=== PATIENT | male | born 1945 | race Caucasian/White ===

== ENCOUNTER 2017-01-13 15:23 | Emergency (ER) | payer MEDICARE, BC ==
[2017-01-13] MEDS ORDERED: diphenhydrAMINE 50 MG/ML SDV IVPUSH ONE (15:56)
[2017-01-13] MEDS ORDERED: Sodium Chloride 0.9% 1,000 ML IV ONE (15:56)
[2017-01-13] MEDS ORDERED: Metoclopramide 10 MG/2 ML SDV IVPUSH ONE (15:56)
[2017-01-13] MEDS ORDERED: Sodium Chloride 0.9% 10 ML Syringe FLUSH PRN (15:56)
--- NOTE | 2017-01-13 16:31 | CT ---
Head CT Technique: Multiple axial sections through the brain were obtained. Intravenous contrast was not utilized. Comparison: Previous head CT study of 04/09/15 and MRI brain of 04/15/15. Findings: Ventricles along with basal cisterns and sulci over the convexities are moderately prominent. Minimal diminished density is noted within the periventricular white matter compatible with small vessel ischemic demyelination change. 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 No other abnormal parenchymal densities are seen. No evidence of intracranial hemorrhage. No midline shift or mass effect is seen. Minimal foreign body or calcification seen within the soft tissues of the forehead which is stable. Bone window settings were reviewed which shows minimal mucosal thickening within the left ethmoid sinus which is incidental. No acute calvarial abnormality is seen. Impression: 1. Senescent change as noted above. Findings are similar to prior head CT exam. 2. Several incidental findings as noted above. 3. No acute intracranial abnormality is identified on noncontrast head CT study. Diagnostic code #3
--- NOTE | 2017-01-13 16:36 | EDM.PDOC ---
ED HPI GENERAL MEDICAL PROBLEM - General Chief Complaint: Headache Stated Complaint: HEADACHE/DIZZY/NAUSEA Time Seen by Provider: 01/13/17 16:26 Source of Information: Reports: Patient History Limitations: Reports: No Limitations - History of Present Illness INITIAL COMMENTS - FREE TEXT/NARRATIVE: 71-year-old male presents for evaluation and treatment of a headache. Reports that the headache started today. He reports the headache is a 10 out of 10. Reports it is generalized and involves his entire head and behind his eyes. States that he's had headaches on and off for the last few days but this is much worse than normal. Reports associated symptoms of dizziness, nausea and vomiting. Has not noticed any positional component to the headache. No worsening with lights or sounds. Reports blurry vision. Denies any double vision or fevers. He reports feeling slightly diaphoretic and a "little chilled. " States he has been coughing lately. His is concerned that he has influenza. Has not had an influenza vaccine this year. Denies any recent travel. Patient is currently on an antibiotic for his upper respiratory symptoms. the patient has a history of CLL. He is been seen the oncologist at [place]. No recent changes to medications. Onset: Today Location: Reports: Head Associated Symptoms: Reports: Cough. 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 Headache Pain Score (Numeric/FACES): 10 - Related Data Allergies Allergy/AdvReac Type Severity Reaction Status Date / Time No Known Allergies Allergy Verified 01/13/17 15:33 Home Meds: Home Meds LORazepam [Ativan] 0.5 mg PO BID PRN 01/27/15 [History] Multivitamin with Minerals [Multiple Vitamin] 1 tab PO DAILY 01/27/15 [History] Omeprazole [Prilosec] 20 mg PO DAILY 01/27/15 [History] Venlafaxine [Effexor XR] 150 mg PO DAILY 01/27/15 [History] Ibrutinib [Imbruvica] 1 tab PO DAILY 01/01/16 [History] Allopurinol [Zyloprim] 300 mg PO DAILY 01/13/17 [History] Cephalexin 500 mg PO TID 01/13/17 [History] Sulfamethoxazole/Trimethoprim [Bactrim Ds Tablet] 1 tab PO TID 01/13/17 [History ] Triamcinolone Acetonide [Triamcinolone Acetonide 0.1% Oint] 1 applic TOP BID [History] Past Medical History Oncologic (Cancer) History: Reports: Other (See Below) Other Oncologic History: CLL Social & Family History - Tobacco Use Smoking Status *Q: Never Smoker Years of Tobacco use: 30 Used Tobacco, but Quit: Yes Month Tobacco Last Used: 6 yrs Second Hand Smoke Exposure: No - Caffeine Use Caffeine Use: Reports: Coffee - Recreational Drug Use Recreational Drug Use: No ED ROS GENERAL - Review of Systems Review Of Systems: See Below Constitutional: Reports: Diaphoresis. Denies: Fever HEENT: Reports: Vision Change (reports blurry vision; no double vision) GI/Abdominal: Reports: Nausea, Vomiting Neurological: Reports: Dizziness, Headache. Denies: Syncope - Physical Exam Exam: See Below Exam Limited By: No Limitations General Appearance: Alert, WD/WN, No Apparent Distress Eye Exam: Bilateral Eye: PERRL Ears: Normal External Exam, Normal Canal, Hearing Grossly Normal, Normal TMs Nose: Normal Inspection Throat/Mouth: Normal Inspection, Normal Lips, Normal Voice, No Airway Compromise Respiratory/Chest: No Respiratory Distress, Lungs Clear, Normal Breath Sounds Cardiovascular: Normal Peripheral Pulses, Regular Rate, Rhythm, No Murmur Neuro Exam (Abbreviated): Alert, Oriented, Normal Cognition Psychiatric: Normal Affect, Normal Mood Skin Exam: Warm, Dry, Normal Color Course - Vital Signs Last Recorded V/S: Last Vital Signs Temp 36.1 C 01/13/17 15:28 Pulse 68 01/13/17 18:40 Resp 18 01/13/17 18:40 BP 121/78 01/13/17 18:40 Pulse Ox 95 01/13/17 18:40 - Orders/Labs/Meds Orders: Active Orders 24 hr Category Date Time Status Peripheral IV Care [RC] . DIRECTED Care 01/13/17 15:57 Ordered Peripheral IV Insertion Adult [OM.PC] Routine Oth 01/13/17 15:56 Ordered Labs: Laboratory Tests 01/13/17 01/13/17 Range/Units 16:20 16:20 WBC 5.20 (4.23-9.07) K/mm3 RBC 3.45 L (4.63-6.08) M/mm3 Hgb 10.3 L (13.7-17.5) gm/L Hct 30.9 L (40.1-51.0) % MCV 89.6 (79.0-92.2) fl MCH 29.9 (25.7-32.2) pg MCHC 33.3 (32.2-35.5) g/dl RDW Std Deviation 51.0 H (35.1-43.9) fL Plt Count 260 (163-337) K/mm3 MPV 8.9 L (9.4-12.3) fl Neut % (Auto) 87.3 H (34.0-67.9) % Lymph % (Auto) 6.7 L (21.8-53.1) % [place] % (Auto) 4.2 L (5.3-12.2) % Eos % (Auto) 0.8 (0.8-7.0) Baso % (Auto) 0.2 (0.1-1.2) % Neut # (Auto) 4.54 (1.78-5.38) K/mm3 Lymph # (Auto) 0.35 L (1.32-3.57) K/mm3 [place] # (Auto) 0.22 L (0.30-0.82) K/mm3 Eos # (Auto) 0.04 (0.04-0.54) K/mm3 Baso # (Auto) 0.01 (0.01-0.08) K/mm3 Manual Slide Review Normal smear Sodium 138 (136-145) mEq/L Potassium 3.9 (3.5-5.1) mEq/L Chloride 103 (98-107) mEq/L Carbon Dioxide 22 (21-32) mEq/L Anion Gap 16.9 H (5-15) BUN 16 (7-18) mg/dL Creatinine 1.3 (0.7-1.3) mg/dL Est Cr Clr Drug Dosing 50.42 mL/min Estimated GFR (MDRD) 54 (>60) mL/min BUN/Creatinine Ratio 12.3 L (14-18) Glucose 103 (83-115) mg/dL Calcium 8.2 L (8.5-10.1) mg/dL Total Bilirubin 0.3 (0.2-1.0) mg/dL AST 18 (15-37) U/L ALT 28 (16-63) U/L Alkaline Phosphatase 101 (46-116) U/L Total Protein 6.4 (6.4-8.2) g/dl Albumin 3.4 (3.4-5.0) g/dl Globulin 3.0 gm/dL Albumin/Globulin Ratio 1.1 (1-2) Meds: Medications Discontinued Medications Generic Name Dose Route Start Last Admin Trade Name Freq PRN Reason Stop Dose Admin Diphenhydramine HCl 50 mg 01/13/17 15:56 01/13/17 16:32 Benadryl IVPUSH 01/13/17 15:57 50 mg ONETIME ONE Administration Sodium Chloride 1,000 mls @ 999 mls/hr 01/13/17 15:56 01/13/17 16:37 Normal Saline IV 01/13/17 16:56 999 mls/hr ONETIME ONE Administration Ketorolac Tromethamine 15 mg 01/13/17 17:05 01/13/17 17:12 Toradol IVPUSH 01/13/17 17:06 15 mg ONETIME ONE Administration Metoclopramide HCl 10 mg 01/13/17 15:56 01/13/17 16:35 Reglan IVPUSH 01/13/17 15:57 10 mg ONETIME ONE Administration Sodium Chloride 10 ml 01/13/17 15:56 01/13/17 16:20 Saline Flush FLUSH 10 ml ASDIRECTED PRN Administration Keep Vein Open - Radiology Interpretation Free Text/Narrative:: CT of the head without contrast impression per Dr. Torres: 1. Senescent change as noted above. Findings are similar to prior head Ct exam. 2. Several incidental findings as noted. 3. No acute intracranial abnormality is identified on noncontrast head Ct study. CT Results Date: 01/13/17 - Re-Assessments/Exams Free Text/Narrative Re-Assessment/Exam: 01/13/17 17:[address] with the patient and his . Awaiting labs. Headache improving. Will give toradol IV for headache relief. 01/13/17 18:29 Labs returned. white Blood cell count 5.20, hemoglobin 10.3, platelets 260. Sodium 130, potassium 3.9, 103. Anion gap 16.9. glucose is 103 Influenza is negative. At this time the patient reports that his headache is a 2. He is comfortable going home at this level. We will discharge him home. Discharge instructions as documented. Departure - Departure Time of Disposition: 18:29 Disposition: Home, Self-Care 01 Condition: good Clinical Impression: Headache, Dehydration, mild - Discharge Information Instructions: General Headache Without Cause, Dehydration, Adult, [id number] Referrals: Santhosh Abebe MD [Primary Care Provider] - Forms: ED Department Discharge Additional Instructions: go home and rest in a dark, quiet room. make sure you are drinking plenty of fluids. Follow up with your primary care provider as needed. please return to the ER if your symptoms change or worsen. - My Orders Last 24 Hours: My Active Orders 01/13/17 15:56 Peripheral IV Insertion Adult [OM.PC] Routine 01/13/17 15:57 Peripheral IV Care [RC] . DIRECTED - Assessment/Plan Last 24 Hours: My Active Orders 01/13/17 15:56 Peripheral IV Insertion Adult [OM.PC] Routine 01/13/17 15:57 Peripheral IV Care [RC] . DIRECTED
[2017-01-13] MEDS ORDERED: Ketorolac 15 MG/ML SDV IVPUSH ONE (17:05)
[2017-01-13 18:58] VITALS: BP 121/78
== END 2017-01-13 18:40 | disposition home or self-care (01) ==
LOC: JD.ED 15:23
DX: R51 Headache (principal); E86.0 Dehydration; Z87.891 Personal history of nicotine dependence; Z79.899 Other long term (current) drug therapy
CPT/HCPCS: 36415; 70450; 80053; 85025; 87804; 96361; 96374; 96375; 99284; J1200; J1885; J2765; J7040; J7050

== ENCOUNTER 2017-08-03 09:33 | Emergency (ER) | payer MEDICARE, BC ==
[2017-08-03] MEDS ORDERED: Aspirin 81 MG Tab.Chew ONE (10:28)
--- NOTE | 2017-08-03 14:17 | CR ---
Chest: Portable view of the chest was obtained. Comparison: Prior chest x-ray of 06/18/13. Right-sided infusion port is seen. Heart size is normal. Tortuous thoracic aorta is seen. Lungs are clear. Surgical clips are seen within the right lateral chest wall. Impression: 1. Right-sided infusion port. Nothing acute is appreciated on portable chest x-ray. Diagnostic code #2
--- NOTE | 2017-08-03 16:37 | EDM.PDOC ---
Addendum entered and electronically signed by Oscar Johnson MD 08/03/17 15:04 : The repeat troponin was negative. I called to let the patient know. Original Note: ED HPI GENERAL MEDICAL PROBLEM - General Chief Complaint: Chest Pain Stated Complaint: CHEST PAIN Time Seen by Provider: 08/03/17 12:11 Source of Information: Reports: Patient, Family History Limitations: Reports: No Limitations - History of Present Illness INITIAL COMMENTS - FREE TEXT/NARRATIVE: The patient presents with chest heaviness. This started yesterday. It comes and goes. It is made worse by deep breathing and movement. He has not had pain like this before. He has no history of [place], HTN or high cholesterol. He was at the clinic at [place] to get blood drawn. He came over here to get evaluated. His labs from there CBC and CMP look good. He denies fever, chills , cough, congestion, abdominal pain, nausea or vomiting. 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 - Related Data Allergies Allergy/AdvReac Type Severity Reaction Status Date / Time No Known Allergies Allergy Verified 01/13/17 15:33 Home Meds: Home Meds LORazepam [Ativan] 0.5 mg PO BID PRN 01/27/15 [History] Multivitamin with Minerals [Multiple Vitamin] 1 tab PO DAILY 01/27/15 [History] Omeprazole [Prilosec] 20 mg PO DAILY 01/27/15 [History] Venlafaxine [Effexor XR] 150 mg PO DAILY 01/27/15 [History] Ibrutinib [Imbruvica] 1 tab PO DAILY 01/01/16 [History] Allopurinol [Zyloprim] 300 mg PO DAILY 01/13/17 [History] Cephalexin 500 mg PO TID 01/13/17 [History] Sulfamethoxazole/Trimethoprim [Bactrim Ds Tablet] 1 tab PO TID 01/13/17 [History ] Triamcinolone Acetonide [Triamcinolone Acetonide 0.1% Oint] 1 applic TOP BID [History] Past Medical History Oncologic (Cancer) History: Reports: Other (See Below) Other Oncologic History: CLL Social & Family History - Tobacco Use Smoking Status *Q: Never Smoker Years of Tobacco use: 30 Used Tobacco, but Quit: Yes Month Tobacco Last Used: 6 yrs Second Hand Smoke Exposure: No - Caffeine Use Caffeine Use: Reports: Coffee - Recreational Drug Use Recreational Drug Use: No ED ROS GENERAL - Review of Systems Review Of Systems: See Below Constitutional: Reports: No Symptoms HEENT: Reports: No Symptoms Respiratory: Reports: No Symptoms Cardiovascular: Reports: Chest Pain Endocrine: Reports: No Symptoms GI/Abdominal: Reports: No Symptoms : Reports: No Symptoms Musculoskeletal: Reports: No Symptoms Skin: Reports: No Symptoms ED EXAM, GENERAL - Physical Exam Exam: See Below Exam Limited By: No Limitations General Appearance: Alert, No Apparent Distress Ears: Normal External Exam Nose: Normal Inspection Head: Atraumatic, Normocephalic Neck: Normal Inspection Respiratory/Chest: No Respiratory Distress, Lungs Clear, Normal Breath Sounds Cardiovascular: Regular Rate, Rhythm, No Edema, No Murmur GI/Abdominal: Soft, Non-Tender, No Organomegaly, No Mass Back Exam: Normal Inspection Extremities: Normal Inspection EKG INTERPRETATION EKG Date: 08/03/17 Time: 09:44 Rhythm: NSR Rate (Beats/Min): 70 [place]: Normal P-Wave: Present QRS: RBBB ST-T: Normal QT: Normal Course - Orders/Labs/Meds Orders: Active Orders 24 hr Category Date Time Status EKG 12 Lead [EKG Documentation Completion] [RC] STAT Care 08/03/17 12:08 Active TROPONIN I [CHEM] Stat Lab 08/03/17 12:08 Ordered - Re-Assessments/Exams Free Text/Narrative Re-Assessment/Exam: 08/03/17 12:19 I ordered aspirin, EKG, and a troponin. His EKG shows a NSR with a RBBB with no acute changes. His CBC and CMP from the clinic look good. His troponin looks good. I will get a repeat EKG and troponin. This appears to be chest wall pain. I can reproduce the pain by palpating his left chest along his sternum. 08/03/17 12:22 His repeat EKG looks good. I will call him with the troponin. Departure - Departure Time of Disposition: 12:25 Disposition: Home, Self-Care 01 Condition: Good Clinical Impression: Atypical chest pain Referrals: Santhosh Abebe MD [Primary Care Provider] - 1 Week Forms: ED Department Discharge Additional Instructions: Take your medication as prescribed. Please return if you are worse. - My Orders Last 24 Hours: My Active Orders 08/03/17 12:08 EKG 12 Lead [EKG Documentation Completion] [RC] STAT TROPONIN I [CHEM] Stat - Assessment/Plan Last 24 Hours: My Active Orders 08/03/17 12:08 EKG 12 Lead [EKG Documentation Completion] [RC] STAT TROPONIN I [CHEM] Stat
== END 2017-08-03 12:52 | disposition home or self-care (01) ==
LOC: SUPCPDRO 09:33 → JD.ED 09:33
DX: R07.89 Other chest pain (principal); Z79.899 Other long term (current) drug therapy
CPT/HCPCS: 36415; 71010; 84484; 93005; 99285; A9270; 93010; 99283-25

== ENCOUNTER 2018-09-22 02:52 | Emergency (ER) | payer MEDICARE, BC ==
--- NOTE | 2018-09-22 03:14 | EDM.PDOC ---
ED HPI GENERAL MEDICAL PROBLEM - General Chief Complaint: Chest Pain Stated Complaint: CHEST PAIN Time Seen by Provider: 09/22/18 03:04 - History of Present Illness INITIAL COMMENTS - FREE TEXT/NARRATIVE: 73-year-old male presents emergency room with chest pain. Patient awoke around 2:00 With chest pressure after awakening with some bad dreams. The patient was scheduled to have a stress test last week had to cancel due to bad weather and was due to see the chicken vaccinator tomorrow to go over the results. Patent patient does not have a history of prior [place] however has had some chest pain in the past a lot of this is been thought to be due to COPD. Patient quit smoking 11 years ago but has an extensive smoking history. He's also had chemotherapy for chronic lymphocytic leukemia. Left Chest Pain Score (Numeric/FACES): 6 - Related Data Allergies Allergy/AdvReac Type Severity Reaction Status Date / Time No Known Allergies Allergy Verified 09/22/18 03:00 Home Meds: Home Meds LORazepam [Ativan] 0.5 mg PO BID PRN 01/27/15 [History] Multivitamin with Minerals [Multiple Vitamin] 1 tab PO DAILY 01/27/15 [History] Omeprazole [Prilosec] 20 mg PO DAILY 01/27/15 [History] Venlafaxine [Effexor XR] 150 mg PO DAILY 01/27/15 [History] Ibrutinib [Imbruvica] 1 tab PO DAILY 01/01/16 [History] Allopurinol [Zyloprim] 300 mg PO DAILY 01/13/17 [History] Famotidine 40 mg PO Q24H #30 tablet 09/22/18 [Rx] Levothyroxine 25 mcg PO DAILY 09/22/18 [History] Past Medical History Oncologic (Cancer) History: Reports: Other (See Below) Other Oncologic History: CLL Social & Family History - Caffeine Use Caffeine Use: Reports: Coffee ED ROS GENERAL - Review of Systems Review Of Systems: See Below Constitutional: Reports: No Symptoms HEENT: Reports: No Symptoms Respiratory: Reports: No Symptoms. Denies: Cough Cardiovascular: Reports: Chest Pain GI/Abdominal: Reports: No Symptoms : Reports: No Symptoms Musculoskeletal: Reports: No Symptoms Skin: Reports: No Symptoms Neurological: Reports: No Symptoms Psychiatric: Reports: Anxiety ED EXAM, GENERAL - Physical Exam Exam: See Below Exam Limited By: No Limitations General Appearance: Alert, No Apparent Distress Eye Exam: Bilateral Eye: Normal Inspection Ears: Normal External Exam, Normal Canal, Hearing Grossly Normal, Normal TMs Nose: Normal Inspection Throat/Mouth: Normal Inspection, Normal Lips, Normal Gums, Normal Oropharynx, Normal Voice, No Airway Compromise Head: Atraumatic, Normocephalic Neck: Normal Inspection, Supple, Non-Tender, Full Range of Motion. No: Lymphadenopathy (L), Lymphadenopathy (R) Respiratory/Chest: No Respiratory Distress, Lungs Clear, Normal Breath Sounds Cardiovascular: Regular Rate, Rhythm, No Edema, No Gallop, No Murmur GI/Abdominal: Normal Bowel Sounds, Soft, Non-Tender Extremities: No Pedal Edema Neurological: Alert, Oriented, Normal Cognition Skin Exam: Warm, Intact Course - Vital Signs Last Recorded V/S: Last Vital Signs Temp 35.4 C 09/22/18 02:58 Pulse 64 09/22/18 02:58 Resp 18 09/22/18 02:58 BP 153/104 H 09/22/18 03:23 Pulse Ox 95 09/22/18 02:58 - Orders/Labs/Meds Orders: Active Orders 24 hr Category Date Time Status EKG 12 Lead [EKG Documentation Completion] [RC] URGENT Care 09/22/18 03:15 Active EKG Documentation Completion [RC] STAT Care 09/22/18 03:19 Active Chest 1V Frontal [CR] Stat Exams 09/22/18 03:18 Taken Nitroglycerin [Nitrostat] Med 09/22/18 03:15 Active 0.4 mg SL Q5M PRN Sodium Chloride 0.9% [Normal Saline] 1,000 ml Med 09/22/18 03:30 Active IV ASDIRECTED Medication Orders Sodium Chloride (Normal Saline) 1,000 mls @ 50 mls/hr IV ASDIRECTED BRIEN Stop: 09/26/18 03:17 Last Admin: 09/22/18 03:28 Dose: 50 mls/hr Nitroglycerin (Nitrostat) 0.4 mg SL Q5M PRN PRN Reason: Chest Pain Last Admin: 09/22/18 03:23 Dose: 0.4 mg Labs: Laboratory Tests 09/22/18 09/22/18 09/22/18 Range/Units 03:05 03:05 03:35 WBC 4.66 (4.23-9.07) K/mm3 RBC 4.98 (4.63-6.08) M/mm3 Hgb 14.0 (13.7-17.5) gm/L Hct 41.6 (40.1-51.0) % MCV 83.5 (79.0-92.2) fl MCH 28.1 (25.7-32.2) pg MCHC 33.7 (32.2-35.5) g/dl RDW Std Deviation 45.1 H (35.1-43.9) fL Plt Count 224 (163-337) K/mm3 MPV 9.6 (9.4-12.3) fl Neutrophils % (Manual) 80 H (40-60) % Band Neutrophils % 0 (0-10) % Lymphocytes % (Manual) 13 L (20-40) % Atypical Lymphs % 0 % Monocytes % (Manual) 5 (2-10) % Eosinophils % (Manual) 0 L (0.8-7.0) % Basophils % (Manual) 2 H (0.2-1.2) Platelet Estimate Adequate Plt Morphology Comment Normal RBC Morph Comment Normal PT 10.3 (9.5-12.1) SECONDS INR 0.94 APTT 31 (24-31) SECONDS Sodium 138 (136-145) mEq/L Potassium 4.4 (3.5-5.1) mEq/L Chloride 103 (98-107) mEq/L Carbon Dioxide 26 (21-32) mEq/L Anion Gap 13.4 (5-15) BUN 15 (7-18) mg/dL Creatinine 1.3 (0.7-1.3) mg/dL Est Cr Clr Drug Dosing 50.61 mL/min Estimated GFR (MDRD) 54 (>60) mL/min BUN/Creatinine Ratio 11.5 L (14-18) Glucose 90 (83-115) mg/dL Calcium 8.9 (8.5-10.1) mg/dL Total Bilirubin 0.8 (0.2-1.0) mg/dL AST 19 (15-37) U/L ALT 19 (16-63) U/L Alkaline Phosphatase 107 (46-116) U/L Troponin I < 0.017 (0.00-0.056) ng/mL Total Protein 7.0 (6.4-8.2) g/dl Albumin 3.8 (3.4-5.0) g/dl Globulin 3.2 gm/dL Albumin/Globulin Ratio 1.2 (1-2) 09/22/18 Range/Units 05:28 WBC (4.23-9.07) K/mm3 RBC (4.63-6.08) M/mm3 Hgb (13.7-17.5) gm/L Hct (40.1-51.0) % MCV (79.0-92.2) fl MCH (25.7-32.2) pg MCHC (32.2-35.5) g/dl RDW Std Deviation (35.1-43.9) fL Plt Count (163-337) K/mm3 MPV (9.4-12.3) fl Neutrophils % (Manual) (40-60) % Band Neutrophils % (0-10) % Lymphocytes % (Manual) (20-40) % Atypical Lymphs % % Monocytes % (Manual) (2-10) % Eosinophils % (Manual) (0.8-7.0) % Basophils % (Manual) (0.2-1.2) Platelet Estimate Plt Morphology Comment RBC Morph Comment PT (9.5-12.1) SECONDS INR APTT (24-31) SECONDS Sodium (136-145) mEq/L Potassium (3.5-5.1) mEq/L Chloride (98-107) mEq/L Carbon Dioxide (21-32) mEq/L Anion Gap (5-15) BUN (7-18) mg/dL Creatinine (0.7-1.3) mg/dL Est Cr Clr Drug Dosing mL/min Estimated GFR (MDRD) (>60) mL/min BUN/Creatinine Ratio (14-18) Glucose (83-115) mg/dL Calcium (8.5-10.1) mg/dL Total Bilirubin (0.2-1.0) mg/dL AST (15-37) U/L ALT (16-63) U/L Alkaline Phosphatase (46-116) U/L Troponin I < 0.017 (0.00-0.056) ng/mL Total Protein (6.4-8.2) g/dl Albumin (3.4-5.0) g/dl Globulin gm/dL Albumin/Globulin Ratio (1-2) Meds: Medications Generic Name Dose Route Start Last Admin Trade Name Freq PRN Reason Stop Dose Admin Sodium Chloride 1,000 mls @ 50 mls/hr 09/22/18 03:30 09/22/18 03:28 Normal Saline IV 09/26/18 03:17 50 mls/hr ASDIRECTED BRIEN Administration Nitroglycerin 0.4 mg 09/22/18 03:15 09/22/18 03:23 Nitrostat SL 0.4 mg Q5M PRN Administration Chest Pain Discontinued Medications Generic Name Dose Route Start Last Admin Trade Name Freq PRN Reason Stop Dose Admin Aspirin 324 mg 09/22/18 03:15 09/22/18 03:21 Aspirin PO 09/22/18 03:16 324 mg ONETIME ONE Administration Al Hydroxide/Mg Hydroxide 30 0 ml 09/22/18 03:54 09/22/18 04:00 ml/ Lidocaine HCl 15 ml PO 09/22/18 03:55 45 ml ONETIME ONE Administration Famotidine 20 mg 09/22/18 05:48 09/22/18 06:02 Pepcid PO 09/22/18 05:49 20 mg ONETIME ONE Administration - Re-Assessments/Exams Free Text/Narrative Re-Assessment/Exam: 09/22/18 04:03 Patient had resolution of the chest pressure with a single nitroglycerin however he still has some epigastric discomfort we'll try a GI cocktail 09/22/18 05:47 A she is now pain-free he had improvement with this chest pressure with a single nitroglycerin not returned he was given a GI cocktail and had improvement his upper abdominal pain. At this point were awaiting a second troponin. Anticipate starting him on famotidine. He is on Prilosec but very well could have atrophic gastritis that does not improve with PPI 09/22/18 06:22 Second troponin is negative we will discharge with prescription for famotidine. Departure - Departure Time of Disposition: 06:23 Disposition: Home, Self-Care 01 Clinical Impression: Chest pain due to GERD, Atrophic gastritis without hemorrhage Prescriptions: Famotidine 40 mg PO Q24H #30 tablet Referrals: Santhosh Abebe MD [Primary Care Provider] - Forms: ED Department Discharge Additional Instructions: Return to emergency room if any questions problems worsening symptoms. Follow-up with your chicken vaccinator as soon as you can and get your stress test done. Follow-up with your regular doctor this next week. Take the famotidine as directed. Continue your regular medications - My Orders Last 24 Hours: My Active Orders 09/22/18 03:15 EKG 12 Lead [EKG Documentation Completion] [RC] URGENT Nitroglycerin [Nitrostat] 0.4 mg SL Q5M PRN 09/22/18 03:18 Chest 1V Frontal [CR] Stat 09/22/18 03:19 EKG Documentation Completion [RC] STAT 09/22/18 03:30 Sodium Chloride 0.9% [Normal Saline] 1,000 ml IV ASDIRECTED - Assessment/Plan Last 24 Hours: My Active Orders 09/22/18 03:15 EKG 12 Lead [EKG Documentation Completion] [RC] URGENT Nitroglycerin [Nitrostat] 0.4 mg SL Q5M PRN 09/22/18 03:18 Chest 1V Frontal [CR] Stat 09/22/18 03:19 EKG Documentation Completion [RC] STAT 09/22/18 03:30 Sodium Chloride 0.9% [Normal Saline] 1,000 ml IV ASDIRECTED
[2018-09-22] MEDS ORDERED: Nitroglycerin 0.4 MG Tab.SL SL PRN (03:15)
[2018-09-22] MEDS ORDERED: Aspirin 81 MG Tab.Chew PO ONE (03:15)
[2018-09-22 03:25] VITALS: BP 153/104
[2018-09-22] MEDS ORDERED: Sodium Chloride 0.9% 1,000 ML IV SCH (03:30)
[2018-09-22] MEDS ORDERED: Alum Hydrox/Mag Hydrox/Simeth 30 ML, Lidocaine 2% 15 ML PO ONE ×2 (03:54)
[2018-09-22] MEDS ORDERED: Famotidine 20 MG Tab PO ONE (05:48)
--- NOTE | 2018-09-23 10:27 | CR ---
Chest: Frontal view of the chest was obtained. Comparison: Prior chest x-ray of 08/03/17. Heart size is normal. Tortuous thoracic aorta is seen. Right-sided infusion port is noted which is stable in position from prior exam. Lungs are clear with no acute parenchymal change. Slight scoliosis is noted within the spine. Degenerative change is noted within the shoulders and within the spine. Mild scoliosis is seen. Surgical clips are incidentally noted within the right axillary region. Impression: 1. Incidental findings which are stable. Nothing acute is appreciated on frontal chest x-ray. Diagnostic code #2
== END 2018-09-22 06:35 | disposition home or self-care (01) ==
LOC: JD.ED 02:52
DX: K21.9 Gastro-esophageal reflux disease without esophagitis (principal); K29.40 Chronic atrophic gastritis without bleeding; Z79.899 Other long term (current) drug therapy
CPT/HCPCS: 36415; 71045; 80053; 84484; 85007; 85027; 85610; 85730; 93005; 96360; 96361; 99285; A9270; J7040; 93010; 99284

== ENCOUNTER 2018-10-26 20:37 | Emergency (ER) | payer MEDICARE, BC ==
[2018-10-26 20:51] VITALS: BP 175/97
--- NOTE | 2018-10-26 21:36 | EDM.PDOC ---
ED HPI GENERAL MEDICAL PROBLEM - General Chief Complaint: Respiratory Problem Stated Complaint: short of breath Time Seen by Provider: 10/26/18 20:48 Source of Information: Reports: Patient, Family (), RN Notes Reviewed History Limitations: Reports: No Limitations - History of Present Illness INITIAL COMMENTS - FREE TEXT/NARRATIVE: Obtaining a history from this patient was difficult, as he is somewhat hostile. The patient's took me aside and apologized for his behavior, stating that he is stubborn, and that she is "through with it". She stated that the patient complains to her and to multiple family members, yells at the doctor's, but then doesn't follow-up or follow their instructions. She states that he has a history of anxiety, which she feels likely plays a big role in his problems. The patient states that he has had nasal congestion waxing and waning for the past 10 years. He states that he has undergone multiple medical evaluations, although he cannot say what types of doctors he has been seen by, only that no diagnosis has been made. When asked about using [id number] nasal decongestant sprays, he initially stated that he has not, but then stated that he has tried them, but that they don't work. When asked when he most recently used one, he stated just 2 days ago. The patient states that he developed a hoarse voice yesterday. He states that he was seen at the walk-in clinic earlier this morning, and that a rapid strep test was negative. He was apparently prescribed doxycycline for a "sinus problem " and sore throat. He now presents to the ED stating that he was woken from sleep tonight with the sensation that he was choking on mucus, along with coughing. He states that he thought he was going to . No recent fever. No recent purulent nasal drainage or halitosis. No facial or sinus pain or pressure. No recent arthralgias or myalgias. The patient's states the patient was diagnosed with pneumonia earlier this year, that he was treated with oral outpatient antibiotics, and his symptoms resolved. He states, however, that his current symptoms are not like those of his pneumonia. The patient states that he had an appointment to see an ENT about 3 weeks ago, but he did not go, and he has not made a repeat appointment. The patient's PCP is Dr. Abebe. Nose Pain Score (Numeric/FACES): 8 - Related Data Allergies Allergy/AdvReac Type Severity Reaction Status Date / Time No Known Allergies Allergy Verified 09/22/18 03:00 Home Meds: Home Meds LORazepam [Ativan] 0.5 mg PO BID PRN 01/27/15 [History] Multivitamin with Minerals [Multiple Vitamin] 1 tab PO DAILY 01/27/15 [History] Omeprazole [Prilosec] 20 mg PO DAILY 01/27/15 [History] Venlafaxine [Effexor XR] 150 mg PO DAILY 01/27/15 [History] Ibrutinib [Imbruvica] 1 tab PO DAILY 01/01/16 [History] Allopurinol [Zyloprim] 300 mg PO DAILY 01/13/17 [History] Famotidine 40 mg PO Q24H #30 tablet 09/22/18 [Rx] Levothyroxine 25 mcg PO DAILY 09/22/18 [History] Past Medical History Cardiovascular History: Reports: Hypertension Gastrointestinal History: Reports: GERD (suspected) Psychiatric History: Reports: Anxiety, Depression Endocrine/Metabolic History: Reports: Hypothyroidism Oncologic (Cancer) History: Reports: Leukemia (CLL, s/p CTx) - Past Surgical History HEENT Surgical History: Reports: Oral Surgery (Dental extractions -> edentulous) , Tonsillectomy Respiratory Surgical History: Reports: Other (See Below) (Bronchoscopy) GI Surgical History: Reports: Hernia, Inguinal (left) Social & Family History - Family History Family Medical History: Noncontributory - Tobacco Use Smoking Status *Q: Former Smoker Years of Tobacco use: 40 Packs/Tins Daily: 1 Month/Year Tobacco Last Used: Quit 2003 - Caffeine Use Caffeine Use: Reports: Coffee - Alcohol Use Alcohol Use History: Yes Alcohol Use Frequency: Rarely - Recreational Drug Use Recreational Drug Use: No - Living Situation & Occupation Living situation: Reports: , with Spouse Occupation: Retired ED ROS GENERAL - Review of Systems Review Of Systems: ROS reveals no pertinent complaints other than HPI. ED EXAM, GENERAL - Physical Exam Exam: See Below Exam Limited By: No Limitations General Appearance: Alert, WD/WN, No Apparent Distress Eye Exam: Bilateral Eye: EOMI, Normal Inspection Ears: Normal External Exam, Normal Canal, Normal TMs, Hearing Loss Nose: Normal Inspection, No Blood, Nasal Swelling (Right nasal mucosa edema) Throat/Mouth: Normal Inspection, Normal Lips, Normal Gums, Normal Oropharynx, No Airway Compromise, Other (Edentulous. Hoarse voice.) Head: Atraumatic, Normocephalic Neck: Normal Inspection, Supple, Non-Tender, Full Range of Motion. No: Lymphadenopathy (L), Lymphadenopathy (R) Respiratory/Chest: No Respiratory Distress, Lungs Clear, Normal Breath Sounds, No Accessory Muscle Use. No: Decreased Breath Sounds, Crackles, Rhonchi, Wheezing, Prolonged Expiration Cardiovascular: Normal Peripheral Pulses, Regular Rate, Rhythm, No Edema, No Gallop, No JVD, No Murmur, No Rub Peripheral Pulses: 4+: Radial (L), Radial (R) GI/Abdominal: Normal Bowel Sounds, Soft, Non-Tender, No Organomegaly, No Distention, No Abnormal Bruit, No Mass (Male) Exam: Deferred Rectal (Males) Exam: Deferred Back Exam: Normal Inspection, Full Range of Motion, NT Extremities: Normal Inspection, Normal Range of Motion, No Pedal Edema, Normal Capillary Refill Neurological: Alert, Oriented, Normal Cognition, No Motor/Sensory Deficits Psychiatric: Anxious Skin Exam: Warm, Dry, Intact, Normal Color, No Rash Course - Vital Signs Last Recorded V/S: Last Vital Signs Temp 37.1 C 10/26/18 20:45 Pulse 78 10/26/18 20:45 Resp 16 10/26/18 20:45 BP 175/97 H 10/26/18 20:45 Pulse Ox 96 10/26/18 20:45 - Re-Assessments/Exams Free Text/Narrative Re-Assessment/Exam: 10/26/18 21:30 The patient has right nasal mucosal edema, otherwise, his examination is unremarkable. Clinically, he appears to have a viral URI, which may be responsible for increased sinus mucus production and a hoarse voice, but I do not see any sign of a bacterial infection. Going forward, I am recommending that the patient discontinue the doxycycline. I am advising against any over-the -counter cough or cold remedies, including nasal decongestant sprays, as he reports that they have not been beneficial in the past. That being said, in my discussion with the patient's , it does not sound like the patient abuses nasal decongestant sprays. I was concerned about rebound hyperemia, but she stated that he only used the nasal decongestant spray about 4 times. A nasal steroid may very well be an option, but I would prefer that the patient see an ENT first, rather than the patient trying a number of treatments without a diagnosis This facility does not have a visiting ENT, however, I am told that [facility] does. I am recommending that the patient follow-up with their ENT when available. Departure - Departure Time of Disposition: 21:32 Disposition: Home, Self-Care 01 Condition: Good Clinical Impression: Viral URI with cough - Discharge Information *PRESCRIPTION DRUG MONITORING PROGRAM REVIEWED*: Not Applicable *COPY OF PRESCRIPTION DRUG MONITORING REPORT IN PATIENT SOM: Not Applicable Referrals: Santhosh Abebe MD [Primary Care Provider] - Additional Instructions: You were seen in the emergency room after waking up tonight with a sensation of choking on mucus, and coughing. On examination, you have nasal mucosal edema of the right nostril, however, no other abnormalities were found. Based on your history and physical examination, you are most likely suffering from a viral URI, also known as a common cold. As explained, there are no treatments for a common cold - it will have to run its course. As discussed, there is no sign that you have a bacterial infection, therefore we are recommending that you stop taking the doxycycline. We recommend that you throw the remaining pills in the trash - do not flush them down the toilet. As discussed, we do not recommend that you take any [id number] cough or cold remedies, as they have been shown to be of no benefit. In your case, we also advised against continuing to use a nasal decongestant spray until you have been evaluated by an ENT. We recommend that you follow-up with the visiting ENT at [facility], at the next available appointment, to get a proper diagnosis of the cause of your chronic nasal congestion. If any other problems, please do not hesitate to return to the ER.
== END 2018-10-26 21:45 | disposition home or self-care (01) ==
LOC: JD.ED 20:37
DX: J06.9 Acute upper respiratory infection, unspecified (principal); I10 Essential (primary) hypertension; K21.9 Gastro-esophageal reflux disease without esophagitis; F41.9 Anxiety disorder, unspecified; F32.9 Major depressive disorder, single episode, unspecified; E03.9 Hypothyroidism, unspecified; Z79.899 Other long term (current) drug therapy; Z87.891 Personal history of nicotine dependence
CPT/HCPCS: 99282; 99283

== ENCOUNTER 2018-12-04 14:25 | Inpatient (IN) | payer MEDICARE, BC ==
[2018-12-04] MEDS ORDERED: Sodium Chloride 0.9% 10 ML Syringe FLUSH PRN (14:46)
[2018-12-04] MEDS ORDERED: HYDROmorphone 0.5 MG/0.5 ML Syringe IVPUSH ONE ×4 (14:50→19:12)
[2018-12-04] MEDS ORDERED: Ketorolac 15 MG/ML SDV IVPUSH ONE (14:50)
--- NOTE | 2018-12-04 17:03 | EDM.PDOC ---
ED HPI GENERAL MEDICAL PROBLEM - General Chief Complaint: Upper Extremity Injury/Pain Stated Complaint: RT ARM SWOLLEN AND PAINFUL Time Seen by Provider: 12/04/18 14:33 Source of Information: Reports: Patient, Family History Limitations: Reports: No Limitations - History of Present Illness INITIAL COMMENTS - FREE TEXT/NARRATIVE: The patient presents with right wrist and hand pain. He says this started last night about midnight. He did not injure it in anyway. He said something like this happened in 2009. He was told it was related to his CLL. He is currently being treated for the CLL with oral medications. He has erythema of the area also. He denies, fever, chills, chest pain, shortness of breath, abdominal pain , nausea or vomiting. He has no history of DVT, PE or gout. 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 The patient is right handed. Onset: Gradual Duration: Hour(s): Location: Reports: Upper Extremity, Right (wrist and hand) Quality: Reports: Sharp Severity: Severe Improves with: Reports: None Worsens with: Reports: None Associated Symptoms: Reports: No Other Symptoms Treatments TIRE FABRIC IMPREGNATING RANGE TENDER: Reports: Acetaminophen, Aspirin Right Lower Arm Pain Score (Numeric/FACES): 10 - Related Data Allergies Allergy/AdvReac Type Severity Reaction Status Date / Time No Known Allergies Allergy Verified 12/04/18 14:36 Home Meds: Home Meds LORazepam [Ativan] 0.5 mg PO BID PRN 01/27/15 [History] Multivitamin with Minerals [Multiple Vitamin] 1 tab PO DAILY 01/27/15 [History] Omeprazole [Prilosec] 20 mg PO DAILY 01/27/15 [History] Venlafaxine [Effexor XR] 150 mg PO DAILY 01/27/15 [History] Ibrutinib [Imbruvica] 1 tab PO DAILY 01/01/16 [History] Allopurinol [Zyloprim] 300 mg PO DAILY 01/13/17 [History] Famotidine 40 mg PO Q24H #30 tablet 09/22/18 [Rx] Levothyroxine 25 mcg PO DAILY 09/22/18 [History] Past Medical History Cardiovascular History: Reports: Hypertension Gastrointestinal History: Reports: GERD Neurological History: Reports: Other (See Below) Other Neuro History: nerve pain Psychiatric History: Reports: Anxiety, Depression Endocrine/Metabolic History: Reports: Hypothyroidism Oncologic (Cancer) History: Reports: Leukemia Other Oncologic History: CLL - Past Surgical History HEENT Surgical History: Reports: Oral Surgery, Tonsillectomy Respiratory Surgical History: Reports: Other (See Below) GI Surgical History: Reports: Hernia, Inguinal Social & Family History - Family History Family Medical History: Noncontributory - Tobacco Use Smoking Status *Q: Never Smoker - Caffeine Use Caffeine Use: Reports: Coffee - Recreational Drug Use Recreational Drug Use: No - Living Situation & Occupation Living situation: Reports: , with Spouse Occupation: Retired Review of Systems - Review of Systems Review Of Systems: See Below Constitutional: Reports: No Symptoms Eyes: Reports: No Symptoms Ears: Reports: No Symptoms Nose: Reports: No Symptoms Mouth/Throat: Reports: No Symptoms Respiratory: Reports: No Symptoms Cardiovascular: Reports: No Symptoms GI/Abdominal: Reports: No Symptoms Genitourinary: Reports: No Symptoms Musculoskeletal: Reports: Other (Right wrist and hand pain and swelling) ED EXAM, GENERAL - Physical Exam Exam: See Below Exam Limited By: No Limitations General Appearance: Alert, No Apparent Distress Ears: Normal External Exam Nose: Normal Inspection Head: Atraumatic, Normocephalic Neck: Normal Inspection Respiratory/Chest: No Respiratory Distress, Lungs Clear, Normal Breath Sounds Cardiovascular: Regular Rate, Rhythm, No Edema, No Murmur GI/Abdominal: Soft, Non-Tender, No Organomegaly, No Mass Back Exam: Normal Inspection Extremities: Other (Pain upon palpation to the right wrist and hand with erythema and edema. Good sensation and pulses distally.) ED TRAUMA EXTREMITY PROCEDURES - I&D Site: Dorsum of right hand Skin Prep: Chlorhexidine (Hibiciens) Local Anesthesia: Lidocaine: Other (LET) Area Incised With: Needle Drainage: Small Amount, Other (yellow clear) Complications: No Course - Vital Signs Last Recorded V/S: Last Vital Signs Temp 98.0 F 12/04/18 14:36 Pulse 96 12/04/18 14:36 Resp 18 12/04/18 14:36 BP 200/106 H 12/04/18 14:36 Pulse Ox 97 12/04/18 14:36 - Orders/Labs/Meds Orders: Active Orders 24 hr Category Date Time Status Cardiac Monitoring [RC] . DIRECTED Care 12/04/18 14:46 Active Peripheral IV Care [RC] . DIRECTED Care 12/04/18 14:47 Active VL Duplex Upr Ext Veins Ltd Rt [US] Stat Exams 12/04/18 14:52 Taken Wrist Comp Min 3V Rt [CR] Stat Exams 12/04/18 14:51 Taken CULTURE ANAEROBIC + SMEAR [RM] Stat Lab 12/04/18 18:12 Ordered Sodium Chloride 0.9% [Saline Flush] Med 12/04/18 14:46 Active 10 ml FLUSH ASDIRECTED PRN Vancomycin 2 gm Med 12/04/18 18:18 Active Sodium Chloride 0.9% [Normal Saline] 250 ml IV ONETIME Durable Medical Equipment for Discharge [DME for Oth 12/04/18 18:37 Ordered Discharge] [COMM] Stat Peripheral IV Insertion Adult [OM.PC] Stat Oth 12/04/18 14:46 Ordered Medication Orders Vancomycin HCl 2 gm/ Sodium (Chloride) 250 mls @ 250 mls/hr IV ONETIME ONE Stop: 12/04/18 19:17 Last Admin: 12/04/18 18:29 Dose: Not Given Sodium Chloride (Saline Flush) 10 ml FLUSH ASDIRECTED PRN PRN Reason: Keep Vein Open Last Admin: 12/04/18 14:55 Dose: 10 ml Labs: Laboratory Tests 12/04/18 12/04/18 12/04/18 Range/Units 14:15 14:15 14:15 WBC 4.26 (4.23-9.07) K/mm3 RBC 4.22 L (4.63-6.08) M/mm3 Hgb 11.9 L D (13.7-17.5) gm/L Hct 35.8 L (40.1-51.0) % MCV 84.8 (79.0-92.2) fl MCH 28.2 (25.7-32.2) pg MCHC 33.2 (32.2-35.5) g/dl RDW Std Deviation 44.7 H (35.1-43.9) fL Plt Count 206 (163-337) K/mm3 MPV 8.8 L (9.4-12.3) fl Neut % (Auto) 67.9 (34.0-67.9) % Lymph % (Auto) 14.8 L (21.8-53.1) % Stephens % (Auto) 12.4 H (5.3-12.2) % Eos % (Auto) 4.2 (0.8-7.0) Baso % (Auto) 0.2 (0.1-1.2) % Neut # (Auto) 2.89 (1.78-5.38) K/mm3 Lymph # (Auto) 0.63 L (1.32-3.57) K/mm3 Stephens # (Auto) 0.53 (0.30-0.82) K/mm3 Eos # (Auto) 0.18 (0.04-0.54) K/mm3 Baso # (Auto) 0.01 (0.01-0.08) K/mm3 ESR 16 H (0-15) mm/hr Sodium 139 (136-145) mEq/L Potassium 3.8 (3.5-5.1) mEq/L Chloride 106 (98-107) mEq/L Carbon Dioxide 25 (21-32) mEq/L Anion Gap 11.8 (5-15) BUN 15 (7-18) mg/dL Creatinine 1.3 (0.7-1.3) mg/dL Est Cr Clr Drug Dosing 50.61 mL/min Estimated GFR (MDRD) 54 (>60) mL/min BUN/Creatinine Ratio 11.5 L (14-18) Glucose 132 H (83-115) mg/dL Uric Acid 5.9 (3.5-7.2) mg/dL Calcium 8.5 (8.5-10.1) mg/dL Total Bilirubin 0.4 (0.2-1.0) mg/dL AST 10 L (15-37) U/L ALT 15 L (16-63) U/L Alkaline Phosphatase 96 (46-116) U/L C-Reactive Protein 3.4 H* (<1.0) mg/dL Total Protein 5.6 L (6.4-8.2) g/dl Albumin 3.0 L (3.4-5.0) g/dl Globulin 2.6 gm/dL Albumin/Globulin Ratio 1.2 (1-2) Meds: Medications Generic Name Dose Route Start Last Admin Trade Name Freq PRN Reason Stop Dose Admin Vancomycin HCl 2 gm/ Sodium 250 mls @ 250 mls/hr 12/04/18 18:18 12/04/18 18: 29 Chloride IV 12/04/18 19:17 Not Given ONETIME ONE Sodium Chloride 10 ml 12/04/18 14:46 12/04/18 14:55 Saline Flush FLUSH 10 ml ASDIRECTED PRN Administration Keep Vein Open Discontinued Medications Generic Name Dose Route Start Last Admin Trade Name Placidoq PRN Reason Stop Dose Admin Hydromorphone HCl 0.5 mg 12/04/18 14:50 12/04/18 14:58 Dilaudid IVPUSH 12/04/18 14:51 0.5 mg ONETIME ONE Administration Hydromorphone HCl 0.5 mg 12/04/18 16:03 12/04/18 16:08 Dilaudid IVPUSH 12/04/18 16:04 0.5 mg ONETIME ONE Administration Hydromorphone HCl 0.5 mg 12/04/18 18:10 12/04/18 18:17 Dilaudid IVPUSH 12/04/18 18:11 0.5 mg ONETIME ONE Administration Vancomycin HCl 1.75 gm/ Sodium 250 mls @ 250 mls/hr 12/04/18 18:11 12/04/18 18:28 Chloride IV 12/04/18 19:10 250 mls/hr ONETIME ONE Administration Ketorolac Tromethamine 15 mg 12/04/18 14:50 12/04/18 14:55 Toradol IVPUSH 12/04/18 14:51 15 mg ONETIME ONE Administration Lidocaine/Tetracaine 3 ml 12/04/18 17:15 12/04/18 17:20 Let Soln TOP 12/04/18 17:16 3 ml ONETIME ONE Administration Methylprednisolone Sodium Succinate 125 mg 12/04/18 18:36 12/04/18 19:04 Solu-Medrol IVPUSH 12/04/18 18:37 125 mg ONETIME ONE Administration - Re-Assessments/Exams Free Text/Narrative Re-Assessment/Exam: 12/04/18 17:02 I ordered an IV saline lock, dilaudid 0.5mg IV, toradol 0.15mg IV, labs, x-ray of his wrist and us of his right arm to look for DVT. 12/04/18 17:04 The x-ray of his hand shows some arthritis. His WBC is normal. His Hgb is low at 11.9. His glucose is 132. His CRP is elevated at 3.4. His ESR and uric acid are normal. 12/04/18 19:14 The US of his arm shows fluid collection is noted along the dorsal aspect of the hand measuring approximately 2.1 X 2 X 0.7cm. No evidence of DVT. I was able to drain the some fluid from it and it was yellow and clear like synovial fluid but I was not in the joint. I sent if for culture. He is having more pain. He got toradol when he came in with dilaudid and a few more doses after. I will splint his wrist and I feel this may be cellulitis so I ordered vancomycin 1.75grams. I do not feel I can send him home at this time. I called Dr Araujo and she agreed to the admission. Departure - Departure Time of Disposition: 19:25 Disposition: Admitted As Inpatient 66 Condition: Fair Clinical Impression: Cellulitis of right arm, Right wrist pain, Right arm pain - Discharge Information Referrals: Santhosh Abebe MD [Primary Care Provider] - Forms: ED Department Discharge - My Orders Last 24 Hours: My Active Orders 12/04/18 14:46 Cardiac Monitoring [RC] . DIRECTED Sodium Chloride 0.9% [Saline Flush] 10 ml FLUSH ASDIRECTED PRN Peripheral IV Insertion Adult [OM.PC] Stat 12/04/18 14:47 Peripheral IV Care [RC] . DIRECTED 12/04/18 14:51 Wrist Comp Min 3V Rt [CR] Stat 12/04/18 14:52 VL Duplex Upr Ext Veins Ltd Rt [US] Stat 12/04/18 18:12 CULTURE ANAEROBIC + SMEAR [RM] Stat 12/04/18 18:18 Vancomycin 2 gm Sodium Chloride 0.9% [Normal Saline] 250 ml IV ONETIME 12/04/18 18:37 Durable Medical Equipment for Discharge [DME for Discharge] [COMM] Stat - Assessment/Plan Last 24 Hours: My Active Orders 12/04/18 14:46 Cardiac Monitoring [RC] . DIRECTED Sodium Chloride 0.9% [Saline Flush] 10 ml FLUSH ASDIRECTED PRN Peripheral IV Insertion Adult [OM.PC] Stat 12/04/18 14:47 Peripheral IV Care [RC] . DIRECTED 12/04/18 14:51 Wrist Comp Min 3V Rt [CR] Stat 12/04/18 14:52 VL Duplex Upr Ext Veins Ltd Rt [US] Stat 12/04/18 18:12 CULTURE ANAEROBIC + SMEAR [RM] Stat 12/04/18 18:18 Vancomycin 2 gm Sodium Chloride 0.9% [Normal Saline] 250 ml IV ONETIME 12/04/18 18:37 Durable Medical Equipment for Discharge [DME for Discharge] [COMM] Stat
[2018-12-04] MEDS ORDERED: EPINEPHrine/Lidocaine/Tetracai 3 ML ML TOP ONE (17:15)
[2018-12-04] MEDS ORDERED: methylPREDNISolone Sodium Succinate 125 MG/2 ML SDV IVPUSH ONE (18:36)
--- NOTE | 2018-12-04 21:23 | PCM.HP ---
H&P History of Present Illness - General Date of Service: 12/04/18 Admit Problem/Dx: Admission Diagnosis/Problem Admission Diagnosis/Problem Cellulitis Source of Information: Patient, Family, Provider History Limitations: Reports: No Limitations - History of Present Illness Initial Comments - Free Text/Narative: 73 year old patient describes sudden onset of painful RUE on the day of admission, he denies recent trauma or injury. Neurovascular is intact, there is no sign of compartment syndrome; he will be admitted for RUE cellulitis. The patient is a full code. Onset of Symptoms: Reports: Sudden Symptom Onset Date: 12/04/18 Duration of Symptoms: Reports: Hour(s): Location: Reports: Upper Extremity, Right Quality: Reports: Pressure Severity: Moderate Improves with: Reports: Medication Worsens with: Reports: Movement Associated Symptoms: Reports: No Other Symptoms Right Lower Arm Pain Score (Numeric/FACES): 10 - Related Data Allergies/Adverse Reactions: Allergies Allergy/AdvReac Type Severity Reaction Status Date / Time No Known Allergies Allergy Verified 12/04/18 21:27 Home Medications: Home Meds LORazepam [Ativan] 1 mg PO 07,12 PRN 01/27/15 [History] Multivitamin with Minerals [Multiple Vitamin] 1 tab PO DAILY 01/27/15 [History] Omeprazole [Prilosec] 20 mg PO 07,12 01/27/15 [History] Venlafaxine [Effexor XR] 150 mg PO DAILY 01/27/15 [History] Ibrutinib [Imbruvica] 420 mg PO DAILY 01/01/16 [History] Aspirin [Halfprin] 81 mg PO DAILY 12/04/18 [History] Calcium Citrate/Vitamin D3 [Calcium Citrate - Vit D3 Tab] 1 tab PO DAILY [History] Ferrous Sulfate [Iron] 325 mg PO DAILY 12/04/18 [History] Loperamide HCl [Loperamide] 2 mg PO QID PRN 12/04/18 [History] Metoprolol Succinate [Toprol XL] 25 mg PO DAILY 12/04/18 [History] hydrOXYzine pamoate [Hydroxyzine Pamoate] 50 mg PO TID PRN 12/04/18 [History] Past Medical History Cardiovascular History: Reports: CAD, Hypertension, Other (See Below) Other Cardiovascular History: "might have a partially clogged artery somewhere" Respiratory History: Reports: COPD Gastrointestinal History: Reports: GERD Neurological History: Reports: Other (See Below) Other Neuro History: nerve pain. 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 Psychiatric History: Reports: Anxiety, Depression Endocrine/Metabolic History: Reports: Hypothyroidism Oncologic (Cancer) History: Reports: Leukemia Other Oncologic History: CLL Dermatologic History: Reports: Other (See Below) Other Dermatologic History: Rash last three days. - Infectious Disease History Infectious Disease History: Reports: C-Difficile - Past Surgical History HEENT Surgical History: Reports: Oral Surgery, Tonsillectomy GI Surgical History: Reports: Hernia, Inguinal Social & Family History - Family History Family Medical History: Noncontributory - Tobacco Use Smoking Status *Q: Former Smoker Years of Tobacco use: 40 Packs/Tins Daily: 1 Used Tobacco, but Quit: Yes Month/Year Tobacco Last Used: 2009 - Caffeine Use Caffeine Use: Reports: Coffee, Soda - Recreational Drug Use Recreational Drug Use: No - Living Situation & Occupation Living situation: Reports: , with Spouse Occupation: Retired H&P Review of Systems - Review of Systems: Review Of Systems: See Below General: Reports: Weakness HEENT: Reports: No Symptoms Pulmonary: Reports: No Symptoms Cardiovascular: Reports: No Symptoms Gastrointestinal: Reports: No Symptoms Genitourinary: Reports: No Symptoms Musculoskeletal: Reports: No Symptoms Skin: Reports: No Symptoms Psychiatric: Reports: No Symptoms Neurological: Reports: No Symptoms Hematologic/Lymphatic: Reports: No Symptoms Immunologic: Reports: No Symptoms Exam - Exam Exam: See Below - Vital Signs Vital Signs: Last Vital Signs Temp 36.7 C 12/04/18 14:36 Pulse 96 12/04/18 14:36 Resp 18 12/04/18 14:36 BP 200/106 H 12/04/18 14:36 Pulse Ox 97 12/04/18 14:36 Weight: 73.936 kg - Exam General: Alert, Oriented, Cooperative HEENT: Conjunctiva Clear, EACs Clear, Pupils Equal, Pupils Reactive, PERRLA Neck: Trachea Midline Lungs: Normal Respiratory Effort Cardiovascular: Regular Rate, Regular Rhythm GI/Abdominal Exam: Normal Bowel Sounds, Soft, Non-Tender, No Organomegaly, No Distention (Male) Exam: Deferred Rectal (Males) Exam: Deferred Back Exam: Normal Inspection Extremities: Normal Inspection, Slow Capillary Refill, Arm Pain, Limited Range of Motion, Redness Neurological: Cranial Nerves Intact Neuro Extensive - Mental Status: Alert, Oriented x3, Normal Mood/Affect, Normal Cognition, Memory Intact Neuro Extensive - Motor, Sensory, Reflexes: CN II-XII Intact Psychiatric: Alert, Normal Affect, Normal Mood - Patient Data Lab Results Last 24 hrs: Laboratory Results - last 24 hr 12/04/18 12/04/18 12/04/18 Range/Units 14:15 14:15 14:15 WBC 4.26 (4.23-9.07) K/mm3 RBC 4.22 L (4.63-6.08) M/mm3 Hgb 11.9 L D (13.7-17.5) gm/L Hct 35.8 L (40.1-51.0) % MCV 84.8 (79.0-92.2) fl MCH 28.2 (25.7-32.2) pg MCHC 33.2 (32.2-35.5) g/dl RDW Std Deviation 44.7 H (35.1-43.9) fL Plt Count 206 (163-337) K/mm3 MPV 8.8 L (9.4-12.3) fl Neut % (Auto) 67.9 (34.0-67.9) % Lymph % (Auto) 14.8 L (21.8-53.1) % Harlan % (Auto) 12.4 H (5.3-12.2) % Eos % (Auto) 4.2 (0.8-7.0) Baso % (Auto) 0.2 (0.1-1.2) % Neut # (Auto) 2.89 (1.78-5.38) K/mm3 Lymph # (Auto) 0.63 L (1.32-3.57) K/mm3 Harlan # (Auto) 0.53 (0.30-0.82) K/mm3 Eos # (Auto) 0.18 (0.04-0.54) K/mm3 Baso # (Auto) 0.01 (0.01-0.08) K/mm3 ESR 16 H (0-15) mm/hr Sodium 139 (136-145) mEq/L Potassium 3.8 (3.5-5.1) mEq/L Chloride 106 (98-107) mEq/L Carbon Dioxide 25 (21-32) mEq/L Anion Gap 11.8 (5-15) BUN 15 (7-18) mg/dL Creatinine 1.3 (0.7-1.3) mg/dL Est Cr Clr Drug Dosing 50.61 mL/min Estimated GFR (MDRD) 54 (>60) mL/min BUN/Creatinine Ratio 11.5 L (14-18) Glucose 132 H (83-115) mg/dL Uric Acid 5.9 (3.5-7.2) mg/dL Calcium 8.5 (8.5-10.1) mg/dL Total Bilirubin 0.4 (0.2-1.0) mg/dL AST 10 L (15-37) U/L ALT 15 L (16-63) U/L Alkaline Phosphatase 96 (46-116) U/L C-Reactive Protein 3.4 H* (<1.0) mg/dL Total Protein 5.6 L (6.4-8.2) g/dl Albumin 3.0 L (3.4-5.0) g/dl Globulin 2.6 gm/dL Albumin/Globulin Ratio 1.2 (1-2) Result Diagrams: 12/05/18 05:50 12/05/18 05:50 Problem List Initiated/Reviewed/Updated: Yes Orders Last 24hrs: Active Orders 24 hr Category Date Time Status Patient Status [ADT] Routine ADT 12/04/18 19:53 Active Cardiac Monitoring [RC] . DIRECTED Care 12/04/18 14:46 Active Peripheral IV Care [RC] . DIRECTED Care 12/04/18 14:47 Active VL Duplex Upr Ext Veins Ltd Rt [US] Stat Exams 12/04/18 14:52 Taken Wrist Comp Min 3V Rt [CR] Stat Exams 12/04/18 14:51 Taken CULTURE ANAEROBIC + SMEAR [RM] Stat Lab 12/04/18 18:08 Received Sodium Chloride 0.9% [Saline Flush] Med 12/04/18 14:46 Active 10 ml FLUSH ASDIRECTED PRN Durable Medical Equipment for Discharge [DME for Oth 12/04/18 18:37 Ordered Discharge] [COMM] Stat Peripheral IV Insertion Adult [OM.PC] Stat Oth 12/04/18 14:46 Ordered Medication Orders Sodium Chloride (Saline Flush) 10 ml FLUSH ASDIRECTED PRN PRN Reason: Keep Vein Open Last Admin: 12/04/18 14:55 Dose: 10 ml Assessment/Plan Comment:: Impression: 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
[2018-12-04] MEDS ORDERED: Loperamide 2 MG Cap PO PRN (21:27)
[2018-12-04] MEDS ORDERED: LORazepam 1 MG Tab PO PRN (21:27)
[2018-12-04] MEDS ORDERED: Sodium Chloride 0.9% 1,000 ML IV SCH (21:30)
[2018-12-04] MEDS ORDERED: traMADol 50 MG Tab PO PRN (21:31)
[2018-12-04] MEDS ORDERED: HYDROmorphone 0.5 MG/0.5 ML Syringe IVPUSH PRN (21:33)
[2018-12-04] MEDS ORDERED: hydrALAZINE 20 MG/ML SDV IVPUSH PRN (21:34)
[2018-12-04] MEDS: Gabapentin 100 MG Cap PO SCH (22:53)
[2018-12-04] MEDS: Enoxaparin 30 MG/0.3 ML Syringe SUBCUT SCH (22:55)
[2018-12-04] MEDS ORDERED: Ketorolac 60 MG/2 ML SDV IM ONE (23:00)
--- NOTE | 2018-12-05 05:52 | US ---
Right upper extremity venous ultrasound: Duplex and color flow imaging was obtained of the right and left internal jugular as well as right subclavian, axillary, brachial, cephalic, basilic, radial and ulnar veins. Normal compression and phasic flow are seen. Augmentation appears mostly normal. No evidence of venous thrombosis is seen. Edema is noted within the soft tissues of the posterior hand. Impression: 1. Edema within the soft tissues of the posterior hand. 2. No evidence of venous thrombosis within the right upper extremity or within the left internal jugular vein. Diagnostic code #3 I agree with preliminary report from [facility], finalized on 12/04/18, 6:08 PM Central Time
--- NOTE | 2018-12-05 05:52 | CR ---
Right wrist: Four views of the right wrist are obtained. Degenerative cystic change is seen throughout the carpal bones. Widening of the distance between the navicular bone and lunate bone is seen compatible with intercarpal ligament rupture. Navicular bone is abnormal likely representing chronic fracture. No definite acute abnormality is seen. Impression: 1. Degenerative cystic change. 2. Widened distance between the lunate bone and navicular bone compatible with intercarpal ligament rupture. 3. Abnormal navicular bone having the appearance of chronic fracture. Diagnostic code #3
[2018-12-05] MEDS ORDERED: Non-Formulary Medication 1 Each (Omeprazole 20 MG) PO SCH (07:00)
--- NOTE | 2018-12-05 07:20 | CONS ---
CONSULTING PHYSICIAN: Beth Rascon MD DATE OF CONSULTATION: 12/04/2018 CHIEF COMPLAINT: Pain and redness of his right hand. HISTORY OF PRESENT ILLNESS: This is a very pleasant male, who noticed last evening some redness of his hand. He stated that over the course of the day, it has gotten larger. He was therefore seen in the emergency department. There was an aspiration of a small amount of fluid. The patient otherwise states he has no pain in his elbow or his arm or any fevers or chills. Of note, the patient has had cellulitis in the past. Also of note, the patient is on chronic immunotherapy for his CLL. The patient denies any discomfort with moving his fingers or his wrist. PAST MEDICAL HISTORY ALLERGIES: None. HOME MEDICATIONS: Effexor, Prilosec, Multi-Ahmet, levothyroxine, Ativan, Imbruvica, allopurinol. The other additional medications, he has been started on methylprednisone as well as vancomycin. LABORATORY DATA: His laboratory work today showed a WBC of 4000, but his H and H are 11 and 35. His platelet count is 206. His electrolytes were essentially unremarkable with the exception that his AST and ALT are low. His C-reactive protein is 3.5. REVIEW OF SYSTEMS: Only from what I stated in my HPI. PHYSICAL EXAMINATION: On his right hand, there is an area that has been well demarcated on the dorsum. There is some cellulitis noted, and there is some clear demarcation. There is full range of motion of his digits and his wrist. There is no adenopathy in his elbow or up in his supraclavicular area. IMPRESSION AND PLAN: This patient does indeed have a focal area of cellulitis, and with his history of being chronically immunosuppressed, I do agree with the current medical management. There is nothing surgical at this time, and he has already had an aspiration and culture. I will simply be on the sidelines. I explained this to the family and they were pleased. DIANA /[id number]
--- NOTE | 2018-12-05 08:24 | PCM.CONSN ---
- General Info Date of Service: 12/05/18 - Patient Data Vitals - Most Recent: Last Vital Signs Temp 97.2 F 12/05/18 08:01 Pulse 69 12/05/18 08:01 Resp 20 12/05/18 08:01 BP 165/92 H 12/05/18 08:01 Pulse Ox 96 12/05/18 08:01 Weight - Most Recent: 161 lb 8 oz I&O - Last 24 Hours: Intake & Output 12/04/18 12/05/18 12/05/18 22:59 06:59 14:59 Intake Total 300 Output Total 300 950 Balance -300 -650 Lab Results Last 24 Hours: Laboratory Results - last 24 hr 12/04/18 12/04/18 12/04/18 Range/Units 14:15 14:15 14:15 WBC 4.26 (4.23-9.07) K/mm3 RBC 4.22 L (4.63-6.08) M/mm3 Hgb 11.9 L D (13.7-17.5) gm/L Hct 35.8 L (40.1-51.0) % MCV 84.8 (79.0-92.2) fl MCH 28.2 (25.7-32.2) pg MCHC 33.2 (32.2-35.5) g/dl RDW Std Deviation 44.7 H (35.1-43.9) fL Plt Count 206 (163-337) K/mm3 MPV 8.8 L (9.4-12.3) fl Neut % (Auto) 67.9 (34.0-67.9) % Lymph % (Auto) 14.8 L (21.8-53.1) % Reeves % (Auto) 12.4 H (5.3-12.2) % Eos % (Auto) 4.2 (0.8-7.0) Baso % (Auto) 0.2 (0.1-1.2) % Neut # (Auto) 2.89 (1.78-5.38) K/mm3 Lymph # (Auto) 0.63 L (1.32-3.57) K/mm3 Reeves # (Auto) 0.53 (0.30-0.82) K/mm3 Eos # (Auto) 0.18 (0.04-0.54) K/mm3 Baso # (Auto) 0.01 (0.01-0.08) K/mm3 Manual Slide Review ESR 16 H (0-15) mm/hr Sodium 139 (136-145) mEq/L Potassium 3.8 (3.5-5.1) mEq/L Chloride 106 (98-107) mEq/L Carbon Dioxide 25 (21-32) mEq/L Anion Gap 11.8 (5-15) BUN 15 (7-18) mg/dL Creatinine 1.3 (0.7-1.3) mg/dL Est Cr Clr Drug Dosing 50.61 mL/min Estimated GFR (MDRD) 54 (>60) mL/min BUN/Creatinine Ratio 11.5 L (14-18) Glucose 132 H (83-115) mg/dL Lactic Acid (0.4-2.0) mmol/L Uric Acid 5.9 (3.5-7.2) mg/dL Calcium 8.5 (8.5-10.1) mg/dL Magnesium (1.8-2.4) mg/dl Total Bilirubin 0.4 (0.2-1.0) mg/dL AST 10 L (15-37) U/L ALT 15 L (16-63) U/L Alkaline Phosphatase 96 (46-116) U/L C-Reactive Protein 3.4 H* (<1.0) mg/dL Total Protein 5.6 L (6.4-8.2) g/dl Albumin 3.0 L (3.4-5.0) g/dl Globulin 2.6 gm/dL Albumin/Globulin Ratio 1.2 (1-2) 12/05/18 12/05/18 12/05/18 Range/Units 05:30 05:50 05:50 WBC 3.62 L (4.23-9.07) K/mm3 RBC 4.76 (4.63-6.08) M/mm3 Hgb 13.3 L (13.7-17.5) gm/L Hct 39.9 L (40.1-51.0) % MCV 83.8 (79.0-92.2) fl MCH 27.9 (25.7-32.2) pg MCHC 33.3 (32.2-35.5) g/dl RDW Std Deviation 44.0 H (35.1-43.9) fL Plt Count 214 (163-337) K/mm3 MPV 9.3 L (9.4-12.3) fl Neut % (Auto) 93.1 H (34.0-67.9) % Lymph % (Auto) 5.2 L (21.8-53.1) % Reeves % (Auto) 1.4 L (5.3-12.2) % Eos % (Auto) 0 L (0.8-7.0) Baso % (Auto) 0.0 L (0.1-1.2) % Neut # (Auto) 3.37 (1.78-5.38) K/mm3 Lymph # (Auto) 0.19 L (1.32-3.57) K/mm3 Reeves # (Auto) 0.05 L (0.30-0.82) K/mm3 Eos # (Auto) 0.00 L (0.04-0.54) K/mm3 Baso # (Auto) 0.00 L (0.01-0.08) K/mm3 Manual Slide Review Abnormal smear ESR (0-15) mm/hr Sodium 137 (136-145) mEq/L Potassium 4.2 (3.5-5.1) mEq/L Chloride 103 (98-107) mEq/L Carbon Dioxide 26 (21-32) mEq/L Anion Gap 12.2 (5-15) BUN 15 (7-18) mg/dL Creatinine 1.1 (0.7-1.3) mg/dL Est Cr Clr Drug Dosing 59.81 mL/min Estimated GFR (MDRD) > 60 (>60) mL/min BUN/Creatinine Ratio 13.6 L (14-18) Glucose 131 H (83-115) mg/dL Lactic Acid 0.8 (0.4-2.0) mmol/L Uric Acid (3.5-7.2) mg/dL Calcium 8.7 (8.5-10.1) mg/dL Magnesium 1.2 L (1.8-2.4) mg/dl Total Bilirubin (0.2-1.0) mg/dL AST (15-37) U/L ALT (16-63) U/L Alkaline Phosphatase (46-116) U/L C-Reactive Protein 5.1 H* (<1.0) mg/dL Total Protein (6.4-8.2) g/dl Albumin (3.4-5.0) g/dl Globulin gm/dL Albumin/Globulin Ratio (1-2) Med Orders - Current: Current Medications Aspirin (Halfprin) 81 mg PO DAILY [facility] Enoxaparin Sodium (Lovenox) 30 mg SUBCUT Q24H [facility] Last Admin: 12/04/18 22:55 Dose: 30 mg Ferrous Sulfate (Ferrous Sulfate) 325 mg PO DAILY [facility] Gabapentin (Neurontin) 200 mg PO BID [facility] Last Admin: 12/04/18 22:53 Dose: 200 mg Hydralazine HCl (Apresoline) 20 mg IVPUSH Q6H PRN PRN Reason: Hypertension Hydromorphone HCl (Dilaudid) 0.5 mg IVPUSH Q4H PRN PRN Reason: Pain Hydroxyzine HCl (Atarax) 50 mg PO TID PRN PRN Reason: Anxiety Loperamide HCl (Imodium) 2 mg PO QID PRN PRN Reason: Diarrhea Lorazepam (Ativan) 1 mg PO BID@0700,1200 PRN PRN Reason: Anxiety Methylprednisolone Sodium Succinate (Solu-Medrol) 125 mg IVPUSH Q12H [facility] Metoprolol Succinate (Toprol Xl) 25 mg PO DAILY [facility] Multivitamins (Thera) 1 each PO DAILY [facility] Ibrutinib [Imbruvica ] 420 Mg TabOwn Med 420 mg PO DAILY [facility] Pantoprazole Sodium (Protonix) 40 mg PO BIDAC [facility] Sodium Chloride (Saline Flush) 10 ml FLUSH ASDIRECTED PRN PRN Reason: Keep Vein Open Last Admin: 12/04/18 14:55 Dose: 10 ml Tramadol HCl (Ultram) 100 mg PO Q6H PRN PRN Reason: Pain (moderate 4-6) Venlafaxine HCl (Effexor Xr) 150 mg PO DAILY [facility] Discontinued Medications Hydromorphone HCl (Dilaudid) 0.5 mg IVPUSH ONETIME ONE Stop: 12/04/18 14:51 Last Admin: 12/04/18 14:58 Dose: 0.5 mg Hydromorphone HCl (Dilaudid) 0.5 mg IVPUSH ONETIME ONE Stop: 12/04/18 16:04 Last Admin: 12/04/18 16:08 Dose: 0.5 mg Hydromorphone HCl (Dilaudid) 0.5 mg IVPUSH ONETIME ONE Stop: 12/04/18 18:11 Last Admin: 12/04/18 18:17 Dose: 0.5 mg Hydromorphone HCl (Dilaudid) 0.5 mg IVPUSH ONETIME ONE Stop: 12/04/18 19:13 Last Admin: 12/04/18 19:27 Dose: 0.5 mg Vancomycin HCl 1.75 gm/ Sodium (Chloride) 250 mls @ 250 mls/hr IV ONETIME ONE Stop: 12/04/18 19:10 Last Admin: 12/04/18 18:28 Dose: 250 mls/hr Vancomycin HCl 2 gm/ Sodium (Chloride) 250 mls @ 250 mls/hr IV ONETIME ONE Stop: 12/04/18 19:17 Last Admin: 12/04/18 18:29 Dose: Not Given Sodium Chloride (Normal Saline) 1,000 mls @ 100 mls/hr IV ASDIRECTED BRIEN Stop: 12/05/18 05:30 Last Admin: 12/04/18 22:56 Dose: 100 mls/hr Ketorolac Tromethamine (Toradol) 15 mg IVPUSH ONETIME ONE Stop: 12/04/18 14:51 Last Admin: 12/04/18 14:55 Dose: 15 mg Ketorolac Tromethamine (Toradol) 60 mg IM ONETIME ONE Stop: 12/04/18 23:01 Last Admin: 12/04/18 22:57 Dose: 60 mg Lidocaine/Tetracaine (Let Soln) 3 ml TOP ONETIME ONE Stop: 12/04/18 17:16 Last Admin: 12/04/18 17:20 Dose: 3 ml Methylprednisolone Sodium Succinate (Solu-Medrol) 125 mg IVPUSH ONETIME ONE Stop: 12/04/18 18:37 Last Admin: 12/04/18 19:04 Dose: 125 mg - Exam Physical Findings Comments:: The patient states that he feels better He denies any pain of the right wrist or arm PE----NO Cellulitis full rom IMP Improved cellulitis Will sign off Call if needed He has had an excellent response to the treatment plan. Thank you Dr. Rascon Consult PN Assessment/Plan Procedures: Procedures ASSAY OF AMYLASE (04/09/15) ASSAY OF CREATININE (04/15/15) ASSAY OF LIPASE (07/22/14) ASSAY OF TROPONIN QUANT (09/22/18) BL SMEAR W/DIFF WBC COUNT (09/22/18) C DIFF AMPLIFIED PROBE (04/09/15) C-REACTIVE PROTEIN (07/22/14) CHEST X-RAY 1 VIEW FRONTAL (08/03/17) COMPLETE CBC AUTOMATED (09/22/18) COMPLETE CBC W/AUTO DIFF WBC (01/13/17) COMPREHEN METABOLIC PANEL (09/22/18) CREATINE MB FRACTION (07/22/14) CT HEAD/BRAIN W/O DYE (01/13/17) CT MAXILLOFACIAL W/O DYE (04/20/15) ELECTROCARDIOGRAM TRACING (09/22/18) EMERGENCY DEPT VISIT (10/26/18) EMERGENCY DEPT VISIT (09/22/18) EMERGENCY DEPT VISIT (01/13/17) EMERGENCY DEPT VISIT (04/09/15) EMERGENCY DEPT VISIT (03/09/15) EMERGENCY DEPT VISIT (02/02/15) EMERGENCY DEPT VISIT (07/22/14) HYDRATE IV INFUSION ADD-ON (09/22/18) HYDRATION IV INFUSION INIT (09/22/18) INFLUENZA ASSAY W/OPTIC (01/13/17) LACTATE (LD) (LDH) ENZYME (01/05/14) MRI BRAIN STEM W/O DYE (04/15/15) PROTHROMBIN TIME (09/22/18) REPAIR EYELID DEFECT (01/02/16) ROUTINE VENIPUNCTURE (09/22/18) STOOL CULTR AEROBIC BACT EA (04/09/15) THER/PROPH/DIAG INJ IV PUSH (01/13/17) THER/PROPH/DIAG INJ SC/IM (01/27/15) THROMBOPLASTIN TIME PARTIAL (09/22/18) TX/PRO/DX INJ NEW DRUG ADDON (01/13/17) TX/PRO/DX INJ SAME DRUG CLUB ROOM ATTENDANT (04/09/15) URINALYSIS AUTO W/SCOPE (04/09/15) VANOMYCIN DNA AMP PROBE (04/09/15) X-RAY EXAM CHEST 1 VIEW (09/22/18) X-RAY EXAM SERIES ABDOMEN (07/22/14) Problem List Initiated/Reviewed/Updated: Yes
[2018-12-05] MEDS: Pantoprazole 40 MG Tab.CR PO SCH ×2 (08:28→16:49)
[2018-12-05] MEDS: Venlafaxine 75 MG Cap.ER PO SCH (08:35)
[2018-12-05] MEDS: Gabapentin 100 MG Cap PO SCH ×2 (08:39→21:22)
[2018-12-05] MEDS: Metoprolol Succinate 25 MG Tab.ER PO SCH (08:40)
[2018-12-05] MEDS: Ferrous Sulfate 325 MG Tab PO SCH (08:42)
[2018-12-05] MEDS: Multivitamins,Therapeutic Tab PO SCH (08:43)
[2018-12-05] MEDS: Aspirin 81 MG Tab.EC PO SCH (08:43)
[2018-12-05] MEDS: IBRUTINIB 420 MG PO SCH (08:44)
[2018-12-05] MEDS: methylPREDNISolone Sodium Succinate 125 MG/2 ML SDV IVPUSH SCH ×2 (08:45→21:15)
[2018-12-05] MEDS ORDERED: Magnesium Sulfate/Water 4 GM in Premix Bag 1 BAG IV ONE (11:11)
--- NOTE | 2018-12-05 14:41 | PCM.PN ---
- General Info Date of Service: 12/05/18 Functional Status: Reports: Pain Controlled, Tolerating Diet, Ambulating, Urinating - Review of Systems General: Reports: No Symptoms HEENT: Reports: No Symptoms Pulmonary: Reports: No Symptoms Cardiovascular: Reports: No Symptoms Gastrointestinal: Reports: No Symptoms Genitourinary: Reports: No Symptoms Musculoskeletal: Reports: No Symptoms Skin: Reports: No Symptoms Neurological: Reports: No Symptoms Psychiatric: Reports: No Symptoms - Patient Data Vitals - Most Recent: Last Vital Signs Temp 36.2 C 12/05/18 08:01 Pulse 69 12/05/18 08:40 Resp 20 12/05/18 08:01 BP 165/92 H 12/05/18 08:40 Pulse Ox 96 12/05/18 08:01 Weight - Most Recent: 73.255 kg I&O - Last 24 Hours: Intake & Output 12/04/18 12/05/18 12/05/18 22:59 06:59 14:59 Intake Total 300 980 Output Total 300 950 Balance -300 -650 980 Lab Results Last 24 Hours: Laboratory Results - last 24 hr 12/04/18 12/04/18 12/04/18 Range/Units 14:15 14:15 14:15 WBC 4.26 (4.23-9.07) K/mm3 RBC 4.22 L (4.63-6.08) M/mm3 Hgb 11.9 L D (13.7-17.5) gm/L Hct 35.8 L (40.1-51.0) % MCV 84.8 (79.0-92.2) fl MCH 28.2 (25.7-32.2) pg MCHC 33.2 (32.2-35.5) g/dl RDW Std Deviation 44.7 H (35.1-43.9) fL Plt Count 206 (163-337) K/mm3 MPV 8.8 L (9.4-12.3) fl Neut % (Auto) 67.9 (34.0-67.9) % Lymph % (Auto) 14.8 L (21.8-53.1) % [place] % (Auto) 12.4 H (5.3-12.2) % Eos % (Auto) 4.2 (0.8-7.0) Baso % (Auto) 0.2 (0.1-1.2) % Neut # (Auto) 2.89 (1.78-5.38) K/mm3 Lymph # (Auto) 0.63 L (1.32-3.57) K/mm3 [place] # (Auto) 0.53 (0.30-0.82) K/mm3 Eos # (Auto) 0.18 (0.04-0.54) K/mm3 Baso # (Auto) 0.01 (0.01-0.08) K/mm3 Manual Slide Review ESR 16 H (0-15) mm/hr Sodium 139 (136-145) mEq/L Potassium 3.8 (3.5-5.1) mEq/L Chloride 106 (98-107) mEq/L Carbon Dioxide 25 (21-32) mEq/L Anion Gap 11.8 (5-15) BUN 15 (7-18) mg/dL Creatinine 1.3 (0.7-1.3) mg/dL Est Cr Clr Drug Dosing 50.61 mL/min Estimated GFR (MDRD) 54 (>60) mL/min BUN/Creatinine Ratio 11.5 L (14-18) Glucose 132 H (83-115) mg/dL Lactic Acid (0.4-2.0) mmol/L Uric Acid 5.9 (3.5-7.2) mg/dL Calcium 8.5 (8.5-10.1) mg/dL Magnesium (1.8-2.4) mg/dl Total Bilirubin 0.4 (0.2-1.0) mg/dL AST 10 L (15-37) U/L ALT 15 L (16-63) U/L Alkaline Phosphatase 96 (46-116) U/L C-Reactive Protein 3.4 H* (<1.0) mg/dL Total Protein 5.6 L (6.4-8.2) g/dl Albumin 3.0 L (3.4-5.0) g/dl Globulin 2.6 gm/dL Albumin/Globulin Ratio 1.2 (1-2) 12/05/18 12/05/18 12/05/18 Range/Units 05:30 05:50 05:50 WBC 3.62 L (4.23-9.07) K/mm3 RBC 4.76 (4.63-6.08) M/mm3 Hgb 13.3 L (13.7-17.5) gm/L Hct 39.9 L (40.1-51.0) % MCV 83.8 (79.0-92.2) fl MCH 27.9 (25.7-32.2) pg MCHC 33.3 (32.2-35.5) g/dl RDW Std Deviation 44.0 H (35.1-43.9) fL Plt Count 214 (163-337) K/mm3 MPV 9.3 L (9.4-12.3) fl Neut % (Auto) 93.1 H (34.0-67.9) % Lymph % (Auto) 5.2 L (21.8-53.1) % [place] % (Auto) 1.4 L (5.3-12.2) % Eos % (Auto) 0 L (0.8-7.0) Baso % (Auto) 0.0 L (0.1-1.2) % Neut # (Auto) 3.37 (1.78-5.38) K/mm3 Lymph # (Auto) 0.19 L (1.32-3.57) K/mm3 [place] # (Auto) 0.05 L (0.30-0.82) K/mm3 Eos # (Auto) 0.00 L (0.04-0.54) K/mm3 Baso # (Auto) 0.00 L (0.01-0.08) K/mm3 Manual Slide Review Abnormal smear ESR (0-15) mm/hr Sodium 137 (136-145) mEq/L Potassium 4.2 (3.5-5.1) mEq/L Chloride 103 (98-107) mEq/L Carbon Dioxide 26 (21-32) mEq/L Anion Gap 12.2 (5-15) BUN 15 (7-18) mg/dL Creatinine 1.1 (0.7-1.3) mg/dL Est Cr Clr Drug Dosing 59.81 mL/min Estimated GFR (MDRD) > 60 (>60) mL/min BUN/Creatinine Ratio 13.6 L (14-18) Glucose 131 H (83-115) mg/dL Lactic Acid 0.8 (0.4-2.0) mmol/L Uric Acid (3.5-7.2) mg/dL Calcium 8.7 (8.5-10.1) mg/dL Magnesium 1.2 L (1.8-2.4) mg/dl Total Bilirubin (0.2-1.0) mg/dL AST (15-37) U/L ALT (16-63) U/L Alkaline Phosphatase (46-116) U/L C-Reactive Protein 5.1 H* (<1.0) mg/dL Total Protein (6.4-8.2) g/dl Albumin (3.4-5.0) g/dl Globulin gm/dL Albumin/Globulin Ratio (1-2) Reginald Results Last 24 Hours: Microbiology 12/04/18 18:08 Gram Stain - Final Arm, Right - Upper Anaerobic Culture - Preliminary NO GROWTH AFTER 1 DAY Med Orders - Current: Current Medications Aspirin (Halfprin) 81 mg PO DAILY [facility] Last Admin: 12/05/18 08:43 Dose: 81 mg Enoxaparin Sodium (Lovenox) 30 mg SUBCUT Q24H [facility] Last Admin: 12/04/18 22:55 Dose: 30 mg Ferrous Sulfate (Ferrous Sulfate) 325 mg PO DAILY [facility] Last Admin: 12/05/18 08:42 Dose: 325 mg Gabapentin (Neurontin) 200 mg PO BID [facility] Last Admin: 12/05/18 08:39 Dose: 200 mg Hydralazine HCl (Apresoline) 20 mg IVPUSH Q6H PRN PRN Reason: Hypertension Hydromorphone HCl (Dilaudid) 0.5 mg IVPUSH Q4H PRN PRN Reason: Pain Hydroxyzine HCl (Atarax) 50 mg PO TID PRN PRN Reason: Anxiety Magnesium Sulfate 4 gm/ Premix 50 mls @ 12.5 mls/hr IV ONETIME ONE Stop: 12/05/18 15:10 Last Admin: 12/05/18 11:44 Dose: 12.5 mls/hr Loperamide HCl (Imodium) 2 mg PO QID PRN PRN Reason: Diarrhea Lorazepam (Ativan) 1 mg PO BID@0700,1200 PRN PRN Reason: Anxiety Methylprednisolone Sodium Succinate (Solu-Medrol) 125 mg IVPUSH Q12H [facility] Last Admin: 12/05/18 08:45 Dose: 125 mg Metoprolol Succinate (Toprol Xl) 25 mg PO DAILY [facility] Last Admin: 12/05/18 08:40 Dose: 25 mg Multivitamins (Thera) 1 each PO DAILY [facility] Last Admin: 12/05/18 08:43 Dose: 1 each Ibrutinib [Imbruvica ] 420 Mg TabOwn Med 420 mg PO DAILY [facility] Last Admin: 12/05/18 08:44 Dose: 420 mg Pantoprazole Sodium (Protonix) 40 mg PO BIDAC [facility] Last Admin: 12/05/18 08:28 Dose: 40 mg Sodium Chloride (Saline Flush) 10 ml FLUSH ASDIRECTED PRN PRN Reason: Keep Vein Open Last Admin: 12/04/18 14:55 Dose: 10 ml Tramadol HCl (Ultram) 100 mg PO Q6H PRN PRN Reason: Pain (moderate 4-6) Last Admin: 12/05/18 14:34 Dose: 100 mg Venlafaxine HCl (Effexor Xr) 150 mg PO DAILY [facility] Last Admin: 12/05/18 08:35 Dose: 150 mg Discontinued Medications Hydromorphone HCl (Dilaudid) 0.5 mg IVPUSH ONETIME ONE Stop: 12/04/18 14:51 Last Admin: 12/04/18 14:58 Dose: 0.5 mg Hydromorphone HCl (Dilaudid) 0.5 mg IVPUSH ONETIME ONE Stop: 12/04/18 16:04 Last Admin: 12/04/18 16:08 Dose: 0.5 mg Hydromorphone HCl (Dilaudid) 0.5 mg IVPUSH ONETIME ONE Stop: 12/04/18 18:11 Last Admin: 12/04/18 18:17 Dose: 0.5 mg Hydromorphone HCl (Dilaudid) 0.5 mg IVPUSH ONETIME ONE Stop: 12/04/18 19:13 Last Admin: 12/04/18 19:27 Dose: 0.5 mg Vancomycin HCl 1.75 gm/ Sodium (Chloride) 250 mls @ 250 mls/hr IV ONETIME ONE Stop: 12/04/18 19:10 Last Admin: 12/04/18 18:28 Dose: 250 mls/hr Vancomycin HCl 2 gm/ Sodium (Chloride) 250 mls @ 250 mls/hr IV ONETIME ONE Stop: 12/04/18 19:17 Last Admin: 12/04/18 18:29 Dose: Not Given Sodium Chloride (Normal Saline) 1,000 mls @ 100 mls/hr IV ASDIRECTED [facility] Stop: 12/05/18 05:30 Last Admin: 12/04/18 22:56 Dose: 100 mls/hr Ketorolac Tromethamine (Toradol) 15 mg IVPUSH ONETIME ONE Stop: 12/04/18 14:51 Last Admin: 12/04/18 14:55 Dose: 15 mg Ketorolac Tromethamine (Toradol) 60 mg IM ONETIME ONE Stop: 12/04/18 23:01 Last Admin: 12/04/18 22:57 Dose: 60 mg Lidocaine/Tetracaine (Let Soln) 3 ml TOP ONETIME ONE Stop: 12/04/18 17:16 Last Admin: 12/04/18 17:20 Dose: 3 ml Methylprednisolone Sodium Succinate (Solu-Medrol) 125 mg IVPUSH ONETIME ONE Stop: 12/04/18 18:37 Last Admin: 12/04/18 19:04 Dose: 125 mg - Exam Quality Assessment: DVT Prophylaxis General: Alert, Oriented, Cooperative, No Acute Distress HEENT: Pupils Equal, Pupils Reactive, EOMI Neck: Trachea Midline, No JVD Lungs: Normal Respiratory Effort Cardiovascular: Regular Rate GI/Abdominal Exam: Normal Bowel Sounds, Soft, Non-Tender, No Organomegaly, No Distention (Male) Exam: Deferred Back Exam: Normal Inspection Extremities: Normal Inspection, Normal Capillary Refill, Joint Swelling ( decreased), Arm Pain (decreased), Limited Range of Motion (improved), Redness ( decreased) Wound/Incisions: Healing Well, No Drainage, Erythema Improving Neurological: No New Focal Deficit Psy/Mental Status: Alert, Normal Affect, Normal Mood - Problem List Review Problem List Initiated/Reviewed/Updated: Yes - My Orders Last 24 Hours: My Active Orders 12/04/18 21:27 LORazepam [Ativan] 1 mg PO BID@0700,1200 PRN Loperamide [Imodium] 2 mg PO QID PRN hydrOXYzine HCl [Atarax] 50 mg PO TID PRN 12/04/18 21:31 traMADol [Ultram] 100 mg PO Q6H PRN 12/04/18 21:33 HYDROmorphone [Dilaudid] 0.5 mg IVPUSH Q4H PRN 12/04/18 21:34 hydrALAZINE [Apresoline] 20 mg IVPUSH Q6H PRN 12/04/18 21:42 Consult to Case Management/Drapery Supervisor [CONS] Routine 12/04/18 21:45 Gabapentin [Neurontin] 200 mg PO BID 12/04/18 22:00 Enoxaparin [Lovenox] 30 mg SUBCUT Q24H 12/04/18 22:14 Resuscitation Status Routine 12/04/18 22:16 Activity as Tolerated [RC] .Routine 12/05/18 06:00 Pantoprazole [ProTONIX] 40 mg PO BIDAC 12/05/18 09:00 Consult to Occupational Therapy [OT Evaluation and Treatment] [CONS] Routine Aspirin [Halfprin] 81 mg PO DAILY Ferrous Sulfate 325 mg PO DAILY Ibrutinib [Imbruvica] 420 mg PO DAILY Metoprolol Succinate [Toprol XL] 25 mg PO DAILY Multivitamins,Therapeutic [Thera] 1 each PO DAILY Venlafaxine [Effexor XR] 150 mg PO DAILY methylPREDNISolone Sod Succ [Solu-MEDROL] 125 mg IVPUSH Q12H 12/05/18 10:00 Consult to Physical Therapy [PT Evaluation and Treatment] [CONS] Routine 12/05/18 11:11 Magnesium Sulfate/Water [Magnesium Sulfate 4 GM in Water 50 ML] 4 gm Premix Bag 1 bag IV ONETIME 12/05/18 Breakfast Heart Healthy Diet [DIET] 12/06/18 05:00 BASIC METABOLIC PANEL,BMP [CHEM] DAILY CBC WITH AUTO DIFF [HEME] DAILY CRP [C-REACTIVE PROTEIN] [CHEM] DAILY LACTIC ACID [CHEM] DAILY MAGNESIUM [CHEM] DAILY 12/07/18 05:00 BASIC METABOLIC PANEL,BMP [CHEM] DAILY CBC WITH AUTO DIFF [HEME] DAILY CRP [C-REACTIVE PROTEIN] [CHEM] DAILY LACTIC ACID [CHEM] DAILY MAGNESIUM [CHEM] DAILY 12/08/18 05:00 BASIC METABOLIC PANEL,BMP [CHEM] DAILY CBC WITH AUTO DIFF [HEME] DAILY CRP [C-REACTIVE PROTEIN] [CHEM] DAILY LACTIC ACID [CHEM] DAILY MAGNESIUM [CHEM] DAILY - Plan Plan:: Impression: 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
[2018-12-05] MEDS ORDERED: Ampicillin/Sulbactam Na 3 GM in Sodium Chloride 0.9% 100 ML IV ONE (15:30)
[2018-12-05] MEDS: hydrOXYzine HCl 50 MG Tab PO PRN (16:49)
[2018-12-05] MEDS: Ketorolac 15 MG/ML SDV IVPUSH SCH (21:11)
[2018-12-05] MEDS: Enoxaparin 30 MG/0.3 ML Syringe SUBCUT SCH (21:19)
[2018-12-05] MEDS: Amoxicillin/Clavulanate K 875-125 MG Tab PO SCH (21:21)
[2018-12-06] MEDS: Ketorolac 15 MG/ML SDV IVPUSH SCH ×2 (05:01→12:22)
[2018-12-06] MEDS: Pantoprazole 40 MG Tab.CR PO SCH ×2 (05:02→15:57)
[2018-12-06] MEDS ORDERED: Magnesium Hydroxide 400 MG/5 ML Susp 30 ML Cup PO ONE (07:32)
[2018-12-06] MEDS: Multivitamins,Therapeutic Tab PO SCH (08:27)
[2018-12-06] MEDS: Amoxicillin/Clavulanate K 875-125 MG Tab PO SCH (08:27)
[2018-12-06] MEDS: Gabapentin 100 MG Cap PO SCH (08:27)
[2018-12-06] MEDS: Venlafaxine 75 MG Cap.ER PO SCH (08:28)
[2018-12-06] MEDS: Metoprolol Succinate 25 MG Tab.ER PO SCH (08:28)
[2018-12-06] MEDS: Ferrous Sulfate 325 MG Tab PO SCH (08:28)
[2018-12-06] MEDS: hydrOXYzine HCl 50 MG Tab PO PRN (08:28)
[2018-12-06] MEDS: Aspirin 81 MG Tab.EC PO SCH (08:28)
[2018-12-06] MEDS: methylPREDNISolone Sodium Succinate 125 MG/2 ML SDV IVPUSH SCH (08:29)
[2018-12-06] MEDS: IBRUTINIB 420 MG PO SCH (08:29)
--- NOTE | 2018-12-06 14:54 | PCM.DCSUM1 ---
Discharge Summary - Hospital Course HPI Initial Comments: 73 year old patient describes sudden onset of painful RUE on the day of admission, he denies recent trauma or injury. Neurovascular is intact, there is no sign of compartment syndrome; he will be admitted for RUE cellulitis. The patient is a full code. Diagnosis: Stroke: No - Discharge Data Discharge Date: 12/06/18 Discharge Disposition: Home, Self-Care 01 Condition: Good - Discharge Diagnosis/Problem(s) (1) Pseudogout of hand SNOMED Code(s): 191743973, 725550744 ICD Code: M11.249 - OTHER CHONDROCALCINOSIS, UNSPECIFIED HAND Status: Acute Current Visit: Yes (2) Hypomagnesemia syndrome SNOMED Code(s): 102814359 ICD Code: E83.42 - HYPOMAGNESEMIA Status: Acute Current Visit: Yes (3) CLL (chronic lymphocytic leukemia) SNOMED Code(s): 88130099 ICD Code: C91.90 - LYMPHOID LEUKEMIA, UNSPECIFIED NOT HAVING ACHIEVED REMISSION Status: Chronic Current Visit: Yes - Patient Summary/Data Consults: Consultations 12/04/18 21:42 Consult to Case Management/Junior Legal Secretary [CONS] Routine 12/05/18 09:00 Consult to Occupational Therapy [OT Evaluation and Treatment] [CONS] Routine 12/05/18 10:00 Consult to Physical Therapy [PT Evaluation and Treatment] [CONS] Routine - Patient Instructions Diet: Usual Diet as Tolerated Activity: As Tolerated Driving: May Drive Today Showering/Bathing: May Shower Notify Provider of: Fever, Increased Pain, Swelling and Redness, Drainage, Nausea and/or Vomiting Other/Special Instructions: - Please resume all home medications and routine home activities as tolerated. - Check vitals (heart rate and blood pressure) and follow parameters before taking your BP medications. At least check it 3x/ day and show log on follow up appointment with PCP (Primary Care Provider). - Recommend adequate daily hydration. - Call or follow up with your PCP for any questions or concerns after discharge. - Follow up with your PCP in 1 week. - Come back or seek immediate care should your symptoms persist or get worse - Discharge Plan *PRESCRIPTION DRUG MONITORING PROGRAM REVIEWED*: Not Applicable *COPY OF PRESCRIPTION DRUG MONITORING REPORT IN PATIENT SOM: Not Applicable Prescriptions/Med Rec: amLODIPine Besylate [Norvasc] 5 mg PO BID #60 tablet Home Medications: Home Meds LORazepam [Ativan] 1 mg PO ,12 PRN 01/27/15 [History] Multivitamin with Minerals [Multiple Vitamin] 1 tab PO DAILY 01/27/15 [History] Omeprazole [Prilosec] 20 mg PO 07,12 01/27/15 [History] Venlafaxine [Effexor XR] 150 mg PO DAILY 01/27/15 [History] Ibrutinib [Imbruvica] 420 mg PO DAILY 01/01/16 [History] Aspirin [Halfprin] 81 mg PO DAILY 12/04/18 [History] Calcium Citrate/Vitamin D3 [Calcium Citrate - Vit D3 Tab] 1 tab PO DAILY [History] Ferrous Sulfate [Iron] 325 mg PO DAILY 12/04/18 [History] Loperamide HCl [Loperamide] 2 mg PO QID PRN 12/04/18 [History] hydrOXYzine pamoate [Hydroxyzine Pamoate] 50 mg PO TID PRN 12/04/18 [History] Levothyroxine 25 mcg PO DAILY 12/06/18 [History] Metoprolol Succinate [Toprol XL] 25 mg PO DAILY #60 12/06/18 [Rx] amLODIPine Besylate [Norvasc] 5 mg PO BID #60 tablet 12/06/18 [Rx] Oxygen Therapy Mode: Room Air Patient Handouts: Hypomagnesemia, Calcium Pyrophosphate Deposition Referrals: Santhosh Abebe MD [Primary Care Provider] - 12/13/18 11:30 am - Discharge Summary/Plan Comment DC Time >30 min.: No Discharge Summary/Plan Comment: Discharge to Home - General Info Date of Service: 12/06/18 Admission Dx/Problem (Free Text: Admission Diagnosis/Problem Admission Diagnosis/Problem Cellulitis Subjective Update: Follow Up Functional Status: Reports: Pain Controlled, Tolerating Diet, Ambulating, Urinating. Denies: New Symptoms - Review of Systems General: Denies: Fever, Weakness, Fatigue, Malaise, Night Sweats HEENT: Reports: No Symptoms Pulmonary: Denies: Shortness of Breath, Cough, Sputum, Hemoptysis Cardiovascular: Denies: Chest Pain, Dyspnea on Exertion, Orthopnea, Edema, Lightheadedness Gastrointestinal: Denies: Abdominal Pain, Nausea, Vomiting Genitourinary: Reports: No Symptoms Musculoskeletal: Denies: Arm Pain, Hand Pain, Leg Pain, Joint Pain, Joint Swelling Skin: Denies: Cyanosis, Mottled, Pallor, Diaphoresis, Dryness, Pruritis, Rash Neurological: Denies: Confusion, Headache, Trouble Speaking, Difficulty Walking , Weakness, Gait Disturbance Psychiatric: Reports: No Symptoms Systems Review Comment: No overnight or acute issues. He rested well last night and has no complaints this AM. His affected limb is very mobile and no obvious signs of infection. - Patient Data Vitals - Most Recent: Last Vital Signs Temp 36.8 C 12/06/18 11:32 Pulse 67 12/06/18 11:32 Resp 18 12/06/18 11:32 BP 167/106 H 12/06/18 11:32 Pulse Ox 96 12/06/18 11:32 Weight - Most Recent: 74.888 kg I&O - Last 24 hours: Intake & Output 12/05/18 12/06/18 12/06/18 22:59 06:59 14:59 Intake Total 1430 800 420 Output Total 900 750 Balance 530 50 420 Lab Results - Last 24 hrs: Laboratory Results - last 24 hr 12/06/18 12/06/18 12/06/18 Range/Units 06:12 06:12 06:12 WBC 11.40 H (4.23-9.07) K/mm3 RBC 4.49 L (4.63-6.08) M/mm3 Hgb 12.9 L (13.7-17.5) gm/L Hct 37.6 L (40.1-51.0) % MCV 83.7 (79.0-92.2) fl MCH 28.7 (25.7-32.2) pg MCHC 34.3 (32.2-35.5) g/dl RDW Std Deviation 44.1 H (35.1-43.9) fL Plt Count 229 (163-337) K/mm3 MPV 9.6 (9.4-12.3) fl Neut % (Auto) 95.4 H (34.0-67.9) % Lymph % (Auto) 2.5 L (21.8-53.1) % [place] % (Auto) 1.8 L (5.3-12.2) % Eos % (Auto) 0 L (0.8-7.0) Baso % (Auto) 0.0 L (0.1-1.2) % Neut # (Auto) 10.88 H (1.78-5.38) K/mm3 Lymph # (Auto) 0.28 L (1.32-3.57) K/mm3 [place] # (Auto) 0.21 L (0.30-0.82) K/mm3 Eos # (Auto) 0.00 L (0.04-0.54) K/mm3 Baso # (Auto) 0.00 L (0.01-0.08) K/mm3 Manual Slide Review Abnormal smear Sodium 135 L (136-145) mEq/L Potassium 4.1 (3.5-5.1) mEq/L Chloride 102 (98-107) mEq/L Carbon Dioxide 27 (21-32) mEq/L Anion Gap 10.1 (5-15) BUN 20 H (7-18) mg/dL Creatinine 1.1 (0.7-1.3) mg/dL Est Cr Clr Drug Dosing 59.81 mL/min Estimated GFR (MDRD) > 60 (>60) mL/min BUN/Creatinine Ratio 18.2 H (14-18) Glucose 132 H (83-115) mg/dL Lactic Acid 0.9 (0.4-2.0) mmol/L Calcium 8.6 (8.5-10.1) mg/dL Magnesium 1.8 (1.8-2.4) mg/dl C-Reactive Protein 2.5 H* (<1.0) mg/dL RENEE Results - Last 24 hrs: Microbiology 12/04/18 18:08 Gram Stain - Final Arm, Right - Upper Anaerobic Culture - Preliminary NO GROWTH AFTER 2 DAYS Med Orders - Current: Current Medications Amoxicillin/Clavulanate Potassium (Augmentin 875 Mg/125 Mg) 1 tab PO BID [facility] Last Admin: 12/06/18 08:27 Dose: 1 tab Aspirin (Halfprin) 81 mg PO DAILY [facility] Last Admin: 12/06/18 08:28 Dose: 81 mg Enoxaparin Sodium (Lovenox) 30 mg SUBCUT Q24H [facility] Last Admin: 12/05/18 21:19 Dose: 30 mg Ferrous Sulfate (Ferrous Sulfate) 325 mg PO DAILY [facility] Last Admin: 12/06/18 08:28 Dose: 325 mg Gabapentin (Neurontin) 200 mg PO BID [facility] Last Admin: 12/06/18 08:27 Dose: 200 mg Hydralazine HCl (Apresoline) 20 mg IVPUSH Q6H PRN PRN Reason: Hypertension Hydromorphone HCl (Dilaudid) 0.5 mg IVPUSH Q4H PRN PRN Reason: Pain Hydroxyzine HCl (Atarax) 50 mg PO TID PRN PRN Reason: Anxiety Last Admin: 12/06/18 08:28 Dose: 50 mg Loperamide HCl (Imodium) 2 mg PO QID PRN PRN Reason: Diarrhea Last Admin: 12/06/18 12:30 Dose: 2 mg Lorazepam (Ativan) 1 mg PO BID@0700,1200 PRN PRN Reason: Anxiety Methylprednisolone Sodium Succinate (Solu-Medrol) 125 mg IVPUSH Q12H [facility] Last Admin: 12/06/18 08:29 Dose: 125 mg Metoprolol Succinate (Toprol Xl) 25 mg PO DAILY [facility] Last Admin: 12/06/18 08:28 Dose: 25 mg Multivitamins (Thera) 1 each PO DAILY [facility] Last Admin: 12/06/18 08:27 Dose: 1 each Ibrutinib [Imbruvica ] 420 Mg TabOwn Med 420 mg PO DAILY [facility] Last Admin: 12/06/18 08:29 Dose: 420 mg Pantoprazole Sodium (Protonix) 40 mg PO BIDAC [facility] Last Admin: 12/06/18 05:02 Dose: 40 mg Sodium Chloride (Saline Flush) 10 ml FLUSH ASDIRECTED PRN PRN Reason: Keep Vein Open Last Admin: 12/04/18 14:55 Dose: 10 ml Tramadol HCl (Ultram) 100 mg PO Q6H PRN PRN Reason: Pain (moderate 4-6) Last Admin: 12/05/18 14:34 Dose: 100 mg Venlafaxine HCl (Effexor Xr) 150 mg PO DAILY [facility] Last Admin: 12/06/18 08:28 Dose: 150 mg Discontinued Medications Hydromorphone HCl (Dilaudid) 0.5 mg IVPUSH ONETIME ONE Stop: 12/04/18 14:51 Last Admin: 12/04/18 14:58 Dose: 0.5 mg Hydromorphone HCl (Dilaudid) 0.5 mg IVPUSH ONETIME ONE Stop: 12/04/18 16:04 Last Admin: 12/04/18 16:08 Dose: 0.5 mg Hydromorphone HCl (Dilaudid) 0.5 mg IVPUSH ONETIME ONE Stop: 12/04/18 18:11 Last Admin: 12/04/18 18:17 Dose: 0.5 mg Hydromorphone HCl (Dilaudid) 0.5 mg IVPUSH ONETIME ONE Stop: 12/04/18 19:13 Last Admin: 12/04/18 19:27 Dose: 0.5 mg Vancomycin HCl 1.75 gm/ Sodium (Chloride) 250 mls @ 250 mls/hr IV ONETIME ONE Stop: 12/04/18 19:10 Last Admin: 12/04/18 18:28 Dose: 250 mls/hr Vancomycin HCl 2 gm/ Sodium (Chloride) 250 mls @ 250 mls/hr IV ONETIME ONE Stop: 12/04/18 19:17 Last Admin: 12/04/18 18:29 Dose: Not Given Sodium Chloride (Normal Saline) 1,000 mls @ 100 mls/hr IV ASDIRECTED [facility] Stop: 12/05/18 05:30 Last Admin: 12/04/18 22:56 Dose: 100 mls/hr Magnesium Sulfate 4 gm/ Premix 50 mls @ 12.5 mls/hr IV ONETIME ONE Stop: 12/05/18 15:10 Last Admin: 12/05/18 11:44 Dose: 12.5 mls/hr Ampicillin Sodium/Sulbactam (Sodium 3 gm/ Sodium Chloride) 100 mls @ 200 mls/ hr IV ONETIME ONE Stop: 12/05/18 15:59 Last Admin: 12/05/18 16:49 Dose: 200 mls/hr Ketorolac Tromethamine (Toradol) 15 mg IVPUSH ONETIME ONE Stop: 12/04/18 14:51 Last Admin: 12/04/18 14:55 Dose: 15 mg Ketorolac Tromethamine (Toradol) 60 mg IM ONETIME ONE Stop: 12/04/18 23:01 Last Admin: 12/04/18 22:57 Dose: 60 mg Ketorolac Tromethamine (Toradol) 15 mg IVPUSH Q8H [facility] Stop: 12/06/18 12:01 Last Admin: 12/06/18 12:22 Dose: 15 mg Lidocaine/Tetracaine (Let Soln) 3 ml TOP ONETIME ONE Stop: 12/04/18 17:16 Last Admin: 12/04/18 17:20 Dose: 3 ml Magnesium Hydroxide (Milk Of Magnesia) 30 ml PO ONETIME ONE Stop: 12/06/18 07:33 Last Admin: 12/06/18 08:27 Dose: 30 ml Methylprednisolone Sodium Succinate (Solu-Medrol) 125 mg IVPUSH ONETIME ONE Stop: 12/04/18 18:37 Last Admin: 12/04/18 19:04 Dose: 125 mg Discharge Operative/Procedures - Procedures Performed I&D Site: Dorsum of right hand
[2018-12-06 15:47] VITALS: BP 156/90
== END 2018-12-06 16:18 | disposition home or self-care (01) | DRG 554 ==
LOC: JD.ED 14:25 → JD.MS 19:53
PROVIDERS: ADMIT Internal Medicine Cardiovascular Disease; ATTEND Internal Medicine Cardiovascular Disease
PROC: 0H9FXZX Drainage of Right Hand Skin, External Approach, Diagnostic (ICD-10-PCS; principal; 2018-12-04)
DX: L03.113 Cellulitis of right upper limb (principal); M11.241 Other chondrocalcinosis, right hand; C91.10 Chronic lymphocytic leukemia of B-cell type not having achieved remission; I10 Essential (primary) hypertension; K21.9 Gastro-esophageal reflux disease without esophagitis; F41.9 Anxiety disorder, unspecified; F32.9 Major depressive disorder, single episode, unspecified; E03.9 Hypothyroidism, unspecified; M79.2 Neuralgia and neuritis, unspecified; I25.10 Atherosclerotic heart disease of native coronary artery without angina pectoris; M79.641 Pain in right hand; M25.531 Pain in right wrist; L53.9 Erythematous condition, unspecified; J44.9 Chronic obstructive pulmonary disease, unspecified; E83.42 Hypomagnesemia; Z79.899 Other long term (current) drug therapy; Z79.3 Long term (current) use of hormonal contraceptives; Z79.890 Hormone replacement therapy; Z79.82 Long term (current) use of aspirin; Z87.891 Personal history of nicotine dependence
CPT/HCPCS: 26989; 36415; 73110; 80053; 84550; 85025; 85652; 86140; 87075; 87205; 93971; 96365; 96375; 96376; 99285; J1170 ×4; J1885; J2930; J3370; J7050; 10060; 80048; 83605; 83735; 97110-GP; 97161-GP; 97165-GO; 99284; A9270-GY; J0295; J1650; J3475; J7030; J7040

== ENCOUNTER 2019-07-24 14:52 | Emergency (ER) | payer MEDICARE, BC ==
[2019-07-24 15:08] VITALS: BP 134/77; PULSE 63
[2019-07-24] MEDS ORDERED: HYDROmorphone 1 MG/ML Syringe IM ONE (15:20)
--- NOTE | 2019-07-24 16:24 | EDM.PDOC ---
ED HPI GENERAL MEDICAL PROBLEM - General Chief Complaint: Upper Extremity Injury/Pain Stated Complaint: R ARM AND BACK PAIN Time Seen by Provider: 07/24/19 15:06 Source of Information: Reports: Patient History Limitations: Reports: No Limitations - History of Present Illness INITIAL COMMENTS - FREE TEXT/NARRATIVE: The patient presents with right shoulder, right upper back and right upper chest pain. This all started on Wednesday. He denies any injury. He says it hurts in the upper chest where his port is. He has a history of CLL and he had that port put in about 10 years ago. They do not use it now. He is on oral meds. He has no fever. He has no swelling in his right arm. He has no abdominal pain, nausea or vomiting. He did try some aspirin but it did not help. He does have a slight cough and chills at times. Onset: Sudden Duration: Day(s): Location: Reports: Chest, Back, Upper Extremity, Right (shoulder) Quality: Reports: Sharp Severity: Severe Improves with: Reports: Immobilization Worsens with: Reports: Movement Associated Symptoms: Reports: Chest Pain. 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 Right Upper Back Pain Score (Numeric/FACES): 10 - Related Data Allergies Allergy/AdvReac Type Severity Reaction Status Date / Time No Known Allergies Allergy Verified 07/24/19 15:08 Home Meds: Home Meds LORazepam [Ativan] 1 mg PO 07,12 PRN 01/27/15 [History] Multivitamin with Minerals [Multiple Vitamin] 1 tab PO DAILY 01/27/15 [History] Omeprazole [Prilosec] 20 mg PO 07,12 01/27/15 [History] Venlafaxine [Effexor XR] 150 mg PO DAILY 01/27/15 [History] Ibrutinib [Imbruvica] 420 mg PO DAILY 01/01/16 [History] Aspirin [Halfprin] 81 mg PO DAILY 12/04/18 [History] Calcium Citrate/Vitamin D3 [Calcium Citrate - Vit D3 Tab] 1 tab PO DAILY [History] Ferrous Sulfate [Iron] 325 mg PO DAILY 12/04/18 [History] Loperamide HCl [Loperamide] 2 mg PO QID PRN 12/04/18 [History] hydrOXYzine pamoate [Hydroxyzine Pamoate] 50 mg PO TID PRN 12/04/18 [History] Levothyroxine 25 mcg PO DAILY 12/06/18 [History] Metoprolol Succinate [Toprol XL] 25 mg PO DAILY #60 12/06/18 [Rx] amLODIPine Besylate [Norvasc] 5 mg PO BID #60 tablet 12/06/18 [Rx] Azithromycin [Zithromax] 250 mg PO DAILY #6 tab 07/24/19 [Rx] Hydrocodone/Acetaminophen [Hydrocodon-Acetaminophen 5-325] 1 - 2 each PO Q6HR PRN #15 tablet 07/24/19 [Rx] Past Medical History Cardiovascular History: Reports: CAD, Hypertension, Other (See Below) Other Cardiovascular History: "might have a partially clogged artery somewhere" Respiratory History: Reports: COPD Gastrointestinal History: Reports: GERD Neurological History: Reports: Other (See Below) Other Neuro History: nerve pain. 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 Psychiatric History: Reports: Anxiety, Depression Endocrine/Metabolic History: Reports: Hypothyroidism Oncologic (Cancer) History: Reports: Leukemia Other Oncologic History: CLL Dermatologic History: Reports: Other (See Below) Other Dermatologic History: Rash last three days. - Infectious Disease History Infectious Disease History: Reports: C-Difficile - Past Surgical History HEENT Surgical History: Reports: Oral Surgery, Tonsillectomy GI Surgical History: Reports: Hernia, Inguinal Social & Family History - Family History Family Medical History: Noncontributory - Tobacco Use Smoking Status *Q: Never Smoker Second Hand Smoke Exposure: No - Caffeine Use Caffeine Use: Reports: Coffee - Living Situation & Occupation Living situation: Reports: , with Spouse Occupation: Retired Review of Systems - Review of Systems Review Of Systems: See Below Constitutional: Reports: No Symptoms Eyes: Reports: No Symptoms Ears: Reports: No Symptoms Nose: Reports: No Symptoms Mouth/Throat: Reports: No Symptoms Respiratory: Reports: No Symptoms Cardiovascular: Reports: Chest Pain (Right upper) GI/Abdominal: Reports: No Symptoms Genitourinary: Reports: No Symptoms Musculoskeletal: Reports: Shoulder Pain (Right), Back Pain (Right upper) ED EXAM, GENERAL - Physical Exam Exam: See Below Exam Limited By: No Limitations General Appearance: Alert, No Apparent Distress Ears: Normal External Exam Nose: Normal Inspection Head: Atraumatic, Normocephalic Neck: Normal Inspection, Supple, Non-Tender Respiratory/Chest: No Respiratory Distress, Lungs Clear, Normal Breath Sounds Cardiovascular: Regular Rate, Rhythm, No Edema, No Murmur, Other (Port is in place in the right upper chest. There is no swelling or erythema to that area) GI/Abdominal: Soft, Non-Tender, No Organomegaly, No Mass Back Exam: Other (Pain upon palpation to the right upper back) Extremities: Other (Pain upon palpation to the right shoulder. Good sensation and pulses distally.) Neurological: Alert, Oriented, No Motor/Sensory Deficits Course - Vital Signs Last Recorded V/S: Last Vital Signs Temp 98.2 F 07/24/19 15:04 Pulse 63 07/24/19 15:04 Resp 20 07/24/19 15:04 BP 134/77 07/24/19 15:04 Pulse Ox 97 07/24/19 15:04 - Orders/Labs/Meds Orders: Active Orders 24 hr Category Date Time Status Cardiac Monitoring [RC] . DIRECTED Care 07/24/19 15:18 Active EKG Documentation Completion [RC] STAT Care 07/24/19 15:19 Active Peripheral IV Care [RC] . DIRECTED Care 07/24/19 16:28 Active Sodium Chloride 0.9% [Normal Saline] 100 ml Med 07/24/19 17:00 Active IV ASDIRECTED Sodium Chloride 0.9% [Saline Flush] Med 07/24/19 16:27 Active 10 ml FLUSH ASDIRECTED PRN Peripheral IV Insertion Adult [OM.PC] Routine Oth 07/24/19 16:27 Ordered Medication Orders Sodium Chloride (Normal Saline) 100 mls @ 75 mls/hr IV ASDIRECTED BRIEN Last Admin: 07/24/19 17:36 Dose: 75 mls/hr Infusion: 07/24/19 17:36 Dose: 75 mls/hr Admin: 07/24/19 17:33 Dose: 75 mls/hr Sodium Chloride (Saline Flush) 10 ml FLUSH ASDIRECTED PRN PRN Reason: Keep Vein Open Last Admin: 07/24/19 16:55 Dose: 10 ml Labs: Laboratory Tests 07/24/19 07/24/19 07/24/19 Range/Units 15:42 15:42 15:42 WBC 5.41 (4.23-9.07) K/mm3 RBC 3.95 L (4.63-6.08) M/mm3 Hgb 10.9 L D (13.7-17.5) gm/dl Hct 33.7 L (40.1-51.0) % MCV 85.3 (79.0-92.2) fl MCH 27.6 (25.7-32.2) pg MCHC 32.3 (32.2-35.5) g/dl RDW Std Deviation 45.1 H (35.1-43.9) fL Plt Count 211 (163-337) K/mm3 MPV 9.0 L (9.4-12.3) fl Neut % (Auto) 80.5 H (34.0-67.9) % Lymph % (Auto) 7.0 L (21.8-53.1) % Love % (Auto) 8.1 (5.3-12.2) % Eos % (Auto) 3.5 (0.8-7.0) Baso % (Auto) 0.2 (0.1-1.2) % Neut # (Auto) 4.35 (1.78-5.38) K/mm3 Lymph # (Auto) 0.38 L (1.32-3.57) K/mm3 Love # (Auto) 0.44 (0.30-0.82) K/mm3 Eos # (Auto) 0.19 (0.04-0.54) K/mm3 Baso # (Auto) 0.01 (0.01-0.08) K/mm3 Manual Slide Review Abnormal smear D-Dimer, Quantitative 0.65 H (0.19-0.50) mg/L Sodium 139 (136-145) mEq/L Potassium 3.6 (3.5-5.1) mEq/L Chloride 104 (98-107) mEq/L Carbon Dioxide 25 (21-32) mEq/L Anion Gap 13.6 (5-15) BUN 11 (7-18) mg/dL Creatinine 1.3 (0.7-1.3) mg/dL Est Cr Clr Drug Dosing 49.85 mL/min Estimated GFR (MDRD) 54 (>60) mL/min BUN/Creatinine Ratio 8.5 L (14-18) Glucose 104 (83-115) mg/dL Calcium 8.3 L (8.5-10.1) mg/dL Total Bilirubin 0.6 (0.2-1.0) mg/dL AST 14 L (15-37) U/L ALT 17 (16-63) U/L Alkaline Phosphatase 98 (46-116) U/L Troponin I < 0.017 (0.00-0.056) ng/mL Total Protein 5.8 L (6.4-8.2) g/dl Albumin 3.2 L (3.4-5.0) g/dl Globulin 2.6 gm/dL Albumin/Globulin Ratio 1.2 (1-2) Meds: Medications Generic Name Dose Route Start Last Admin Trade Name Freq PRN Reason Stop Dose Admin Sodium Chloride 100 mls @ 75 mls/hr 07/24/19 17:00 07/24/19 17:36 Normal Saline IV 75 mls/hr ASDIRECTED BRIEN Administration Sodium Chloride 10 ml 07/24/19 16:27 07/24/19 16:55 Saline Flush FLUSH 10 ml ASDIRECTED PRN Administration Keep Vein Open Discontinued Medications Generic Name Dose Route Start Last Admin Trade Name Freq PRN Reason Stop Dose Admin Hydromorphone HCl 1 mg 07/24/19 15:20 07/24/19 15:58 Dilaudid IM 07/24/19 15:21 1 mg ONETIME ONE Administration Iopamidol 100 ml 07/24/19 16:59 07/24/19 17:15 [id number] (76%) IVPUSH 07/24/19 17:00 100 ml ONETIME ONE Administration Ketorolac Tromethamine 15 mg 07/24/19 16:33 07/24/19 16:43 Toradol IVPUSH 07/24/19 16:34 15 mg ONETIME ONE Administration - Re-Assessments/Exams Free Text/Narrative Re-Assessment/Exam: 07/24/19 16:24 I ordered dilaudid 1mg IM, labs, EKG, CXR, x-ray of his shoulder. 07/24/19 18:03 His EKG shows a NSR with no acute changes. The x-ray of his ches shows a nodule in the right lung. I have ordered a CT angio of his chest. The x-ray of his right shoulder shows probable rotator cuff tear. 07/24/19 18:05 His Hgb is low at 10.9. His CMP looks good. His D-dimer was elevated at 0.65. I have ordered a CT angio of his chest. His troponin is negative. The CT angio of his chest shows no findings of pulmonary embolism. Slight parenchymal density within the right middle lobe. Early area of pneumonia is possibility. Emphysematous change. Small 5mm nodule within the left lung base. Follow up noncontrast chest CT recommended in 1 year. Other incidental findings. He does have a cough. I will get him on some zithromax and something for pain. Departure - Departure Time of Disposition: 18:10 Disposition: Home, Self-Care 01 Condition: Good Clinical Impression: Pulmonary nodule Right shoulder pain Qualifiers: Chronicity: acute Qualified Code(s): M25.511 - Pain in right shoulder Chest pain Qualifiers: Chest pain type: unspecified Qualified Code(s): R07.9 - Chest pain, unspecified Pneumonia Qualifiers: Pneumonia type: due to unspecified organism Laterality: right Lung location: middle lobe of lung Qualified Code(s): J18.9 - Pneumonia, unspecified organism - Discharge Information *PRESCRIPTION DRUG MONITORING PROGRAM REVIEWED*: No *COPY OF PRESCRIPTION DRUG MONITORING REPORT IN PATIENT SOM: No Prescriptions: Hydrocodone/Acetaminophen [Hydrocodon-Acetaminophen 5-325] 1 - 2 each PO Q6HR PRN #15 tablet PRN Reason: Pain Azithromycin [Zithromax] 250 mg PO DAILY #6 tab Referrals: Santhosh Abebe MD [Primary Care Provider] - 1 Week Forms: ED Department Discharge Additional Instructions: Take the zithromax as prescribed. Take tylenol or motrin for pain. If that does not help, try the hydrocodone for pain. Follow up with Dr Abebe. There was a nodule in your left lung. You should have a repeat CT within a year to check on the size of it. Please return if you are worse. - My Orders Last 24 Hours: My Active Orders 07/24/19 15:18 Cardiac Monitoring [RC] . DIRECTED 07/24/19 15:19 EKG Documentation Completion [RC] STAT 07/24/19 16:27 Sodium Chloride 0.9% [Saline Flush] 10 ml FLUSH ASDIRECTED PRN Peripheral IV Insertion Adult [OM.PC] Routine 07/24/19 16:28 Peripheral IV Care [RC] . DIRECTED 07/24/19 17:00 Sodium Chloride 0.9% [Normal Saline] 100 ml IV ASDIRECTED - Assessment/Plan Last 24 Hours: My Active Orders 07/24/19 15:18 Cardiac Monitoring [RC] . DIRECTED 07/24/19 15:19 EKG Documentation Completion [RC] STAT 07/24/19 16:27 Sodium Chloride 0.9% [Saline Flush] 10 ml FLUSH ASDIRECTED PRN Peripheral IV Insertion Adult [OM.PC] Routine 07/24/19 16:28 Peripheral IV Care [RC] . DIRECTED 07/24/19 17:00 Sodium Chloride 0.9% [Normal Saline] 100 ml IV ASDIRECTED
[2019-07-24] MEDS ORDERED: Sodium Chloride 0.9% 10 ML Syringe FLUSH PRN (16:27)
[2019-07-24] MEDS ORDERED: Ketorolac 15 MG/ML SDV IVPUSH ONE (16:33)
[2019-07-24] MEDS ORDERED: Iopamidol 755 Mg/ML 100 ML Bottle IVPUSH ONE (16:59)
--- NOTE | 2019-07-24 17:18 | CR ---
Chest: PA and lateral views of the chest were obtained. Comparison: Previous chest x-ray of 08/03/17. Small nodule is noted within the right lung base which appears as an interval change from previous exam. Infusion port is noted on the right side which is stable from previous exam. Heart size is normal. Tortuous thoracic aorta is seen. No definite acute parenchymal change is appreciated. Surgical clips are seen within the right lower axillary region or chest wall. Degenerative change is noted within the spine. Compression deformities are seen within the lower thoracic spine and appear to be old. Impression: 1. Small nodule within the right lung base which is not seen on prior study. Chest CT is recommended to see if this is a real finding. 2. Nothing acute is otherwise seen. Other findings as noted above. Diagnostic code #9 This report was dictated in [place] Standard Time
--- NOTE | 2019-07-24 17:18 | CR ---
Right shoulder: Three views of the right shoulder were obtained. Probable chronic rotator cuff tear is noted. No acute fracture, dislocation or other bony abnormality is appreciated. Impression: 1. Probable chronic rotator cuff tear. Diagnostic code #3 This report was dictated in [place] Standard Time
[2019-07-24] MEDS: Sodium Chloride 0.9% 100 ML IV SCH ×2 (17:33→17:36)
--- NOTE | 2019-07-24 17:52 | CT ---
CT chest Technique: Multiple axial sections through the chest were obtained. Intravenous contrast was utilized. Study has been performed as a pulmonary angiogram protocol. Findings: Pulmonary arteries are well opacified. No filling defects are seen to indicate pulmonary embolism. Mediastinum and hilar region show no adenopathy. Coronary artery calcification is seen. No pericardial thickening is seen. Calcified granulomas are noted within the spleen. Calcified lymph nodes are seen within the subcarinal region. Mild gynecomastia is noted within both breasts, slightly more prominent on the left side. Emphysematous changes are seen. Mild parenchymal density is noted within the right middle lobe. Small subpleural nodule is noted within the left lung base measuring 5 mm. Lungs otherwise are clear. Impression: 1. No findings of pulmonary embolism. 2. 2. Slight parenchymal density within the right middle lobe. Early area of pneumonia is possibility. 3. Emphysematous change. 4. Small 5 mm nodule within the left lung base. Follow-up noncontrast chest CT recommended in 1 year. 5. Other findings believed to be incidental. Note: Recommendation as noted above. Diagnostic code #3 This report was dictated in [place] Standard Time
[2019-07-24] MEDS ORDERED: Azithromycin 250 MG Tab PO ONE (18:02)
[2019-07-24] MEDS ORDERED: Acetaminophen/HYDROcodone 325-5 MG Tab PO ONE (18:02)
== END 2019-07-24 18:31 | disposition home or self-care (01) ==
LOC: JD.ED 14:52
DX: J18.9 Pneumonia, unspecified organism (principal); R91.1 Solitary pulmonary nodule; M25.511 Pain in right shoulder; I25.10 Atherosclerotic heart disease of native coronary artery without angina pectoris; I10 Essential (primary) hypertension; J44.9 Chronic obstructive pulmonary disease, unspecified; K21.9 Gastro-esophageal reflux disease without esophagitis; E03.9 Hypothyroidism, unspecified; F41.9 Anxiety disorder, unspecified; F32.9 Major depressive disorder, single episode, unspecified; Z79.890 Hormone replacement therapy; Z85.6 Personal history of leukemia; Z79.899 Other long term (current) drug therapy; Z79.82 Long term (current) use of aspirin
CPT/HCPCS: 36415; 71046; 71275; 73030; 80053; 84484; 85025; 85379; 93005; 96361; 96372; 96374; 99285; A9270; J1170; J1885; J7050; Q9967; 93010; 99284

== ENCOUNTER 2019-10-15 23:57 | Emergency (ER) | payer MEDICARE, BC ==
[2019-10-16 00:13] VITALS: BP 154/88; PULSE 71
[2019-10-16] MEDS ORDERED: HYDROmorphone 0.5 MG/0.5 ML Syringe IVPUSH ONE ×3 (03:13→06:04)
[2019-10-16] MEDS ORDERED: HYDROmorphone 0.5 MG/0.5 ML Syringe IM ONE (03:15)
--- NOTE | 2019-10-16 03:20 | EDM.PDOC ---
ED HPI GENERAL MEDICAL PROBLEM - General Chief Complaint: Upper Extremity Injury/Pain Stated Complaint: NO FEELING IN LEFT ARM Time Seen by Provider: 10/16/19 02:45 Source of Information: Reports: Patient, Family () History Limitations: Reports: Uncooperative - History of Present Illness INITIAL COMMENTS - FREE TEXT/NARRATIVE: Obtaining a history from the patient is exceedingly difficult, as the patient does not answer questions directly, instead responding by combining new and old symptoms, answering "yes" when he really means no, and vice versa, and uses words such as "paralyzed" when he really means painful. 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 He then developed left shoulder pain this past 10/13/2019, with constant pain made worse with virtually any movement. The pain is limited to his shoulder, although his shoulder pain may be exacerbated by movement of his left upper extremity, including flexion/ extension of the elbow. The pain does not involve his chest or thorax, even though the patient repeatedly said that his "whole left side" was involved. It took quite some time to determine that the patient was referring only to his left upper extremity. There is no change to the condition of the patient's left hand or forearm, and the patient's tells me that he is ordinarily able to use his left upper extremity somewhat, although not for the past 2 days , because it induces pain. His left upper extremity is not actually paralyzed. No change in his left upper extremity with head or neck position or movement. It is unclear if the patient has had this left shoulder pain in the past - it is likely, since the patient has been told that he has arthritis in that shoulder, but perhaps the pain has not been as severe in the past. No known recent injury or trauma to the shoulder or left upper extremity. He reports nausea, along with lightheadedness when upright, today. He reports a chronic nonproductive cough. No recent fever, nausea, constipation, or diarrhea. The patient's PCP is Dr. Abebe. Left Arm Pain Score (Numeric/FACES): 10 - Related Data Allergies Allergy/AdvReac Type Severity Reaction Status Date / Time No Known Allergies Allergy Verified 10/16/19 00:13 Home Meds: Home Meds LORazepam [Ativan] 1 mg PO ,12 PRN 01/27/15 [History] Multivitamin with Minerals [Multiple Vitamin] 1 tab PO DAILY 01/27/15 [History] Omeprazole [Prilosec] 20 mg PO 07,12 01/27/15 [History] Venlafaxine [Effexor XR] 150 mg PO DAILY 01/27/15 [History] Ibrutinib [Imbruvica] 420 mg PO DAILY 01/01/16 [History] Aspirin [Halfprin] 81 mg PO DAILY 12/04/18 [History] Calcium Citrate/Vitamin D3 [Calcium Citrate - Vit D3 Tab] 1 tab PO DAILY [History] Ferrous Sulfate [Iron] 325 mg PO DAILY 12/04/18 [History] Loperamide HCl [Loperamide] 2 mg PO QID PRN 12/04/18 [History] hydrOXYzine pamoate [Hydroxyzine Pamoate] 50 mg PO TID PRN 12/04/18 [History] Levothyroxine 25 mcg PO DAILY 12/06/18 [History] Metoprolol Succinate [Toprol XL] 25 mg PO DAILY #60 12/06/18 [Rx] amLODIPine Besylate [Norvasc] 5 mg PO BID #60 tablet 12/06/18 [Rx] Acetaminophen/HYDROcodone [Prairie 325-5 MG] 1 - 2 tab PO Q6H PRN #20 tablet 10/15 [Rx] Past Medical History Cardiovascular History: Reports: Hypertension Gastrointestinal History: Reports: GERD (suspected) Neurological History: Reports: Other (See Below) (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) Psychiatric History: Reports: Anxiety, Depression Endocrine/Metabolic History: Reports: Hypothyroidism Oncologic (Cancer) History: Reports: Leukemia (CLL, s/p CTx) - Infectious Disease History Infectious Disease History: Reports: C-Difficile - Past Surgical History HEENT Surgical History: Reports: Oral Surgery (dental extractions -> edentulous) , Tonsillectomy Respiratory Surgical History: Reports: Other (See Below) (Bronchoscopy) GI Surgical History: Reports: Hernia, Inguinal (left) Social & Family History - Family History Family Medical History: Noncontributory - Tobacco Use Smoking Status *Q: Former Smoker Years of Tobacco use: 40 Packs/Tins Daily: 1 Month/Year Tobacco Last Used: Quit 2003 - Caffeine Use Caffeine Use: Reports: None - Alcohol Use Alcohol Use History: Yes Alcohol Use Frequency: Rarely - Recreational Drug Use Recreational Drug Use: No - Living Situation & Occupation Living situation: Reports: , with Spouse Occupation: Retired Review of Systems - Review of Systems Review Of Systems: Comprehensive ROS is negative, except as noted in HPI. ED EXAM, GENERAL - Physical Exam Exam: See Below Exam Limited By: Uncooperative (The patient states "I can't" to most physical requests) General Appearance: Alert, Mild Distress (Occasionally jumps, as if in pain, but then says he's not jumping because of pain, but that he's in continuous pain ), Thin Eye Exam: Bilateral Eye: EOMI, Normal Inspection Ears: Normal External Exam, Hearing Grossly Normal Nose: Normal Inspection Throat/Mouth: Normal Inspection, Normal Lips, Normal Voice, No Airway Compromise Head: Atraumatic, Normocephalic Neck: Normal Inspection, Supple, Non-Tender, Limited Range of Motion Respiratory/Chest: No Respiratory Distress, Lungs Clear, Normal Breath Sounds, No Accessory Muscle Use, Chest Non-Tender Cardiovascular: Normal Peripheral Pulses, Regular Rate, Rhythm, No Edema, No Gallop, No JVD, No Murmur, No Rub Peripheral Pulses: 4+: Radial (L), Radial (R) GI/Abdominal: Normal Bowel Sounds, Soft, Non-Tender, No Organomegaly, No Distention, No Abnormal Bruit, No Mass (Male) Exam: Deferred Rectal (Males) Exam: Deferred Back Exam: Normal Inspection, Full Range of Motion, NT Extremities: Normal Capillary Refill, Other (No visible abnormality to the patient's left shoulder, when compared to the right, such as swelling, erythema , ecchymosis, abrasion, or anterior fullness. The patient jumps wildly with even the slightest palpation. He has minimal strength to both flexion and extension at the shoulder, but states "I cannot", and will not even attempt to abduct or adduct his left arm. He reports extreme pain with attempts at PROM left shoulder, and will not allow further examination. The patient reports chronic numbness to his left hand, but vascular supply to the left upper extremity appears to be intact.) Neurological: Alert, Oriented, Other (Chronic sensory loss to the left hand/ forearm?) Psychiatric: Flat Affect Skin Exam: Warm, Dry, Intact, Normal Color, No Rash Course - Vital Signs Last Recorded V/S: Last Vital Signs Temp 36.8 C 10/16/19 00:09 Pulse 71 10/16/19 00:09 Resp 20 10/16/19 00:09 BP 154/88 H 10/16/19 00:09 Pulse Ox 98 10/16/19 00:09 Orthostatic Blood Pressure [ 142/82 Standing] Orthostatic Blood Pressure [ 169/87 Supine] - Orders/Labs/Meds Orders: Active Orders 24 hr Category Date Time Status Orthostatic Vital Signs [RC] STAT Care 10/16/19 03:13 Active Orthostatic Vital Signs [RC] STAT Care 10/16/19 03:56 Active Labs: Laboratory Tests 10/16/19 10/16/19 Range/Units 04:20 04:20 WBC 9.08 H (4.23-9.07) K/mm3 RBC 4.19 L (4.63-6.08) M/mm3 Hgb 11.8 L (13.7-17.5) gm/dl Hct 36.7 L (40.1-51.0) % MCV 87.6 (79.0-92.2) fl MCH 28.2 (25.7-32.2) pg MCHC 32.2 (32.2-35.5) g/dl RDW Std Deviation 48.1 H (35.1-43.9) fL Plt Count 183 (163-337) K/mm3 MPV 8.9 L (9.4-12.3) fl Neutrophils % (Manual) 83 H (40-60) % Band Neutrophils % 9 (0-10) % Lymphocytes % (Manual) 3 L (20-40) % Atypical Lymphs % 0 % Monocytes % (Manual) 5 (2-10) % Eosinophils % (Manual) 0 L (0.8-7.0) % Basophils % (Manual) 0 L (0.2-1.2) Platelet Estimate Adequate Plt Morphology Comment Normal RBC Morph Comment Normal Sodium 139 (136-145) mEq/L Potassium 3.7 (3.5-5.1) mEq/L Chloride 103 (98-107) mEq/L Carbon Dioxide 26 (21-32) mEq/L Anion Gap 13.7 (5-15) BUN 17 (7-18) mg/dL Creatinine 1.1 (0.7-1.3) mg/dL Est Cr Clr Drug Dosing 58.92 mL/min Estimated GFR (MDRD) > 60 (>60) mL/min BUN/Creatinine Ratio 15.5 (14-18) Glucose 123 H (83-115) mg/dL Calcium 8.1 L (8.5-10.1) mg/dL Magnesium 1.2 L (1.8-2.4) mg/dl Total Bilirubin 1.3 H (0.2-1.0) mg/dL AST 17 (15-37) U/L ALT 21 (16-63) U/L Alkaline Phosphatase 108 (46-116) U/L Total Protein 6.5 (6.4-8.2) g/dl Albumin 3.4 (3.4-5.0) g/dl Globulin 3.1 gm/dL Albumin/Globulin Ratio 1.1 (1-2) Meds: Medications Discontinued Medications Generic Name Dose Route Start Last Admin Trade Name Freq PRN Reason Stop Dose Admin Hydromorphone HCl 0.5 mg 10/16/19 03:15 10/16/19 03:25 Dilaudid IM 10/16/19 03:16 0.5 mg ONETIME ONE Administration Hydromorphone HCl 0.5 mg 10/16/19 04:10 10/16/19 04:29 Dilaudid IVPUSH 10/16/19 04:11 0.5 mg ONETIME ONE Administration Hydromorphone HCl 0.5 mg 10/16/19 06:04 10/16/19 06:12 Dilaudid IVPUSH 10/16/19 06:05 0.5 mg ONETIME ONE Administration Lactated Ringer's 1,000 mls @ 999 mls/hr 10/16/19 03:55 10/16/19 04:24 Ringers, Lactated IV 10/16/19 04:55 999 mls/hr .BOLUS ONE Administration Magnesium Sulfate 2 gm/ Premix 50 mls @ 50 mls/hr 10/16/19 05:37 10/16/19 05: 59 IV 10/16/19 06:36 50 mls/hr ONETIME ONE Administration Lactated Ringer's 1,000 mls @ 999 mls/hr 10/16/19 06:03 10/16/19 06:12 Ringers, Lactated IV 10/16/19 07:03 999 mls/hr .BOLUS ONE Administration - Re-Assessments/Exams Free Text/Narrative Re-Assessment/Exam: 10/16/19 03:14 I have ordered x-rays of the left shoulder, along with orthostatics, as the patient is stating that he is feeling lightheaded. In the meantime, the patient will be given Dilaudid 0.5 mg IM, which may make his lightheadedness worse, however, he is insistent that he receive "a shot", and not pills. 10/16/19 03:57 3-view radiographs of the left shoulder appear to indicate a decreased acromiohumeral interval, consistent with a chronic rotator cuff tear. No fracture or dislocation identified. Formal read per the Radiologist pending. The patient is orthostatic. I have ordered a CBC, CMP, and a Mg level. The patient will be given 1 L of LR , to be followed by repeat orthostatics. 10/16/19 04:10 The above situation was discussed with the patient and his . The patient's appears to have a very good understanding, while the patient does not. The patient requested additional pain medication, which I am not recommending, given that he is orthostatic, however, the patient is insisting. I have therefore ordered additional IV Dilaudid. 10/16/19 05:37 The patient CBC is remarkable for a WBC count mildly elevated at 9.08, with a H/ H mildly depressed at 11.8/36.7, with the remainder of his CBC being unremarkable. His CMP is remarkable for a blood glucose mildly elevated at 123, a calcium mildly depressed at 8.1, and a total bilirubin elevated at 1.3. The remainder of his CMP is unremarkable. His magnesium level is significantly depressed at 1.2. Based on the above, I have ordered a 2 g Mg-rider. 10/16/19 06:03 Following 1 L of LR, the patient is still orthostatic. I have ordered a second liter of LR, to be followed by repeat orthostatics. Notified by Cheri MAY that the patient is requesting more pain medication. I will order more Dilaudid. 10/16/19 08:15 Following a second liter of IV fluid, the patient is still orthostatic, however , I am notified by Danial MAY that the patient just got up to go to the bathroom , and was completely asymptomatic. 10/16/19 08:24 Test results discussed with the patient and his . The patient would be interested in being admitted to the hospital, primarily for pain control, but he is not interested in going to [facility], and at this time, there are no beds available at this facility. The patient is agreeable to going home and drinking either Gatorade or Powerade to hydrate up. I will send him home with a prescription for Prairie that he can fill at the pharmacy of his choice, I will refer him to Dr. Steward regarding his shoulder. Departure - Departure Time of Disposition: 08:25 Disposition: Home, Self-Care 01 Condition: Good Clinical Impression: Injury of left rotator cuff, Orthostasis, Hypomagnesemia - Discharge Information *PRESCRIPTION DRUG MONITORING PROGRAM REVIEWED*: Not Applicable *COPY OF PRESCRIPTION DRUG MONITORING REPORT IN PATIENT SOM: Not Applicable Prescriptions: Acetaminophen/HYDROcodone [Prairie 325-5 MG] 1 - 2 tab PO Q6H PRN #20 tablet PRN Reason: Pain (Severe 7-10) Referrals: Santhosh Abebe MD [Primary Care Provider] - Edgar Steward MD [Physician] - Forms: ED Department Discharge Additional Instructions: You were seen in the emergency room for 2 days of left shoulder pain, made worse with any movement along with lightheadedness when upright. Work-up in the ER included x-rays of your left shoulder, blood work, and positional blood pressure checks. The x-rays of your shoulders indicate that you may have a rotator cuff tear. No broken bones or dislocations were found. We recommend that you take [id number] ibuprofen, 3 tablets (600 mg) every 8 hours, with food, as needed for discomfort. You have been prescribed the opioid pain reliever Prairie. Take 1 to 2 tablets of Prairie up to every 6 hours, as needed for pain not relieved by ibuprofen. Do not drive for 12 hours after taking ibuprofen. Prairie may cause constipation, so consider taking a stool softener. Your work-up also found your blood pressure to drop excessively between lying and standing, a condition on his orthostasis. You were given 2 L of IV fluid, and your blood pressure is still dropping excessively, however, you have agreed to go home and drink plenty of Gatorade or Powerade today, to rehydrate. Your magnesium level was found to be low at 1.2. You were given replacement IV magnesium. The remainder of your work-up was unremarkable. Please follow-up with the Orthopedic Surgeon Dr. Edgar Steward, the next available appointment, for further evaluation of your shoulder. If any other problems, please do not hesitate to return to the ER. Sepsis Event Note - Evaluation Sepsis Screening Result: No Definite Risk - Focused Exam Vital Signs: Vital Signs Temp Pulse Resp BP Pulse Ox 10/16/19 00:09 36.8 C 71 20 154/88 H 98 Date Exam was Performed: 10/16/19 Time Exam was Performed: 08:15 - My Orders Last 24 Hours: My Active Orders 10/16/19 03:13 Orthostatic Vital Signs [RC] STAT 10/16/19 03:56 Orthostatic Vital Signs [RC] STAT - Assessment/Plan Last 24 Hours: My Active Orders 10/16/19 03:13 Orthostatic Vital Signs [RC] STAT 10/16/19 03:56 Orthostatic Vital Signs [RC] STAT
[2019-10-16] MEDS ORDERED: Lactated Ringers 1,000 ML IV ONE ×2 (03:55→06:03)
[2019-10-16] MEDS ORDERED: Magnesium Sulfate/Water 2 GM in Premix Bag 1 BAG IV ONE (05:37)
--- NOTE | 2019-10-16 07:03 | CR ---
Left shoulder: Three views of the left shoulder were obtained. Comparison: No prior left shoulder exam. Joint space narrowing and inferior spurring is seen within the glenohumeral joint. Joint space narrowing is seen within the acromioclavicular joint. Calcifications are seen off the lateral humeral head representing dystrophic calcifications within adjacent soft tissues. No acute fracture or dislocation is seen. Impression: 1. 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 2. Dystrophic calcifications are seen within the soft tissues within the lateral left shoulder. Diagnostic code #2 This report was dictated in [place] Standard Time
== END 2019-10-16 08:44 | disposition home or self-care (01) ==
LOC: JD.ED 23:57
DX: S46.002A Unspecified injury of muscle(s) and tendon(s) of the rotator cuff of left shoulder, initial encounter (principal); F41.9 Anxiety disorder, unspecified; F32.9 Major depressive disorder, single episode, unspecified; E03.9 Hypothyroidism, unspecified; E83.42 Hypomagnesemia; Z79.82 Long term (current) use of aspirin; Z79.899 Other long term (current) drug therapy; X58.XXXA Exposure to other specified factors, initial encounter
CPT/HCPCS: 36415; 73030; 80053; 83735; 85007; 85027; 96361; 96365; 96372; 96375; 96376; 99284; J1170; J3475; J7120

== ENCOUNTER 2020-03-14 06:58 | Emergency (ER) | payer MEDICARE, BC ==
--- NOTE | 2020-03-14 07:20 | EDM.PDOC ---
ED HPI GENERAL MEDICAL PROBLEM - General Chief Complaint: Chest Pain Stated Complaint: CHEST PAIN Time Seen by Provider: 03/14/20 07:10 - History of Present Illness INITIAL COMMENTS - FREE TEXT/NARRATIVE: 74-year-old male presents the emergency room with chest pain. This pain is been going on for about 3 days. It is aggravated by change in position. He describes it as left lateral chest pain that extends into his abdomen and he has significant discomfort in the left upper quadrant. Patient denies any heavy lifting. Patient thinks he might have pneumonia however and he does have a cough bringing up grayish colored sputum. He denies any diaphoresis nausea or vomiting, he also denies heartburn or reflux-like symptoms. Significant past medical history for CLL hypothyroidism GERD and he has been told he might have a clogged artery somewhere. Family has a history is noncontributory. He does not have a smoking history. Left Chest Pain Score (Numeric/FACES): 10 - Related Data Allergies Allergy/AdvReac Type Severity Reaction Status Date / Time No Known Allergies Allergy Verified 03/14/20 07:11 Home Meds: Home Meds LORazepam [Ativan] 1 mg PO ,12 PRN 01/27/15 [History] Multivitamin with Minerals [Multiple Vitamin] 1 tab PO DAILY 01/27/15 [History] Omeprazole [Prilosec] 20 mg PO ,01/27/15 [History] Venlafaxine [Effexor XR] 150 mg PO DAILY 01/27/15 [History] Ibrutinib [Imbruvica] 420 mg PO DAILY 01/01/16 [History] Aspirin [Halfprin] 81 mg PO DAILY 12/04/18 [History] Calcium Citrate/Vitamin D3 [Calcium Citrate - Vit D3 Tab] 1 tab PO DAILY 12/04/18 [History] Ferrous Sulfate [Iron] 325 mg PO DAILY 12/04/18 [History] Loperamide HCl [Loperamide] 2 mg PO QID PRN 12/04/18 [History] hydrOXYzine pamoate [Hydroxyzine Pamoate] 50 mg PO TID PRN 12/04/18 [History] Levothyroxine 25 mcg PO DAILY 12/06/18 [History] Metoprolol Succinate [Toprol XL] 25 mg PO DAILY #60 12/06/18 [Rx] amLODIPine Besylate [Norvasc] 5 mg PO BID #60 tablet 12/06/18 [Rx] Acetaminophen/HYDROcodone [[place] 325-5 MG] 1 - 2 tab PO Q6H PRN #20 tablet 10/16/19 [Rx] Benzonatate [Tessalon Perle] 100 mg PO Q8H PRN #15 capsule 03/14/20 [Rx] Doxycycline [Vibramycin] 100 mg PO Q12H #14 cap 03/14/20 [Rx] Hydrocodone/Acetaminophen [Hydrocodone-Acetamin 5-325 mg] 1 each PO Q6H PRN #10 tablet 03/14/20 [Rx] Past Medical History Cardiovascular History: Reports: Hypertension Other Cardiovascular History: "might have a partially clogged artery somewhere" Respiratory History: Reports: None Gastrointestinal History: Reports: GERD Genitourinary History: Reports: None Musculoskeletal History: Reports: None Neurological History: Reports: None Other Neuro History: nerve pain. 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 Psychiatric History: Reports: Anxiety, Depression Endocrine/Metabolic History: Reports: Hypothyroidism Hematologic History: Reports: None Immunologic History: Reports: None Oncologic (Cancer) History: Reports: Leukemia Other Oncologic History: CLL Dermatologic History: Reports: Other (See Below) Other Dermatologic History: Rash last three days. - Infectious Disease History Infectious Disease History: Reports: None - Past Surgical History HEENT Surgical History: Reports: Oral Surgery, Tonsillectomy GI Surgical History: Reports: Hernia, Inguinal Social & Family History - Family History Family Medical History: Noncontributory - Tobacco Use Smoking Status *Q: Never Smoker - Caffeine Use Caffeine Use: Reports: Coffee - Recreational Drug Use Recreational Drug Use: No - Living Situation & Occupation Living situation: Reports: , with Spouse Occupation: Retired ED ROS GENERAL - Review of Systems Review Of Systems: See Below Constitutional: Reports: No Symptoms HEENT: Reports: No Symptoms Respiratory: Reports: Pleuritic Chest Pain. Denies: Cough Cardiovascular: Reports: Chest Pain. Denies: Dyspnea on Exertion, Edema, Palpitations GI/Abdominal: Reports: Abdominal Pain. Denies: Constipation, Diarrhea, Nausea, Vomiting : Reports: No Symptoms Musculoskeletal: Reports: Other (Chest wall pain) Skin: Reports: No Symptoms Neurological: Reports: Other (Denies change in baseline) ED EXAM, GENERAL - Physical Exam Exam: See Below Exam Limited By: No Limitations General Appearance: Alert, Anxious (He appears mildly anxious) Head: Atraumatic, Normocephalic Neck: Normal Inspection, Supple, Non-Tender, Full Range of Motion. No: Lymphadenopathy (L), Lymphadenopathy (R) Respiratory/Chest: No Respiratory Distress, Other (Diminished breath sounds on the left) Cardiovascular: Regular Rate, Rhythm, No Murmur GI/Abdominal: Normal Bowel Sounds, Soft, Other (Left-sided abdominal wall type tenderness. He has pain right at the inferior margins of the ribs this extends down. No rigidity rebound or guarding no other abdominal pain) Extremities: Other (Small amount of edema on the right lower leg none on the left) Neurological: Alert, Oriented, Other (He has rushed speech) EKG INTERPRETATION EKG Date: 03/14/20 Rhythm: NSR P-Wave: Present QRS: RBBB ST-T: Other (Nonspecific nondiagnostic changes) QT: Normal Comparison: Change From Previous EKG (His ST morphology is changed a little bit from an EKG on 09/22/2018 but no significant changes and J-point elevation or depression EKG is nonacute.) EKG Interpretation Comments: Abnormal Course - Vital Signs Last Recorded V/S: Last Vital Signs Temp 36.2 C 03/14/20 07:06 Pulse 76 03/14/20 07:06 Resp 16 03/14/20 07:06 BP 127/84 03/14/20 07:06 Pulse Ox 99 03/14/20 07:06 - Orders/Labs/Meds Orders: Active Orders 24 hr Category Date Time Status EKG 12 Lead [EKG Documentation Completion] [RC] ROUTINE Care 03/14/20 07:05 Active RT Post Treatment Assessment [RC] Click to Edit Care 03/14/20 09:56 Active RT Pre-Treatment Assessment [RC] Click to Edit Care 03/14/20 09:56 Active Lactated Ringers [Ringers, Lactated] 1,000 ml Med 03/14/20 07:45 Active IV ASDIRECTED Sodium Chloride 0.9% [Normal Saline] 100 ml Med 03/14/20 08:30 Active IV ASDIRECTED Medication Orders Lactated Ringer's (Ringers, Lactated) 1,000 mls @ 50 mls/hr IV ASDIRECTED BRIEN Last Infusion: 03/14/20 09:02 Dose: 999 mls/hr Documented by: Admin: 03/14/20 07:56 Dose: 50 mls/hr Documented by: ADAM Sodium Chloride (Normal Saline) 100 mls @ 60 mls/hr IV ASDIRECTED BRIEN Stop: 03/14/20 13:00 Last Admin: 03/14/20 08:33 Dose: 60 mls/hr Documented by: C[place] Labs: Laboratory Tests 03/14/20 03/14/20 03/14/20 Range/Units 07:15 07:15 07:15 WBC 6.94 (4.23-9.07) K/mm3 RBC 4.28 L (4.63-6.08) M/mm3 Hgb 12.1 L (13.7-17.5) gm/dl Hct 37.3 L (40.1-51.0) % MCV 87.1 (79.0-92.2) fl MCH 28.3 (25.7-32.2) pg MCHC 32.4 (32.2-35.5) g/dl RDW Std Deviation 45.7 H (35.1-43.9) fL Plt Count 206 (163-337) K/mm3 MPV 9.3 L (9.4-12.3) fl Neut % (Auto) 91.2 H (34.0-67.9) % Lymph % (Auto) 3.6 L (21.8-53.1) % [place] % (Auto) 4.9 L (5.3-12.2) % Eos % (Auto) 0.1 L (0.8-7.0) Baso % (Auto) 0.1 (0.1-1.2) % Neut # (Auto) 6.32 H (1.78-5.38) K/mm3 Lymph # (Auto) 0.25 L (1.32-3.57) K/mm3 [place] # (Auto) 0.34 (0.30-0.82) K/mm3 Eos # (Auto) 0.01 L (0.04-0.54) K/mm3 Baso # (Auto) 0.01 (0.01-0.08) K/mm3 Manual Slide Review Abnormal smear PT 10.8 (9.7-12.0) SECONDS INR 0.99 APTT 36 H (22-31) SECONDS D-Dimer, Quantitative 0.62 H (0.19-0.50) mg/L Sodium 139 (136-145) mEq/L Potassium 3.5 (3.5-5.1) mEq/L Chloride 102 (98-107) mEq/L Carbon Dioxide 31 (21-32) mEq/L Anion Gap 9.5 (5-15) BUN 14 (7-18) mg/dL Creatinine 1.2 (0.7-1.3) mg/dL Est Cr Clr Drug Dosing 53.71 mL/min Estimated GFR (MDRD) 59 (>60) mL/min BUN/Creatinine Ratio 11.7 L (14-18) Glucose 164 H (83-115) mg/dL Calcium 8.0 L (8.5-10.1) mg/dL Magnesium (1.8-2.4) mg/dl Total Bilirubin 0.9 (0.2-1.0) mg/dL AST 10 L (15-37) U/L ALT 18 (16-63) U/L Alkaline Phosphatase 103 (46-116) U/L Troponin I < 0.017 (0.00-0.056) ng/mL Total Protein 6.2 L (6.4-8.2) g/dl Albumin 3.1 L (3.4-5.0) g/dl Globulin 3.1 gm/dL Albumin/Globulin Ratio 1.0 (1-2) Lipase (73-393) U/L 03/14/20 03/14/20 Range/Units 07:15 07:15 WBC (4.23-9.07) K/mm3 RBC (4.63-6.08) M/mm3 Hgb (13.7-17.5) gm/dl Hct (40.1-51.0) % MCV (79.0-92.2) fl MCH (25.7-32.2) pg MCHC (32.2-35.5) g/dl RDW Std Deviation (35.1-43.9) fL Plt Count (163-337) K/mm3 MPV (9.4-12.3) fl Neut % (Auto) (34.0-67.9) % Lymph % (Auto) (21.8-53.1) % [place] % (Auto) (5.3-12.2) % Eos % (Auto) (0.8-7.0) Baso % (Auto) (0.1-1.2) % Neut # (Auto) (1.78-5.38) K/mm3 Lymph # (Auto) (1.32-3.57) K/mm3 [place] # (Auto) (0.30-0.82) K/mm3 Eos # (Auto) (0.04-0.54) K/mm3 Baso # (Auto) (0.01-0.08) K/mm3 Manual Slide Review PT (9.7-12.0) SECONDS INR APTT (22-31) SECONDS D-Dimer, Quantitative (0.19-0.50) mg/L Sodium (136-145) mEq/L Potassium (3.5-5.1) mEq/L Chloride (98-107) mEq/L Carbon Dioxide (21-32) mEq/L Anion Gap (5-15) BUN (7-18) mg/dL Creatinine (0.7-1.3) mg/dL Est Cr Clr Drug Dosing mL/min Estimated GFR (MDRD) (>60) mL/min BUN/Creatinine Ratio (14-18) Glucose (83-115) mg/dL Calcium (8.5-10.1) mg/dL Magnesium 1.4 L (1.8-2.4) mg/dl Total Bilirubin (0.2-1.0) mg/dL AST (15-37) U/L ALT (16-63) U/L Alkaline Phosphatase (46-116) U/L Troponin I (0.00-0.056) ng/mL Total Protein (6.4-8.2) g/dl Albumin (3.4-5.0) g/dl Globulin gm/dL Albumin/Globulin Ratio (1-2) Lipase 63 L (73-393) U/L Meds: Medications Generic Name Dose Route Start Last Admin Trade Name Freq PRN Reason Stop Dose Admin Lactated Ringer's 1,000 mls @ 50 mls/hr 03/14/20 07:45 03/14/20 09:02 Ringers, Lactated IV 999 mls/hr ASDIRECTED BRIEN Infusion Sodium Chloride 100 mls @ 60 mls/hr 03/14/20 08:30 03/14/20 08:33 Normal Saline IV 03/14/20 13:00 60 mls/hr ASDIRECTED BRIEN Administration Discontinued Medications Generic Name Dose Route Start Last Admin Trade Name Gilberto DICKSON Reason Stop Dose Admin Albuterol 0 gm 03/14/20 09:54 03/14/20 10:50 Proventil Hfa INH 03/14/20 09:55 Not Given ONETIME ONE Benzonatate 200 mg 03/14/20 09:54 03/14/20 10:54 Tessalon Perles PO 03/14/20 09:55 200 mg ONETIME ONE Administration Fentanyl 50 mcg 03/14/20 07:40 03/14/20 07:56 Sublimaze IVPUSH 03/14/20 07:41 50 mcg ONETIME ONE Administration Hydromorphone HCl 0.5 mg 03/14/20 09:52 03/14/20 09:59 Dilaudid IVPUSH 03/14/20 09:53 0.5 mg ONETIME ONE Administration Lactated Ringer's 500 mls @ 999 mls/hr 03/14/20 08:01 Ringers, Lactated IV 03/14/20 08:31 .BOLUS ONE Magnesium Sulfate 2 gm/ Premix 50 mls @ 25 mls/hr 03/14/20 08:09 03/14/20 08:58 IV 03/14/20 10:08 25 mls/hr ONETIME ONE Administration Iopamidol 100 ml 03/14/20 08:17 03/14/20 08:33 Isovue-370 (76%) IVPUSH 03/14/20 08:18 100 ml ONETIME ONE Administration Sodium Chloride 10 ml 03/14/20 08:17 03/14/20 08:33 Saline Flush FLUSH 03/14/20 08:18 10 ml ONETIME ONE Administration - Re-Assessments/Exams Free Text/Narrative Re-Assessment/Exam: 03/14/20 08:04 Patient's d-dimer is elevated with his chest pain will go ahead and check a CTA. Troponin is negative, Chest x-ray does not show any acute changes he might have some hilar adenopathy on the left port is noted on the right. 03/14/20 08:10 Patient's magnesium is low we will give him a couple grams IV. 03/14/20 11:42 We will go and discharge the patient he is doing better however he did decline using the albuterol MDI we will discharge him on doxycycline Tessalon and give him a few [place] Departure - Departure Time of Disposition: 11:41 Disposition: Home, Self-Care 01 Clinical Impression: Bronchitis, Chest wall pain Referrals: Santhosh Abebe MD [Primary Care Provider] - Forms: ED Department Discharge Additional Instructions: Return to the emergency room with any questions or problems Follow-up with your regular doctor in 1 week. Take your medications as directed take a stool softener while taking the pain medication. Do not drive or return to work within 12 hours using this pain medication Hold your iron and calcium supplements while taking the antibiotic, the doxycycline after you are done with the doxycycline resume taking your calcium and iron Sepsis Event Note (ED) - Evaluation Sepsis Screening Result: No Definite Risk - Focused Exam Vital Signs: Vital Signs Temp Pulse Resp BP Pulse Ox 03/14/20 07:06 36.2 C 76 16 127/84 99 - My Orders Last 24 Hours: My Active Orders 03/14/20 07:05 EKG 12 Lead [EKG Documentation Completion] [RC] ROUTINE 03/14/20 07:45 Lactated Ringers [Ringers, Lactated] 1,000 ml IV ASDIRECTED 03/14/20 08:30 Sodium Chloride 0.9% [Normal Saline] 100 ml IV ASDIRECTED 03/14/20 09:56 RT Post Treatment Assessment [RC] Click to Edit RT Pre-Treatment Assessment [RC] Click to Edit - Assessment/Plan Last 24 Hours: My Active Orders 03/14/20 07:05 EKG 12 Lead [EKG Documentation Completion] [RC] ROUTINE 03/14/20 07:45 Lactated Ringers [Ringers, Lactated] 1,000 ml IV ASDIRECTED 03/14/20 08:30 Sodium Chloride 0.9% [Normal Saline] 100 ml IV ASDIRECTED 03/14/20 09:56 RT Post Treatment Assessment [RC] Click to Edit RT Pre-Treatment Assessment [RC] Click to Edit
[2020-03-14] MEDS ORDERED: fentaNYL 100 MCG/2 ML SDV IVPUSH ONE (07:40)
[2020-03-14] MEDS ORDERED: Lactated Ringers 1,000 ML IV SCH (07:45)
[2020-03-14] MEDS ORDERED: Lactated Ringers 500 ML IV ONE (08:01)
[2020-03-14] MEDS ORDERED: Magnesium Sulfate/Water 2 GM in Premix Bag 1 BAG IV ONE (08:09)
[2020-03-14] MEDS ORDERED: Iopamidol 755 Mg/ML 100 ML Bottle IVPUSH ONE (08:17)
[2020-03-14] MEDS ORDERED: Sodium Chloride 0.9% 10 ML Syringe FLUSH ONE (08:17)
[2020-03-14] MEDS ORDERED: Sodium Chloride 0.9% 100 ML IV SCH (08:30)
--- NOTE | 2020-03-14 09:26 | CT ---
CT chest Technique: Multiple axial sections were obtained from above the lung apices inferiorly through the lung bases. Intravenous contrast was utilized. Comparison: Prior CT chest exam of 07/24/19. Findings: Pulmonary arteries are well opacified. No filling defects are seen to indicate pulmonary embolism. Atherosclerotic change is noted within the coronary arteries. Thoracic aorta shows no aneurysm with mild atherosclerotic calcification. Lymph nodes are seen within the mediastinum. Largest lymph node measures about 1.4 cm. Calcification is seen within an additional lymph node. These lymph nodes are most likely due to previous granulomatous change. Small portion of the visualized upper abdominal structures appear unremarkable. 2 small nodules noted within the left lung base which are believed to be stable. Larger nodule is seen on prior CT study within the right base which is obscured by fibrosis but most likely is stable. Emphysematous change is seen. No acute parenchymal process is suspected. Bone window settings were reviewed which shows no acute osseous finding. Scattered degenerative change is seen within the spine. Impression: 1. No findings of pulmonary embolism. 2. Emphysematous change. 3. Other findings as described above believed to be chronic. Nothing acute is definitely appreciated. Diagnostic code #2 This report was dictated in MDT
[2020-03-14] MEDS ORDERED: HYDROmorphone 0.5 MG/0.5 ML Syringe IVPUSH ONE (09:52)
[2020-03-14] MEDS ORDERED: Benzonatate 100 MG Cap PO ONE (09:54)
[2020-03-14] MEDS ORDERED: Albuterol 6.7 GM Inhaler INH ONE (09:54)
--- NOTE | 2020-03-14 11:29 | CR ---
Chest: Portable view of the chest was obtained. Comparison: Prior chest x-ray of 09/22/18. Right-sided infusion port is seen. Heart size and mediastinum are within normal limits. Lungs are clear with no acute parenchymal change. Slightly prominent hilar regions are seen which appears stable. Impression: 1. Nothing acute is seen on portable chest x-ray. Diagnostic code #2 This report was dictated in MDT
[2020-03-14 12:07] VITALS: BP 120/73; PULSE 89
== END 2020-03-14 12:07 | disposition home or self-care (01) ==
LOC: JD.ED 06:58
DX: J40 Bronchitis, not specified as acute or chronic (principal); R60.0 Localized edema; I10 Essential (primary) hypertension; K21.9 Gastro-esophageal reflux disease without esophagitis; E03.9 Hypothyroidism, unspecified; F41.9 Anxiety disorder, unspecified; F32.9 Major depressive disorder, single episode, unspecified; Z90.49 Acquired absence of other specified parts of digestive tract; Z98.890 Other specified postprocedural states
CPT/HCPCS: 36415; 71045; 71275; 80053; 83690; 83735; 84484; 85025; 85379; 85610; 85730; 93005; 96365; 96366; 96375; 99285; A9270; J1170; J3010; J3475; J7050; J7120; Q9967; 93010; 99284

== ENCOUNTER 2020-03-14 19:47 | Emergency (ER) | payer MEDICARE, BC ==
[2020-03-14 20:05] VITALS: BP 142/93; PULSE 74
[2020-03-14] MEDS ORDERED: LORazepam 2 MG/ML SDV IM ONE (20:19)
--- NOTE | 2020-03-14 20:32 | EDM.PDOC ---
ED HPI GENERAL MEDICAL PROBLEM - General Chief Complaint: ENT Problem Stated Complaint: CAN'T SWALLOW Time Seen by Provider: 03/14/20 20:12 Source of Information: Reports: Patient, Old Records, RN Notes Reviewed History Limitations: Reports: No Limitations - History of Present Illness INITIAL COMMENTS - FREE TEXT/NARRATIVE: Patient is a 74-year-old male who presents to the ED stating that he cannot swallow. Patient was evaluated in this ER by Dr. Rodriguez earlier for bronchitis. Patient notes he went home, ate lunch and took his prescribed medications of doxycycline, Tessalon, and [place], and then he states that around 2 or 230 he felt his mouth get really dry, and has had this sensation since that he cannot swallow. He denies any other symptoms like fever/chills, cou gh/shortness of breath he is exhibiting no respiratory difficulty. Patient states that food and fluids are able to go down and he is kept them down, but he states he feels like he is going to "choke to ", and if he goes to sleep tonight he will wake up. Left Chest Pain Score (Numeric/FACES): 8 - Related Data Allergies Allergy/AdvReac Type Severity Reaction Status Date / Time No Known Allergies Allergy Verified 03/14/20 07:11 Home Meds: Home Meds LORazepam [Ativan] 1 mg PO , PRN 01/27/15 [History] Multivitamin with Minerals [Multiple Vitamin] 1 tab PO DAILY 01/27/15 [History] Omeprazole [Prilosec] 20 mg PO ,01/27/15 [History] Venlafaxine [Effexor XR] 150 mg PO DAILY 01/27/15 [History] Ibrutinib [Imbruvica] 420 mg PO DAILY 01/01/16 [History] Aspirin [Halfprin] 81 mg PO DAILY 12/04/18 [History] Calcium Citrate/Vitamin D3 [Calcium Citrate - Vit D3 Tab] 1 tab PO DAILY 0 12/04/18 [History] Ferrous Sulfate [Iron] 325 mg PO DAILY 12/04/18 [History] Loperamide HCl [Loperamide] 2 mg PO QID PRN 12/04/18 [History] hydrOXYzine pamoate [Hydroxyzine Pamoate] 50 mg PO TID PRN 12/04/18 [History] Levothyroxine 25 mcg PO DAILY 12/06/18 [History] Metoprolol Succinate [Toprol XL] 25 mg PO DAILY #60 12/06/18 [Rx] amLODIPine Besylate [Norvasc] 5 mg PO BID #60 tablet 12/06/18 [Rx] Acetaminophen/HYDROcodone [[place] 325-5 MG] 1 - 2 tab PO Q6H PRN #20 tablet 10/16/19 [Rx] Benzonatate [Tessalon Perle] 100 mg PO Q8H PRN #15 capsule 03/14/20 [Rx] Doxycycline [Vibramycin] 100 mg PO Q12H #14 cap 03/14/20 [Rx] Hydrocodone/Acetaminophen [Hydrocodone-Acetamin 5-325 mg] 1 each PO Q6H PRN #10 tablet 03/14/20 [Rx] Past Medical History Cardiovascular History: Reports: Hypertension Other Cardiovascular History: "might have a partially clogged artery somewhere" Respiratory History: Reports: Bronchitis, Recurrent Gastrointestinal History: Reports: GERD Neurological History: Reports: Other (See Below) Other Neuro History: nerve pain. 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 Psychiatric History: Reports: Anxiety, Depression Endocrine/Metabolic History: Reports: Hypothyroidism Oncologic (Cancer) History: Reports: Leukemia Other Oncologic History: CLL Dermatologic History: Reports: Other (See Below) Other Dermatologic History: Rash last three days. - Past Surgical History HEENT Surgical History: Reports: Oral Surgery, Tonsillectomy GI Surgical History: Reports: Hernia, Inguinal Social & Family History - Family History Family Medical History: Noncontributory - Tobacco Use Smoking Status *Q: Never Smoker - Caffeine Use Caffeine Use: Reports: Coffee, Soda - Recreational Drug Use Recreational Drug Use: No - Living Situation & Occupation Living situation: Reports: , with Spouse Occupation: Retired ED ROS ENT - Review of Systems Review Of Systems: Comprehensive ROS is negative, except as noted in HPI. ED EXAM, ENT - Physical Exam Exam: See Below Exam Limited By: No Limitations General Appearance: Alert, WD/WN, No Apparent Distress, Anxious Nose: Normal Inspection Mouth/Throat: Normal Inspection, Normal Gums, Normal Lips, Normal Oropharynx, Normal Teeth Head: Atraumatic, Normocephalic Neck: Normal Inspection, Supple, Non-Tender, Full Range of Motion Respiratory/Chest: No Respiratory Distress, Lungs Clear, Normal Breath Sounds, No Accessory Muscle Use, Chest Non-Tender Cardiovascular: Normal Peripheral Pulses, Regular Rate, Rhythm, No Murmur Neurological: Alert, Oriented, Normal Cognition, No Motor/Sensory Deficits Psychiatric: Normal Affect, Normal Mood, Anxious (pt seems anxious, thinks he won't wake up if goes to sleep tonight.) Skin: Warm, Dry, Intact, Normal Color, No Rash Course - Vital Signs Last Recorded V/S: Last Vital Signs Temp 96.9 F 03/14/20 20:04 Pulse 74 03/14/20 20:04 Resp 20 03/14/20 20:04 BP 142/93 H 03/14/20 20:04 Pulse Ox 100 03/14/20 20:04 - Orders/Labs/Meds Meds: Medications Discontinued Medications Generic Name Dose Route Start Last Admin Trade Name Gilberto PRN Reason Stop Dose Admin Lorazepam 1 mg 03/14/20 20:19 Ativan IM 03/14/20 20:20 ONETIME ONE - Re-Assessments/Exams Free Text/Narrative Re-Assessment/Exam: 03/14/20 20:35 Patient presents to the ED for evaluation of his sensation of not being able to swallow. He is able to keep food and fluids down, so there is not any possibility of a food impaction bolus, he does not appear to be in any respiratory distress, so I do not believe this to be anaphylaxis, most common causes probably dry mouth or side effect from a medication, suspect either Tessalon or [place]. We will have him try to discontinue these medications, he will be given 1 mg Ativan at the ER visit here, to see if this helps relieve some of his symptoms as I believe most of his symptoms are stemming from anxiety as well. Patient will likely be discharged home with general recommendations. Departure - Departure Time of Disposition: 20:36 Disposition: Home, Self-Care 01 Condition: Good Clinical Impression: Medication side effects - Discharge Information *PRESCRIPTION DRUG MONITORING PROGRAM REVIEWED*: No *COPY OF PRESCRIPTION DRUG MONITORING REPORT IN PATIENT SOM: No Referrals: Santhosh Abebe MD [Primary Care Provider] - Additional Instructions: You were evaluated in the ER today regarding the feelings of not being able to swallow. As the only change made in your routine was new medications given to you today, this is likely the cause of your sensation of not being able to swallow. Please continue to use the antibiotic, doxycycline, but cease use of the Tessalon Perles for cough, and [place] medication for pain. You may use 500 mg Tylenol every 6 hours as needed for further pain relief. please return to the ER at any time if symptoms seem to change or worsen. Sepsis Event Note (ED) - Evaluation Sepsis Screening Result: No Definite Risk - Focused Exam Vital Signs: Vital Signs Temp Pulse Resp BP Pulse Ox 03/14/20 20:04 96.9 F 74 20 142/93 H 100
== END 2020-03-14 21:03 | disposition home or self-care (01) ==
LOC: JD.ED 19:47
DX: R13.10 Dysphagia, unspecified (principal); T36.4X5A Adverse effect of tetracyclines, initial encounter; T48.3X5A Adverse effect of antitussives, initial encounter; T40.2X5A Adverse effect of other opioids, initial encounter; I10 Essential (primary) hypertension; K21.9 Gastro-esophageal reflux disease without esophagitis; E03.9 Hypothyroidism, unspecified; F41.9 Anxiety disorder, unspecified; F32.9 Major depressive disorder, single episode, unspecified; Z79.82 Long term (current) use of aspirin; Z79.899 Other long term (current) drug therapy; Z90.49 Acquired absence of other specified parts of digestive tract; Z98.890 Other specified postprocedural states
CPT/HCPCS: 96372; 99283; J2060; 99282

== ENCOUNTER 2020-03-18 09:19 | Emergency (ER) | payer MEDICARE, BC ==
[2020-03-18] MEDS ORDERED: Sodium Chloride 0.9% 10 ML Syringe FLUSH PRN (10:16)
[2020-03-18] MEDS ORDERED: HYDROmorphone 1 MG/ML Syringe IVPUSH ONE (10:17)
[2020-03-18] MEDS ORDERED: Ondansetron 4 MG/2 ML SDV IVPUSH ONE (10:17)
[2020-03-18] MEDS ORDERED: Famotidine 20 MG/2 ML SDV IVPUSH ONE (10:18)
[2020-03-18] MEDS ORDERED: Sodium Chloride 0.9% 1,000 ML IV SCH (10:30)
--- NOTE | 2020-03-18 10:54 | EDM.PDOC ---
<Daniel Pina - Last Filed: 03/18/20 11:02> ED HPI GENERAL MEDICAL PROBLEM - General Chief Complaint: General Stated Complaint: MULTIPLE ISSUES Time Seen by Provider: 03/18/20 09:35 Source of Information: Reports: Patient History Limitations: Reports: No Limitations - History of Present Illness INITIAL COMMENTS - FREE TEXT/NARRATIVE: Ac is a 74 YO male that presents to the ED with a chief complaint of epigastric pain. Pain has been occurring for several days now. Described as a sharp pain with radiation to the left chest, left shoulder, back, and diffusely throughout the abdomen. Rated at a 10/10. Nothing noted to make pain better or worse. Other complaints at today's visit are headache, dry mouth, difficulty swallowing, minimal shortness of breath, diarrhea, and one episode of vomiting yesterday. States that the headache is minimal in intensity and has been occurring for longer than a month. Dry mouth and difficulty swallowing have been occurring for four days. He states that he has had a decreased appetite. However, he drinks 10-15 glasses of water and eats 2 full meals daily. Diarrhea has been occurring for the past day and described as yellow in nature. Denies syncope, fever, chills, nausea, urinary changes. He was previously seen in the ED on 03/14/2020 for similar complaints. He has been taking the medications as prescribed but denies any change in symptoms. Duration: Day(s): Location: Reports: Chest, Abdomen, Back, Upper Extremity, Left Quality: Reports: Sharp, Stabbing Abdomen Pain Score (Numeric/FACES): 10 - Related Data Allergies Allergy/AdvReac Type Severity Reaction Status Date / Time benzonatate Allergy Swollen Verified 03/18/20 09:46 [From rAis Nichols] Tongue Home Meds: Home Meds LORazepam [Ativan] 1 mg PO ,12 PRN 01/27/15 [History] Multivitamin with Minerals [Multiple Vitamin] 1 tab PO DAILY 01/27/15 [History] Omeprazole [Prilosec] 20 mg PO 07,12 01/27/15 [History] Venlafaxine [Effexor XR] 150 mg PO DAILY 01/27/15 [History] Ibrutinib [Imbruvica] 420 mg PO DAILY 01/01/16 [History] Aspirin [Halfprin] 81 mg PO DAILY 12/04/18 [History] Calcium Citrate/Vitamin D3 [Calcium Citrate - Vit D3 Tab] 1 tab PO DAILY 12/04/18 [History] Ferrous Sulfate [Iron] 325 mg PO DAILY 12/04/18 [History] Loperamide HCl [Loperamide] 2 mg PO QID PRN 12/04/18 [History] hydrOXYzine pamoate [Hydroxyzine Pamoate] 50 mg PO TID PRN 12/04/18 [History] Levothyroxine 25 mcg PO DAILY 12/06/18 [History] Metoprolol Succinate [Toprol XL] 25 mg PO DAILY #60 12/06/18 [Rx] amLODIPine Besylate [Norvasc] 5 mg PO BID #60 tablet 12/06/18 [Rx] Acetaminophen/HYDROcodone [[place] 325-5 MG] 1 - 2 tab PO Q6H PRN #20 tablet 10/16/19 [Rx] Benzonatate [Tessalon Perle] 100 mg PO Q8H PRN #15 capsule 03/14/20 [Rx] Doxycycline [Vibramycin] 100 mg PO Q12H #14 cap 03/14/20 [Rx] Hydrocodone/Acetaminophen [Hydrocodone-Acetamin 5-325 mg] 1 each PO Q6H PRN #10 tablet 03/14/20 [Rx] oxyCODONE HCl/Acetaminophen [Percocet 5-325 mg Tablet] 1 - 2 each PO Q6HR PRN #15 tablet 03/18/20 [Rx] Past Medical History Cardiovascular History: Reports: Hypertension Other Cardiovascular History: "might have a partially clogged artery somewhere" Respiratory History: Reports: Bronchitis, Recurrent Gastrointestinal History: Reports: GERD Genitourinary History: Reports: None Musculoskeletal History: Reports: None Neurological History: Reports: Other (See Below) Other Neuro History: nerve pain. 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 Psychiatric History: Reports: Anxiety, Depression Endocrine/Metabolic History: Reports: Hypothyroidism Oncologic (Cancer) History: Reports: Leukemia Other Oncologic History: CLL Dermatologic History: Reports: Other (See Below) Other Dermatologic History: Rash last three days. - Past Surgical History HEENT Surgical History: Reports: Oral Surgery, Tonsillectomy GI Surgical History: Reports: Hernia, Inguinal Social & Family History - Family History Family Medical History: Noncontributory - Tobacco Use Smoking Status *Q: Never Smoker Second Hand Smoke Exposure: No - Caffeine Use Caffeine Use: Reports: Coffee - Recreational Drug Use Recreational Drug Use: No - Living Situation & Occupation Living situation: Reports: , with Spouse Occupation: Retired ED ROS GENERAL - Review of Systems Review Of Systems: See Below Constitutional: Reports: Decreased Appetite. Denies: Fever, Chills HEENT: Denies: Ear Pain, Eye Pain, Hearing Loss, Vision Change Respiratory: Reports: Shortness of Breath Cardiovascular: Reports: Chest Pain GI/Abdominal: Reports: Abdominal Pain, Diarrhea, Decreased Appetite, Difficulty Swallowing, Vomiting. Denies: Constipation, Nausea : Reports: Frequency (States he urinates approximately 20 times daily. ). Denies: Dysuria, Flank Pain, Pain, Urgency Musculoskeletal: Reports: Neck Pain, Shoulder Pain (Left shoulder pain) Neurological: Reports: Headache ED EXAM, GENERAL - Physical Exam Exam: See Below Exam Limited By: No Limitations General Appearance: Alert, No Apparent Distress Eye Exam: Bilateral Eye: PERRL Throat/Mouth: Normal Inspection Head: Atraumatic, Normocephalic Respiratory/Chest: No Respiratory Distress, Lungs Clear, No Accessory Muscle Use, Other (Expiratory wheezing bilaterally.) Cardiovascular: Regular Rate, Rhythm, No Gallop, No Murmur, No Rub GI/Abdominal: Normal Bowel Sounds, Soft, No Distention, Tender Neurological: Alert, Oriented Skin Exam: Warm, Dry, Normal Color Departure - Departure Disposition: Home, Self-Care 01 Clinical Impression: Upper abdominal pain Right shoulder pain Qualifiers: Chronicity: acute Qualified Code(s): M25.511 - Pain in right shoulder - Discharge Information Prescriptions: oxyCODONE HCl/Acetaminophen [Percocet 5-325 mg Tablet] 1 - 2 each PO Q6HR PRN #15 tablet PRN Reason: Pain Referrals: Santhosh Abebe MD [Primary Care Provider] - 1 Week Forms: ED Department Discharge Additional Instructions: Take pepcid daily. Take your medicine as prescribed. Try the percocet for pain. Follow up with Dr Abebe this week. Sepsis Event Note (ED) - Evaluation Sepsis Screening Result: No Definite Risk <Oscar Johnson - Last Filed: 03/18/20 13:00> Course - Vital Signs Last Recorded V/S: Last Vital Signs Temp 97.2 F 03/18/20 09:40 Pulse 79 03/18/20 09:40 Resp 24 H 03/18/20 09:40 BP 156/87 H 03/18/20 09:40 Pulse Ox 97 03/18/20 09:40 - Orders/Labs/Meds Orders: Active Orders 24 hr Category Date Time Status Cardiac Monitoring [RC] . DIRECTED Care 03/18/20 10:16 Active EKG 12 Lead [EKG Documentation Completion] [RC] STAT Care 03/18/20 10:21 Active Peripheral IV Care [RC] . DIRECTED Care 03/18/20 10:17 Active Abdomen 2V AP Flat Upright [CR] Stat Exams 03/18/20 12:21 Taken Sodium Chloride 0.9% [Normal Saline] 1,000 ml Med 03/18/20 10:30 Active IV .BOLUS Sodium Chloride 0.9% [Saline Flush] Med 03/18/20 10:16 Active 10 ml FLUSH ASDIRECTED PRN Peripheral IV Insertion Adult [OM.PC] Stat Oth 03/18/20 10:16 Ordered Medication Orders Sodium Chloride (Normal Saline) 1,000 mls @ 1,000 mls/hr IV .BOLUS BRIEN Last Admin: 03/18/20 10:35 Dose: 1,000 mls/hr Documented by: JOSEPH Sodium Chloride (Saline Flush) 10 ml FLUSH ASDIRECTED PRN PRN Reason: Keep Vein Open Last Admin: 03/18/20 10:36 Dose: 10 ml Documented by: [id number] Labs: Laboratory Tests 03/18/20 03/18/20 03/18/20 Range/Units 10:35 10:35 11:26 WBC 7.02 (4.23-9.07) K/mm3 RBC 4.17 L (4.63-6.08) M/mm3 Hgb 11.8 L (13.7-17.5) gm/dl Hct 35.9 L (40.1-51.0) % MCV 86.1 (79.0-92.2) fl MCH 28.3 (25.7-32.2) pg MCHC 32.9 (32.2-35.5) g/dl RDW Std Deviation 42.8 (35.1-43.9) fL Plt Count 228 (163-337) K/mm3 MPV 8.9 L (9.4-12.3) fl Neut % (Auto) 85.8 H (34.0-67.9) % Lymph % (Auto) 5.6 L (21.8-53.1) % Barron % (Auto) 8.1 (5.3-12.2) % Eos % (Auto) 0 L (0.8-7.0) Baso % (Auto) 0.1 (0.1-1.2) % Neut # (Auto) 6.02 H (1.78-5.38) K/mm3 Lymph # (Auto) 0.39 L (1.32-3.57) K/mm3 Barron # (Auto) 0.57 (0.30-0.82) K/mm3 Eos # (Auto) 0.00 L (0.04-0.54) K/mm3 Baso # (Auto) 0.01 (0.01-0.08) K/mm3 Manual Slide Review Abnormal smear Sodium 132 L (136-145) mEq/L Potassium 3.7 (3.5-5.1) mEq/L Chloride 95 L (98-107) mEq/L Carbon Dioxide 28 (21-32) mEq/L Anion Gap 12.7 (5-15) BUN 13 (7-18) mg/dL Creatinine 1.2 (0.7-1.3) mg/dL Est Cr Clr Drug Dosing 53.01 mL/min Estimated GFR (MDRD) 59 (>60) mL/min BUN/Creatinine Ratio 10.8 L (14-18) Glucose 98 (83-115) mg/dL Calcium 8.5 (8.5-10.1) mg/dL Total Bilirubin 1.0 (0.2-1.0) mg/dL AST 16 (15-37) U/L ALT 23 (16-63) U/L Alkaline Phosphatase 133 H (46-116) U/L Troponin I < 0.017 (0.00-0.056) ng/mL Total Protein 6.7 (6.4-8.2) g/dl Albumin 3.1 L (3.4-5.0) g/dl Globulin 3.6 gm/dL Albumin/Globulin Ratio 0.9 L (1-2) Lipase 50 L (73-393) U/L Urine Color Yellow (Yellow) Urine Appearance Clear (Clear) Urine pH 7.0 (5.0-8.0) Ur Specific [place] 1.015 (1.005-1.030) Urine Protein Negative (Negative) Urine Glucose (UA) Negative (Negative) Urine Ketones Negative (Negative) Urine Occult Blood 2+ H (Negative) Urine Nitrite Negative (Negative) Urine Bilirubin Negative (Negative) Urine Urobilinogen 0.2 (0.2-1.0) Ur Leukocyte Esterase Negative (Negative) Urine RBC 10-20 H (0-5) /hpf Urine WBC 0-5 (0-5) /hpf Ur Squamous Epith Cells 0-5 (0-5) /hpf Urine Bacteria Not seen (FEW) /hpf Urine Mucus Not seen (FEW) /hpf Meds: Medications Generic Name Dose Route Start Last Admin Trade Name Freq PRN Reason Stop Dose Admin Sodium Chloride 1,000 mls @ 1,000 mls/hr 03/18/20 10:30 03/18/20 10:35 Normal Saline IV 1,000 mls/hr .BOLUS BRIEN Administration Sodium Chloride 10 ml 03/18/20 10:16 03/18/20 10:36 Saline Flush FLUSH 10 ml ASDIRECTED PRN Administration Keep Vein Open Discontinued Medications Generic Name Dose Route Start Last Admin Trade Name Freq PRN Reason Stop Dose Admin Famotidine 20 mg 03/18/20 10:18 03/18/20 10:35 Pepcid IVPUSH 03/18/20 10:19 20 mg ONETIME ONE Administration Hydromorphone HCl 1 mg 03/18/20 10:17 03/18/20 10:35 Dilaudid IVPUSH 03/18/20 10:18 1 mg ONETIME ONE Administration Hydromorphone HCl 0.5 mg 03/18/20 12:09 03/18/20 12:21 Dilaudid IVPUSH 03/18/20 12:10 0.5 mg ONETIME ONE Administration Ondansetron HCl 4 mg 03/18/20 10:17 03/18/20 10:35 Zofran IVPUSH 03/18/20 10:18 4 mg ONETIME ONE Administration - Re-Assessments/Exams Free Text/Narrative Re-Assessment/Exam: 03/18/20 12:10 I examined the patient myself and I agree with Daniel's assessment and plan. His EKG shows a NSR and RBBB. There is no change from prior. His WBC is normal. His Hgb was low at 11.8. His Na was low at 132. His alk phos was elevated at 133. His troponin is negative. His lipase is negative. He still has pain so I ordered dilaudid 0.5mg IV. 03/18/20 12:56 I ordered an x-ray of his abdomen and it looks good. I will discharge him home. Departure - Departure Time of Disposition: 13:00 Condition: Good - Discharge Information *PRESCRIPTION DRUG MONITORING PROGRAM REVIEWED*: Not Applicable *COPY OF PRESCRIPTION DRUG MONITORING REPORT IN PATIENT SOM: Not Applicable Sepsis Event Note (ED) - Focused Exam Vital Signs: Vital Signs Temp Pulse Resp BP Pulse Ox 03/18/20 09:40 97.2 F 79 24 H 156/87 H 97 - My Orders Last 24 Hours: My Active Orders 03/18/20 10:16 Cardiac Monitoring [RC] . DIRECTED Sodium Chloride 0.9% [Saline Flush] 10 ml FLUSH ASDIRECTED PRN Peripheral IV Insertion Adult [OM.PC] Stat 03/18/20 10:17 Peripheral IV Care [RC] . DIRECTED 03/18/20 10:21 EKG 12 Lead [EKG Documentation Completion] [RC] STAT 03/18/20 10:30 Sodium Chloride 0.9% [Normal Saline] 1,000 ml IV .BOLUS - Assessment/Plan Last 24 Hours: My Active Orders 03/18/20 10:16 Cardiac Monitoring [RC] . DIRECTED Sodium Chloride 0.9% [Saline Flush] 10 ml FLUSH ASDIRECTED PRN Peripheral IV Insertion Adult [OM.PC] Stat 03/18/20 10:17 Peripheral IV Care [RC] . DIRECTED 03/18/20 10:21 EKG 12 Lead [EKG Documentation Completion] [RC] STAT 03/18/20 10:30 Sodium Chloride 0.9% [Normal Saline] 1,000 ml IV .BOLUS
[2020-03-18] MEDS ORDERED: HYDROmorphone 0.5 MG/0.5 ML Syringe IVPUSH ONE (12:09)
--- NOTE | 2020-03-18 13:03 | CR ---
Abdomen: Supine and upright views of the abdomen were obtained. Comparison: Previous abdominal x-ray of 04/23/11 Scattered degenerative changes are noted within the spine. Mild compression deformities are seen within the lumbar and thoracic spine which are stable. Bowel gas pattern appears normal. Vascular calcification is seen. No free air is seen. Nothing acute is appreciated. Impression: 1. Findings as described above. 2. Nothing acute is appreciated. Diagnostic code #2 This report was dictated in MDT
[2020-03-18 13:43] VITALS: BP 140/82; PULSE 82
== END 2020-03-18 13:35 | disposition home or self-care (01) ==
LOC: JD.ED 09:19
DX: R10.13 Epigastric pain (principal); M25.511 Pain in right shoulder; I10 Essential (primary) hypertension; K21.9 Gastro-esophageal reflux disease without esophagitis; E03.9 Hypothyroidism, unspecified; F41.9 Anxiety disorder, unspecified; F32.9 Major depressive disorder, single episode, unspecified; Z88.8 Allergy status to other drugs, medicaments and biological substances; Z79.82 Long term (current) use of aspirin; Z79.899 Other long term (current) drug therapy; Z98.890 Other specified postprocedural states
CPT/HCPCS: 36415; 74019; 80053; 81001; 83690; 84484; 85025; 93005; 96361; 96374; 96375; 96376; 99285; J1170; J2405; J3490; J7030; 93010; 99283

== ENCOUNTER 2020-03-18 23:23 | Emergency (ER) | payer MEDICARE, BC ==
[2020-03-18 23:38] VITALS: BP 143/75; PULSE 71
[2020-03-19] MEDS ORDERED: Orphenadrine 100 MG Tab.ER PO STA (01:26)
--- NOTE | 2020-03-19 01:39 | EDM.PDOC ---
ED HPI GENERAL MEDICAL PROBLEM - General Chief Complaint: Medication Administration Stated Complaint: CHEST/NECK/BACK PAIN Time Seen by Provider: 03/19/20 00:20 Source of Information: Reports: Patient, Old Records (03/14/2020 x 2 + 03/18/2020) History Limitations: Reports: No Limitations - History of Present Illness INITIAL COMMENTS - FREE TEXT/NARRATIVE: Mr. Gale is a pleasant-enough 74-year-old gentleman with a past medical history significant for CLL, on chemotherapy, who presents the ED with a complaint of chest pain. Medical records indicate that the patient was initially seen for this complaint on 03/14/2020. He complained of left sided chest pain that extended to his abdomen and left upper quadrant. At that time, it had been going on for about 3 days. Work-up included a CBC, CMP, magnesium level, troponin level, lipase level, a D-dimer, coags, a chest x-ray, and, because his D-dimer was found to be mildly elevated, a CT angiogram of his chest. His magnesium level was found to be depressed at 1.4, but his work-up was otherwise unremarkable. He was diagnosed with bronchitis and chest wall pain, and discharged home with prescriptions for doxycycline, Tessalon Perles, and Leicester. The patient then returned to the ED yesterday morning, 03/18/2020, complaining of several days of sharp pain radiating into his left chest, shoulder, back, and diffusely throughout his abdomen. He had some other complaints that had been persisting for even longer. Work-up included a CBC, CMP, troponin, lipase level, a urinalysis, an abdominal x-ray, and an ECG. His sodium was found to be mildly depressed at 132, but the remainder of his work-up was unremarkable. He was treated with 1.5 mg of IV Dilaudid, 20 mg of IV famotidine, and 4 mg of IV Zofran. He was discharged home with 15 tablets of Percocet 5/325. The patient now returns to the ED stating that he is continuing to have his left-sided chest pain. While talking to me, he will suddenly wince and say "s ee?". His pain appears to be momentary, and shock-like, and is far more likely to occur if the patient is trying to ambulate or if he tries to lie back on the gurney. He states that the Leicester and Percocet that he was prescribed are not doing anything. The patient states that he has not seen his PCP about his complaints. Here in the ED, the patient's initial BP is found to be mildly elevated at 143/75, otherwise, he is hemodynamically stable, afebrile, saturating 95% on room air. The patient reports that he had some watery diarrhea yesterday, otherwise, other than his recurrent chest pain issue, he denies recent fever, chills, sore throat, ear pain, nasal or sinus congestion, cough, dyspnea, palpitations, nausea, vomiting, constipation, abdominal pain, urinary symptoms, recent weight gain or weight loss, recent bloody bowel movements or black bowel movements, recent joint aches, headaches, or rashes. The patient's PCP is Dr. Santhosh Abebe. His Oncologist is Dr. Mainor Hutchison. Middle Chest Pain Score (Numeric/FACES): 10 - Related Data Allergies Allergy/AdvReac Type Severity Reaction Status Date / Time benzonatate Allergy Swollen Verified 03/18/20 23:38 [From Aris Nichols] Tongue Home Meds: Home Meds LORazepam [Ativan] 1 mg PO 07,12 PRN 01/27/15 [History] Multivitamin with Minerals [Multiple Vitamin] 1 tab PO DAILY 01/27/15 [History] Omeprazole [Prilosec] 20 mg PO 07,12 01/27/15 [History] Venlafaxine [Effexor XR] 150 mg PO DAILY 01/27/15 [History] Ibrutinib [Imbruvica] 420 mg PO DAILY 01/01/16 [History] Aspirin [Halfprin] 81 mg PO DAILY 12/04/18 [History] Calcium Citrate/Vitamin D3 [Calcium Citrate - Vit D3 Tab] 1 tab PO DAILY 12/04/18 [History] Ferrous Sulfate [Iron] 325 mg PO DAILY 12/04/18 [History] Loperamide HCl [Loperamide] 2 mg PO QID PRN 12/04/18 [History] hydrOXYzine pamoate [Hydroxyzine Pamoate] 50 mg PO TID PRN 12/04/18 [History] Levothyroxine 25 mcg PO DAILY 12/06/18 [History] Metoprolol Succinate [Toprol XL] 25 mg PO DAILY #60 12/06/18 [Rx] amLODIPine Besylate [Norvasc] 5 mg PO BID #60 tablet 12/06/18 [Rx] Acetaminophen/HYDROcodone [[place] 325-5 MG] 1 - 2 tab PO Q6H PRN #20 tablet 10/16/19 [Rx] Benzonatate [Tessalon Perle] 100 mg PO Q8H PRN #15 capsule 03/14/20 [Rx] Doxycycline [Vibramycin] 100 mg PO Q12H #14 cap 03/14/20 [Rx] Hydrocodone/Acetaminophen [Hydrocodone-Acetamin 5-325 mg] 1 each PO Q6H PRN #10 tablet 03/14/20 [Rx] oxyCODONE HCl/Acetaminophen [Percocet 5-325 mg Tablet] 1 - 2 each PO Q6HR PRN #15 tablet 03/18/20 [Rx] Orphenadrine [Norflex] 1 tab PO Q12H PRN #14 tab.er 03/19/20 [Rx] Past Medical History Cardiovascular History: Reports: Hypertension Gastrointestinal History: Reports: GERD Neurological History: Reports: Other (See Below) (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) Psychiatric History: Reports: Anxiety, Depression Endocrine/Metabolic History: Reports: Hypothyroidism Oncologic (Cancer) History: Reports: Leukemia (CLL, on CTx) - Past Surgical History HEENT Surgical History: Reports: Oral Surgery (dental extractions -> edentulous), Tonsillectomy Respiratory Surgical History: Reports: Other (See Below) (Bronchoscopy) GI Surgical History: Reports: Hernia, Inguinal (left) Social & Family History - Family History Family Medical History: Noncontributory - Tobacco Use Smoking Status *Q: Former Smoker Years of Tobacco use: 40 Packs/Tins Daily: 1 Month/Year Tobacco Last Used: Quit 2003 Second Hand Smoke Exposure: No - Caffeine Use Caffeine Use: Reports: Coffee - Alcohol Use Alcohol Use History: No - Recreational Drug Use Recreational Drug Use: No - Living Situation & Occupation Living situation: Reports: , with Spouse Occupation: Retired ED ROS GENERAL - Review of Systems Review Of Systems: Comprehensive ROS is negative, except as noted in HPI. ED EXAM, GENERAL - Physical Exam Exam: See Below Exam Limited By: No Limitations General Appearance: Alert, WD/WN, Mild Distress (Complains of brief/momentary extreme chest pain, that seems to be induced with movements, such as walking, and when lying supine) Eye Exam: Bilateral Eye: EOMI, Normal Inspection Ears: Normal External Exam, Hearing Loss Nose: Normal Inspection Throat/Mouth: Normal Inspection, Normal Lips, Normal Voice, No Airway Compromise Head: Atraumatic, Normocephalic Neck: Normal Inspection, Full Range of Motion Respiratory/Chest: No Respiratory Distress, Lungs Clear, Normal Breath Sounds, No Accessory Muscle Use, Other (Reproducible tenderness to palpation of the anterior chest wall. Pain was also induced when the patient was asked to take a deep breath.) Cardiovascular: Normal Peripheral Pulses, Regular Rate, Rhythm, No Gallop, No JVD, No Murmur, No Rub Peripheral Pulses: 3+: Radial (L), Radial (R) GI/Abdominal: Normal Bowel Sounds, Soft, Non-Tender, No Organomegaly, No Distention, No Abnormal Bruit, No Mass (Male) Exam: Deferred Rectal (Males) Exam: Deferred Back Exam: Normal Inspection, Full Range of Motion, NT Extremities: Normal Inspection, Normal Range of Motion, No Pedal Edema, Normal Capillary Refill Neurological: Alert, Oriented, Normal Cognition, No Motor/Sensory Deficits Psychiatric: Normal Affect Skin Exam: Warm, Dry, Intact, Normal Color, No Rash Course - Vital Signs Last Recorded V/S: Last Vital Signs Temp 36.1 C 03/18/20 23:36 Pulse 71 03/18/20 23:36 Resp 16 03/18/20 23:36 BP 143/75 H 03/18/20 23:36 Pulse Ox 95 03/18/20 23:36 - Orders/Labs/Meds Meds: Medications Discontinued Medications Generic Name Dose Route Start Last Admin Trade Name Freq PRN Reason Stop Dose Admin Orphenadrine Citrate 100 mg 03/19/20 01:26 03/19/20 01:44 Norflex PO 03/19/20 01:27 100 mg ONETIME STA Administration - Re-Assessments/Exams Free Text/Narrative Re-Assessment/Exam: 03/19/20 01:32 As above, the patient has been experiencing brief, intermittent, shock-like chest pain, primarily to the left, but somewhat across to the right side, since 03/11/2020, approximately. The pain appears to be made worse with movement and lying down. He has undergone extensive work-ups on 03/14/2020, and again yesterday, 03/18/2020, without a definitive diagnosis. On physical examination, however, the pain is reproducible with palpation, indicating a musculoskeletal etiology. I am therefore recommending that we start him on Norflex, and I will prescribe a two-week course. Because one of the side effects of opioids is muscle spasms, I am recommending that he decrease or discontinue altogether his use of opioids. Departure - Departure Time of Disposition: 01:34 Disposition: Home, Self-Care 01 Condition: Good Clinical Impression: Musculoskeletal chest pain - Discharge Information *PRESCRIPTION DRUG MONITORING PROGRAM REVIEWED*: Not Applicable *COPY OF PRESCRIPTION DRUG MONITORING REPORT IN PATIENT SOM: Not Applicable Prescriptions: Orphenadrine [Norflex] 1 tab PO Q12H PRN #14 tab.er PRN Reason: Muscle Spasm Instructions: Chest Wall Pain Referrals: Santhosh Abebe MD [Primary Care Provider] - Forms: ED Department Discharge Additional Instructions: You were seen in the emergency room for continued momentary/intermittent chest pain, since approximately 03/11/2020. Based on your history, physical exam, and prior work-ups performed on 03/14/2020 and 03/18/2020, the cause of your pain appears to be musculoskeletal in etiology. You have been started on the muscle relaxant Norflex, and a prescription for Norflex has been sent to the clinic pharmacy, located in the [facility], across the street from the hospital. Take 1 tablet of Norflex every 12 hours, starting Wednesday morning, 03/19/2020, as prescribed. In addition to Norflex, you may take [id number] Tylenol, however, because 1 of the side effects of opioids is muscle spasms, we recommend that you try to avoid or discontinue altogether your previously prescribed opioid pain medications, such as hydrocodone ([place]) and oxycodone (Percocet). Be aware that Norflex does not work instantaneously. It will likely take a couple of days before takes effect. If you continue to have chest pain after that, please follow-up with your PCP, Dr. Santhosh Abebe, for further evaluation. If any other problems, please do not hesitate to return to the ER. Sepsis Event Note (ED) - Evaluation Sepsis Screening Result: No Definite Risk - Focused Exam Vital Signs: Vital Signs Temp Pulse Resp BP Pulse Ox 03/18/20 23:36 36.1 C 71 16 143/75 H 95
== END 2020-03-19 01:49 | disposition home or self-care (01) ==
LOC: JD.ED 23:23
DX: R07.89 Other chest pain (principal); I10 Essential (primary) hypertension; K21.9 Gastro-esophageal reflux disease without esophagitis; E03.9 Hypothyroidism, unspecified; F32.9 Major depressive disorder, single episode, unspecified; F41.9 Anxiety disorder, unspecified; Z98.890 Other specified postprocedural states; Z88.8 Allergy status to other drugs, medicaments and biological substances; Z79.82 Long term (current) use of aspirin; Z79.899 Other long term (current) drug therapy; Z87.891 Personal history of nicotine dependence; R10.13 Epigastric pain; M25.511 Pain in right shoulder
CPT/HCPCS: 36415; 74019; 80053; 81001; 83690; 84484; 85025; 93005; 96361; 96374; 96375; 96376; 99284; 99285; A9270; J1170; J2405; J3490; J7030; 93010; 99283

== ENCOUNTER 2020-09-10 10:46 | Emergency (ER) | payer MEDICARE, BC ==
[2020-09-10] MEDS ORDERED: Sodium Chloride 0.9% 1,000 ML IV ONE (11:38)
--- NOTE | 2020-09-10 11:39 | EDM.PDOC ---
<Shannan South - Last Filed: 09/10/20 11:30> ED HPI GENERAL MEDICAL PROBLEM - General Chief Complaint: General Stated Complaint: SIDE PAIN, NO BOWEL MOVEMENT, WEAK Time Seen by Provider: 09/10/20 11:14 Source of Information: Reports: Patient, Family () History Limitations: Reports: Other (Patient is poor historian and is limited in answering question ) - History of Present Illness INITIAL COMMENTS - FREE TEXT/NARRATIVE: Ac is a 75 year old male presenting to the ED with complaints of constipation, weakness and generalized pain for approximately one week. He states he has left sided abdominal pain, back and leg pain for which there was no precipitating factors. He has had no bowel movement since Wednesday of the previous week. His abdominal pain is described as a needle poking him in his left side near his umbilicus. He states he has an appetite but has barely eaten or drank anything recently. Because of this he feels extremely weak and is having chills and body aches. He saw Dr. Ryder on of last week and he did a back and "side" xray which revealed arthritic changes. Dr. Ryder did a UA at this time which revealed some RBC. Patient states it occasionally benitez when he urinates and it could be getting worse. Patient is poor historian and his is busy playing on her Ipad and isn't answering questions either. However, does mention patient has CLL and is on oral chemotherapy for it. Patient denies fever, dyspnea, cough, chest pain, nausea or vomiting. Left Abdominal Pain Score (Numeric/FACES): 10 - Related Data Allergies Allergy/AdvReac Type Severity Reaction Status Date / Time benzonatate Allergy Swollen Verified 09/10/20 11:08 [From Aris Nichols] Tongue Home Meds: Home Meds LORazepam [Ativan] 1 mg PO BID PRN 01/27/15 [History] Multivitamin with Minerals [Multiple Vitamin] 1 tab PO DAILY 01/27/15 [History] Omeprazole [Prilosec] 20 mg PO 07,12 01/27/15 [History] Venlafaxine [Effexor XR] 75 mg PO DAILY 01/27/15 [History] Ibrutinib [Imbruvica] 420 mg PO DAILY 01/01/16 [History] Aspirin [Halfprin] 81 mg PO DAILY 12/04/18 [History] Calcium Citrate/Vitamin D3 [Calcium Citrate - Vit D3 Tab] 1 tab PO DAILY 12/04/18 [History] Ferrous Sulfate [Iron] 65 mg PO DAILY 12/04/18 [History] hydrOXYzine pamoate [Hydroxyzine Pamoate] 50 mg PO TID PRN 12/04/18 [History] Levothyroxine 25 mcg PO DAILY 12/06/18 [History] Metoprolol Succinate [Toprol XL] 25 mg PO DAILY #60 12/06/18 [Rx] amLODIPine Besylate [Norvasc] 5 mg PO BID #60 tablet 12/06/18 [Rx] Acetaminophen [Tylenol] 325 mg PO Q4HR PRN 09/10/20 [History] Venlafaxine [Effexor XR] 150 mg PO DAILY 09/10/20 [History] Past Medical History Cardiovascular History: Reports: Hypertension Other Cardiovascular History: "might have a partially clogged artery somewhere" Respiratory History: Reports: Bronchitis, Recurrent Gastrointestinal History: Reports: GERD Genitourinary History: Reports: None Musculoskeletal History: Reports: Arthritis Neurological History: Reports: Other (See Below) Other Neuro History: nerve pain. 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 Psychiatric History: Reports: Anxiety, Depression Endocrine/Metabolic History: Reports: Hypothyroidism Hematologic History: Reports: Other (See Below) Other Hematologic History: CLL Immunologic History: Reports: None Oncologic (Cancer) History: Reports: Leukemia Other Oncologic History: CLL Dermatologic History: Reports: Other (See Below) Other Dermatologic History: Rash last three days. - Infectious Disease History Infectious Disease History: Reports: None, Chicken Pox, Measles, Mumps - Past Surgical History HEENT Surgical History: Reports: Oral Surgery, Tonsillectomy GI Surgical History: Reports: Hernia, Inguinal Social & Family History - Family History Family Medical History: No Pertinent Family History - Tobacco Use Tobacco Use Status *Q: Former Tobacco User Years of Tobacco use: 2 Packs/Tins Daily: 0.5 Used Tobacco, but Quit: Yes Month/Year Tobacco Last Used: 0 - Caffeine Use Caffeine Use: Reports: Coffee - Recreational Drug Use Recreational Drug Use: No - Living Situation & Occupation Living situation: Reports: , with Spouse Occupation: Retired ED ROS GENERAL - Review of Systems Review Of Systems: Comprehensive ROS is negative, except as noted in HPI. Constitutional: Reports: Chills, Weakness. Denies: Fever, Fatigue Respiratory: Denies: Shortness of Breath, Cough Cardiovascular: Denies: Chest Pain GI/Abdominal: Reports: Abdominal Pain (Left sided near umbilicus. ), Constipation (for approximately one week.). Denies: Nausea, Vomiting : Reports: Dysuria Musculoskeletal: Reports: Back Pain, Leg Pain ED EXAM, GENERAL - Physical Exam Exam: See Below General Appearance: Alert, WD/WN, Other (in clear discomfort) Respiratory/Chest: No Respiratory Distress, Lungs Clear Cardiovascular: Normal Peripheral Pulses, Regular Rate, Rhythm, No Edema, No JVD, No Murmur GI/Abdominal: Other (Decreased bowel sounds in all quadrants. Patient is exquisitely tender to palpation of the left lower quadrant extending to umbilicus. Abdomen is mildly rigid. ) Extremities: Normal Inspection, Normal Range of Motion Neurological: Alert, Oriented, CN II-XII Intact, Normal Cognition Psychiatric: Normal Mood, Flat Affect Skin Exam: Warm, Dry, Intact, Normal Color, No Rash Course - Re-Assessments/Exams Free Text/Narrative Re-Assessment/Exam: 09/10/20 11:44 Ac is a 75 year old male presenting to the ED with complaints of constipation, weakness and generalized pain. He states this started roughly one week ago. He saw Dr. Ryder last and he ordered a back xray and UA that revealed arthritic changes and some RBC present. Patient is poor historian and states his dysuria might be getting worse, but doesn't know. Routine labs, EKG, chest xray and abdominal CT is ordered. Departure - Departure Disposition: Home, Self-Care Clinical Impression: Constipation Qualifiers: Constipation type: other constipation type Qualified Code(s): K59.09 - Other constipation - Discharge Information Instructions: Constipation, Adult, [id number] Referrals: Santhosh Abebe MD [Primary Care Provider] - Forms: ED Department Discharge Additional Instructions: You were evaluated in the ER today for your abdomen pain, generalized weakness. Thorough laboratory evaluation, x-ray, EKG, and abdominal CT demonstrate no obvious sign of infection. You were swabbed for COVID-19 at today's visit and this was negative. Your CT did show that you had moderate constipation, you were given a bottle of magnesium citrate and an enema to help produce a bowel movement. Recommend you follow-up with Dr. Abebe, sometime this week for repeat labs, and a possible urological referral due to the blood in your urine that is still persistent today. Please increase your fluid intake, to help prevent against constipation, and if you are not already doing so, use a stool softener in your daily regimen to also prevent further constipation. You were given a walker at today's visit, due to your increased weakness. This is for walking purposes, please try to use a walker at all times when walking around to prevent future falls. Please return to the ER at any time if symptoms change or worsen. Sepsis Event Note (ED) - Evaluation Sepsis Screening Result: No Definite Risk <Karon Angel V - Last Filed: 09/10/20 15:17> #1 Interpretation EKG Date: 09/10/20 Time: 11:51 Rhythm: NSR Rate (Beats/Min): 88 [place]: Normal P-Wave: Present QRS: RBBB ST-T: Normal QT: Normal Comparison: Change From Previous EKG EKG Interpretation Comments: Ventricular trigeminy is appreciated, and this is an interval change from EKG performed on March 18, 2020. Reviewed by myself and Dr. Rowland. Course - Vital Signs Last Recorded V/S: Last Vital Signs Temp 96.8 F L 09/10/20 11:08 Pulse 85 09/10/20 14:35 Resp 16 09/10/20 14:35 BP 146/80 H 09/10/20 14:35 Pulse Ox 92 L 09/10/20 14:35 - Orders/Labs/Meds Orders: Active Orders 24 hr Category Date Time Status EKG Documentation Completion [RC] ASDIRECTED Care 09/10/20 11:39 Active Enema [RC] ASDIRECTED Care 09/10/20 13:25 Active Implanted Port Access [RC] ONETIME Care 09/10/20 11:37 Active Vital Signs [RC] Q1H Care 09/10/20 12:09 Active CULTURE BLOOD [BC] Stat Lab 09/10/20 12:00 Received CULTURE BLOOD [BC] Stat Lab 09/10/20 12:11 Received CULTURE URINE [RM] Routine Lab 09/10/20 14:30 Received Sodium Chloride 0.9% [Saline Flush] Med 09/10/20 11:58 Active 10 ml FLUSH ONETIME PRN Blood Culture x2 Reflex Set [OM.PC] Stat Oth 09/10/20 11:38 Ordered DME for Discharge [COMM] Routine Oth 09/10/20 15:10 Ordered EKG 12 Lead [EK] Stat Ther 09/10/20 11:38 Ordered Medication Orders Sodium Chloride (Saline Flush) 10 ml FLUSH ONETIME PRN PRN Reason: IV FLUSH Last Admin: 09/10/20 12:33 Dose: 10 ml Documented by: Admin: 09/10/20 12:08 Dose: 10 ml Documented by: MANUEL Labs: Laboratory Tests 09/10/20 09/10/20 09/10/20 Range/Units 12:00 12:00 12:00 WBC 10.20 H (4.23-9.07) K/mm3 RBC 3.98 L (4.63-6.08) M/mm3 Hgb 11.1 L (13.7-17.5) gm/dl Hct 33.5 L (40.1-51.0) % MCV 84.2 (79.0-92.2) fl MCH 27.9 (25.7-32.2) pg MCHC 33.1 (32.2-35.5) g/dl RDW Std Deviation 45.1 H (35.1-43.9) fL Plt Count 222 (163-337) K/mm3 MPV 9.4 (9.4-12.3) fl Neutrophils % (Manual) 91 H (40-60) % Band Neutrophils % 0 (0-10) % Lymphocytes % (Manual) 3 L (20-40) % Atypical Lymphs % 0 % Monocytes % (Manual) 6 (2-10) % Eosinophils % (Manual) 0 L (0.8-7.0) % Basophils % (Manual) 0 L (0.2-1.2) Platelet Estimate Adequate Plt Morphology Comment Normal RBC Morph Comment Normal PT 11.3 (9.7-12.0) SECONDS INR 1.06 Sodium 136 (136-145) mEq/L Potassium 3.5 (3.5-5.1) mEq/L Chloride 98 (98-107) mEq/L Carbon Dioxide 26 (21-32) mEq/L Anion Gap 15.5 H (5-15) BUN 17 (7-18) mg/dL Creatinine 1.2 (0.7-1.3) mg/dL Est Cr Clr Drug Dosing 51.46 mL/min Estimated GFR (MDRD) 59 (>60) mL/min BUN/Creatinine Ratio 14.2 (14-18) Glucose 130 H (83-115) mg/dL Lactic Acid (0.4-2.0) mmol/L Calcium 8.6 (8.5-10.1) mg/dL Magnesium (1.8-2.4) mg/dl Total Bilirubin 1.7 H (0.2-1.0) mg/dL AST 16 (15-37) U/L ALT 21 (16-63) U/L Alkaline Phosphatase 225 H (46-116) U/L C-Reactive Protein 26.0 H* (<1.0) mg/dL Total Protein 6.4 (6.4-8.2) g/dl Albumin 2.7 L (3.4-5.0) g/dl Globulin 3.7 gm/dL Albumin/Globulin Ratio 0.7 L (1-2) Lipase 39 L (73-393) U/L Urine Color (Yellow) Urine Appearance (Clear) Urine pH (5.0-8.0) Ur Specific [place] (1.005-1.030) Urine Protein (Negative) Urine Glucose (UA) (Negative) Urine Ketones (Negative) Urine Occult Blood (Negative) Urine Nitrite (Negative) Urine Bilirubin (Negative) Urine Urobilinogen (0.2-1.0) Ur Leukocyte Esterase (Negative) Urine RBC (0-5) /hpf Urine WBC (0-5) /hpf Ur Squamous Epith Cells (0-5) /hpf Urine Bacteria (FEW) /hpf Urine Mucus (FEW) /hpf Influenza Type A RNA (NEGATIVE) Influenza Type B RNA (NEGATIVE) SARS-CoV-2 RNA (FENG) (NEGATIVE) 09/10/20 09/10/20 09/10/20 Range/Units 12:00 12:00 12:12 WBC (4.23-9.07) K/mm3 RBC (4.63-6.08) M/mm3 Hgb (13.7-17.5) gm/dl Hct (40.1-51.0) % MCV (79.0-92.2) fl MCH (25.7-32.2) pg MCHC (32.2-35.5) g/dl RDW Std Deviation (35.1-43.9) fL Plt Count (163-337) K/mm3 MPV (9.4-12.3) fl Neutrophils % (Manual) (40-60) % Band Neutrophils % (0-10) % Lymphocytes % (Manual) (20-40) % Atypical Lymphs % % Monocytes % (Manual) (2-10) % Eosinophils % (Manual) (0.8-7.0) % Basophils % (Manual) (0.2-1.2) Platelet Estimate Plt Morphology Comment RBC Morph Comment PT (9.7-12.0) SECONDS INR Sodium (136-145) mEq/L Potassium (3.5-5.1) mEq/L Chloride (98-107) mEq/L Carbon Dioxide (21-32) mEq/L Anion Gap (5-15) BUN (7-18) mg/dL Creatinine (0.7-1.3) mg/dL Est Cr Clr Drug Dosing mL/min Estimated GFR (MDRD) (>60) mL/min BUN/Creatinine Ratio (14-18) Glucose (83-115) mg/dL Lactic Acid 0.7 (0.4-2.0) mmol/L Calcium (8.5-10.1) mg/dL Magnesium 1.5 L (1.8-2.4) mg/dl Total Bilirubin (0.2-1.0) mg/dL AST (15-37) U/L ALT (16-63) U/L Alkaline Phosphatase (46-116) U/L C-Reactive Protein (<1.0) mg/dL Total Protein (6.4-8.2) g/dl Albumin (3.4-5.0) g/dl Globulin gm/dL Albumin/Globulin Ratio (1-2) Lipase (73-393) U/L Urine Color (Yellow) Urine Appearance (Clear) Urine pH (5.0-8.0) Ur Specific [place] (1.005-1.030) Urine Protein (Negative) Urine Glucose (UA) (Negative) Urine Ketones (Negative) Urine Occult Blood (Negative) Urine Nitrite (Negative) Urine Bilirubin (Negative) Urine Urobilinogen (0.2-1.0) Ur Leukocyte Esterase (Negative) Urine RBC (0-5) /hpf Urine WBC (0-5) /hpf Ur Squamous Epith Cells (0-5) /hpf Urine Bacteria (FEW) /hpf Urine Mucus (FEW) /hpf Influenza Type A RNA Negative (NEGATIVE) Influenza Type B RNA Negative (NEGATIVE) SARS-CoV-2 RNA (FENG) Negative (NEGATIVE) 09/10/20 Range/Units 14:35 WBC (4.23-9.07) K/mm3 RBC (4.63-6.08) M/mm3 Hgb (13.7-17.5) gm/dl Hct (40.1-51.0) % MCV (79.0-92.2) fl MCH (25.7-32.2) pg MCHC (32.2-35.5) g/dl RDW Std Deviation (35.1-43.9) fL Plt Count (163-337) K/mm3 MPV (9.4-12.3) fl Neutrophils % (Manual) (40-60) % Band Neutrophils % (0-10) % Lymphocytes % (Manual) (20-40) % Atypical Lymphs % % Monocytes % (Manual) (2-10) % Eosinophils % (Manual) (0.8-7.0) % Basophils % (Manual) (0.2-1.2) Platelet Estimate Plt Morphology Comment RBC Morph Comment PT (9.7-12.0) SECONDS INR Sodium (136-145) mEq/L Potassium (3.5-5.1) mEq/L Chloride (98-107) mEq/L Carbon Dioxide (21-32) mEq/L Anion Gap (5-15) BUN (7-18) mg/dL Creatinine (0.7-1.3) mg/dL Est Cr Clr Drug Dosing mL/min Estimated GFR (MDRD) (>60) mL/min BUN/Creatinine Ratio (14-18) Glucose (83-115) mg/dL Lactic Acid (0.4-2.0) mmol/L Calcium (8.5-10.1) mg/dL Magnesium (1.8-2.4) mg/dl Total Bilirubin (0.2-1.0) mg/dL AST (15-37) U/L ALT (16-63) U/L Alkaline Phosphatase (46-116) U/L C-Reactive Protein (<1.0) mg/dL Total Protein (6.4-8.2) g/dl Albumin (3.4-5.0) g/dl Globulin gm/dL Albumin/Globulin Ratio (1-2) Lipase (73-393) U/L Urine Color Yellow (Yellow) Urine Appearance Slt cloudy H (Clear) Urine pH 6.5 (5.0-8.0) Ur Specific [place] 1.015 (1.005-1.030) Urine Protein 1+ H (Negative) Urine Glucose (UA) Negative (Negative) Urine Ketones Negative (Negative) Urine Occult Blood 1+ H (Negative) Urine Nitrite Negative (Negative) Urine Bilirubin 1+ H (Negative) Urine Urobilinogen 1.0 (0.2-1.0) Ur Leukocyte Esterase Negative (Negative) Urine RBC 0-5 (0-5) /hpf Urine WBC 0-5 (0-5) /hpf Ur Squamous Epith Cells 5-10 H (0-5) /hpf Urine Bacteria Few (FEW) /hpf Urine Mucus Not seen (FEW) /hpf Influenza Type A RNA (NEGATIVE) Influenza Type B RNA (NEGATIVE) SARS-CoV-2 RNA (FENG) (NEGATIVE) Meds: Medications Generic Name Dose Route Start Last Admin Trade Name Freq PRN Reason Stop Dose Admin Sodium Chloride 10 ml 09/10/20 11:58 09/10/20 12:33 Saline Flush FLUSH 10 ml ONETIME PRN Administration IV FLUSH Discontinued Medications Generic Name Dose Route Start Last Admin Trade Name Gilberto PRN Reason Stop Dose Admin Heparin Sodium (Porcine) 500 units 09/10/20 15:07 Heparin Lock Flush 100 Units/Ml FLUSH 09/10/20 15:08 ASDIRECTED STA Hydromorphone HCl 0.5 mg 09/10/20 11:43 09/10/20 12:09 Dilaudid IVPUSH 09/10/20 11:44 0.5 mg ONETIME ONE Administration Sodium Chloride 1,000 mls @ 500 mls/hr 09/10/20 11:38 09/10/20 12:06 Normal Saline IV 09/10/20 13:37 500 mls/hr BOLUS ONE Administration Protocol Iopamidol 50 ml 09/10/20 11:58 09/10/20 12:33 Isovue-300 (61%) IVPUSH 09/10/20 11:59 50 ml ONETIME ONE Administration Iopamidol 100 ml 09/10/20 11:58 09/10/20 12:33 Isovue-300 (61%) IVPUSH 09/10/20 11:59 100 ml ONETIME ONE Administration Magnesium Citrate 296 ml 09/10/20 13:26 Citrate Of Magnesia PO 09/10/20 13:27 ONETIME ONE Ondansetron HCl 4 mg 09/10/20 11:43 09/10/20 12:06 Zofran IVPUSH 09/10/20 11:44 4 mg ONETIME ONE Administration - Re-Assessments/Exams Free Text/Narrative Re-Assessment/Exam: 09/10/20 11:48 I have read and reviewed the student's HPI and examined the patient and agree with GAGAN Bass-student. Due to the patient's age, and generalized increasing weakness, broad aspect of labs will be obtained as John stated. Patient notes that he has chills so much so that he just cannot warm up. He does have a few warm blankets on him on the ER cot. Blood pressure has been okay at 132/89. denies any sort of known sick contacts. Patient was out at a hockey game last week, so unsure if he could have been exposed to someone at that point. The patient's oncologist is Dr. Hutchison, primary care provider is Dr. Abebe. He notes that he had an appoint with Last 3 weeks ago, and everything seemed to be within good standing. 09/10/20 13:23 Labs are impressive for just a mildly elevated white count of 10.2, 91% neutrophils 0 bands. Lactic acid within normal limits. Metabolic panel otherwise essentially unremarkable except for elevated ALP at 225, and elevated CRP at 26.0. Influenza swab and Covid swab are negative for today's visit. Still awaiting urinalysis. CT was impressive for a moderate amount of stool throughout the colon, and rectum. We will go ahead and give the patient a bottle of mag citrate and an enema. 09/10/20 14:08 Apparently the patient had to urinate, however he had to go too quickly and a sample was not obtained at that time. Nursing staff is waiting until 14:30 and if he does not provide a urine sample by then, they note that they will do a straight catheter. 09/10/20 14:58 The patient's urine has been obtained, there does appear to be some trace of blood however nitrite is negative, leukocyte Estrace is negative, microscopy is still pending. At this point in time there is not a lot of clinical evidence on what would be causing the patient's issues, abdomen pain likely due to constipation however. No bacterial infection at today's visit, due to the patient's increased weakness, I do believe he is a higher fall risk for home purposes, and he would benefit from a walker. One will be ordered for mobility purposes in his home. We will have him follow-up with Dr. Abebe for pain management, sometime by the end of this week and have him encourage fluid intake to help prevent constipation. 09/10/20 15:09 Currently the patient is refusing the enema. He does know that this will help him have a bowel movement however he still is refusing the enema. He did take the mag citrate. Patient will be discharged with the above plan. Departure - Departure Time of Disposition: 15:00 Condition: Good - Discharge Information *PRESCRIPTION DRUG MONITORING PROGRAM REVIEWED*: No *COPY OF PRESCRIPTION DRUG MONITORING REPORT IN PATIENT SOM: No Sepsis Event Note (ED) - Focused Exam Vital Signs: Vital Signs Temp Pulse Resp BP Pulse Ox 09/10/20 14:35 85 16 146/80 H 92 L 09/10/20 13:34 88 16 126/76 09/10/20 12:51 85 16 140/77 09/10/20 11:08 96.8 F L 88 18 132/89 95 - My Orders Last 24 Hours: My Active Orders 09/10/20 11:37 Implanted Port Access [RC] ONETIME 09/10/20 11:38 Blood Culture x2 Reflex Set [OM.PC] Stat EKG 12 Lead [EK] Stat 09/10/20 11:39 EKG Documentation Completion [RC] ASDIRECTED 09/10/20 11:58 Sodium Chloride 0.9% [Saline Flush] 10 ml FLUSH ONETIME PRN 09/10/20 12:00 CULTURE BLOOD [BC] Stat 09/10/20 12:09 Vital Signs [RC] Q1H 09/10/20 12:11 CULTURE BLOOD [BC] Stat 09/10/20 13:25 Enema [RC] ASDIRECTED 09/10/20 14:30 CULTURE URINE [RM] Routine 09/10/20 15:10 DME for Discharge [COMM] Routine - Assessment/Plan Last 24 Hours: My Active Orders 09/10/20 11:37 Implanted Port Access [RC] ONETIME 09/10/20 11:38 Blood Culture x2 Reflex Set [OM.PC] Stat EKG 12 Lead [EK] Stat 09/10/20 11:39 EKG Documentation Completion [RC] ASDIRECTED 09/10/20 11:58 Sodium Chloride 0.9% [Saline Flush] 10 ml FLUSH ONETIME PRN 09/10/20 12:00 CULTURE BLOOD [BC] Stat 09/10/20 12:09 Vital Signs [RC] Q1H 09/10/20 12:11 CULTURE BLOOD [BC] Stat 09/10/20 13:25 Enema [RC] ASDIRECTED 09/10/20 14:30 CULTURE URINE [RM] Routine 09/10/20 15:10 DME for Discharge [COMM] Routine
[2020-09-10] MEDS ORDERED: HYDROmorphone 0.5 MG/0.5 ML Syringe IVPUSH ONE (11:43)
[2020-09-10] MEDS ORDERED: Ondansetron 4 MG/2 ML SDV IVPUSH ONE (11:43)
[2020-09-10] MEDS ORDERED: Iopamidol 612 MG/ML 100 ML Bottle IVPUSH ONE (11:58)
[2020-09-10] MEDS ORDERED: Iopamidol 612 MG/ML 50 ML SDV IVPUSH ONE (11:58)
[2020-09-10] MEDS: Sodium Chloride 0.9% 10 ML Syringe FLUSH PRN ×2 (12:08→12:33)
[2020-09-10 13:02] LABS: CORONAVIRUS COVID-19 NAA NEGATIVE (NEGATIVE)
--- NOTE | 2020-09-10 13:20 | CT ---
CT abdomen and pelvis Technique: Multiple axial sections were obtained from above the dome of the diaphragm inferiorly through the pubic symphysis. Intravenous contrast was utilized. No oral contrast was given. Findings: Emphysematous change is seen within both lower lungs. Mild interstitial fibrosis is also felt to be present. Liver contains no focal abnormality. Spleen appears normal in size. Small calcifications are seen within the spleen compatible with granulomatous change. Adrenal glands show no nodule. Pancreas shows no discrete abnormality. Gallbladder contains no calcified gallstones. Kidneys show symmetric contrast enhancement with no evidence of hydronephrosis. Very minimal low density lesion is seen in 2 areas within the left kidney which measure less than 5 mm which are most likely due to minimal cysts. Abdominal aorta shows no aneurysm with atherosclerotic change being seen. Atherosclerotic change continues into the iliac vessels. There is no retroperitoneal adenopathy or mesenteric abnormality being seen. Increased stool is noted within the rectum. Mild diverticulosis noted within the sigmoid and left colon. Mild increased stool is seen throughout other portions of the colon. Appendix not definitely visualized. No free fluid or inflammatory change is seen within the abdomen or pelvis. Bone window settings were reviewed which show scattered degenerative change within the spine. Mild degenerative change is seen within both hips. Impression: 1. Multiple findings as noted above. 2. Increased stool within the rectum as well as other portions of the colon. 3. Other findings as noted above which are nonacute. Diagnostic code #2
--- NOTE | 2020-09-10 13:20 | CR ---
Chest: 2 views of the chest were obtained. Comparison: Prior chest x-ray of 05/24/19. Infusion port is noted on the right side with tip into the superior vena cava. Heart size is slightly enlarged. Tortuous thoracic aorta is seen. Lungs are clear with no acute parenchymal change. Scattered degenerative change is noted within the spine. Impression: 1. Findings as noted above. 2. Nothing acute is appreciated. Diagnostic code #2
[2020-09-10] MEDS ORDERED: Magnesium Citrate Solution 296 ML Bottle PO ONE (13:26)
[2020-09-10 14:36] VITALS: BP 146/80; PULSE 85
== END 2020-09-10 15:58 | disposition home or self-care (01) ==
LOC: JD.ED 10:46
DX: K59.09 Other constipation (principal); R53.1 Weakness; I45.10 Unspecified right bundle-branch block; I10 Essential (primary) hypertension; K21.9 Gastro-esophageal reflux disease without esophagitis; M19.90 Unspecified osteoarthritis, unspecified site; E03.9 Hypothyroidism, unspecified; Z87.891 Personal history of nicotine dependence; Z88.8 Allergy status to other drugs, medicaments and biological substances; Z79.82 Long term (current) use of aspirin; Z79.899 Other long term (current) drug therapy; Z20.822 Contact with and (suspected) exposure to COVID-19
CPT/HCPCS: 0240U; 36415; 71046; 71046-26; 74177; 74177-26; 80053; 81001; 83605; 83690; 83735; 85007; 85027; 85610; 86140; 87040; 87086; 87088; 87184; 87186; 93005; 93010; 96374; 96375; 99284; 99285-25; A9270-GY; J1170; J1642; J2405; J7030; Q9967

== ENCOUNTER 2020-10-03 15:59 | Emergency (ER) | payer MEDICARE, BC ==
[~2020-10-03 15:59] MED LIST: Adenosine 12 MG/4 ML SDV ONE; Adenosine 6 MG/2 ML SDV ONE
[2020-10-03 16:07] VITALS: BP 138/81; PULSE 143
[2020-10-03] MEDS ORDERED: Sodium Chloride 0.9% 10 ML Syringe FLUSH PRN (16:09)
--- NOTE | 2020-10-03 17:06 | CR ---
Chest: Portable view of the chest was obtained. Comparison: Prior chest x-ray of 09/10/20. Heart size is normal. Slight tortuosity of the thoracic aorta is again noted. Lungs are clear with no acute parenchymal change. Right-sided infusion catheter is seen. No acute bony abnormality is appreciated. Impression: 1. Nothing acute is seen on portable chest x-ray. Diagnostic code #2
[2020-10-03] MEDS ORDERED: Sodium Chloride 0.9% 1,000 ML IV SCH (18:00)
--- NOTE | 2020-10-03 18:01 | EDM.PDOC ---
ED HPI GENERAL MEDICAL PROBLEM - General Chief Complaint: Cardiovascular Problem Stated Complaint: SENT FROM [facility] CHEST PAIN Time Seen by Provider: 10/03/20 16:08 Source of Information: Reports: Patient, RN Notes Reviewed - History of Present Illness INITIAL COMMENTS - FREE TEXT/NARRATIVE: 75 yr old male sent here from the clinic for evaluation and treatment of rapid heart rythm. He was found to be in a fib. or SVT at the clinic, heart rate 140's. Pt feels he has been in that for 1 to 2 days. Mild ant. chest tightness. He has felt that "pounding in his chest the last night or 2", has had difficulty sleeping. No recent cough, fever or chills. No nausea or vomiting. He has not had a fib. or SVT before that he is aware of. Chest Pain Score (Numeric/FACES): 5 - Related Data Allergies Allergy/AdvReac Type Severity Reaction Status Date / Time benzonatate Allergy Swollen Verified 10/03/20 16:08 [From Aris Nichols] Tongue Home Meds: Home Meds LORazepam [Ativan] 1 mg PO BID PRN 01/27/15 [History] Multivitamin with Minerals [Multiple Vitamin] 1 tab PO DAILY 01/27/15 [History] Omeprazole [Prilosec] 20 mg PO 07,12 01/27/15 [History] Venlafaxine [Effexor XR] 75 mg PO DAILY 01/27/15 [History] Ibrutinib [Imbruvica] 420 mg PO DAILY 01/01/16 [History] Aspirin [Halfprin] 81 mg PO DAILY 12/04/18 [History] Calcium Citrate/Vitamin D3 [Calcium Citrate - Vit D3 Tab] 1 tab PO DAILY 12/04/18 [History] Ferrous Sulfate [Iron] 65 mg PO DAILY 12/04/18 [History] hydrOXYzine pamoate [Hydroxyzine Pamoate] 50 mg PO TID PRN 12/04/18 [History] Levothyroxine 25 mcg PO DAILY 12/06/18 [History] Metoprolol Succinate [Toprol XL] 25 mg PO DAILY #60 12/06/18 [Rx] amLODIPine Besylate [Norvasc] 5 mg PO BID #60 tablet 12/06/18 [Rx] Acetaminophen [Tylenol] 325 mg PO Q4HR PRN 09/10/20 [History] Venlafaxine [Effexor XR] 150 mg PO DAILY 09/10/20 [History] Ciprofloxacin [Ciprofloxacin HCl] 500 mg PO BID 7 Days #14 tab 09/14/20 [Rx] LORazepam [Ativan] 0.5 mg PO BEDTIME #5 tablet 10/03/20 [Rx] LORazepam [Ativan] 0.5 mg PO BEDTIME PRN #6 tablet 10/03/20 [Rx] Past Medical History Cardiovascular History: Reports: Hypertension Other Cardiovascular History: "might have a partially clogged artery somewhere" Respiratory History: Reports: Bronchitis, Recurrent Gastrointestinal History: Reports: GERD Genitourinary History: Reports: None Musculoskeletal History: Reports: Arthritis Neurological History: Reports: Other (See Below) Other Neuro History: nerve pain. 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 Psychiatric History: Reports: Anxiety, Depression Endocrine/Metabolic History: Reports: Hypothyroidism Hematologic History: Reports: Other (See Below) Other Hematologic History: CLL Immunologic History: Reports: None Oncologic (Cancer) History: Reports: Leukemia Other Oncologic History: CLL Dermatologic History: Reports: Other (See Below) Other Dermatologic History: Rash last three days. - Infectious Disease History Infectious Disease History: Reports: None, Chicken Pox, Measles, Mumps - Past Surgical History HEENT Surgical History: Reports: Oral Surgery, Tonsillectomy Respiratory Surgical History: Reports: Other (See Below) GI Surgical History: Reports: Hernia, Inguinal Social & Family History - Family History Family Medical History: No Pertinent Family History - Tobacco Use Tobacco Use Status *Q: Never Tobacco User - Caffeine Use Caffeine Use: Reports: Coffee - Recreational Drug Use Recreational Drug Use: No - Living Situation & Occupation Living situation: Reports: , with Spouse Occupation: Retired ED ROS GENERAL - Review of Systems Review Of Systems: See Below Constitutional: Denies: Fever, Chills, Diaphoresis HEENT: Reports: No Symptoms Respiratory: Denies: Shortness of Breath, Pleuritic Chest Pain Cardiovascular: Reports: Chest Pain, Palpitations GI/Abdominal: Denies: Abdominal Pain, Nausea, Vomiting Musculoskeletal: Denies: Shoulder Pain, Arm Pain Skin: Reports: No Symptoms Neurological: Reports: Dizziness Psychiatric: Reports: Anxiety, Other (insomnia) ED EXAM, GENERAL - Physical Exam Exam: See Below General Appearance: Alert, No Apparent Distress Eye Exam: Bilateral Eye: PERRL Throat/Mouth: Normal Inspection, Normal Oropharynx Head: Atraumatic Neck: Supple Respiratory/Chest: No Respiratory Distress, Lungs Clear, Normal Breath Sounds Cardiovascular: Tachycardia, Irregularly Irregular GI/Abdominal: Soft, Non-Tender Extremities: Non-Tender. No: Pedal Edema, Leg Pain, Increased Warmth, Redness Neurological: Alert, Oriented, No Motor/Sensory Deficits Skin Exam: Warm, Dry, Normal Color #1 Interpretation EKG Date: 10/03/20 Rhythm: A-Fib Rate (Beats/Min): 133 [place]: Normal P-Wave: Absent QRS: Normal ST-T: Other (mild nonspecific st changes) #2 Interpretation EKG Date: 10/03/20 Rhythm: NSR Rate (Beats/Min): 78 [place]: Normal P-Wave: Present QRS: RBBB ST-T: Normal Course - Vital Signs Last Recorded V/S: Last Vital Signs Temp 97.5 F 10/03/20 16:03 Pulse 143 H 10/03/20 16:03 Resp 20 10/03/20 16:03 BP 138/81 10/03/20 16:03 Pulse Ox 100 10/03/20 16:03 - Orders/Labs/Meds Orders: Active Orders 24 hr Category Date Time Status Peripheral IV Insertion Adult [OM.PC] Stat Oth 10/03/20 16:09 Ordered Labs: Laboratory Tests 10/03/20 10/03/20 Range/Units 16:00 16:00 WBC 10.00 H (4.23-9.07) K/mm3 RBC 4.98 (4.63-6.08) M/mm3 Hgb 13.8 D (13.7-17.5) gm/dl Hct 42.7 (40.1-51.0) % MCV 85.7 (79.0-92.2) fl MCH 27.7 (25.7-32.2) pg MCHC 32.3 (32.2-35.5) g/dl RDW Std Deviation 51.7 H (35.1-43.9) fL Plt Count 320 D (163-337) K/mm3 MPV 9.2 L (9.4-12.3) fl Neut % (Auto) 86.5 H (34.0-67.9) % Lymph % (Auto) 6.6 L (21.8-53.1) % [place] % (Auto) 5.2 L (5.3-12.2) % Eos % (Auto) 0.3 L (0.8-7.0) Baso % (Auto) 0.2 (0.1-1.2) % Neut # (Auto) 8.65 H (1.78-5.38) K/mm3 Lymph # (Auto) 0.66 L (1.32-3.57) K/mm3 [place] # (Auto) 0.52 (0.30-0.82) K/mm3 Eos # (Auto) 0.03 L (0.04-0.54) K/mm3 Baso # (Auto) 0.02 (0.01-0.08) K/mm3 Manual Slide Review Abnormal smear Sodium 145 (136-145) mEq/L Potassium 4.2 (3.5-5.1) mEq/L Chloride 103 (98-107) mEq/L Carbon Dioxide 27 (21-32) mEq/L Anion Gap 19.2 H (5-15) BUN 21 H (7-18) mg/dL Creatinine 1.7 H (0.7-1.3) mg/dL Est Cr Clr Drug Dosing 37.10 mL/min Estimated GFR (MDRD) 39 (>60) mL/min BUN/Creatinine Ratio 12.4 L (14-18) Glucose 86 (83-115) mg/dL Calcium 8.6 (8.5-10.1) mg/dL Total Bilirubin 0.4 (0.2-1.0) mg/dL AST 11 L (15-37) U/L ALT 21 (16-63) U/L Alkaline Phosphatase 140 H (46-116) U/L Troponin I < 0.017 (0.00-0.056) ng/mL Total Protein 7.0 (6.4-8.2) g/dl Albumin 3.7 (3.4-5.0) g/dl Globulin 3.3 gm/dL Albumin/Globulin Ratio 1.1 (1-2) Meds: Medications Discontinued Medications Generic Name Dose Route Start Last Admin Trade Name Freq PRN Reason Stop Dose Admin Adenosine Confirm 10/03/20 15:46 Adenocard Administered 10/03/20 15:47 Dose 6 mg .ROUTE .STK-MED ONE Adenosine Confirm 10/03/20 15:46 Adenocard Administered 10/03/20 15:47 Dose 12 mg .ROUTE .STK-MED ONE Sodium Chloride 1,000 mls @ 999 mls/hr 10/03/20 18:00 10/03/20 17:59 Normal Saline IV 999 mls/hr ONETIME BRIEN Administration Sodium Chloride 10 ml 10/03/20 16:09 10/03/20 16:00 Saline Flush FLUSH 10 ml ASDIRECTED PRN Administration Keep Vein Open - Re-Assessments/Exams Free Text/Narrative Re-Assessment/Exam: 10/04/20 15:55 Pt converted to sinus rythm after IV start but before diltiazam could be given. He stayed in sinus rythm with observation of 1 1/2 to 2 hrs after conversion. Bp remainded good. Labs relatively OK. Showed mild dehydration so given some IV fluid prior to discharge. Discharge instr. as documented. Departure - Departure Time of Disposition: 18:35 Disposition: Home, Self-Care 01 Condition: Fair Clinical Impression: Atrial fibrillation with RVR, Anxiety, Insomnia Prescriptions: LORazepam [Ativan] 0.5 mg PO BEDTIME PRN #6 tablet PRN Reason: Insomnia LORazepam [Ativan] 0.5 mg PO BEDTIME #5 tablet Instructions: Insomnia, Managing Anxiety, Adult, Atrial Fibrillation, [id number] Referrals: Santhosh Abebe MD [Primary Care Provider] - Forms: ED Department Discharge Additional Instructions: Your heart was in a rapid rythym we call atrial fibrillation when you arrived to the ED. Before we were able to give medicine for that your heart rythym converted to normal sinus rythm which is the normal heart rythm you would normally have. You were somewhat dehydrated so we did give 500 ml IV fluid. No evidence for heart attack or heart failure. Ativan 0.5 mg at bedtime to help you sleep for the next 5 days only. Prescription has been sent to [email or web address]. Start taking melatonin available OTC 3 to 5 mg 1 hour prior to bedtime which is a normal sleep aid. Follow up clinic in about 1 week for recheck. Call tomorrow for appointment. Sepsis Event Note (ED) - Evaluation Sepsis Screening Result: No Definite Risk - My Orders Last 24 Hours: My Active Orders 10/03/20 16:09 Peripheral IV Insertion Adult [OM.PC] Stat - Assessment/Plan Last 24 Hours: My Active Orders 10/03/20 16:09 Peripheral IV Insertion Adult [OM.PC] Stat
== END 2020-10-03 19:30 | disposition home or self-care (01) ==
LOC: JD.ED 15:59
DX: I48.91 Unspecified atrial fibrillation (principal); F41.9 Anxiety disorder, unspecified; G47.00 Insomnia, unspecified; K21.9 Gastro-esophageal reflux disease without esophagitis; I10 Essential (primary) hypertension; M19.90 Unspecified osteoarthritis, unspecified site; E03.9 Hypothyroidism, unspecified; Z91.048 Other nonmedicinal substance allergy status; Z79.82 Long term (current) use of aspirin; Z79.899 Other long term (current) drug therapy
CPT/HCPCS: 36415; 71045; 80053; 84484; 85025; 93005; 99285; J7030; 93010; 99284

== ENCOUNTER 2020-11-12 03:53 | Emergency (ER) | payer MEDICARE, BC ==
[2020-11-12 04:06] VITALS: BP 172/99; PULSE 60
--- NOTE | 2020-11-12 05:42 | EDM.PDOC ---
ED HPI GENERAL MEDICAL PROBLEM - General Chief Complaint: Upper Extremity Injury/Pain Stated Complaint: BACK PAIN Time Seen by Provider: 11/12/20 04:00 Source of Information: Reports: Patient History Limitations: Reports: No Limitations - History of Present Illness INITIAL COMMENTS - FREE TEXT/NARRATIVE: Patient has come in complaining of pain in his left shoulder. He says that the pain has been there for about 2 days and is worsening. No injury has occurred. Patient denies chronic issues with this shoulder. However he was seen by Dr. Steward, orthopedist, 2 years ago for the same problem. Patient does not know the nature of the condition affecting that shoulder. Though the patient has extensive history with this institution he does not cite any other issues including fever chest pain shortness of breath palpitations syncope or any other acute condition or problem. Left Shoulder Pain Score (Numeric/FACES): 8 - Related Data Allergies Allergy/AdvReac Type Severity Reaction Status Date / Time benzonatate Allergy Swollen Verified 11/12/20 04:02 [From Aris Nichols] Tongue Home Meds: Home Meds LORazepam [Ativan] 1 mg PO BID PRN 01/27/15 [History] Multivitamin with Minerals [Multiple Vitamin] 1 tab PO DAILY 01/27/15 [History] Omeprazole [Prilosec] 20 mg PO 07,12 01/27/15 [History] Venlafaxine [Effexor XR] 75 mg PO DAILY 01/27/15 [History] Ibrutinib [Imbruvica] 420 mg PO DAILY 01/01/16 [History] Aspirin [Halfprin] 81 mg PO DAILY 12/04/18 [History] Calcium Citrate/Vitamin D3 [Calcium Citrate - Vit D3 Tab] 1 tab PO DAILY 12/04/18 [History] Ferrous Sulfate [Iron] 65 mg PO DAILY 12/04/18 [History] hydrOXYzine pamoate [Hydroxyzine Pamoate] 50 mg PO TID PRN 12/04/18 [History] Levothyroxine 25 mcg PO DAILY 12/06/18 [History] Metoprolol Succinate [Toprol XL] 25 mg PO DAILY #60 12/06/18 [Rx] amLODIPine Besylate [Norvasc] 5 mg PO BID #60 tablet 12/06/18 [Rx] Acetaminophen [Tylenol] 325 mg PO Q4HR PRN 09/10/20 [History] Venlafaxine [Effexor XR] 150 mg PO DAILY 09/10/20 [History] Ciprofloxacin [Ciprofloxacin HCl] 500 mg PO BID 7 Days #14 tab 09/14/20 [Rx] LORazepam [Ativan] 0.5 mg PO BEDTIME #5 tablet 10/03/20 [Rx] LORazepam [Ativan] 0.5 mg PO BEDTIME PRN #6 tablet 10/03/20 [Rx] Past Medical History HEENT History: Reports: Cataract, Impaired Vision Other HEENT History: Wears glasses Cardiovascular History: Reports: Hypertension Other Cardiovascular History: "might have a partially clogged artery somewhere" Respiratory History: Reports: Bronchitis, Recurrent Gastrointestinal History: Reports: GERD Genitourinary History: Reports: None Musculoskeletal History: Reports: Arthritis Neurological History: Reports: Other (See Below) Other Neuro History: nerve pain. 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 Psychiatric History: Reports: Anxiety, Depression Endocrine/Metabolic History: Reports: Hypothyroidism Hematologic History: Reports: Other (See Below) Other Hematologic History: CLL Immunologic History: Reports: None Oncologic (Cancer) History: Reports: Leukemia Other Oncologic History: CLL Dermatologic History: Reports: Other (See Below) Other Dermatologic History: Rash last three days. - Infectious Disease History Infectious Disease History: Reports: Chicken Pox, Measles, Mumps - Past Surgical History HEENT Surgical History: Reports: Cataract Surgery, Oral Surgery, Tonsillectomy GI Surgical History: Reports: Hernia, Inguinal Social & Family History - Family History Family Medical History: No Pertinent Family History - Tobacco Use Tobacco Use Status *Q: Unknown Ever Used Tobacco - Caffeine Use Caffeine Use: Reports: Coffee - Living Situation & Occupation Living situation: Reports: , with Spouse Occupation: Retired Review of Systems - Review of Systems Review Of Systems: Comprehensive ROS is negative, except as noted in HPI. ED EXAM, GENERAL - Physical Exam Exam: See Below Free Text/Narrative:: On exam the patient is alert and in no distress. Head normocephalic atraumatic. PERRLA EOMI. Neck is supple without jugular venous distention. Patient is comfortable lying flat on the gurney. Heart is regular. Normal rate. Lungs are clear breath sounds full and equal bilaterally. Abdomen is soft and nontender. There is no peripheral edema cyanosis or clubbing of the digits. Neurologically the patient is nonfocal with fluent speech and no gross deficit of motor or sensory function. On examination of the left shoulder there is no apparent abnormality. However the patient will not allow an adequate exam. In fact he calls out in pain with even light touch on the shoulder. Course - Vital Signs Text/Narrative:: An x-ray of the left shoulder showed considerable degenerative changes but no acute condition was identified. Because of the patient's fairly vocal and dramatic presentation regarding this we sent the study to Bian[facility] swann to be read. That reading was "no acute findings." Chronic degenerative changes of the glenohumeral and coronal clavicular joints were noted as expected. The patient was advised to call his orthopedist this morning and arrange to be seen as soon as possible. He asked us to make the appointment for him but we told him that that was not our function and he could do that himself. His blood pressure was noted to be a bit elevated and we asked him to see his primary as soon as possible for potential adjustment of blood pressure medications. Though a bit elevated the blood pressures were not in a range that would require emergency department intervention. The patient received 15 mg of Toradol IM prior to departure. Last Recorded V/S: Last Vital Signs Temp 36.1 C 11/12/20 04:00 Pulse 60 11/12/20 04:00 Resp 17 11/12/20 04:00 BP 172/99 H 11/12/20 04:00 Pulse Ox 95 11/12/20 04:00 - Orders/Labs/Meds Orders: Active Orders 24 hr Category Date Time Status Shoulder Comp Lt [CR] Stat Exams 11/12/20 04:16 Taken Meds: Medications Discontinued Medications Generic Name Dose Route Start Last Admin Trade Name Gilberto PRN Reason Stop Dose Admin Ketorolac Tromethamine 15 mg 11/12/20 05:51 Ketorolac 30 Mg/Ml Sdv IM 11/12/20 05:52 ONETIME ONE Departure - Departure Time of Disposition: 05:57 Disposition: Home, Self-Care 01 Condition: Good Clinical Impression: Left shoulder pain Qualifiers: Chronicity: unspecified Qualified Code(s): M25.512 - Pain in left shoulder Degenerative joint disease Qualifiers: Osteoarthritis location: shoulder Osteoarthritis type: unspecified Laterality: left Qualified Code(s): M19.012 - Primary osteoarthritis, left shoulder Hypertension Qualifiers: Hypertension type: unspecified Qualified Code(s): I10 - Essential (primary) hypertension - Discharge Information Referrals: PCP,None [Primary Care Provider] - Forms: ED Department Discharge Additional Instructions: You have been seen for left shoulder pain. There appears to be chronic arthritic changes in that shoulder. You have seen Dr. Steward, your orthopedist, for this same shoulder and apparently the same issue. We suggest that you call him this morning and arrange to be seen by him as soon as possible. Your blood pressure has been a bit elevated in the emergency department. It was not in a range that would require us to intervene but you do need to see your primary for potential revision of blood pressure medications. Call today for an appointment and be seen as soon as possible. Sepsis Event Note (ED) - Evaluation Sepsis Screening Result: No Definite Risk - Focused Exam Vital Signs: Vital Signs Temp Pulse Resp BP Pulse Ox 11/12/20 04:00 36.1 C 60 17 172/99 H 95 - My Orders Last 24 Hours: My Active Orders 11/12/20 04:16 Shoulder Comp Lt [CR] Stat - Assessment/Plan Last 24 Hours: My Active Orders 11/12/20 04:16 Shoulder Comp Lt [CR] Stat
[2020-11-12] MEDS ORDERED: Ketorolac 30 MG/ML SDV IM ONE (05:51)
--- NOTE | 2020-11-12 08:22 | CR ---
Addendum: Diagnostic code #3 I minimally disagree with preliminary report from [facility], finalized on 11/12/20, 6:45 AM CDT --- Addendum1 above dictated on [11/13/2020 10:37] by [Bhavana Torres, Uri Tyler] --- --- Addendum1 above signed on [11/13/2020 10:43] by [Bhavana Torres Hilton J.] --- --- Original report below dictated on [11/12/2020 08:03] by [Bhavana Torres, Uri Tyler] --- --- Original report below signed on [11/12/2020 08:20] by [Bhavana Torres, Uri Tyler] --- Left shoulder: 3 views of the left shoulder were obtained. Comparison: No prior left shoulder exam is available. Joint space narrowing is noted within the acromioclavicular joint with degenerative calcifications seen superiorly within the acromioclavicular joint. Minimal inferior spurring is noted. There is narrowing between the humeral head and acromion process suspicious for possible chronic rotator cuff tear. Mild degenerative change is seen within the glenohumeral joint. There is no acute fracture or dislocation being seen. Soft tissue calcifications are seen inferior to the humeral head in a lateral direction presumably due to old muscle injury. Impression: 1. Degenerative change as noted above. 2. Findings suspicious for possible chronic rotator cuff tear. 3. Calcifications laterally most likely representing old muscle injury. Diagnostic code #3 --- Addendum1 signed ---
== END 2020-11-12 06:37 | disposition home or self-care (01) ==
LOC: JD.ED 03:53
DX: M19.012 Primary osteoarthritis, left shoulder (principal); I10 Essential (primary) hypertension; K21.9 Gastro-esophageal reflux disease without esophagitis; M19.90 Unspecified osteoarthritis, unspecified site; E03.9 Hypothyroidism, unspecified; Z79.899 Other long term (current) drug therapy; Z91.048 Other nonmedicinal substance allergy status; Z79.82 Long term (current) use of aspirin
CPT/HCPCS: 73030-26-LT; 73030-LT; 96372; 99283; 99283-25; J1885

== ENCOUNTER 2021-03-05 10:01 | Inpatient (IN) | payer MEDICARE, BC ==
[2021-03-05] MEDS ORDERED: Sodium Chloride 0.9% 10 ML Syringe FLUSH PRN (10:16)
[2021-03-05] MEDS ORDERED: HYDROmorphone 0.5 MG/0.5 ML Syringe IVPUSH ONE ×2 (10:54→11:19)
--- NOTE | 2021-03-05 10:56 | CT ---
Head CT Technique: Multiple axial sections through the brain were obtained. Intravenous contrast was not utilized. Reconstructed coronal and sagittal images were obtained. Comparison: Prior MRI brain of 04/15/[address] study of 04/09/15. Findings: Ventricles along with basal cisterns and sulci over the convexities are moderately prominent. Mild areas of diminished density are noted within the periventricular white matter which is compatible with small vessel ischemic demyelination change. No other abnormal parenchymal densities are seen. No evidence of intracranial hemorrhage is seen. No midline shift or mass-effect is seen. Bone window settings were reviewed which show the visualized mastoid sinuses and paranasal sinuses to show nothing acute. No acute calvarial abnormality is appreciated. Impression: 1. Senescent change as noted above. 2. No acute intracranial abnormality is identified. Diagnostic code #2
--- NOTE | 2021-03-05 11:01 | CT ---
CT cervical spine Technique: Multiple axial sections were obtained from above C1 inferiorly to the top of T2. Reconstructed coronal and sagittal images were obtained. Comparison: No prior cervical spine imaging is available. Findings: Degenerative change is noted between the dens and anterior arch of C1. There is also calcification being seen within the transverse ligament posterior to the dens. Mild disc space narrowing is noted at C2-3, C3-4 with moderate disc space narrowing noted at C4-5. Moderate disc space narrowing is seen at C5-6 with moderate to severe disc space narrowing noted at C6-7. Scattered anterior osteophytes are seen. Calcification is noted within the posterior longitudinal ligament at C2-3. Posterior osteophytes are noted mostly at C4-5, C5-6 and C6-7 as well as C7-T1. Moderate left-sided neural foraminal stenosis is noted at C3-4 and C4-5. Mild left-sided neural foraminal stenosis is noted at C5-6. Other neural foramina are felt to be fairly well patent. AP view shows mild scattered degenerative change within the uncovertebral joints most prominent at C6-7. Degenerative apophyseal change is seen throughout the cervical spine most prominent on the left side. No fracture is seen. No abnormal subluxation is seen. Impression: 1. Diffuse degenerative change as noted above. 2. No acute fracture or abnormal subluxation is seen. Diagnostic code #2
--- NOTE | 2021-03-05 11:10 | EDM.PDOC ---
ED HPI GENERAL MEDICAL PROBLEM - General Chief Complaint: Lower Extremity Injury/Pain Stated Complaint: MAURI AMB Time Seen by Provider: 03/05/21 10:16 Source of Information: Reports: Patient, EMS, Family History Limitations: Reports: No Limitations - History of Present Illness INITIAL COMMENTS - FREE TEXT/NARRATIVE: The patient presents by [facility] for a fall. He went outside and tripped. He hit his head. He told EMS he was on blood thinners but it turned out to be just aspirin. He has some neck pain and left shoulder pain. He also has some pain to his left hip. That is causing him the most pain. He has no chest pain, shortness of breath, abdominal pain, nausea or vomiting. He appears to be in A-fib. Looking back at his records, he was in A-fib in September and converted in the ER and had no more trouble with it. He is supposed to have left shoulder surgery in a week with Dr Steward. Onset: Sudden Duration: Minutes: Location: Reports: Upper Extremity, Left (shoulder), Lower Extremity, Left (hip) Quality: Reports: Sharp Severity: Moderate Improves with: Reports: None Worsens with: Reports: None Associated Symptoms: Reports: No Other Symptoms Left Hip Pain Score (Numeric/FACES): 5 - Related Data Allergies Allergy/AdvReac Type Severity Reaction Status Date / Time benzonatate Allergy Swollen Verified 03/05/21 10:20 [From Aris Nichols] Tongue Home Meds: Home Meds LORazepam [Ativan] 1 mg PO BID PRN 01/27/15 [History] Multivitamin with Minerals [Multiple Vitamin] 1 tab PO DAILY 01/27/15 [History] Omeprazole [Prilosec] 20 mg PO BID 01/27/15 [History] Ibrutinib [Imbruvica] 420 mg PO DAILY 01/01/16 [History] Aspirin [Halfprin] 81 mg PO DAILY 12/04/18 [History] Calcium Citrate/Vitamin D3 [Calcium Citrate - Vit D3 Tab] 1 tab PO DAILY 12/04/18 [History] hydrOXYzine pamoate [Hydroxyzine Pamoate] 50 mg PO TID PRN 12/04/18 [History] Levothyroxine 25 mcg PO DAILY 12/06/18 [History] Metoprolol Succinate [Toprol XL] 25 mg PO DAILY #60 12/06/18 [Rx] amLODIPine Besylate [Norvasc] 5 mg PO BID #60 tablet 12/06/18 [Rx] Acetaminophen [Tylenol] 325 mg PO Q4HR PRN 09/10/20 [History] Venlafaxine [Effexor XR] 150 mg PO DAILY 09/10/20 [History] traMADol HCl [Tramadol HCl] 50 mg PO Q6H PRN 03/05/21 [History] Past Medical History HEENT History: Reports: Cataract, Impaired Vision Other HEENT History: Wears glasses Cardiovascular History: Reports: Afib, Hypertension Other Cardiovascular History: "might have a partially clogged artery somewhere" Respiratory History: Reports: Bronchitis, Recurrent Gastrointestinal History: Reports: GERD Genitourinary History: Reports: None Musculoskeletal History: Reports: Arthritis Neurological History: Reports: Other (See Below) Other Neuro History: nerve pain Psychiatric History: Reports: Anxiety, Depression Endocrine/Metabolic History: Reports: Hypothyroidism Hematologic History: Reports: Other (See Below) Other Hematologic History: CLL Immunologic History: Reports: None Oncologic (Cancer) History: Reports: Leukemia Other Oncologic History: CLL Dermatologic History: Reports: Other (See Below) Other Dermatologic History: Rash last three days. - Infectious Disease History Infectious Disease History: Reports: Chicken Pox, Measles, Mumps - Past Surgical History HEENT Surgical History: Reports: Cataract Surgery, Oral Surgery, Tonsillectomy GI Surgical History: Reports: Hernia, Inguinal Social & Family History - Family History Family Medical History: No Pertinent Family History - Tobacco Use Tobacco Use Status *Q: Unknown Ever Used Tobacco - Caffeine Use Caffeine Use: Reports: Coffee - Living Situation & Occupation Living situation: Reports: , with Spouse Occupation: Retired Review of Systems - Review of Systems Review Of Systems: See Below Constitutional: Reports: No Symptoms Eyes: Reports: No Symptoms Ears: Reports: No Symptoms Nose: Reports: No Symptoms Mouth/Throat: Reports: No Symptoms Respiratory: Reports: No Symptoms Cardiovascular: Reports: No Symptoms GI/Abdominal: Reports: No Symptoms Genitourinary: Reports: No Symptoms Musculoskeletal: Reports: Shoulder Pain (left), Other (left hip) ED EXAM, GENERAL - Physical Exam Exam: See Below Exam Limited By: No Limitations General Appearance: Alert, No Apparent Distress Ears: Normal External Exam Nose: Normal Inspection Head: Atraumatic, Normocephalic Neck: Normal Inspection Respiratory/Chest: No Respiratory Distress, Lungs Clear, Normal Breath Sounds Cardiovascular: Regular Rate, Rhythm, No Edema, No Murmur GI/Abdominal: Soft, Non-Tender, No Organomegaly, No Mass Back Exam: Normal Inspection Extremities: Other (Pain upon palpation to the left shoulder with good sensation and pulses distally. Pain upon palpation to the left hip. Good sensation and pulses distally. Leg is shortned and internally rotated. Good sensation and pulses distally.) #1 Interpretation EKG Date: 03/05/21 Time: 10:17 Rhythm: A-Fib Rate (Beats/Min): 136 [place]: Normal P-Wave: Absent QRS: Normal ST-T: Normal QT: Normal Course - Vital Signs Last Recorded V/S: Last Vital Signs Temp 96.8 F L 03/05/21 14:37 Pulse 94 03/05/21 14:37 Resp 18 03/05/21 14:37 BP 96/81 03/05/21 14:37 Pulse Ox 100 03/05/21 14:37 - Orders/Labs/Meds Orders: Active Orders 24 hr Category Date Time Status Cardiac Monitoring [RC] . DIRECTED Care 03/05/21 10:16 Active EKG Documentation Completion [RC] STAT Care 03/05/21 10:16 Active Peripheral IV Care [RC] . DIRECTED Care 03/05/21 10:17 Active Diltiazem [Cardizem] 100 mg Med 03/05/21 11:30 Active Sodium Chloride 0.9% [Normal Saline] 100 ml IV TITRATE LORazepam [Ativan] Med 03/05/21 12:28 Active 1 mg PO 0700,1200 PRN Levothyroxine Med 03/06/21 06:00 Active 25 mcg PO ACBRK Metoprolol Succinate [Toprol XL] Med 03/06/21 09:00 Active 25 mg PO DAILY Pantoprazole [ProTONIX] Med 03/05/21 21:00 Active 40 mg PO BID Patient's Own Medication [Ptom] Med 03/06/21 09:00 Active 0 each PO DAILY Sodium Chloride 0.9% [Saline Flush] Med 03/05/21 10:16 Active 10 ml FLUSH ASDIRECTED PRN Venlafaxine [Effexor XR] Med 03/06/21 09:00 Active 150 mg PO DAILY amLODIPine [Norvasc] Med 03/05/21 21:00 Active 5 mg PO BID hydrOXYzine HCL [Atarax] Med 03/05/21 12:30 Active 50 mg PO TID PRN Peripheral IV Insertion Adult [OM.PC] Stat Oth 03/05/21 10:16 Ordered Medication Orders Acetaminophen (Acetaminophen 325 Mg Tab) 650 mg PO Q4H PRN PRN Reason: Pain (Mild 1-3)/fever Amlodipine Besylate (Amlodipine 5 Mg Tab) 5 mg PO BID BRIEN Heparin Sodium (Porcine) (Heparin Sodium 5,000 Units/Ml Vial) 5,000 units SUBCUT Q8H BRIEN Last Admin: 03/05/21 15:32 Dose: 5,000 units Documented by: RODGERMIC Hydromorphone HCl (Hydromorphone 0.5 Mg/0.5 Ml Syringe) 0.5 mg IVPUSH Q2H PRN PRN Reason: Pain (severe 7-10) Last Admin: 03/05/21 15:32 Dose: 0.5 mg Documented by: ESTIVEN Hydroxyzine HCl (Hydroxyzine Hcl 50 Mg Tab) 50 mg PO TID PRN PRN Reason: Anxiety Diltiazem HCl 100 mg/ Sodium (Chloride) 100 mls @ 10 mls/hr IV TITRATE BRIEN; Protocol Last Admin: 03/05/21 11:31 Dose: 10 mg/hr, 10 mls/hr Documented by: GRACIA Amiodarone HCl/Dextrose (Nexterone In Dextrose 360 Mg/200 Ml) 360 mg in 200 mls @ 33.333 mls/hr IV ASDIRECTED BRIEN; Protocol Last Admin: 03/05/21 15:14 Dose: 33.333 mls/hr Documented by: ESTIVEN Levothyroxine Sodium (Levothyroxine 25 Mcg Tab) 25 mcg PO ACBRK BRIEN Lorazepam (Lorazepam 1 Mg Tab) 1 mg PO 0700,1200 PRN PRN Reason: Anxiety Metoprolol Succinate (Metoprolol Succinate 25 Mg Tab.Er) 25 mg PO DAILY BRIEN Ondansetron HCl (Ondansetron 4 Mg Tab.Dis) 4 mg PO Q4H PRN PRN Reason: nausea, able to take PO Ondansetron HCl (Ondansetron 4 Mg/2 Ml Sdv) 4 mg IV Q4H PRN PRN Reason: Nausea/Vomiting Pantoprazole Sodium (Pantoprazole 40 Mg Tab.Cr) 40 mg PO BID BRIEN Ibrutinib [Imbruvica (] 420 Mg Capsule) 0 each PO DAILY [facility] Sodium Chloride (Sodium Chloride 0.9% 10 Ml Syringe) 10 ml FLUSH ASDIRECTED PRN PRN Reason: Keep Vein Open Last Admin: 03/05/21 10:26 Dose: 10 ml Documented by: FULTCON Temazepam (Temazepam 7.5 Mg Cap) 7.5 mg PO BEDTIME PRN PRN Reason: Sleep Venlafaxine HCl (Venlafaxine 75 Mg Cap.Er) 150 mg PO DAILY [facility] Labs: Laboratory Tests 03/05/21 03/05/21 03/05/21 Range/Units 10:30 10:30 10:30 WBC 5.56 (4.23-9.07) K/mm3 RBC 4.13 L (4.63-6.08) M/mm3 Hgb 11.8 L D (13.7-17.5) gm/dl Hct 36.2 L (40.1-51.0) % MCV 87.7 (79.0-92.2) fl MCH 28.6 (25.7-32.2) pg MCHC 32.6 (32.2-35.5) g/dl RDW Std Deviation 49.1 H (35.1-43.9) fL Plt Count 237 D (163-337) K/mm3 MPV 9.3 L (9.4-12.3) fl Neut % (Auto) 83.1 H (34.0-67.9) % Lymph % (Auto) 9.0 L (21.8-53.1) % [place] % (Auto) 5.8 (5.3-12.2) % Eos % (Auto) 1.3 (0.8-7.0) Baso % (Auto) 0.4 (0.1-1.2) % Neut # (Auto) 4.63 (1.78-5.38) K/mm3 Lymph # (Auto) 0.50 L (1.32-3.57) K/mm3 [place] # (Auto) 0.32 (0.30-0.82) K/mm3 Eos # (Auto) 0.07 (0.04-0.54) K/mm3 Baso # (Auto) 0.02 (0.01-0.08) K/mm3 Manual Slide Review Abnormal smear PT 11.1 (9.7-12.0) SECONDS INR 1.04 APTT 28.8 (21.7-31.4) SECONDS Sodium 142 (136-145) mEq/L Potassium 3.9 (3.5-5.1) mEq/L Chloride 107 (98-107) mEq/L Carbon Dioxide 23 (21-32) mEq/L Anion Gap 15.9 H (5-15) BUN 24 H (7-18) mg/dL Creatinine 1.5 H (0.7-1.3) mg/dL Est Cr Clr Drug Dosing TNP Estimated GFR (MDRD) 46 (>60) mL/min BUN/Creatinine Ratio 16.0 (14-18) Glucose 85 (70-99) mg/dL Calcium 8.3 L (8.5-10.1) mg/dL Total Bilirubin 0.7 (0.2-1.0) mg/dL AST 15 (15-37) U/L ALT 17 (16-63) U/L Alkaline Phosphatase 93 (46-116) U/L Troponin I < 0.017 (0.00-0.056) ng/mL Total Protein 5.8 L (6.4-8.2) g/dl Albumin 3.4 (3.4-5.0) g/dl Globulin 2.4 gm/dL Albumin/Globulin Ratio 1.4 (1-2) SARS-CoV-2 RNA (FENG) (NEGATIVE) 03/05/21 Range/Units 11:55 WBC (4.23-9.07) K/mm3 RBC (4.63-6.08) M/mm3 Hgb (13.7-17.5) gm/dl Hct (40.1-51.0) % MCV (79.0-92.2) fl MCH (25.7-32.2) pg MCHC (32.2-35.5) g/dl RDW Std Deviation (35.1-43.9) fL Plt Count (163-337) K/mm3 MPV (9.4-12.3) fl Neut % (Auto) (34.0-67.9) % Lymph % (Auto) (21.8-53.1) % [place] % (Auto) (5.3-12.2) % Eos % (Auto) (0.8-7.0) Baso % (Auto) (0.1-1.2) % Neut # (Auto) (1.78-5.38) K/mm3 Lymph # (Auto) (1.32-3.57) K/mm3 [place] # (Auto) (0.30-0.82) K/mm3 Eos # (Auto) (0.04-0.54) K/mm3 Baso # (Auto) (0.01-0.08) K/mm3 Manual Slide Review PT (9.7-12.0) SECONDS INR APTT (21.7-31.4) SECONDS Sodium (136-145) mEq/L Potassium (3.5-5.1) mEq/L Chloride (98-107) mEq/L Carbon Dioxide (21-32) mEq/L Anion Gap (5-15) BUN (7-18) mg/dL Creatinine (0.7-1.3) mg/dL Est Cr Clr Drug Dosing Estimated GFR (MDRD) (>60) mL/min BUN/Creatinine Ratio (14-18) Glucose (70-99) mg/dL Calcium (8.5-10.1) mg/dL Total Bilirubin (0.2-1.0) mg/dL AST (15-37) U/L ALT (16-63) U/L Alkaline Phosphatase (46-116) U/L Troponin I (0.00-0.056) ng/mL Total Protein (6.4-8.2) g/dl Albumin (3.4-5.0) g/dl Globulin gm/dL Albumin/Globulin Ratio (1-2) SARS-CoV-2 RNA (FENG) Negative (NEGATIVE) Meds: Medications Generic Name Dose Route Start Last Admin Trade Name Freq PRN Reason Stop Dose Admin Acetaminophen 650 mg 03/05/21 12:24 Acetaminophen 325 Mg Tab PO Q4H PRN Pain (Mild 1-3)/fever Amlodipine Besylate 5 mg 03/05/21 21:00 Amlodipine 5 Mg Tab PO BID BRIEN Heparin Sodium (Porcine) 5,000 units 03/05/21 16:00 03/05/21 15:32 Heparin Sodium 5,000 Units/Ml Vial SUBCUT 5,000 units Q8H BRIEN Administration Hydromorphone HCl 0.5 mg 03/05/21 12:24 03/05/21 15:32 Hydromorphone 0.5 Mg/0.5 Ml Syringe IVPUSH 0.5 mg Q2H PRN Administration Pain (severe 7-10) Hydroxyzine HCl 50 mg 03/05/21 12:30 Hydroxyzine Hcl 50 Mg Tab PO TID PRN Anxiety Diltiazem HCl 100 mg/ Sodium 100 mls @ 10 mls/hr 03/05/21 11:30 03/05/21 11:31 Chloride IV 10 mg/hr TITRATE BRIEN 10 mls/hr Administration Protocol 10 MG/HR Amiodarone HCl/Dextrose 360 mg in 200 mls @ 33.333 mls/hr 03/05/21 13:00 03/05/21 15:14 Nexterone In Dextrose 360 Mg/200 Ml IV 33.333 mls/hr ASDIRECTED BRIEN Administration Protocol Levothyroxine Sodium 25 mcg 03/06/21 06:00 Levothyroxine 25 Mcg Tab PO ACBRK BRIEN Lorazepam 1 mg 03/05/21 12:28 Lorazepam 1 Mg Tab PO 0700,1200 PRN Anxiety Metoprolol Succinate 25 mg 03/06/21 09:00 Metoprolol Succinate 25 Mg Tab.Er PO DAILY BRIEN Ondansetron HCl 4 mg 03/05/21 12:24 Ondansetron 4 Mg Tab.Dis PO Q4H PRN nausea, able to take PO Ondansetron HCl 4 mg 03/05/21 12:24 Ondansetron 4 Mg/2 Ml Sdv IV Q4H PRN Nausea/Vomiting Pantoprazole Sodium 40 mg 03/05/21 21:00 Pantoprazole 40 Mg Tab.Cr PO BID BRIEN Ibrutinib [Imbruvica 0 each 03/06/21 09:00 ] 420 Mg Capsule PO DAILY BRIEN Sodium Chloride 10 ml 03/05/21 10:16 03/05/21 10:26 Sodium Chloride 0.9% 10 Ml Syringe FLUSH 10 ml ASDIRECTED PRN Administration Keep Vein Open Temazepam 7.5 mg 03/05/21 12:24 Temazepam 7.5 Mg Cap PO BEDTIME PRN Sleep Venlafaxine HCl 150 mg 03/06/21 09:00 Venlafaxine 75 Mg Cap.Er PO DAILY BRIEN Discontinued Medications Generic Name Dose Route Start Last Admin Trade Name Freq PRN Reason Stop Dose Admin Diltiazem HCl 10 mg 03/05/21 11:19 03/05/21 11:28 Diltiazem 50 Mg/10 Ml Sdv IVPUSH 03/05/21 11:20 10 mg ONETIME ONE Administration Heparin Sodium (Porcine) 5,000 units 03/05/21 12:30 Heparin Sodium 5,000 Units/Ml Vial SUBCUT Q8H BRIEN Hydromorphone HCl 0.5 mg 03/05/21 10:54 03/05/21 11:05 Hydromorphone 0.5 Mg/0.5 Ml Syringe IVPUSH 03/05/21 10:55 0.5 mg ONETIME ONE Administration Hydromorphone HCl 0.5 mg 03/05/21 11:19 03/05/21 11:25 Hydromorphone 0.5 Mg/0.5 Ml Syringe IVPUSH 03/05/21 11:20 0.5 mg ONETIME ONE Administration Amiodarone HCl/Dextrose 100 mls @ 600 mls/hr 03/05/21 15:00 03/05/21 14:57 Nexterone In Dextrose 150 Mg/100 Ml IV 03/05/21 15:09 600 mls/hr .BOLUS ONE Administration Protocol - Re-Assessments/Exams Free Text/Narrative Re-Assessment/Exam: 03/05/21 15:59 I ordered an IV saline lock, dilaudid, EKG, CT of his head and cervical spine, CXR, x-ray of the left hip, labs and x-ray of the shoulder. His EKG shows atrial fibrillation with RVR. I ordered cardizem 10mg IV and a drip at 10mg/hr. He has a distal clavicle fracture. He has an intertrochanteric fracture. 03/05/21 16:01 His HGB is elevated at 11.8. His creatinine is elevated at 1.5. His troponin is negative. His COVID is negative. I talked with our hospitalist Dr Delgado and he agreed to the admission. I also talked with Dr Steward and he will be on consult. Departure - Departure Time of Disposition: 16:10 Disposition: Admitted As Inpatient 66 Condition: Serious Clinical Impression: Atrial fibrillation with RVR, Intertrochanteric fracture, hip, CLL (chronic lymphocytic leukemia) Fall Qualifiers: Encounter type: initial encounter Qualified Code(s): W19.XXXA - Unspecified fall, initial encounter - Discharge Information Sepsis Event Note (ED) - Evaluation Sepsis Screening Result: No Definite Risk - Focused Exam Vital Signs: Vital Signs Temp Pulse Resp BP 03/05/21 10:12 98.5 F 140 H 20 109/75 - My Orders Last 24 Hours: My Active Orders 03/05/21 10:16 Cardiac Monitoring [RC] . DIRECTED EKG Documentation Completion [RC] STAT Sodium Chloride 0.9% [Saline Flush] 10 ml FLUSH ASDIRECTED PRN Peripheral IV Insertion Adult [OM.PC] Stat 03/05/21 10:17 Peripheral IV Care [RC] . DIRECTED 03/05/21 11:30 Diltiazem [Cardizem] 100 mg Sodium Chloride 0.9% [Normal Saline] 100 ml IV TITRATE - Assessment/Plan Last 24 Hours: My Active Orders 03/05/21 10:16 Cardiac Monitoring [RC] . DIRECTED EKG Documentation Completion [RC] STAT Sodium Chloride 0.9% [Saline Flush] 10 ml FLUSH ASDIRECTED PRN Peripheral IV Insertion Adult [OM.PC] Stat 03/05/21 10:17 Peripheral IV Care [RC] . DIRECTED 03/05/21 11:30 Diltiazem [Cardizem] 100 mg Sodium Chloride 0.9% [Normal Saline] 100 ml IV TITRATE
[2021-03-05] MEDS ORDERED: Diltiazem 50 MG/10 ML SDV IVPUSH ONE (11:19)
--- NOTE | 2021-03-05 11:24 | CR ---
Chest: Supine view of the chest was obtained. Comparison: Prior chest x-ray of 10/03/20. Right-sided infusion port is seen. Degenerative change is noted within both shoulders compatible with chronic rotator cuff tears. Heart size appears within normal limits. Tortuous thoracic aorta is seen. Lungs are clear with no acute parenchymal change. Impression: 1. Nothing acute is seen on supine chest x-ray. 2. Other findings as noted above which appear chronic. Diagnostic code #2
--- NOTE | 2021-03-05 11:25 | CR ---
Pelvis and left hip: AP view of the pelvis was obtained as well as AP view centered to the left hip and lateral view of the left hip. Angulated intertrochanteric/subtrochanteric fracture is seen within the left hip. Joint space narrowing is noted within both hips, worse on the left side. Bony structures are osteopenic. No additional fracture or other bony abnormality is appreciated. Impression: 1. Fracture within the intertrochanteric/subtrochanteric region of the left hip. 2. Mild degenerative change is seen within both hips. Diagnostic code #3
--- NOTE | 2021-03-05 11:28 | CR ---
Left humerus: 2 views of the left humerus were obtained. Comparison: No prior humerus study is available. Small metallic foreign body is projected within the lateral soft tissues at the level of the elbow. There is a chronic rotator cuff tear being seen within the shoulder. Bony structures are osteopenic. No definite fracture or other acute abnormality is seen. Impression: 1. Small metallic foreign body at the level of the elbow and findings suspicious for chronic rotator cuff tear. 2. Osteopenia with no acute osseous abnormality being seen. Diagnostic code #3
--- NOTE | 2021-03-05 11:29 | CR ---
Left shoulder: 3 views left shoulder were obtained. Comparison: Prior left shoulder study of 10/16/19. Findings compatible with chronic rotator cuff tear are noted within the left shoulder. There is a fracture seen within the distal clavicle with displacement up to 5 mm. Degenerative change is noted within the glenohumeral joint. Osteopenia is present. Impression: 1. Chronic rotator cuff tear and degenerative change within the glenohumeral joint. 2. Distal left clavicle fracture with mild displacement. Diagnostic code #3
[2021-03-05] MEDS ORDERED: Diltiazem 100 MG in Sodium Chloride 0.9% 100 ML IV SCH (11:30)
[2021-03-05] MEDS ORDERED: Acetaminophen 325 MG Tab PO PRN (12:24)
[2021-03-05] MEDS ORDERED: Ondansetron 4 MG Tab.DIS PO PRN (12:24)
[2021-03-05] MEDS ORDERED: Temazepam 7.5 MG Cap PO PRN (12:24)
[2021-03-05] MEDS ORDERED: Ondansetron 4 MG/2 ML SDV IV PRN (12:24)
[2021-03-05] MEDS ORDERED: LORazepam 1 MG Tab PO PRN (12:28)
[2021-03-05] MEDS ORDERED: Heparin Sodium 5,000 Units/ML Vial SUBCUT SCH (12:30)
--- NOTE | 2021-03-05 12:37 | PCM.HP.2 ---
H&P History of Present Illness - General Date of Service: 03/05/21 Admit Problem/Dx: Admission Diagnosis/Problem Admission Diagnosis/Problem Atrial flutter with rapid ventricular response, left hip and left distal clavicle fracture from mechanical fall. Source of Information: Patient, Family History Limitations: Reports: No Limitations - History of Present Illness Initial Comments - Free Text/Narative: The patient is a 75-year-old gentleman who has presented to the emergency department after suffering a mechanical fall in which he fell on his left shoulder and left hip. The patient had sustained a fracture of his left hip and left distal clavicle. While in the emergency department the patient was noted to have atrial fibrillation with RVR which is new onset for him. The patient has denied any previous history of heart problems. The patient has denied any dizziness or lightheadedness prior to fall. No syncopal episode. The patient has a history of hypertension and chronic lymphocytic leukemia which he takes medication for. The patient has been doing well otherwise. The patient has been complaining of severe pain in his left hip which is radiating down to his left knee. The patient says that the pain is worsened when he is moving and improved with medication and at rest. Onset of Symptoms: Reports: Sudden Duration of Symptoms: Reports: Hour(s): Location: Reports: Upper Extremity, Left, Lower Extremity, Left, Radiates to (Left knee) Quality: Reports: Ache, Stabbing Severity: Moderate Improves with: Reports: Medication, Rest Worsens with: Reports: Movement Context: Reports: Trauma Associated Symptoms: Reports: Nausea/Vomiting Left Hip Pain Score (Numeric/FACES): 5 - Related Data Allergies/Adverse Reactions: Allergies Allergy/AdvReac Type Severity Reaction Status Date / Time benzonatate Allergy Swollen Verified 03/05/21 10:20 [From Aris Nichols] Tongue Home Medications: Home Meds LORazepam [Ativan] 1 mg PO BID PRN 01/27/15 [History] Multivitamin with Minerals [Multiple Vitamin] 1 tab PO DAILY 01/27/15 [History] Omeprazole [Prilosec] 20 mg PO BID 01/27/15 [History] Ibrutinib [Imbruvica] 420 mg PO DAILY 01/01/16 [History] Aspirin [Halfprin] 81 mg PO DAILY 12/04/18 [History] Calcium Citrate/Vitamin D3 [Calcium Citrate - Vit D3 Tab] 1 tab PO DAILY 12/04/18 [History] hydrOXYzine pamoate [Hydroxyzine Pamoate] 50 mg PO TID PRN 12/04/18 [History] Levothyroxine 25 mcg PO DAILY 12/06/18 [History] Metoprolol Succinate [Toprol XL] 25 mg PO DAILY #60 12/06/18 [Rx] amLODIPine Besylate [Norvasc] 5 mg PO BID #60 tablet 12/06/18 [Rx] Acetaminophen [Tylenol] 325 mg PO Q4HR PRN 09/10/20 [History] Venlafaxine [Effexor XR] 150 mg PO DAILY 09/10/20 [History] traMADol HCl [Tramadol HCl] 50 mg PO Q6H PRN 03/05/21 [History] Past Medical History HEENT History: Reports: Cataract, Impaired Vision Other HEENT History: Wears glasses Cardiovascular History: Reports: Afib, Hypertension Other Cardiovascular History: "might have a partially clogged artery somewhere" Respiratory History: Reports: Bronchitis, Recurrent Gastrointestinal History: Reports: GERD Genitourinary History: Reports: None Musculoskeletal History: Reports: Arthritis, Fracture Neurological History: Reports: Other (See Below) Other Neuro History: nerve pain Psychiatric History: Reports: Anxiety, Depression Endocrine/Metabolic History: Reports: Hypothyroidism Hematologic History: Reports: Other (See Below) Other Hematologic History: CLL Immunologic History: Reports: None Oncologic (Cancer) History: Reports: Leukemia Other Oncologic History: CLL Dermatologic History: Reports: Other (See Below) Other Dermatologic History: Rash last three days. - Infectious Disease History Infectious Disease History: Reports: Chicken Pox, Measles, Mumps - Past Surgical History HEENT Surgical History: Reports: Cataract Surgery, Oral Surgery, Tonsillectomy GI Surgical History: Reports: Hernia, Inguinal Social & Family History - Family History Family Medical History: No Pertinent Family History - Tobacco Use Tobacco Use Status *Q: Former Tobacco User - Caffeine Use Caffeine Use: Reports: Coffee - Alcohol Use Alcohol Use History: No - Living Situation & Occupation Living situation: Reports: , with Spouse Occupation: Retired H&P Review of Systems - Review of Systems: Review Of Systems: See Below General: Reports: No Symptoms HEENT: Reports: No Symptoms Pulmonary: Reports: No Symptoms Cardiovascular: Reports: No Symptoms Gastrointestinal: Reports: No Symptoms Genitourinary: Reports: No Symptoms Musculoskeletal: Reports: Shoulder Pain, Leg Pain Skin: Reports: No Symptoms Psychiatric: Reports: No Symptoms Neurological: Reports: No Symptoms Hematologic/Lymphatic: Reports: No Symptoms Immunologic: Reports: No Symptoms Exam - Exam Exam: See Below - Vital Signs Vital Signs: Last Vital Signs Temp 36.9 C 03/05/21 10:12 Pulse 140 H 03/05/21 10:12 Resp 20 03/05/21 10:12 BP 109/75 03/05/21 10:12 Pulse Ox Weight: 58.967 kg - Exam Quality Assessment: No: Supplemental Oxygen, DVT Prophylaxis General: Alert, Oriented, Cooperative, Mild Distress HEENT: Conjunctiva Clear, EACs Clear, EOMI, Nares Patent, PERRLA. No: Mucosa Moist & [place] Patent (Dry, edentulous) Neck: Supple, Trachea Midline Lungs: Clear to Auscultation, Normal Respiratory Effort Cardiovascular: Irregular Rhythm, Tachycardia GI/Abdominal Exam: Normal Bowel Sounds, Soft, Non-Tender, No Distention (Male) Exam: Deferred Rectal (Males) Exam: Deferred Back Exam: No: Normal Inspection (Appropriate for age), Full Range of Motion (Patient unable to sit up due to pain in hip) Extremities: No: Normal Range of Motion, Non-Tender (Tender left hip, foot externally rotated) Skin: Warm, Dry, Intact Neurological: Cranial Nerves Intact Neuro Extensive - Mental Status: Alert, Oriented x3 Psychiatric: Alert, Normal Affect, Normal Mood - Patient Data Lab Results Last 24 hrs: Laboratory Results - last 24 hr 03/05/21 03/05/21 03/05/21 Range/Units 10:30 10:30 10:30 WBC 5.56 (4.23-9.07) K/mm3 RBC 4.13 L (4.63-6.08) M/mm3 Hgb 11.8 L D (13.7-17.5) gm/dl Hct 36.2 L (40.1-51.0) % MCV 87.7 (79.0-92.2) fl MCH 28.6 (25.7-32.2) pg MCHC 32.6 (32.2-35.5) g/dl RDW Std Deviation 49.1 H (35.1-43.9) fL Plt Count 237 D (163-337) K/mm3 MPV 9.3 L (9.4-12.3) fl Neut % (Auto) 83.1 H (34.0-67.9) % Lymph % (Auto) 9.0 L (21.8-53.1) % [place] % (Auto) 5.8 (5.3-12.2) % Eos % (Auto) 1.3 (0.8-7.0) Baso % (Auto) 0.4 (0.1-1.2) % Neut # (Auto) 4.63 (1.78-5.38) K/mm3 Lymph # (Auto) 0.50 L (1.32-3.57) K/mm3 [place] # (Auto) 0.32 (0.30-0.82) K/mm3 Eos # (Auto) 0.07 (0.04-0.54) K/mm3 Baso # (Auto) 0.02 (0.01-0.08) K/mm3 Manual Slide Review Abnormal smear PT 11.1 (9.7-12.0) SECONDS INR 1.04 APTT 28.8 (21.7-31.4) SECONDS Sodium 142 (136-145) mEq/L Potassium 3.9 (3.5-5.1) mEq/L Chloride 107 (98-107) mEq/L Carbon Dioxide 23 (21-32) mEq/L Anion Gap 15.9 H (5-15) BUN 24 H (7-18) mg/dL Creatinine 1.5 H (0.7-1.3) mg/dL Est Cr Clr Drug Dosing TNP Estimated GFR (MDRD) 46 (>60) mL/min BUN/Creatinine Ratio 16.0 (14-18) Glucose 85 (70-99) mg/dL Calcium 8.3 L (8.5-10.1) mg/dL Total Bilirubin 0.7 (0.2-1.0) mg/dL AST 15 (15-37) U/L ALT 17 (16-63) U/L Alkaline Phosphatase 93 (46-116) U/L Troponin I < 0.017 (0.00-0.056) ng/mL Total Protein 5.8 L (6.4-8.2) g/dl Albumin 3.4 (3.4-5.0) g/dl Globulin 2.4 gm/dL Albumin/Globulin Ratio 1.4 (1-2) Result Diagrams: 03/05/21 10:30 03/05/21 10:30 Sepsis Event Note - Evaluation Sepsis Screening Result: No Definite Risk - Focused Exam Vital Signs: Vital Signs Temp Pulse Resp BP 03/05/21 10:12 36.9 C 140 H 20 109/75 *Q Meaningful Use (ADM) - VTE *Q VTE Mechanical Contraindications *Q: At Risk for Falls - Problem List (1) Atrial fibrillation with RVR SNOMED Code(s): 583644239012258 ICD Code: I48.91 - UNSPECIFIED ATRIAL FIBRILLATION Status: Acute Priority: High Current Visit: Yes (2) Closed left hip fracture SNOMED Code(s): 328970603 ICD Code: S72.002A - FRACTURE OF UNSP PART OF NECK OF LEFT FEMUR, INIT Status: Acute Priority: High Current Visit: Yes Qualifiers: Encounter type: initial encounter Qualified Code(s): S72.002A - Fracture of unspecified part of neck of left femur, initial encounter for closed fracture (3) Closed left clavicular fracture SNOMED Code(s): 43641457 ICD Code: S42.002A - FRACTURE OF UNSP PART OF LEFT CLAVICLE, INIT FOR CLOS FX Status: Acute Priority: High Current Visit: Yes Qualifiers: Encounter type: initial encounter Clavicle location: lateral end Fracture alignment: nondisplaced Qualified Code(s): S42.035A - Nondisplaced fracture of lateral end of left clavicle, initial encounter for closed fracture (4) CLL (chronic lymphocytic leukemia) SNOMED Code(s): 90590102 ICD Code: C91.90 - LYMPHOID LEUKEMIA, UNSPECIFIED NOT HAVING ACHIEVED REMISSION Status: Chronic Priority: Medium Current Visit: Yes (5) Hypertension SNOMED Code(s): 85614440 ICD Code: I10 - ESSENTIAL (PRIMARY) HYPERTENSION Status: Chronic Priority: Medium Current Visit: Yes Qualifiers: Hypertension type: primary hypertension Qualified Code(s): I10 - Essential (primary) hypertension Problem List Initiated/Reviewed/Updated: Yes Orders Last 24hrs: Active Orders 24 hr Category Date Time Status Patient Status [ADT] Routine ADT 03/05/21 12:24 Ordered Bedrest Bedside Commode [RC] ASDIRECTED Care 03/05/21 12:24 Ordered Cardiac Monitoring [RC] . DIRECTED Care 03/05/21 10:16 Active Cardiac Monitoring [RC] CONTINUOUS Care 03/05/21 12:29 Ordered EKG Documentation Completion [RC] STAT Care 03/05/21 10:16 Active Notify Provider Consults [RC] ASDIRECTED Care 03/05/21 12:35 Ordered Oxygen Therapy [RC] PRN Care 03/05/21 12:24 Ordered Peripheral IV Care [RC] . DIRECTED Care 03/05/21 10:17 Active Urinary Catheter Assessment [RC] ASDIRECTED Care 03/05/21 12:24 Ordered VTE/DVT Education [RC] PER UNIT ROUTINE Care 03/05/21 12:24 Ordered Vital Signs [RC] Q4H Care 03/05/21 12:24 Ordered Consult to Physician [CONS] Routine Cons 03/05/21 12:24 Ordered Nothing per Oral Now Diet [DIET] Diet 03/05/21 Dinner Ordered CBC WITH AUTO DIFF [HEME] AM Lab 03/06/21 05:11 Ordered COMPREHENSIVE METABOLIC PN,CMP [CHEM] AM Lab 03/06/21 05:11 Ordered CORONAVIRUS COVID-19 FENG [MOLEC] Stat Lab 03/05/21 11:55 Received MAGNESIUM [CHEM] AM Lab 03/06/21 05:11 Ordered Acetaminophen [TylenoL] Med 03/05/21 12:24 Ordered 650 mg PO Q4H PRN Diltiazem [Cardizem] 100 mg Med 03/05/21 11:30 Active Sodium Chloride 0.9% [Normal Saline] 100 ml IV TITRATE HYDROmorphone [Dilaudid] Med 03/05/21 12:24 Ordered 0.5 mg IVPUSH Q2H PRN Heparin Sodium Med 03/05/21 12:30 Ordered 5,000 units SUBCUT Q8H Ibrutinib [Imbruvica] Med 03/06/21 09:00 Ordered 420 mg PO DAILY LORazepam Med 03/05/21 12:20 Ordered 1 mg PO BID PRN Levothyroxine Med 03/06/21 09:00 Ordered 25 mcg PO DAILY Metoprolol Succinate [Toprol XL] Med 03/06/21 09:00 Ordered 25 mg PO DAILY Omeprazole Med 03/05/21 21:00 Ordered 20 mg PO BID Ondansetron [Zofran ODT] Med 03/05/21 12:24 Ordered 4 mg PO Q4H PRN Ondansetron [Zofran] Med 03/05/21 12:24 Ordered 4 mg IV Q4H PRN Sodium Chloride 0.9% [Saline Flush] Med 03/05/21 10:16 Active 10 ml FLUSH ASDIRECTED PRN Temazepam [Restoril] Med 03/05/21 12:24 Ordered 7.5 mg PO BEDTIME PRN Venlafaxine Med 03/06/21 09:00 Ordered 150 mg PO DAILY amLODIPine [Norvasc] Med 03/05/21 21:00 Ordered 5 mg PO BID hydrOXYzine pamoate [Hydroxyzine Pamoate] Med 03/05/21 12:20 Ordered 50 mg PO TID PRN Peripheral IV Insertion Adult [OM.PC] Stat Oth 03/05/21 10:16 Ordered VTE Mechanical Contraindications [AST] Per Unit Routine Oth 03/05/21 12:24 Ordered Resuscitation Status Routine Resus Stat 03/05/21 12:24 Ordered Medication Orders Amlodipine Besylate (Amlodipine 5 Mg Tab) 5 mg PO BID BRIEN Hydroxyzine HCl (Hydroxyzine Hcl 50 Mg Tab) 50 mg PO TID PRN PRN Reason: Anxiety Diltiazem HCl 100 mg/ Sodium (Chloride) 100 mls @ 10 mls/hr IV TITRATE BRIEN; Protocol Last Admin: 03/05/21 11:31 Dose: 10 mg/hr, 10 mls/hr Documented by: GRACIA Levothyroxine Sodium (Levothyroxine 25 Mcg Tab) 25 mcg PO ACBRK BRIEN Lorazepam (Lorazepam 1 Mg Tab) 1 mg PO 0700,1200 PRN PRN Reason: Anxiety Metoprolol Succinate (Metoprolol Succinate 25 Mg Tab.Er) 25 mg PO DAILY BRIEN Pantoprazole Sodium (Pantoprazole 40 Mg Tab.Cr) 40 mg PO BID BRIEN Ibrutinib [Imbruvica (] 420 Mg Capsule) 0 each PO DAILY BRIEN Sodium Chloride (Sodium Chloride 0.9% 10 Ml Syringe) 10 ml FLUSH ASDIRECTED PRN PRN Reason: Keep Vein Open Last Admin: 03/05/21 10:26 Dose: 10 ml Documented by: GRACIA Venlafaxine HCl (Venlafaxine 75 Mg Cap.Er) 150 mg PO DAILY BRIEN Assessment/Plan Comment:: The patient has been admitted as an inpatient to the intensive care unit with telemetry due to his A. fib with RVR. The patient had been given diltiazem in the ER with minimal improvement and this has been discontinued. The patient be started on amiodarone drip. The patient also has hip fracture and a distal clavicle fracture from a mechanical fall and Dr. Steward, orthopedic surgeon, has been consulted. For now we will stabilize the patient in the intensive care unit with the use of medications. His hypertensive medications have also been started. His vital signs will also be monitored and his antihypertensive medication adjusted as necessary. PT OT has been ordered for the patient after surgery. The patient also has been placed on heparin for DVT prophylaxis. He has been kept n.p.o. Repeat laboratory studies have been ordered for the morning. The patient's hemoglobin to be monitored and if his hemoglobin drops below 7.0 g/dL will consider transfusion. I have also discussed with the patient that it is likely that he will need to have physical rehabilitation after surgery. The patient should be appropriate for discharge in 3 to 4 days depending upon surgery schedule. - Mortality Measure Prognosis:: Good
[2021-03-05] MEDS: Heparin Sodium 5,000 Units/ML Vial SUBCUT SCH (15:32)
[2021-03-05] MEDS: HYDROmorphone 0.5 MG/0.5 ML Syringe IVPUSH PRN ×4 (15:32→22:09)
[2021-03-05] MEDS: Pantoprazole 40 MG Tab.CR PO SCH (20:23)
[2021-03-05] MEDS: amLODIPine 5 MG Tab PO SCH (20:24)
[2021-03-06] MEDS: HYDROmorphone 1 MG/ML Syringe IVPUSH PRN ×7 (00:22→20:53)
[2021-03-06] MEDS: Heparin Sodium 5,000 Units/ML Vial SUBCUT SCH ×4 (00:22→20:39)
[2021-03-06] MEDS: Levothyroxine 25 MCG Tab PO SCH (05:37)
--- NOTE | 2021-03-06 06:51 | PCM.PN ---
- General Info Date of Service: 03/06/21 Admission Dx/Problem (Free Text): Admission Diagnosis/Problem Admission Diagnosis/Problem Atrial flutter with rapid ventricular response, left hip and left distal clavicle fracture from mechanical fall. Subjective Update: The patient is a 75-year-old gentleman who was admitted through the emergency department yesterday after suffering a mechanical fall all day and a fracture of his left hip and left distal clavicle. The patient was found to be in atrial fibrillation with RVR and he was admitted to the ICU and started on amiodarone. The patient today says that he is feeling better. He has been unable to urinate however. The patient has been n.p.o. for possible surgery. He says that his left hip is in severe pain. The patient has been normal sinus rhythm with occasional PVCs. Functional Status: Reports: Pain Controlled. Denies: Tolerating Diet (Currently n.p.o.) - Review of Systems General: Reports: No Symptoms HEENT: Reports: No Symptoms Pulmonary: Reports: No Symptoms Cardiovascular: Reports: No Symptoms Gastrointestinal: Reports: No Symptoms Genitourinary: Reports: No Symptoms Musculoskeletal: Reports: Shoulder Pain, Leg Pain Skin: Reports: No Symptoms Neurological: Reports: No Symptoms Psychiatric: Reports: No Symptoms - Patient Data Vitals - Most Recent: Last Vital Signs Temp 35.9 C L 03/06/21 04:00 Pulse 81 03/06/21 04:00 Resp 14 03/06/21 04:00 BP 129/83 03/06/21 04:00 Pulse Ox 98 03/06/21 06:12 Weight - Most Recent: 69.218 kg Lab Results Last 24 Hours: Laboratory Results - last 24 hr 03/05/21 03/05/21 03/05/21 Range/Units 10:30 10:30 10:30 WBC 5.56 (4.23-9.07) K/mm3 RBC 4.13 L (4.63-6.08) M/mm3 Hgb 11.8 L D (13.7-17.5) gm/dl Hct 36.2 L (40.1-51.0) % MCV 87.7 (79.0-92.2) fl MCH 28.6 (25.7-32.2) pg MCHC 32.6 (32.2-35.5) g/dl RDW Std Deviation 49.1 H (35.1-43.9) fL Plt Count 237 D (163-337) K/mm3 MPV 9.3 L (9.4-12.3) fl Neut % (Auto) 83.1 H (34.0-67.9) % Lymph % (Auto) 9.0 L (21.8-53.1) % Cotton % (Auto) 5.8 (5.3-12.2) % Eos % (Auto) 1.3 (0.8-7.0) Baso % (Auto) 0.4 (0.1-1.2) % Neut # (Auto) 4.63 (1.78-5.38) K/mm3 Lymph # (Auto) 0.50 L (1.32-3.57) K/mm3 Cotton # (Auto) 0.32 (0.30-0.82) K/mm3 Eos # (Auto) 0.07 (0.04-0.54) K/mm3 Baso # (Auto) 0.02 (0.01-0.08) K/mm3 Manual Slide Review Abnormal smear PT 11.1 (9.7-12.0) SECONDS INR 1.04 APTT 28.8 (21.7-31.4) SECONDS Sodium 142 (136-145) mEq/L Potassium 3.9 (3.5-5.1) mEq/L Chloride 107 (98-107) mEq/L Carbon Dioxide 23 (21-32) mEq/L Anion Gap 15.9 H (5-15) BUN 24 H (7-18) mg/dL Creatinine 1.5 H (0.7-1.3) mg/dL Est Cr Clr Drug Dosing TNP Estimated GFR (MDRD) 46 (>60) mL/min BUN/Creatinine Ratio 16.0 (14-18) Glucose 85 (70-99) mg/dL Calcium 8.3 L (8.5-10.1) mg/dL Total Bilirubin 0.7 (0.2-1.0) mg/dL AST 15 (15-37) U/L ALT 17 (16-63) U/L Alkaline Phosphatase 93 (46-116) U/L Troponin I < 0.017 (0.00-0.056) ng/mL Total Protein 5.8 L (6.4-8.2) g/dl Albumin 3.4 (3.4-5.0) g/dl Globulin 2.4 gm/dL Albumin/Globulin Ratio 1.4 (1-2) SARS-CoV-2 RNA (FENG) (NEGATIVE) 03/05/21 03/06/21 03/06/21 Range/Units 11:55 06:17 06:17 WBC 8.80 (4.23-9.07) K/mm3 RBC 3.77 L (4.63-6.08) M/mm3 Hgb 10.6 L (13.7-17.5) gm/dl Hct 33.4 L (40.1-51.0) % MCV 88.6 (79.0-92.2) fl MCH 28.1 (25.7-32.2) pg MCHC 31.7 L (32.2-35.5) g/dl RDW Std Deviation 49.6 H (35.1-43.9) fL Plt Count 195 (163-337) K/mm3 MPV 9.7 (9.4-12.3) fl Neut % (Auto) 91.8 H (34.0-67.9) % Lymph % (Auto) 3.2 L (21.8-53.1) % Cotton % (Auto) 4.3 L (5.3-12.2) % Eos % (Auto) 0.3 L (0.8-7.0) Baso % (Auto) 0.2 (0.1-1.2) % Neut # (Auto) 8.07 H (1.78-5.38) K/mm3 Lymph # (Auto) 0.28 L (1.32-3.57) K/mm3 Cotton # (Auto) 0.38 (0.30-0.82) K/mm3 Eos # (Auto) 0.03 L (0.04-0.54) K/mm3 Baso # (Auto) 0.02 (0.01-0.08) K/mm3 Manual Slide Review PT 11.0 (9.7-12.0) SECONDS INR 1.03 APTT (21.7-31.4) SECONDS Sodium (136-145) mEq/L Potassium (3.5-5.1) mEq/L Chloride (98-107) mEq/L Carbon Dioxide (21-32) mEq/L Anion Gap (5-15) BUN (7-18) mg/dL Creatinine (0.7-1.3) mg/dL Est Cr Clr Drug Dosing Estimated GFR (MDRD) (>60) mL/min BUN/Creatinine Ratio (14-18) Glucose (70-99) mg/dL Calcium (8.5-10.1) mg/dL Total Bilirubin (0.2-1.0) mg/dL AST (15-37) U/L ALT (16-63) U/L Alkaline Phosphatase (46-116) U/L Troponin I (0.00-0.056) ng/mL Total Protein (6.4-8.2) g/dl Albumin (3.4-5.0) g/dl Globulin gm/dL Albumin/Globulin Ratio (1-2) SARS-CoV-2 RNA (FENG) Negative (NEGATIVE) Med Orders - Current: Current Medications Acetaminophen (Acetaminophen 325 Mg Tab) 650 mg PO Q4H PRN PRN Reason: Pain (Mild 1-3)/fever Amlodipine Besylate (Amlodipine 5 Mg Tab) 5 mg PO BID BRIEN Last Admin: 03/05/21 20:24 Dose: 5 mg Documented by: Heparin Sodium (Porcine) (Heparin Sodium 5,000 Units/Ml Vial) 5,000 units HUGHES BCUT Q8H BRIEN Last Admin: 03/06/21 00:22 Dose: 5,000 units Documented by: Hydromorphone HCl (Hydromorphone 1 Mg/Ml Syringe) 1 mg IVPUSH Q2H PRN PRN Reason: Pain Last Admin: 03/06/21 05:36 Dose: 1 mg Documented by: Hydroxyzine HCl (Hydroxyzine Hcl 50 Mg Tab) 50 mg PO TID PRN PRN Reason: Anxiety Diltiazem HCl 100 mg/ Sodium (Chloride) 100 mls @ 10 mls/hr IV TITRATE BRIEN; Protocol Last Admin: 03/05/21 11:31 Dose: 10 mg/hr, 10 mls/hr Documented by: Amiodarone HCl/Dextrose (Nexterone In Dextrose 360 Mg/200 Ml) 360 mg in 200 mls @ 33.333 mls/hr IV ASDIRECTED BRIEN; Protocol Last Admin: 03/05/21 15:14 Dose: 33.333 mls/hr Documented by: Levothyroxine Sodium (Levothyroxine 25 Mcg Tab) 25 mcg PO ACBRK [facility] Last Admin: 03/06/21 05:37 Dose: 25 mcg Documented by: Lorazepam (Lorazepam 1 Mg Tab) 1 mg PO 0700,1200 PRN PRN Reason: Anxiety Metoprolol Succinate (Metoprolol Succinate 25 Mg Tab.Er) 25 mg PO DAILY [facility] Ondansetron HCl (Ondansetron 4 Mg Tab.Dis) 4 mg PO Q4H PRN PRN Reason: nausea, able to take PO Ondansetron HCl (Ondansetron 4 Mg/2 Ml Sdv) 4 mg IV Q4H PRN PRN Reason: Nausea/Vomiting Pantoprazole Sodium (Pantoprazole 40 Mg Tab.Cr) 40 mg PO BID [facility] Last Admin: 03/05/21 20:23 Dose: 40 mg Documented by: Ibrutinib [Imbruvica (] 420 Mg Capsule) 0 each PO DAILY [facility] Sodium Chloride (Sodium Chloride 0.9% 10 Ml Syringe) 10 ml FLUSH ASDIRECTED PRN PRN Reason: Keep Vein Open Last Admin: 03/05/21 10:26 Dose: 10 ml Documented by: Temazepam (Temazepam 7.5 Mg Cap) 7.5 mg PO BEDTIME PRN PRN Reason: Sleep Last Admin: 03/05/21 20:23 Dose: 7.5 mg Documented by: Venlafaxine HCl (Venlafaxine 75 Mg Cap.Er) 150 mg PO DAILY [facility] Discontinued Medications Diltiazem HCl (Diltiazem 50 Mg/10 Ml Sdv) 10 mg IVPUSH ONETIME ONE Stop: 03/05/21 11:20 Last Admin: 03/05/21 11:28 Dose: 10 mg Documented by: Heparin Sodium (Porcine) (Heparin Sodium 5,000 Units/Ml Vial) 5,000 units SUBCUT Q8H [facility] Last Admin: 03/05/21 19:36 Dose: Not Given Documented by: Hydromorphone HCl (Hydromorphone 0.5 Mg/0.5 Ml Syringe) 0.5 mg IVPUSH ONETIME ONE Stop: 03/05/21 10:55 Last Admin: 03/05/21 11:05 Dose: 0.5 mg Documented by: Hydromorphone HCl (Hydromorphone 0.5 Mg/0.5 Ml Syringe) 0.5 mg IVPUSH ONETIME ONE Stop: 03/05/21 11:20 Last Admin: 03/05/21 11:25 Dose: 0.5 mg Documented by: Hydromorphone HCl (Hydromorphone 0.5 Mg/0.5 Ml Syringe) 0.5 mg IVPUSH Q2H PRN PRN Reason: Pain (severe 7-10) Last Admin: 03/05/21 22:09 Dose: 0.5 mg Documented by: Amiodarone HCl/Dextrose (Nexterone In Dextrose 150 Mg/100 Ml) 100 mls @ 600 mls/hr IV .BOLUS ONE; Protocol Stop: 03/05/21 15:09 Last Admin: 03/05/21 14:57 Dose: 600 mls/hr Documented by: - Exam Quality Assessment: Supplemental Oxygen, DVT Prophylaxis General: Alert, Oriented, Cooperative, Mild Distress HEENT: Pupils Equal, Pupils Reactive, EOMI. No: Mucous Membr. Moist/[place] (Dry) Neck: Supple, Trachea Midline Lungs: Clear to Auscultation, Normal Respiratory Effort Cardiovascular: Regular Rate, Regular Rhythm GI/Abdominal Exam: Normal Bowel Sounds, Soft, Non-Tender, No Distention (Male) Exam: Deferred Back Exam: No: Normal Inspection (Appropriate for age), Full Range of Motion (Patient unable to sit up due to pain in hip from fracture) Extremities: No Pedal Edema. No: Normal Inspection (Left foot internally rotated) Skin: Warm, Dry, Intact Neurological: No New Focal Deficit Psy/Mental Status: Alert, Normal Affect, Normal Mood - Patient Data Lab Results Last 24 hrs: Laboratory Results - last 24 hr 03/05/21 03/05/21 03/05/21 Range/Units 10:30 10:30 10:30 WBC 5.56 (4.23-9.07) K/mm3 RBC 4.13 L (4.63-6.08) M/mm3 Hgb 11.8 L D (13.7-17.5) gm/dl Hct 36.2 L (40.1-51.0) % MCV 87.7 (79.0-92.2) fl MCH 28.6 (25.7-32.2) pg MCHC 32.6 (32.2-35.5) g/dl RDW Std Deviation 49.1 H (35.1-43.9) fL Plt Count 237 D (163-337) K/mm3 MPV 9.3 L (9.4-12.3) fl Neut % (Auto) 83.1 H (34.0-67.9) % Lymph % (Auto) 9.0 L (21.8-53.1) % Cotton % (Auto) 5.8 (5.3-12.2) % Eos % (Auto) 1.3 (0.8-7.0) Baso % (Auto) 0.4 (0.1-1.2) % Neut # (Auto) 4.63 (1.78-5.38) K/mm3 Lymph # (Auto) 0.50 L (1.32-3.57) K/mm3 Cotton # (Auto) 0.32 (0.30-0.82) K/mm3 Eos # (Auto) 0.07 (0.04-0.54) K/mm3 Baso # (Auto) 0.02 (0.01-0.08) K/mm3 Manual Slide Review Abnormal smear PT 11.1 (9.7-12.0) SECONDS INR 1.04 APTT 28.8 (21.7-31.4) SECONDS Sodium 142 (136-145) mEq/L Potassium 3.9 (3.5-5.1) mEq/L Chloride 107 (98-107) mEq/L Carbon Dioxide 23 (21-32) mEq/L Anion Gap 15.9 H (5-15) BUN 24 H (7-18) mg/dL Creatinine 1.5 H (0.7-1.3) mg/dL Est Cr Clr Drug Dosing TNP Estimated GFR (MDRD) 46 (>60) mL/min BUN/Creatinine Ratio 16.0 (14-18) Glucose 85 (70-99) mg/dL Calcium 8.3 L (8.5-10.1) mg/dL Total Bilirubin 0.7 (0.2-1.0) mg/dL AST 15 (15-37) U/L ALT 17 (16-63) U/L Alkaline Phosphatase 93 (46-116) U/L Troponin I < 0.017 (0.00-0.056) ng/mL Total Protein 5.8 L (6.4-8.2) g/dl Albumin 3.4 (3.4-5.0) g/dl Globulin 2.4 gm/dL Albumin/Globulin Ratio 1.4 (1-2) SARS-CoV-2 RNA (FENG) (NEGATIVE) 03/05/21 03/06/21 03/06/21 Range/Units 11:55 06:17 06:17 WBC 8.80 (4.23-9.07) K/mm3 RBC 3.77 L (4.63-6.08) M/mm3 Hgb 10.6 L (13.7-17.5) gm/dl Hct 33.4 L (40.1-51.0) % MCV 88.6 (79.0-92.2) fl MCH 28.1 (25.7-32.2) pg MCHC 31.7 L (32.2-35.5) g/dl RDW Std Deviation 49.6 H (35.1-43.9) fL Plt Count 195 (163-337) K/mm3 MPV 9.7 (9.4-12.3) fl Neut % (Auto) 91.8 H (34.0-67.9) % Lymph % (Auto) 3.2 L (21.8-53.1) % Cotton % (Auto) 4.3 L (5.3-12.2) % Eos % (Auto) 0.3 L (0.8-7.0) Baso % (Auto) 0.2 (0.1-1.2) % Neut # (Auto) 8.07 H (1.78-5.38) K/mm3 Lymph # (Auto) 0.28 L (1.32-3.57) K/mm3 Cotton # (Auto) 0.38 (0.30-0.82) K/mm3 Eos # (Auto) 0.03 L (0.04-0.54) K/mm3 Baso # (Auto) 0.02 (0.01-0.08) K/mm3 Manual Slide Review PT 11.0 (9.7-12.0) SECONDS INR 1.03 APTT (21.7-31.4) SECONDS Sodium (136-145) mEq/L Potassium (3.5-5.1) mEq/L Chloride (98-107) mEq/L Carbon Dioxide (21-32) mEq/L Anion Gap (5-15) BUN (7-18) mg/dL Creatinine (0.7-1.3) mg/dL Est Cr Clr Drug Dosing Estimated GFR (MDRD) (>60) mL/min BUN/Creatinine Ratio (14-18) Glucose (70-99) mg/dL Calcium (8.5-10.1) mg/dL Total Bilirubin (0.2-1.0) mg/dL AST (15-37) U/L ALT (16-63) U/L Alkaline Phosphatase (46-116) U/L Troponin I (0.00-0.056) ng/mL Total Protein (6.4-8.2) g/dl Albumin (3.4-5.0) g/dl Globulin gm/dL Albumin/Globulin Ratio (1-2) SARS-CoV-2 RNA (FENG) Negative (NEGATIVE) Result Diagrams: 03/06/21 06:17 03/06/21 06:17 Sepsis Event Note - Evaluation Sepsis Screening Result: No Definite Risk - Focused Exam Vital Signs: Vital Signs Temp Pulse Resp BP BP Pulse Ox Pulse Ox 03/06/21 06:12 98 03/06/21 04:00 35.9 C L 81 14 129/83 94 L 03/06/21 03:00 92 L 03/06/21 01:00 92 L 03/06/21 00:45 90 L 03/06/21 00:15 93 L 03/06/21 00:00 36 C L 10 L 113/68 96 03/05/21 22:00 118/71 03/05/21 21:00 113/67 03/05/21 20:24 120/71 03/05/21 20:00 36.1 C 16 96/73 100 03/05/21 19:00 109/73 - Problem List & Annotations (1) Atrial fibrillation with RVR SNOMED Code(s): 216104112219065 Code(s): I48.91 - UNSPECIFIED ATRIAL FIBRILLATION Status: Acute Priority: High Current Visit: Yes (2) Closed left hip fracture SNOMED Code(s): 263292089 Code(s): S72.002A - FRACTURE OF UNSP PART OF NECK OF LEFT FEMUR, INIT Status: Acute Priority: High Current Visit: Yes Qualifiers: Encounter type: initial encounter Qualified Code(s): S72.002A - Fracture of unspecified part of neck of left femur, initial encounter for closed fracture (3) Closed left clavicular fracture SNOMED Code(s): 06456203 Code(s): S42.002A - FRACTURE OF UNSP PART OF LEFT CLAVICLE, INIT FOR CLOS FX Status: Acute Priority: High Current Visit: Yes Qualifiers: Encounter type: initial encounter Clavicle location: lateral end Fracture alignment: nondisplaced Qualified Code(s): S42.035A - Nondisplaced fracture of lateral end of left clavicle, initial encounter for closed fracture (4) CLL (chronic lymphocytic leukemia) SNOMED Code(s): 99797060 Code(s): C91.90 - LYMPHOID LEUKEMIA, UNSPECIFIED NOT HAVING ACHIEVED REMISSION Status: Chronic Priority: Medium Current Visit: Yes (5) Hypertension SNOMED Code(s): 35237088 Code(s): I10 - ESSENTIAL (PRIMARY) HYPERTENSION Status: Chronic Priority: Medium Current Visit: Yes Qualifiers: Hypertension type: primary hypertension Qualified Code(s): I10 - Essential (primary) hypertension (6) Urinary retention SNOMED Code(s): 841549813 Code(s): R33.9 - RETENTION OF URINE, UNSPECIFIED Status: Acute Priority: High Current Visit: Yes - Problem List Review Problem List Initiated/Reviewed/Updated: Yes - My Orders Last 24 Hours: My Active Orders 03/05/21 12:24 Patient Status [ADT] Routine Bedrest Bedside Commode [RC] ASDIRECTED Oxygen Therapy [RC] PRN Urinary Catheter Assessment [RC] ASDIRECTED VTE/DVT Education [RC] Vital Signs [RC] Q4HR Consult to Physician [CONS] Routine Acetaminophen [TylenoL] 650 mg PO Q4H PRN Ondansetron [Zofran ODT] 4 mg PO Q4H PRN Ondansetron [Zofran] 4 mg IV Q4H PRN Temazepam [Restoril] 7.5 mg PO BEDTIME PRN VTE Mechanical Contraindications [AST] Per Unit Routine Resuscitation Status Routine 03/05/21 12:28 LORazepam [Ativan] 1 mg PO 0700,1200 PRN 03/05/21 12:29 Cardiac Monitoring [RC] CONTINUOUS 03/05/21 12:30 hydrOXYzine HCL [Atarax] 50 mg PO TID PRN 03/05/21 12:35 Notify Provider Consults [RC] ASDIRECTED 03/05/21 12:37 PT Evaluation and Treatment [CONS] Routine 03/05/21 12:39 OT Evaluation and Treatment [CONS] Routine 03/05/21 13:00 Amiodarone In Dextrose,Iso-Osm [Nexterone in Dextrose 360 MG/200 ML] 360 mg in 200 ml IV ASDIRECTED 03/05/21 16:00 Heparin Sodium 5,000 units SUBCUT Q8H 03/05/21 Dinner Nothing per Oral Now Diet [DIET] 03/05/21 21:00 Pantoprazole [ProTONIX] 40 mg PO BID amLODIPine [Norvasc] 5 mg PO BID 03/05/21 22:11 HYDROmorphone [Dilaudid] 1 mg IVPUSH Q2H PRN 03/06/21 06:00 Levothyroxine 25 mcg PO ACBRK 03/06/21 06:12 EKG Documentation Completion [RC] ASDIRECTED 03/06/21 06:17 CBC WITH AUTO DIFF [HEME] AM COMPREHENSIVE METABOLIC PN,CMP [CHEM] AM MAGNESIUM [CHEM] AM 03/06/21 07:00 EKG 12 Lead [EK] Routine 03/06/21 09:00 Metoprolol Succinate [Toprol XL] 25 mg PO DAILY Patient's Own Medication [Ptom] 0 each PO DAILY Venlafaxine [Effexor XR] 150 mg PO DAILY - Assessment Assessment:: Patient is a 75-year-old gentleman who is currently in normal sinus rhythm. EKG has been ordered. Joe catheter is also been ordered for the patient. This was placed due to acute urinary retention. Repeat laboratory studies have been ordered. The patient will have his diet advanced post surgery. Physical therapy will evaluate the patient for possible placement in rehab. The patient is also noted to have decrease in his EGFR of 39 mm/min. He has medications will be renally dosed. the patient is also on DVT prophylaxis with the use of heparin. Patient also is hypomagnesemic and I have ordered replacement of his magnesium. Continue on telemetry. The patient should be appropriate for discharge in 2 to 3 days depending upon surgery. In accordance with the AHA ACC guidelines the patient would be considered at moderate risk for prospective surgery. - Plan Plan:: The patient has been admitted as an inpatient to the intensive care unit with telemetry due to his A. fib with RVR. The patient had been given diltiazem in the ER with minimal improvement and this has been discontinued. The patient be started on amiodarone drip. The patient also has hip fracture and a distal clavicle fracture from a mechanical fall and Dr. Steward, orthopedic surgeon, has been consulted. For now we will stabilize the patient in the intensive care unit with the use of medications. His hypertensive medications have also been started. His vital signs will also be monitored and his antihypertensive medication adjusted as necessary. PT OT has been ordered for the patient after surgery. The patient also has been placed on heparin for DVT prophylaxis. He has been kept n.p.o. Repeat laboratory studies have been ordered for the morning. The patient's hemoglobin to be monitored and if his hemoglobin drops below 7.0 g/dL will consider transfusion. I have also discussed with the patient that it is likely that he will need to have physical rehabilitation after surgery. The patient should be appropriate for discharge in 3 to 4 days depending upon surgery schedule.
[2021-03-06] MEDS ORDERED: Magnesium Sulfate/Water 2 GM in Premix Bag 1 BAG IV ONE (08:00)
[2021-03-06] MEDS ORDERED: Lactated Ringers 1,000 ML IV SCH (08:15)
[2021-03-06] MEDS: Metoprolol Succinate 25 MG Tab.ER PO SCH (08:22)
[2021-03-06] MEDS ORDERED: IBRUTINIB 420 MG PO SCH (09:00)
--- NOTE | 2021-03-06 09:51 | PCM.EKG ---
#1 Interpretation EKG Date: 03/06/21 Time: 08:10 Rhythm: NSR Rate (Beats/Min): 74 [place]: Normal P-Wave: Present QRS: RBBB ST-T: Normal QT: Normal Comparison: Change From Previous EKG EKG Interpretation Comments: RBBB now
--- NOTE | 2021-03-06 11:30 | PCM.PREANE ---
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" no side effects) Other: Reports: Easy Bruising - Physical Assessment NPO Status Date: 03/05/21 NPO Status Time: 07:00 Vital Signs: Last Vital Signs Temp 36.2 C 03/06/21 08:18 Pulse 79 03/06/21 08:22 Resp 14 03/06/21 08:18 BP 127/80 03/06/21 08:22 Pulse Ox 100 03/06/21 08:23 Height: 1.73 m Weight: 69.218 kg ASA Class: 3 Mental Status: Alert & Oriented x3 Airway Class: Mallampati = 2 Dentition: Reports: Dentures Thyro-Mental Finger Breadths: 3 Mouth Opening Finger Breadths: 2 ROM/Head Extension: Full Lungs: Clear to Auscultation, Normal Respiratory Effort Cardiovascular: Regular Rate, Regular Rhythm - Lab Values: Laboratory Last Values WBC 8.80 K/mm3 (4.23-9.07) 03/06/21 06:17 RBC 3.77 M/mm3 (4.63-6.08) L 03/06/21 06:17 Hgb 10.6 gm/dl (13.7-17.5) L 03/06/21 06:17 Hct 33.4 % (40.1-51.0) L 03/06/21 06:17 MCV 88.6 fl (79.0-92.2) 03/06/21 06:17 MCH 28.1 pg (25.7-32.2) 03/06/21 06:17 MCHC 31.7 g/dl (32.2-35.5) L 03/06/21 06:17 RDW Std Deviation 49.6 fL (35.1-43.9) H 03/06/21 06:17 Plt Count 195 K/mm3 (163-337) 03/06/21 06:17 MPV 9.7 fl (9.4-12.3) 03/06/21 06:17 Neut % (Auto) 91.8 % (34.0-67.9) H 03/06/21 06:17 Lymph % (Auto) 3.2 % (21.8-53.1) L 03/06/21 06:17 Todd % (Auto) 4.3 % (5.3-12.2) L 03/06/21 06:17 Eos % (Auto) 0.3 (0.8-7.0) L 03/06/21 06:17 Baso % (Auto) 0.2 % (0.1-1.2) 03/06/21 06:17 Neut # (Auto) 8.07 K/mm3 (1.78-5.38) H 03/06/21 06:17 Lymph # (Auto) 0.28 K/mm3 (1.32-3.57) L 03/06/21 06:17 Todd # (Auto) 0.38 K/mm3 (0.30-0.82) 03/06/21 06:17 Eos # (Auto) 0.03 K/mm3 (0.04-0.54) L 03/06/21 06:17 Baso # (Auto) 0.02 K/mm3 (0.01-0.08) 03/06/21 06:17 Manual Slide Review Abnormal smear 03/06/21 06:17 PT 11.0 SECONDS (9.7-12.0) 03/06/21 06:17 INR 1.03 03/06/21 06:17 APTT 28.8 SECONDS (21.7-31.4) 03/05/21 10:30 Sodium 142 mEq/L (136-145) 03/06/21 06:17 Potassium 3.9 mEq/L (3.5-5.1) 03/06/21 06:17 Chloride 107 mEq/L (98-107) 03/06/21 06:17 Carbon Dioxide 25 mEq/L (21-32) 03/06/21 06:17 Anion Gap 13.9 (5-15) 03/06/21 06:17 BUN 27 mg/dL (7-18) H 03/06/21 06:17 Creatinine 1.7 mg/dL (0.7-1.3) H 03/06/21 06:17 Est Cr Clr Drug Dosing 36.32 mL/min 03/06/21 06:17 Estimated GFR (MDRD) 39 mL/min (>60) 03/06/21 06:17 BUN/Creatinine Ratio 15.9 (14-18) 03/06/21 06:17 Glucose 89 mg/dL (70-99) 03/06/21 06:17 Calcium 8.2 mg/dL (8.5-10.1) L 03/06/21 06:17 Magnesium 1.4 mg/dL (1.8-2.4) L 03/06/21 06:17 Total Bilirubin 0.7 mg/dL (0.2-1.0) 03/06/21 06:17 AST 14 U/L (15-37) L 03/06/21 06:17 ALT 15 U/L (16-63) L 03/06/21 06:17 Alkaline Phosphatase 85 U/L (46-116) 03/06/21 06:17 Troponin I < 0.017 ng/mL (0.00-0.056) 03/05/21 10:30 Total Protein 5.7 g/dl (6.4-8.2) L 03/06/21 06:17 Albumin 3.2 g/dl (3.4-5.0) L 03/06/21 06:17 Globulin 2.5 gm/dL 03/06/21 06:17 Albumin/Globulin Ratio 1.3 (1-2) 03/06/21 06:17 SARS-CoV-2 RNA (FENG) Negative (NEGATIVE) 03/05/21 11:55 MRSA (PCR) Negative 03/06/21 05:44 - Imaging/EKG Impressions: EKG NSR Rate 74 RBBB - Allergies Allergies/Adverse Reactions: Allergies Allergy/AdvReac Type Severity Reaction Status Date / Time benzonatate Allergy Swollen Verified 03/05/21 10:20 [From Aris Nichols] Tongue - Anesthesia Plan Pre-Op Medication Ordered: Beta Denise Beta Denise: Metoprolol Med Last Dose Date: 03/06/21 Med Last Dose Time: 08:20 - Acknowledgements Anesthesia Type Planned: Spinal Pt an Appropriate Candidate for the Planned Anesthesia: Yes Alternatives and Risks of Anesthesia Discussed w Pt/Guardian: Yes Pt/Guardian Understands and Agrees with Anesthesia Plan: Yes PreAnesthesia Questionnaire HEENT History: Reports: Cataract, Impaired Vision Other HEENT History: Wears glasses Cardiovascular History: Reports: Afib, Hypertension Other Cardiovascular History: "might have a partially clogged artery somewhere" Respiratory History: Reports: Bronchitis, Recurrent Gastrointestinal History: Reports: GERD Genitourinary History: Reports: None Musculoskeletal History: Reports: Arthritis, Fracture Neurological History: Reports: Other (See Below) Other Neuro History: nerve pain Psychiatric History: Reports: Anxiety, Depression Endocrine/Metabolic History: Reports: Hypothyroidism Hematologic History: Reports: Other (See Below) Other Hematologic History: CLL Immunologic History: Reports: None Oncologic (Cancer) History: Reports: Leukemia Other Oncologic History: CLL Dermatologic History: Reports: Other (See Below) Other Dermatologic History: Rash last three days. - Infectious Disease History Infectious Disease History: Reports: Chicken Pox, Measles, Mumps - Past Surgical History HEENT Surgical History: Reports: Cataract Surgery, Oral Surgery, Tonsillectomy Respiratory Surgical History: Reports: Other (See Below) GI Surgical History: Reports: Hernia, Inguinal - SUBSTANCE USE Tobacco Use Status *Q: Former Tobacco User Tobacco Use Within Last Twelve Months: No Second Hand Smoke Exposure: No Days Per Week of Alcohol Use: 1 Number of Drinks Per Day: 0 Total Drinks Per Week: 0 Recreational Drug Use History: No - HOME MEDS Home Medications: Home Meds LORazepam [Ativan] 1 mg PO BID PRN 01/27/15 [History] Multivitamin with Minerals [Multiple Vitamin] 1 tab PO DAILY 01/27/15 [History] Omeprazole [Prilosec] 20 mg PO BID 01/27/15 [History] Ibrutinib [Imbruvica] 420 mg PO DAILY 01/01/16 [History] Aspirin [Halfprin] 81 mg PO DAILY 12/04/18 [History] Calcium Citrate/Vitamin D3 [Calcium Citrate - Vit D3 Tab] 1 tab PO DAILY 12/04/18 [History] hydrOXYzine pamoate [Hydroxyzine Pamoate] 50 mg PO TID PRN 12/04/18 [History] Levothyroxine 25 mcg PO DAILY 12/06/18 [History] Metoprolol Succinate [Toprol XL] 25 mg PO DAILY #60 12/06/18 [Rx] amLODIPine Besylate [Norvasc] 5 mg PO BID #60 tablet 12/06/18 [Rx] Acetaminophen [Tylenol] 325 mg PO Q4HR PRN 09/10/20 [History] Venlafaxine [Effexor XR] 150 mg PO DAILY 09/10/20 [History] traMADol HCl [Tramadol HCl] 50 mg PO Q6H PRN 03/05/21 [History] - CURRENT (IN HOUSE) MEDS Current Meds: Current Medications Acetaminophen (Acetaminophen 325 Mg Tab) 650 mg PO Q4H PRN PRN Reason: Pain (Mild 1-3)/fever Amlodipine Besylate (Amlodipine 5 Mg Tab) 5 mg PO BID BRIEN Last Admin: 03/05/21 20:24 Dose: 5 mg Documented by: Heparin Sodium (Porcine) (Heparin Sodium 5,000 Units/Ml Vial) 5,000 units SUBCUT Q8H BRIEN Last Admin: 03/06/21 07:33 Dose: Not Given Documented by: Hydromorphone HCl (Hydromorphone 1 Mg/Ml Syringe) 1 mg IVPUSH Q2H PRN PRN Reason: Pain Last Admin: 03/06/21 08:20 Dose: 1 mg Documented by: Hydroxyzine HCl (Hydroxyzine Hcl 50 Mg Tab) 50 mg PO TID PRN PRN Reason: Anxiety Diltiazem HCl 100 mg/ Sodium (Chloride) 100 mls @ 10 mls/hr IV TITRATE BRIEN; Protocol Last Admin: 03/05/21 11:31 Dose: 10 mg/hr, 10 mls/hr Documented by: Amiodarone HCl/Dextrose (Nexterone In Dextrose 360 Mg/200 Ml) 360 mg in 200 mls @ 33.333 mls/hr IV ASDIRECTED BRIEN; Protocol Last Admin: 03/05/21 15:14 Dose: 33.333 mls/hr Documented by: Lactated Ringer's (Ringers, Lactated) 1,000 mls @ 100 mls/hr IV ASDIRECTED BRIEN Last Admin: 03/06/21 08:23 Dose: 100 mls/hr Documented by: Levothyroxine Sodium (Levothyroxine 25 Mcg Tab) 25 mcg PO ACBRK BRIEN Last Admin: 03/06/21 05:37 Dose: 25 mcg Documented by: Lorazepam (Lorazepam 1 Mg Tab) 1 mg PO 0700,1200 PRN PRN Reason: Anxiety Metoprolol Succinate (Metoprolol Succinate 25 Mg Tab.Er) 25 mg PO DAILY [facility] Last Admin: 03/06/21 08:22 Dose: 25 mg Documented by: Ondansetron HCl (Ondansetron 4 Mg Tab.Dis) 4 mg PO Q4H PRN PRN Reason: nausea, able to take PO Ondansetron HCl (Ondansetron 4 Mg/2 Ml Sdv) 4 mg IV Q4H PRN PRN Reason: Nausea/Vomiting Pantoprazole Sodium (Pantoprazole 40 Mg Tab.Cr) 40 mg PO BID [facility] Last Admin: 03/05/21 20:23 Dose: 40 mg Documented by: Ibrutinib [Imbruvica (] 420 Mg Capsule) 0 each PO DAILY [facility] Sodium Chloride (Sodium Chloride 0.9% 10 Ml Syringe) 10 ml FLUSH ASDIRECTED PRN PRN Reason: Keep Vein Open Last Admin: 03/05/21 10:26 Dose: 10 ml Documented by: Temazepam (Temazepam 7.5 Mg Cap) 7.5 mg PO BEDTIME PRN PRN Reason: Sleep Last Admin: 03/05/21 20:23 Dose: 7.5 mg Documented by: Venlafaxine HCl (Venlafaxine 75 Mg Cap.Er) 150 mg PO DAILY [facility] Discontinued Medications Diltiazem HCl (Diltiazem 50 Mg/10 Ml Sdv) 10 mg IVPUSH ONETIME ONE Stop: 03/05/21 11:20 Last Admin: 03/05/21 11:28 Dose: 10 mg Documented by: Heparin Sodium (Porcine) (Heparin Sodium 5,000 Units/Ml Vial) 5,000 units SUBCUT Q8H [facility] Last Admin: 03/05/21 19:36 Dose: Not Given Documented by: Hydromorphone HCl (Hydromorphone 0.5 Mg/0.5 Ml Syringe) 0.5 mg IVPUSH ONETIME ONE Stop: 03/05/21 10:55 Last Admin: 03/05/21 11:05 Dose: 0.5 mg Documented by: Hydromorphone HCl (Hydromorphone 0.5 Mg/0.5 Ml Syringe) 0.5 mg IVPUSH ONETIME ONE Stop: 03/05/21 11:20 Last Admin: 03/05/21 11:25 Dose: 0.5 mg Documented by: Hydromorphone HCl (Hydromorphone 0.5 Mg/0.5 Ml Syringe) 0.5 mg IVPUSH Q2H PRN PRN Reason: Pain (severe 7-10) Last Admin: 03/05/21 22:09 Dose: 0.5 mg Documented by: Amiodarone HCl/Dextrose (Nexterone In Dextrose 150 Mg/100 Ml) 100 mls @ 600 mls/hr IV .BOLUS ONE; Protocol Stop: 03/05/21 15:09 Last Admin: 03/05/21 14:57 Dose: 600 mls/hr Documented by: Magnesium Sulfate 2 gm/ Premix 50 mls @ 25 mls/hr IV ONETIME ONE Stop: 03/06/21 09:59 Last Admin: 03/06/21 08:22 Dose: 25 mls/hr Documented by:
[2021-03-06] MEDS ORDERED: fentaNYL 100 MCG/2 ML SDV ONE (12:07)
[2021-03-06] MEDS ORDERED: Propofol 200 MG/20 ML SDV ONE (12:08)
[2021-03-06] MEDS ORDERED: Bupivacaine 0.25% 10 ML SDV ONE (12:08)
[2021-03-06] MEDS ORDERED: Ketamine 500 mg/10 ML MDV ONE (12:08)
[2021-03-06] MEDS ORDERED: Midazolam 1 MG/ML 2 ML SDV ONE (12:08)
--- NOTE | 2021-03-06 12:38 | PCM.SN.2 ---
- Free Text/Narrative Note: The patient is a 75-year-old gentleman who had been admitted for A. fib with RVR and had been in normal sinus rhythm all day. The patient then was being evaluated for surgery on his left hip fracture and the patient went into atrial fibrillation with RVR once more. I have ordered an EKG. EKG confirms this. The patient has been started back on amiodarone drip.
[2021-03-06] MEDS ORDERED: Lactated Ringers 0 ML ONE (12:48)
[2021-03-06] MEDS: Venlafaxine 75 MG Cap.ER PO SCH (12:56)
[2021-03-06] MEDS: amLODIPine 5 MG Tab PO SCH ×2 (12:57→20:38)
[2021-03-06] MEDS: hydrOXYzine HCl 50 MG Tab PO PRN (12:59)
[2021-03-06] MEDS: Pantoprazole 40 MG Tab.CR PO SCH ×2 (13:00→20:38)
[2021-03-06] MEDS: IBRUTINIB 420 MG PO SCH (14:42)
[2021-03-06] MEDS: oxyCODONE 5 MG Tab PO PRN ×2 (14:51→20:39)
[2021-03-06] MEDS: Sodium Chloride 0.9% 1,000 ML IV SCH (14:52)
[2021-03-07] MEDS: Sodium Chloride 0.9% 1,000 ML IV SCH ×2 (00:31→08:25)
[2021-03-07] MEDS: HYDROmorphone 1 MG/ML Syringe IVPUSH PRN ×5 (01:14→13:27)
[2021-03-07] MEDS: hydrOXYzine HCl 50 MG Tab PO PRN (01:17)
[2021-03-07] MEDS: oxyCODONE 5 MG Tab PO PRN (03:49)
[2021-03-07] MEDS: LORazepam 1 MG Tab PO PRN ×2 (04:19→11:20)
[2021-03-07] MEDS ORDERED: Benzocaine/Cetylpyridinium/Menthol Lozenge MUCMEM PRN (04:32)
[2021-03-07] MEDS ORDERED: diphenhydrAMINE 50 MG/ML SDV IVPUSH ONE (04:43)
[2021-03-07] MEDS: Levothyroxine 25 MCG Tab PO SCH (05:30)
[2021-03-07] MEDS: Heparin Sodium 5,000 Units/ML Vial SUBCUT SCH ×2 (05:31→13:25)
[2021-03-07] MEDS ORDERED: Magnesium Sulfate/Water 2 GM in Premix Bag 1 BAG IV ONE (07:09)
--- NOTE | 2021-03-07 07:11 | PCM.PN ---
- General Info Date of Service: 03/07/21 Admission Dx/Problem (Free Text): Admission Diagnosis/Problem Admission Diagnosis/Problem Atrial flutter with rapid ventricular response, left hip and left distal clavicle fracture from mechanical fall. Subjective Update: The patient is a 75-year-old gentleman who had been admitted initially secondary to left hip fracture and left distal clavicle fracture. The patient was noted in the emergency department to have A. fib with RVR. Various medications were tried. The patient has remained in atrial fibrillation and has otherwise been asymptomatic. The patient also has had periods of normal sinus rhythm but has remained in atrial fibrillation with RVR overnight. Patient says that he is feeling dry. He also says that his pain has been controlled. The patient also says that he has been tired. Joe catheter was inserted last night. Functional Status: Reports: Pain Controlled. Denies: Tolerating Diet (N.p.o. for surgery) - Review of Systems General: Reports: Weakness HEENT: Reports: No Symptoms Pulmonary: Reports: No Symptoms Cardiovascular: Reports: No Symptoms Gastrointestinal: Reports: No Symptoms Genitourinary: Reports: No Symptoms Musculoskeletal: Reports: Shoulder Pain, Leg Pain Skin: Reports: Bruising Neurological: Reports: No Symptoms Psychiatric: Reports: No Symptoms - Patient Data Vitals - Most Recent: Last Vital Signs Temp 36.1 C 03/07/21 04:00 Pulse 72 03/06/21 19:01 Resp 12 03/07/21 04:00 BP 108/59 L 03/07/21 04:00 Pulse Ox 93 L 03/07/21 04:00 Weight - Most Recent: 72.665 kg I&O - Last 24 Hours: Intake & Output 03/06/21 03/07/21 03/07/21 22:59 06:59 14:59 Intake Total 1402 1713 Output Total 175 450 Balance 1227 1263 Lab Results Last 24 Hours: Laboratory Results - last 24 hr 03/06/21 03/06/21 03/07/21 Range/Units 05:44 06:17 06:13 WBC 8.23 (4.23-9.07) K/mm3 RBC 3.19 L (4.63-6.08) M/mm3 Hgb 8.9 L D (13.7-17.5) gm/dl Hct 28.5 L (40.1-51.0) % MCV 89.3 (79.0-92.2) fl MCH 27.9 (25.7-32.2) pg MCHC 31.2 L (32.2-35.5) g/dl RDW Std Deviation 49.1 H (35.1-43.9) fL Plt Count 171 (163-337) K/mm3 MPV 9.9 (9.4-12.3) fl Neut % (Auto) 85.8 H (34.0-67.9) % Lymph % (Auto) 5.1 L (21.8-53.1) % [place] % (Auto) 7.5 (5.3-12.2) % Eos % (Auto) 1.0 (0.8-7.0) Baso % (Auto) 0.2 (0.1-1.2) % Neut # (Auto) 7.06 H (1.78-5.38) K/mm3 Lymph # (Auto) 0.42 L (1.32-3.57) K/mm3 [place] # (Auto) 0.62 (0.30-0.82) K/mm3 Eos # (Auto) 0.08 (0.04-0.54) K/mm3 Baso # (Auto) 0.02 (0.01-0.08) K/mm3 Manual Slide Review Abnormal smear Sodium (136-145) mEq/L Potassium (3.5-5.1) mEq/L Chloride (98-107) mEq/L Carbon Dioxide (21-32) mEq/L Anion Gap (5-15) BUN (7-18) mg/dL Creatinine (0.7-1.3) mg/dL Est Cr Clr Drug Dosing mL/min Estimated GFR (MDRD) (>60) mL/min BUN/Creatinine Ratio (14-18) Glucose (70-99) mg/dL Calcium (8.5-10.1) mg/dL Magnesium (1.8-2.4) mg/dL Total Bilirubin (0.2-1.0) mg/dL AST (15-37) U/L ALT (16-63) U/L Alkaline Phosphatase (46-116) U/L Total Protein (6.4-8.2) g/dl Albumin (3.4-5.0) g/dl Globulin gm/dL Albumin/Globulin Ratio (1-2) MRSA (PCR) Negative 03/07/21 Range/Units 06:13 WBC (4.23-9.07) K/mm3 RBC (4.63-6.08) M/mm3 Hgb (13.7-17.5) gm/dl Hct (40.1-51.0) % MCV (79.0-92.2) fl MCH (25.7-32.2) pg MCHC (32.2-35.5) g/dl RDW Std Deviation (35.1-43.9) fL Plt Count (163-337) K/mm3 MPV (9.4-12.3) fl Neut % (Auto) (34.0-67.9) % Lymph % (Auto) (21.8-53.1) % [place] % (Auto) (5.3-12.2) % Eos % (Auto) (0.8-7.0) Baso % (Auto) (0.1-1.2) % Neut # (Auto) (1.78-5.38) K/mm3 Lymph # (Auto) (1.32-3.57) K/mm3 [place] # (Auto) (0.30-0.82) K/mm3 Eos # (Auto) (0.04-0.54) K/mm3 Baso # (Auto) (0.01-0.08) K/mm3 Manual Slide Review Sodium 140 (136-145) mEq/L Potassium 4.2 (3.5-5.1) mEq/L Chloride 107 (98-107) mEq/L Carbon Dioxide 23 (21-32) mEq/L Anion Gap 14.2 (5-15) BUN 27 H (7-18) mg/dL Creatinine 1.9 H (0.7-1.3) mg/dL Est Cr Clr Drug Dosing 32.50 mL/min Estimated GFR (MDRD) 35 (>60) mL/min BUN/Creatinine Ratio 14.2 (14-18) Glucose 99 (70-99) mg/dL Calcium 7.9 L (8.5-10.1) mg/dL Magnesium 1.6 L (1.8-2.4) mg/dL Total Bilirubin 0.5 (0.2-1.0) mg/dL AST 17 (15-37) U/L ALT 19 (16-63) U/L Alkaline Phosphatase 72 (46-116) U/L Total Protein 5.1 L (6.4-8.2) g/dl Albumin 2.8 L (3.4-5.0) g/dl Globulin 2.3 gm/dL Albumin/Globulin Ratio 1.2 (1-2) MRSA (PCR) Med Orders - Current: Current Medications Acetaminophen (Acetaminophen 325 Mg Tab) 650 mg PO Q4H PRN PRN Reason: Pain (Mild 1-3)/fever Amlodipine Besylate (Amlodipine 5 Mg Tab) 5 mg PO BID [facility] Last Admin: 03/06/21 20:38 Dose: 5 mg Documented by: Benzocaine/Menthol (Benzocaine/Cetylpyridinium/Menthol Lozenge) 1 lozenge MUCMEM 6XDAY PRN PRN Reason: Sore Throat Last Admin: 03/07/21 06:19 Dose: 1 lozenge Documented by: Digoxin (Digoxin 500 Mcg/2 Ml Amp) 250 mcg IVPUSH Q6H [facility] Stop: 03/07/21 13:01 Heparin Sodium (Porcine) (Heparin Sodium 5,000 Units/Ml Vial) 5,000 units SUBCUT Q8H [facility] Last Admin: 03/07/21 05:31 Dose: 5,000 units Documented by: Hydromorphone HCl (Hydromorphone 1 Mg/Ml Syringe) 1 mg IVPUSH Q2H PRN PRN Reason: Pain Last Admin: 03/07/21 04:28 Dose: 1 mg Documented by: Hydroxyzine HCl (Hydroxyzine Hcl 50 Mg Tab) 50 mg PO TID PRN PRN Reason: Anxiety Last Admin: 03/07/21 01:17 Dose: 50 mg Documented by: Sodium Chloride (Normal Saline) 1,000 mls @ 100 mls/hr IV ASDIRECTED [facility] Last Admin: 03/07/21 00:31 Dose: 100 mls/hr Documented by: Magnesium Sulfate 2 gm/ Premix 50 mls @ 25 mls/hr IV ONETIME ONE Stop: 03/07/21 09:08 Levothyroxine Sodium (Levothyroxine 25 Mcg Tab) 25 mcg PO ACBRK [facility] Last Admin: 03/07/21 05:30 Dose: 25 mcg Documented by: Lorazepam (Lorazepam 1 Mg Tab) 1 mg PO Q6H PRN PRN Reason: Anxiety Last Admin: 03/07/21 04:19 Dose: 1 mg Documented by: Metoprolol Succinate (Metoprolol Succinate 25 Mg Tab.Er) 25 mg PO DAILY [facility] Last Admin: 03/06/21 08:22 Dose: 25 mg Documented by: Ondansetron HCl (Ondansetron 4 Mg Tab.Dis) 4 mg PO Q4H PRN PRN Reason: nausea, able to take PO Ondansetron HCl (Ondansetron 4 Mg/2 Ml Sdv) 4 mg IV Q4H PRN PRN Reason: Nausea/Vomiting Oxycodone HCl (Oxycodone 5 Mg Tab) 10 mg PO Q6H PRN PRN Reason: Pain Last Admin: 03/07/21 03:49 Dose: 10 mg Documented by: Pantoprazole Sodium (Pantoprazole 40 Mg Tab.Cr) 40 mg PO BID [facility] Last Admin: 03/06/21 20:38 Dose: 40 mg Documented by: Ibrutinib [Imbruvica ] 420 Mg Capsule Ptom 0 each PO DAILY [facility] Last Admin: 03/06/21 14:42 Dose: 1 each Documented by: Sodium Chloride (Sodium Chloride 0.9% 10 Ml Syringe) 10 ml FLUSH ASDIRECTED PRN PRN Reason: Keep Vein Open Last Admin: 03/05/21 10:26 Dose: 10 ml Documented by: Temazepam (Temazepam 7.5 Mg Cap) 7.5 mg PO BEDTIME PRN PRN Reason: Sleep Last Admin: 03/05/21 20:23 Dose: 7.5 mg Documented by: Venlafaxine HCl (Venlafaxine 75 Mg Cap.Er) 150 mg PO DAILY [facility] Last Admin: 03/06/21 12:56 Dose: 150 mg Documented by: Discontinued Medications Bupivacaine HCl (Bupivacaine 0.25% 10 Ml Sdv) Confirm Administered Dose 20 ml .ROUTE .STK-MED ONE Stop: 03/06/21 12:09 Diltiazem HCl (Diltiazem 50 Mg/10 Ml Sdv) 10 mg IVPUSH ONETIME ONE Stop: 03/05/21 11:20 Last Admin: 03/05/21 11:28 Dose: 10 mg Documented by: Fentanyl (Fentanyl 100 Mcg/2 Ml Sdv) Confirm Administered Dose 100 mcg .ROUTE .STK-MED ONE Stop: 03/06/21 12:08 Heparin Sodium (Porcine) (Heparin Sodium 5,000 Units/Ml Vial) 5,000 units SUBCUT Q8H [facility] Last Admin: 03/05/21 19:36 Dose: Not Given Documented by: Heparin Sodium (Porcine) (Heparin Sodium 5,000 Units/Ml Vial) 5,000 units SUBCUT Q8H [facility] Last Admin: 03/06/21 07:33 Dose: Not Given Documented by: Hydromorphone HCl (Hydromorphone 0.5 Mg/0.5 Ml Syringe) 0.5 mg IVPUSH ONETIME ONE Stop: 03/05/21 10:55 Last Admin: 03/05/21 11:05 Dose: 0.5 mg Documented by: Hydromorphone HCl (Hydromorphone 0.5 Mg/0.5 Ml Syringe) 0.5 mg IVPUSH ONETIME ONE Stop: 03/05/21 11:20 Last Admin: 03/05/21 11:25 Dose: 0.5 mg Documented by: Hydromorphone HCl (Hydromorphone 0.5 Mg/0.5 Ml Syringe) 0.5 mg IVPUSH Q2H PRN PRN Reason: Pain (severe 7-10) Last Admin: 03/05/21 22:09 Dose: 0.5 mg Documented by: Diltiazem HCl 100 mg/ Sodium (Chloride) 100 mls @ 10 mls/hr IV TITRATE [facility]; Protocol Last Admin: 03/05/21 11:31 Dose: 10 mg/hr, 10 mls/hr Documented by: Amiodarone HCl/Dextrose (Nexterone In Dextrose 360 Mg/200 Ml) 360 mg in 200 mls @ 33.333 mls/hr IV ASDIRECTED [facility]; Protocol Last Admin: 03/05/21 15:14 Dose: 33.333 mls/hr Documented by: Amiodarone HCl/Dextrose (Nexterone In Dextrose 150 Mg/100 Ml) 100 mls @ 600 mls/hr IV .BOLUS ONE; Protocol Stop: 03/05/21 15:09 Last Admin: 03/05/21 14:57 Dose: 600 mls/hr Documented by: Magnesium Sulfate 2 gm/ Premix 50 mls @ 25 mls/hr IV ONETIME ONE Stop: 03/06/21 09:59 Last Admin: 03/06/21 08:22 Dose: 25 mls/hr Documented by: Lactated Ringer's (Ringers, Lactated) 1,000 mls @ 100 mls/hr IV ASDIRECTED [facility] Last Admin: 03/06/21 08:23 Dose: 100 mls/hr Documented by: Amiodarone HCl/Dextrose (Nexterone In Dextrose 150 Mg/100 Ml) 100 mls @ 600 mls/hr IV .BOLUS ONE; Protocol Stop: 03/06/21 12:40 Last Admin: 03/06/21 12:59 Dose: 600 mls/hr Documented by: Amiodarone HCl/Dextrose (Nexterone In Dextrose 360 Mg/200 Ml) 360 mg in 200 mls @ 33.333 mls/hr IV ASDIRECTED [facility]; Protocol Last Admin: 03/07/21 02:14 Dose: 16.7 mls/hr Documented by: Lactated Ringer's (Ringers, Lactated) Confirm Administered Dose 1,000 mls @ as directed .ROUTE .STK-MED ONE Stop: 03/06/21 12:49 Ketamine HCl (Ketamine 500 Mg/10 Ml Mdv) Confirm Administered Dose 500 mg .ROUTE .STK-MED ONE Stop: 03/06/21 12:09 Lorazepam (Lorazepam 1 Mg Tab) 1 mg PO 0700,1200 PRN PRN Reason: Anxiety Midazolam HCl (Midazolam 1 Mg/Ml 2 Ml Sdv) Confirm Administered Dose 2 mg .ROUTE .STK-MED ONE Stop: 03/06/21 12:09 Ibrutinib [Imbruvica ] 420 Mg Capsule Ptom 0 each PO DAILY [facility] Last Admin: 03/06/21 16:38 Dose: Not Given Documented by: Propofol (Propofol 200 Mg/20 Ml Sdv) Confirm Administered Dose 200 mg .ROUTE .STK-MED ONE Stop: 03/06/21 12:09 - Exam Quality Assessment: Supplemental Oxygen, Urine Catheter, DVT Prophylaxis Urinary Catheter Total Time: 0Days 0Hours General: Alert, Oriented, Cooperative, No Acute Distress HEENT: Pupils Equal, Pupils Reactive, EOMI. No: Mucous Membr. Moist/[place] (Dry edentulous) Neck: Supple, Trachea Midline Lungs: Clear to Auscultation, Normal Respiratory Effort Cardiovascular: Irregular Rhythm, Tachycardia GI/Abdominal Exam: Normal Bowel Sounds, Soft, Non-Tender, No Distention (Male) Exam: Deferred Back Exam: No: Normal Inspection (Not able to set up due to hip pain from fracture), Full Range of Motion Extremities: No: Normal Inspection (Hip fracture left side), Normal Range of Motion Skin: Warm, Ecchymosis (Left shoulder, left hip area) Neurological: No New Focal Deficit Psy/Mental Status: Alert, Normal Affect, Normal Mood - Patient Data Lab Results Last 24 hrs: Laboratory Results - last 24 hr 03/06/21 03/06/21 03/07/21 Range/Units 05:44 06:17 06:13 WBC 8.23 (4.23-9.07) K/mm3 RBC 3.19 L (4.63-6.08) M/mm3 Hgb 8.9 L D (13.7-17.5) gm/dl Hct 28.5 L (40.1-51.0) % MCV 89.3 (79.0-92.2) fl MCH 27.9 (25.7-32.2) pg MCHC 31.2 L (32.2-35.5) g/dl RDW Std Deviation 49.1 H (35.1-43.9) fL Plt Count 171 (163-337) K/mm3 MPV 9.9 (9.4-12.3) fl Neut % (Auto) 85.8 H (34.0-67.9) % Lymph % (Auto) 5.1 L (21.8-53.1) % [place] % (Auto) 7.5 (5.3-12.2) % Eos % (Auto) 1.0 (0.8-7.0) Baso % (Auto) 0.2 (0.1-1.2) % Neut # (Auto) 7.06 H (1.78-5.38) K/mm3 Lymph # (Auto) 0.42 L (1.32-3.57) K/mm3 [place] # (Auto) 0.62 (0.30-0.82) K/mm3 Eos # (Auto) 0.08 (0.04-0.54) K/mm3 Baso # (Auto) 0.02 (0.01-0.08) K/mm3 Manual Slide Review Abnormal smear Sodium (136-145) mEq/L Potassium (3.5-5.1) mEq/L Chloride (98-107) mEq/L Carbon Dioxide (21-32) mEq/L Anion Gap (5-15) BUN (7-18) mg/dL Creatinine (0.7-1.3) mg/dL Est Cr Clr Drug Dosing mL/min Estimated GFR (MDRD) (>60) mL/min BUN/Creatinine Ratio (14-18) Glucose (70-99) mg/dL Calcium (8.5-10.1) mg/dL Magnesium (1.8-2.4) mg/dL Total Bilirubin (0.2-1.0) mg/dL AST (15-37) U/L ALT (16-63) U/L Alkaline Phosphatase (46-116) U/L Total Protein (6.4-8.2) g/dl Albumin (3.4-5.0) g/dl Globulin gm/dL Albumin/Globulin Ratio (1-2) MRSA (PCR) Negative 03/07/21 Range/Units 06:13 WBC (4.23-9.07) K/mm3 RBC (4.63-6.08) M/mm3 Hgb (13.7-17.5) gm/dl Hct (40.1-51.0) % MCV (79.0-92.2) fl MCH (25.7-32.2) pg MCHC (32.2-35.5) g/dl RDW Std Deviation (35.1-43.9) fL Plt Count (163-337) K/mm3 MPV (9.4-12.3) fl Neut % (Auto) (34.0-67.9) % Lymph % (Auto) (21.8-53.1) % [place] % (Auto) (5.3-12.2) % Eos % (Auto) (0.8-7.0) Baso % (Auto) (0.1-1.2) % Neut # (Auto) (1.78-5.38) K/mm3 Lymph # (Auto) (1.32-3.57) K/mm3 [place] # (Auto) (0.30-0.82) K/mm3 Eos # (Auto) (0.04-0.54) K/mm3 Baso # (Auto) (0.01-0.08) K/mm3 Manual Slide Review Sodium 140 (136-145) mEq/L Potassium 4.2 (3.5-5.1) mEq/L Chloride 107 (98-107) mEq/L Carbon Dioxide 23 (21-32) mEq/L Anion Gap 14.2 (5-15) BUN 27 H (7-18) mg/dL Creatinine 1.9 H (0.7-1.3) mg/dL Est Cr Clr Drug Dosing 32.50 mL/min Estimated GFR (MDRD) 35 (>60) mL/min BUN/Creatinine Ratio 14.2 (14-18) Glucose 99 (70-99) mg/dL Calcium 7.9 L (8.5-10.1) mg/dL Magnesium 1.6 L (1.8-2.4) mg/dL Total Bilirubin 0.5 (0.2-1.0) mg/dL AST 17 (15-37) U/L ALT 19 (16-63) U/L Alkaline Phosphatase 72 (46-116) U/L Total Protein 5.1 L (6.4-8.2) g/dl Albumin 2.8 L (3.4-5.0) g/dl Globulin 2.3 gm/dL Albumin/Globulin Ratio 1.2 (1-2) MRSA (PCR) Result Diagrams: 03/07/21 06:13 03/07/21 06:13 Sepsis Event Note - Evaluation Sepsis Screening Result: No Definite Risk - Focused Exam Vital Signs: Vital Signs Temp Resp BP BP Pulse Ox 03/07/21 04:00 36.1 C 12 108/59 L 93 L 03/07/21 00:00 36.2 C 20 123/79 94 L 03/06/21 20:38 110/65 03/06/21 20:00 36.1 C 18 110/65 94 L - Problem List & Annotations (1) Atrial fibrillation with RVR SNOMED Code(s): 615406966284652 Code(s): I48.91 - UNSPECIFIED ATRIAL FIBRILLATION Status: Acute Priority: High Current Visit: Yes Annotation/Comment:: More persistent than paroxysmal (2) Closed left hip fracture SNOMED Code(s): 497077680 Code(s): S72.002A - FRACTURE OF UNSP PART OF NECK OF LEFT FEMUR, INIT Status: Acute Priority: High Current Visit: Yes Qualifiers: Encounter type: initial encounter Qualified Code(s): S72.002A - Fracture of unspecified part of neck of left femur, initial encounter for closed fracture (3) Closed left clavicular fracture SNOMED Code(s): 29769477 Code(s): S42.002A - FRACTURE OF UNSP PART OF LEFT CLAVICLE, INIT FOR CLOS FX Status: Acute Priority: High Current Visit: Yes Qualifiers: Encounter type: initial encounter Clavicle location: lateral end Fracture alignment: nondisplaced Qualified Code(s): S42.035A - Nondisplaced fracture of lateral end of left clavicle, initial encounter for closed fracture (4) CLL (chronic lymphocytic leukemia) SNOMED Code(s): 51426655 Code(s): C91.90 - LYMPHOID LEUKEMIA, UNSPECIFIED NOT HAVING ACHIEVED REMISSION Status: Chronic Priority: Medium Current Visit: Yes (5) Hypertension SNOMED Code(s): 22347610 Code(s): I10 - ESSENTIAL (PRIMARY) HYPERTENSION Status: Chronic Priority: Medium Current Visit: Yes Qualifiers: Hypertension type: primary hypertension Qualified Code(s): I10 - Essential (primary) hypertension (6) Urinary retention SNOMED Code(s): 829928333 Code(s): R33.9 - RETENTION OF URINE, UNSPECIFIED Status: Acute Priority: High Current Visit: Yes Annotation/Comment:: Tatyana no (7) Hypomagnesemia SNOMED Code(s): 465482569 Code(s): E83.42 - HYPOMAGNESEMIA Status: Chronic Priority: High Current Visit: Yes - Problem List Review Problem List Initiated/Reviewed/Updated: Yes - My Orders Last 24 Hours: My Active Orders 03/06/21 07:00 EKG 12 Lead [EK] Routine 03/06/21 09:00 Metoprolol Succinate [Toprol XL] 25 mg PO DAILY Venlafaxine [Effexor XR] 150 mg PO DAILY 03/06/21 Lunch Regular Diet [DIET] 03/06/21 13:30 Heparin Sodium 5,000 units SUBCUT Q8H 03/06/21 14:00 Patient's Own Medication [Ptom] 0 each PO DAILY 03/06/21 14:45 Sodium Chloride 0.9% [Normal Saline] 1,000 ml IV ASDIRECTED 03/06/21 14:46 oxyCODONE 10 mg PO Q6H PRN 03/06/21 17:03 LORazepam [Ativan] 1 mg PO Q6H PRN 03/07/21 04:32 Benzocaine/Cetylpyrd/Menthol [Cepacol Sore Throat] 1 lozenge MUCMEM 6XDAY PRN 03/07/21 06:13 C-REACTIVE PROTEIN [CHEM] AM CBC WITH AUTO DIFF [HEME] AM COMPREHENSIVE METABOLIC PN,CMP [CHEM] AM MAGNESIUM [CHEM] AM 03/07/21 07:00 Digoxin [Lanoxin] 250 mcg IVPUSH Q6H 03/07/21 07:09 Magnesium Sulfate/Water [Magnesium Sulfate in Water 2 GM/50 ML] 2 gm Premix Bag 1 bag IV ONETIME - Assessment Assessment:: Patient is a 75-year-old gentleman who is currently in normal sinus rhythm. EKG has been ordered. Joe catheter is also been ordered for the patient. This was placed due to acute urinary retention. Repeat laboratory studies have been ordered. The patient will have his diet advanced post surgery. Physical therapy will evaluate the patient for possible placement in rehab. The patient is also noted to have decrease in his EGFR of 39 mm/min. He has medications will be renally dosed. the patient is also on DVT prophylaxis with the use of heparin. Patient also is hypomagnesemic and I have ordered replacement of his magnesium. Continue on telemetry. The patient should be appropriate for discharge in 2 to 3 days depending upon surgery. In accordance with the AHA ACC guidelines the patient would be considered at moderate risk for prospective surgery. 03/07/2021 Patient is a 75-year-old gentleman who is pending surgery to repair left hip fracture. He has been in persistent atrial fibrillation and I have discontinued the amiodarone and started patient on digoxin with a loading dose IV of 0.25 mg. This should be followed by every 6 hours IV digoxin of 0.25. Maximum dose of 1.5 mg. This has been renally dosed as his creatinine has increased. The patient will also have his magnesium replaced 2 g IV and water. Repeat laboratory studies have been ordered. We will continue telemetry to monitor the patient's atrial fibrillation. For now the patient is n.p.o. pending possible surgery today. The patient will likely need to have rehabilitation after surgery. - Plan Plan:: The patient has been admitted as an inpatient to the intensive care unit with telemetry due to his A. fib with RVR. The patient had been given diltiazem in the ER with minimal improvement and this has been discontinued. The patient be started on amiodarone drip. The patient also has hip fracture and a distal clavicle fracture from a mechanical fall and Dr. Steward, orthopedic surgeon, has been consulted. For now we will stabilize the patient in the intensive care unit with the use of medications. His hypertensive medications have also been started. His vital signs will also be monitored and his antihypertensive medication adjusted as necessary. PT OT has been ordered for the patient after surgery. The patient also has been placed on heparin for DVT prophylaxis. He has been kept n.p.o. Repeat laboratory studies have been ordered for the morning. The patient's hemoglobin to be monitored and if his hemoglobin drops below 7.0 g/dL will consider transfusion. I have also discussed with the patient that it is likely that he will need to have physical rehabilitation after surgery. The patient should be appropriate for discharge in 3 to 4 days depending upon surgery schedule.
[2021-03-07] MEDS: Digoxin 500 MCG/2 ML Amp IVPUSH SCH ×2 (07:29→13:26)
[2021-03-07] MEDS: Venlafaxine 75 MG Cap.ER PO SCH (08:10)
[2021-03-07] MEDS: Pantoprazole 40 MG Tab.CR PO SCH (08:10)
[2021-03-07] MEDS: Metoprolol Succinate 25 MG Tab.ER PO SCH (08:11)
[2021-03-07] MEDS: IBRUTINIB 420 MG PO SCH (08:20)
[2021-03-07] MEDS: amLODIPine 5 MG Tab PO SCH (08:21)
--- NOTE | 2021-03-07 10:06 | PCM.EKG ---
#1 Interpretation EKG Date: 03/06/21 Rhythm: NSR Epsom: Normal P-Wave: Present QRS: RBBB ST-T: Normal QT: Normal Comparison: No Change
--- NOTE | 2021-03-07 10:12 | PCM.EKG ---
#1 Interpretation EKG Date: 03/07/21 Time: 09:53 Rhythm: A-Fib Rate (Beats/Min): 115 [place]: Normal P-Wave: Absent QRS: RBBB ST-T: Normal QT: Normal Comparison: Change From Previous EKG (Atrial fibrillation with RVR, right bundle branch block)
--- NOTE | 2021-03-07 11:15 | PCM.DCSUM1 ---
Discharge Summary - Hospital Course Diagnosis: Stroke: No - Discharge Data Discharge Date: 03/07/21 Discharge Disposition: DC/Tfer to Acute Hospital 02 Condition: Fair - Referral to Home Health Primary Care Physician: Santhosh Abebe MD - Discharge Diagnosis/Problem(s) (1) Atrial fibrillation with RVR SNOMED Code(s): 136761436640104 ICD Code: I48.91 - UNSPECIFIED ATRIAL FIBRILLATION Status: Acute Priority: High Current Visit: Yes Problem Details: More persistent than paroxysmal (2) Closed left hip fracture SNOMED Code(s): 704370225 ICD Code: S72.002A - FRACTURE OF UNSP PART OF NECK OF LEFT FEMUR, INIT Status: Acute Priority: High Current Visit: Yes Qualifiers: Encounter type: initial encounter Qualified Code(s): S72.002A - Fracture of unspecified part of neck of left femur, initial encounter for closed fracture (3) Closed left clavicular fracture SNOMED Code(s): 14862291 ICD Code: S42.002A - FRACTURE OF UNSP PART OF LEFT CLAVICLE, INIT FOR CLOS FX Status: Acute Priority: High Current Visit: Yes Qualifiers: Encounter type: initial encounter Clavicle location: lateral end Fracture alignment: nondisplaced Qualified Code(s): S42.035A - Nondisplaced fracture of lateral end of left clavicle, initial encounter for closed fracture (4) CLL (chronic lymphocytic leukemia) SNOMED Code(s): 14040210 ICD Code: C91.90 - LYMPHOID LEUKEMIA, UNSPECIFIED NOT HAVING ACHIEVED REMISSION Status: Chronic Priority: Medium Current Visit: Yes (5) Hypertension SNOMED Code(s): 31818640 ICD Code: I10 - ESSENTIAL (PRIMARY) HYPERTENSION Status: Chronic Priority: Medium Current Visit: Yes Qualifiers: Hypertension type: primary hypertension Qualified Code(s): I10 - Essential (primary) hypertension (6) Urinary retention SNOMED Code(s): 352816726 ICD Code: R33.9 - RETENTION OF URINE, UNSPECIFIED Status: Acute Priority: High Current Visit: Yes Problem Details: Joe placed (7) Hypomagnesemia SNOMED Code(s): 048766456 ICD Code: E83.42 - HYPOMAGNESEMIA Status: Chronic Priority: High Current Visit: Yes (8) Anemia SNOMED Code(s): 363485861 ICD Code: D64.9 - ANEMIA, UNSPECIFIED Status: Acute Priority: High Current Visit: Yes Qualifiers: Anemia type: unspecified type Qualified Code(s): D64.9 - Anemia, unspecified (9) Anxiety SNOMED Code(s): 36571020 ICD Code: F41.9 - ANXIETY DISORDER, UNSPECIFIED Status: Chronic Priority: High Current Visit: Yes - Patient Summary/Data Consults: Consultations 03/05/21 12:24 Consult to Physician [CONS] Routine 03/05/21 12:37 PT Evaluation and Treatment [CONS] Routine 03/05/21 12:39 OT Evaluation and Treatment [CONS] Routine Hospital Course: The patient is a 75-year-old gentleman who was admitted to the intensive care unit after suffering a fall in which he broke his left hip and left distal clavicle. The patient had been in the intensive care unit as a result of A. fib with RVR which is new onset. He had initially had been treated with diltiazem in the emergency department and he was transitioned to amiodarone. The patient had been in normal sinus rhythm after this and he quickly went back into atrial fibrillation and amiodarone was restarted. The patient had been in persistent atrial fibrillation in spite of the amiodarone and this had been discontinued and he had been started on digoxin with an initial IV loading dose, renally dosed, of 0.25 mg followed every 6 hours by another IV dose of 0.25 mg for maximum dose of 1.5 mg. Patient had been reported to be in pain and very anxious and he had remained tachycardic and still in atrial fibrillation. When the patient was calm monitor had shown that he was rate controlled with a rate around 80 to 85 bpm. The patient also has a history of CLL and he is on oral chemotherapy for this. The patient was hypomagnesemic and this is been replaced with 2 g of magnesium IV and water. Patient tolerated this well. The patient's vital signs otherwise have been stable. Orthopedic surgery has reported that the [facility] does not feel comfortable with anesthesia for the patient. The patient is currently angry about being transferred. As of this weekend we will not have orthopedic support. This is the rationale for transfer today. I had a discussion with [place] instructor private Dr. Marrero, with regards to the EKG and treatment is previously outlined. Also, , orthopedic surgeon who reported that he would be able to accept the patient. The patient's rehabilitation course would likely be complicated because of the use of Imbruvica for his chronic lymphocytic leukemia. The patient's family and the patient will follow up with his oncologist. The patient is also currently anticoagulated with heparin 5000 units subcu every 8 hours due to his decreased EGFR. The patient's hemoglobin was noted to be at 8.9 g/dL and this should be monitored continually for possible transfusion if necessary. The patient and the patient's family have been advised of this. Hospitalist, Dr. Patel, who graciously accepted the patient. The patient will be kept n.p.o. with IV of lactated Ringer's running as well as IV Dilaudid and Ativan as necessary for transportation. The patient has been discharged from hospitalization with ambulance transportation to be arranged. The patient is otherwise hem odynamically stable. - Patient Instructions Diet: NPO Activity: Bedrest, May Use Bathroom - Discharge Plan *PRESCRIPTION DRUG MONITORING PROGRAM REVIEWED*: No *COPY OF PRESCRIPTION DRUG MONITORING REPORT IN PATIENT SOM: No Home Medications: Home Meds Multivitamin with Minerals [Multiple Vitamin] 1 tab PO DAILY 01/27/15 [History] Ibrutinib [Imbruvica] 420 mg PO DAILY 01/01/16 [History] Calcium Citrate/Vitamin D3 [Calcium Citrate - Vit D3 Tab] 1 tab PO DAILY 12/04/18 [History] hydrOXYzine pamoate [Hydroxyzine Pamoate] 50 mg PO TID PRN 12/04/18 [History] Levothyroxine 25 mcg PO DAILY 12/06/18 [History] Metoprolol Succinate [Toprol XL] 25 mg PO DAILY #60 12/06/18 [Rx] amLODIPine Besylate [Norvasc] 5 mg PO BID #60 tablet 12/06/18 [Rx] Acetaminophen [Tylenol] 325 mg PO Q4HR PRN 09/10/20 [History] Venlafaxine [Effexor XR] 150 mg PO DAILY 09/10/20 [History] Digoxin [Lanoxin] 250 mcg IVPUSH Q6H amp 03/07/21 [Rx] HYDROmorphone [Dilaudid] 1 mg IVPUSH Q2H PRN syringe 03/07/21 [Rx] Heparin Sodium 5,000 units SUBCUT Q8H vial 03/07/21 [Rx] LORazepam [Ativan] 1 mg PO Q6H PRN tablet 03/07/21 [Rx] Ondansetron [Zofran ODT] 4 mg PO Q4H PRN tab.dis 03/07/21 [Rx] Pantoprazole [ProTONIX] 40 mg PO BID tab.cr 03/07/21 [Rx] Sodium Chloride 0.9% [Normal Saline] 125 ml IV ASDIRECTED bag 03/07/21 [Rx] oxyCODONE 10 mg PO Q6H PRN tablet 03/07/21 [Rx] Oxygen Therapy Mode: Nasal Cannula Oxygen Flow Rate (L/min): 2.5 Patient Handouts: Atrial Fibrillation, [id number] Forms: ED Department Discharge Referrals: Santhosh Abebe MD [Primary Care Provider] - - Discharge Summary/Plan Comment DC Time >30 min.: Yes - General Info Date of Service: 03/07/21 Admission Dx/Problem (Free Text: Admission Diagnosis/Problem Admission Diagnosis/Problem Atrial flutter with rapid ventricular response, left hip and left distal clavicle fracture from mechanical fall. Subjective Update: The patient still has been in pain. He is concerned about not having anything to eat. He is concerned about the transportation. Functional Status: Reports: Pain Controlled - Review of Systems General: Reports: No Symptoms HEENT: Reports: No Symptoms Pulmonary: Reports: No Symptoms Cardiovascular: Reports: No Symptoms Gastrointestinal: Reports: No Symptoms Genitourinary: Reports: No Symptoms Musculoskeletal: Reports: Shoulder Pain, Leg Pain Skin: Reports: No Symptoms Neurological: Reports: No Symptoms Psychiatric: Reports: Anxiety, Agitation - Patient Data Vitals - Most Recent: Last Vital Signs Temp 36.1 C 03/07/21 08:00 Pulse 118 H 03/07/21 08:11 Resp 24 H 03/07/21 08:00 BP 138/78 03/07/21 08:21 Pulse Ox 89 L 03/07/21 08:00 Weight - Most Recent: 72.665 kg I&O - Last 24 hours: Intake & Output 03/06/21 03/07/21 03/07/21 22:59 06:59 14:59 Intake Total 1522 1713 Output Total 175 450 150 Balance 1347 1263 -150 Lab Results - Last 24 hrs: Laboratory Results - last 24 hr 03/07/21 03/07/21 Range/Units 06:13 06:13 WBC 8.23 (4.23-9.07) K/mm3 RBC 3.19 L (4.63-6.08) M/mm3 Hgb 8.9 L D (13.7-17.5) gm/dl Hct 28.5 L (40.1-51.0) % MCV 89.3 (79.0-92.2) fl MCH 27.9 (25.7-32.2) pg MCHC 31.2 L (32.2-35.5) g/dl RDW Std Deviation 49.1 H (35.1-43.9) fL Plt Count 171 (163-337) K/mm3 MPV 9.9 (9.4-12.3) fl Neut % (Auto) 85.8 H (34.0-67.9) % Lymph % (Auto) 5.1 L (21.8-53.1) % [place] % (Auto) 7.5 (5.3-12.2) % Eos % (Auto) 1.0 (0.8-7.0) Baso % (Auto) 0.2 (0.1-1.2) % Neut # (Auto) 7.06 H (1.78-5.38) K/mm3 Lymph # (Auto) 0.42 L (1.32-3.57) K/mm3 [place] # (Auto) 0.62 (0.30-0.82) K/mm3 Eos # (Auto) 0.08 (0.04-0.54) K/mm3 Baso # (Auto) 0.02 (0.01-0.08) K/mm3 Manual Slide Review Abnormal smear Sodium 140 (136-145) mEq/L Potassium 4.2 (3.5-5.1) mEq/L Chloride 107 (98-107) mEq/L Carbon Dioxide 23 (21-32) mEq/L Anion Gap 14.2 (5-15) BUN 27 H (7-18) mg/dL Creatinine 1.9 H (0.7-1.3) mg/dL Est Cr Clr Drug Dosing 32.50 mL/min Estimated GFR (MDRD) 35 (>60) mL/min BUN/Creatinine Ratio 14.2 (14-18) Glucose 99 (70-99) mg/dL Calcium 7.9 L (8.5-10.1) mg/dL Magnesium 1.6 L (1.8-2.4) mg/dL Total Bilirubin 0.5 (0.2-1.0) mg/dL AST 17 (15-37) U/L ALT 19 (16-63) U/L Alkaline Phosphatase 72 (46-116) U/L C-Reactive Protein 17.7 H* (<1.0) mg/dL Total Protein 5.1 L (6.4-8.2) g/dl Albumin 2.8 L (3.4-5.0) g/dl Globulin 2.3 gm/dL Albumin/Globulin Ratio 1.2 (1-2) Med Orders - Current: Current Medications Acetaminophen (Acetaminophen 325 Mg Tab) 650 mg PO Q4H PRN PRN Reason: Pain (Mild 1-3)/fever Amlodipine Besylate (Amlodipine 5 Mg Tab) 5 mg PO BID [facility] Last Admin: 03/07/21 08:21 Dose: 5 mg Documented by: Benzocaine/Menthol (Benzocaine/Cetylpyridinium/Menthol Lozenge) 1 lozenge MUCMEM 6XDAY PRN PRN Reason: Sore Throat Last Admin: 03/07/21 06:19 Dose: 1 lozenge Documented by: Digoxin (Digoxin 500 Mcg/2 Ml Amp) 250 mcg IVPUSH Q6H [facility] Stop: 03/07/21 13:01 Last Admin: 03/07/21 07:29 Dose: 250 mcg Documented by: Heparin Sodium (Porcine) (Heparin Sodium 5,000 Units/Ml Vial) 5,000 units SUBCUT Q8H [facility] Last Admin: 03/07/21 05:31 Dose: 5,000 units Documented by: Hydromorphone HCl (Hydromorphone 1 Mg/Ml Syringe) 1 mg IVPUSH Q2H PRN PRN Reason: Pain Last Admin: 03/07/21 11:03 Dose: 1 mg Documented by: Hydroxyzine HCl (Hydroxyzine Hcl 50 Mg Tab) 50 mg PO TID PRN PRN Reason: Anxiety Last Admin: 03/07/21 01:17 Dose: 50 mg Documented by: Sodium Chloride (Normal Saline) 1,000 mls @ 100 mls/hr IV ASDIRECTED [facility] Last Admin: 03/07/21 08:25 Dose: 150 mls/hr Documented by: Levothyroxine Sodium (Levothyroxine 25 Mcg Tab) 25 mcg PO ACBRK [facility] Last Admin: 03/07/21 05:30 Dose: 25 mcg Documented by: Lorazepam (Lorazepam 1 Mg Tab) 1 mg PO Q6H PRN PRN Reason: Anxiety Last Admin: 03/07/21 04:19 Dose: 1 mg Documented by: Metoprolol Succinate (Metoprolol Succinate 25 Mg Tab.Er) 25 mg PO DAILY [facility] Last Admin: 03/07/21 08:11 Dose: 25 mg Documented by: Ondansetron HCl (Ondansetron 4 Mg Tab.Dis) 4 mg PO Q4H PRN PRN Reason: nausea, able to take PO Ondansetron HCl (Ondansetron 4 Mg/2 Ml Sdv) 4 mg IV Q4H PRN PRN Reason: Nausea/Vomiting Oxycodone HCl (Oxycodone 5 Mg Tab) 10 mg PO Q6H PRN PRN Reason: Pain Last Admin: 03/07/21 03:49 Dose: 10 mg Documented by: Pantoprazole Sodium (Pantoprazole 40 Mg Tab.Cr) 40 mg PO BID [facility] Last Admin: 03/07/21 08:10 Dose: 40 mg Documented by: Ibrutinib [Imbruvica ] 420 Mg Capsule Ptom 0 each PO DAILY [facility] Last Admin: 03/07/21 08:20 Dose: 1 each Documented by: Sodium Chloride (Sodium Chloride 0.9% 10 Ml Syringe) 10 ml FLUSH ASDIRECTED PRN PRN Reason: Keep Vein Open Last Admin: 03/05/21 10:26 Dose: 10 ml Documented by: Temazepam (Temazepam 7.5 Mg Cap) 7.5 mg PO BEDTIME PRN PRN Reason: Sleep Last Admin: 03/05/21 20:23 Dose: 7.5 mg Documented by: Venlafaxine HCl (Venlafaxine 75 Mg Cap.Er) 150 mg PO DAILY [facility] Last Admin: 03/07/21 08:10 Dose: 150 mg Documented by: Discontinued Medications Bupivacaine HCl (Bupivacaine 0.25% 10 Ml Sdv) Confirm Administered Dose 20 ml .ROUTE .[facility]-MED ONE Stop: 03/06/21 12:09 Diltiazem HCl (Diltiazem 50 Mg/10 Ml Sdv) 10 mg IVPUSH ONETIME ONE Stop: 03/05/21 11:20 Last Admin: 03/05/21 11:28 Dose: 10 mg Documented by: Fentanyl (Fentanyl 100 Mcg/2 Ml Sdv) Confirm Administered Dose 100 mcg .ROUTE .STK-MED ONE Stop: 03/06/21 12:08 Heparin Sodium (Porcine) (Heparin Sodium 5,000 Units/Ml Vial) 5,000 units SUBCUT Q8H [facility] Last Admin: 03/05/21 19:36 Dose: Not Given Documented by: Heparin Sodium (Porcine) (Heparin Sodium 5,000 Units/Ml Vial) 5,000 units SUBCUT Q8H [facility] Last Admin: 03/06/21 07:33 Dose: Not Given Documented by: Hydromorphone HCl (Hydromorphone 0.5 Mg/0.5 Ml Syringe) 0.5 mg IVPUSH ONETIME ONE Stop: 03/05/21 10:55 Last Admin: 03/05/21 11:05 Dose: 0.5 mg Documented by: Hydromorphone HCl (Hydromorphone 0.5 Mg/0.5 Ml Syringe) 0.5 mg IVPUSH ONETIME ONE Stop: 03/05/21 11:20 Last Admin: 03/05/21 11:25 Dose: 0.5 mg Documented by: Hydromorphone HCl (Hydromorphone 0.5 Mg/0.5 Ml Syringe) 0.5 mg IVPUSH Q2H PRN PRN Reason: Pain (severe 7-10) Last Admin: 03/05/21 22:09 Dose: 0.5 mg Documented by: Diltiazem HCl 100 mg/ Sodium (Chloride) 100 mls @ 10 mls/hr IV TITRATE [facility]; Protocol Last Admin: 03/05/21 11:31 Dose: 10 mg/hr, 10 mls/hr Documented by: Amiodarone HCl/Dextrose (Nexterone In Dextrose 360 Mg/200 Ml) 360 mg in 200 mls @ 33.333 mls/hr IV ASDIRECTED [facility]; Protocol Last Admin: 03/05/21 15:14 Dose: 33.333 mls/hr Documented by: Amiodarone HCl/Dextrose (Nexterone In Dextrose 150 Mg/100 Ml) 100 mls @ 600 mls/hr IV .[facility]; Protocol Stop: 03/05/21 15:09 Last Admin: 03/05/21 14:57 Dose: 600 mls/hr Documented by: Magnesium Sulfate 2 gm/ Premix 50 mls @ 25 mls/hr IV ONETIME ONE Stop: 03/06/21 09:59 Last Admin: 03/06/21 08:22 Dose: 25 mls/hr Documented by: Lactated Ringer's (Ringers, Lactated) 1,000 mls @ 100 mls/hr IV ASDIRECTED [facility] Last Admin: 03/06/21 08:23 Dose: 100 mls/hr Documented by: Amiodarone HCl/Dextrose (Nexterone In Dextrose 150 Mg/100 Ml) 100 mls @ 600 mls/hr IV .[facility]OL[facility] ONE; Protocol Stop: 03/06/21 12:40 Last Admin: 03/06/21 12:59 Dose: 600 mls/hr Documented by: Amiodarone HCl/Dextrose (Nexterone In Dextrose 360 Mg/200 Ml) 360 mg in 200 mls @ 33.333 mls/hr IV ASDIRECTED [facility]; Protocol Last Admin: 03/07/21 02:14 Dose: 16.7 mls/hr Documented by: Lactated Ringer's (Ringers, Lactated) Confirm Administered Dose 1,000 mls @ as directed .ROUTE .STK-MED ONE Stop: 03/06/21 12:49 Magnesium Sulfate 2 gm/ Premix 50 mls @ 25 mls/hr IV ONETIME ONE Stop: 03/07/21 09:08 Last Admin: 03/07/21 07:30 Dose: 25 mls/hr Documented by: Ketamine HCl (Ketamine 500 Mg/10 Ml Mdv) Confirm Administered Dose 500 mg .ROUTE .STK-MED ONE Stop: 03/06/21 12:09 Lorazepam (Lorazepam 1 Mg Tab) 1 mg PO 0700,1200 PRN PRN Reason: Anxiety Midazolam HCl (Midazolam 1 Mg/Ml 2 Ml Sdv) Confirm Administered Dose 2 mg .ROUTE .STK-MED ONE Stop: 03/06/21 12:09 Ibrutinib [Imbruvica ] 420 Mg Capsule Ptom 0 each PO DAILY [facility] Last Admin: 03/06/21 16:38 Dose: Not Given Documented by: Propofol (Propofol 200 Mg/20 Ml Sdv) Confirm Administered Dose 200 mg .ROUTE .[facility]-MED ONE Stop: 03/06/21 12:09 - Exam Quality Assessment: Reports: Supplemental Oxygen, DVT Prophylaxis General: Reports: Alert, Oriented, Moderate Distress HEENT: Reports: Pupils Equal, Pupils Reactive Neck: Reports: Supple, Trachea Midline Lungs: Reports: Clear to Auscultation, Normal Respiratory Effort Cardiovascular: Reports: Irregular Rhythm, Tachycardia GI/Abdominal Exam: Normal Bowel Sounds, Soft, Non-Tender, No Distention (Male) Exam: Deferred Rectal (Males) Exam: Deferred Back Exam: Denies: Normal Inspection (Patient unable to sit up due to pain in hip), Full Range of Motion (Due to left hip fracture) Extremities: Normal Inspection, No Pedal Edema Skin: Reports: Warm, Dry, Ecchymosis Neurological: Reports: No New Focal Deficit. Denies: Normal Gait Psy/Mental Status: Reports: Anxious, Agitated, Other (Anger) *Q Meaningful Use (DIS) - VTE *Q VTE Mechanical Contraindications *Q: At Risk for Falls
[2021-03-07 12:54] VITALS: BP 122/90
[2021-03-07 13:29] VITALS: PULSE 118
--- NOTE | 2021-03-11 06:34 | PCM.EKG ---
#1 Interpretation EKG Date: 03/06/21 Time: 12:26 Rhythm: A-Fib Rate (Beats/Min): 119 [place]: Normal P-Wave: Absent QRS: RBBB ST-T: Normal QT: Normal Comparison: No Change EKG Interpretation Comments: EKG a-fib with RVR and right bundle branch block.
--- NOTE | 2021-03-12 15:13 | CONS ---
CONSULTING PHYSICIAN: Edgar Steward MD DATE OF CONSULTATION: 03/05/2021 HISTORY OF PRESENT ILLNESS: This is a 75-year-old male who is known to me previously, who came in on ambulance to the emergency department secondary to fall. The patient tripped outside. He landed on his left hip. He had immediate pain and deformity. He subsequently denies previous left hip pain before this happened. He was scheduled for reverse total shoulder arthroplasty before this. He was found to have an intertrochanteric hip fracture, and I was consulted. OBJECTIVE: Skin is intact. No erythema, no warmth. He does have shortening as well as external rotation of left lower extremity. He is able to dorsiflex and plantarflex his ankle. Minimal knee tenderness. He is neurovascularly intact L2 through S1 with 2+ distal pulses. IMAGING: Radiographs show a left intertrochanteric hip fracture with shortening and displacement. ASSESSMENT: Displaced left intertrochanteric hip fracture. PLAN: The patient, I, and his family did discuss I would recommend cephalomedullary nailing of the left intertrochanteric hip fracture either today or tomorrow. At this time, discussing with the hospitalist who is admitting, the patient did have new-onset atrial fibrillation. At this time, the patient was placed on heparin and we will plan on doing surgical fixation if possible the next day. If not, the patient will have to be transferred out for higher level of care. They are in agreement with this plan. DIANA /[id number]
== END 2021-03-07 13:45 | DRG 562 ==
LOC: JD.ED 10:01 → JD.ICU 12:24
PROVIDERS: ADMIT Internal Medicine; ATTEND Internal Medicine
DX: S42.035A Nondisplaced fracture of lateral end of left clavicle, initial encounter for closed fracture (principal); S72.142A Displaced intertrochanteric fracture of left femur, initial encounter for closed fracture; I48.91 Unspecified atrial fibrillation; I48.19 Other persistent atrial fibrillation; C91.90 Lymphoid leukemia, unspecified not having achieved remission; C91.10 Chronic lymphocytic leukemia of B-cell type not having achieved remission; I10 Essential (primary) hypertension; R33.9 Retention of urine, unspecified; E83.42 Hypomagnesemia; Z20.822 Contact with and (suspected) exposure to COVID-19; D64.9 Anemia, unspecified; R21 Rash and other nonspecific skin eruption; S09.90XA Unspecified injury of head, initial encounter; M54.2 Cervicalgia; H54.7 Unspecified visual loss; K21.9 Gastro-esophageal reflux disease without esophagitis; M19.90 Unspecified osteoarthritis, unspecified site; F41.9 Anxiety disorder, unspecified; F32.9 Major depressive disorder, single episode, unspecified; E03.9 Hypothyroidism, unspecified; Z88.8 Allergy status to other drugs, medicaments and biological substances; Z79.82 Long term (current) use of aspirin; Z79.899 Other long term (current) drug therapy; Z87.891 Personal history of nicotine dependence; W01.0XXA Fall on same level from slipping, tripping and stumbling without subsequent striking against object, initial encounter
CPT/HCPCS: 36415; 51702; 70450; 71045; 72125; 73030; 73060; 73502; 80053; 84484; 85025; 85610; 85730; 93005; 96365; 96375; 96376; 99285; J1170 ×2; J3490 ×2; U0002; 83735; 86140; 87641; 93010; 99222; 99233; 99239; A9270-GY; J0282; J1160; J1644; J2250; J2704; J3010; J3475; J7030; J7120

== ENCOUNTER 2024-07-07 19:15 | Emergency (ER) | payer MEDICARE ==
[2024-07-07] MEDS ORDERED: Sodium Chloride 0.9% 10 ML Syringe FLUSH PRN (19:40)
[2024-07-07 20:00] LABS: BASOPHILS PERCENT AUTO 0.1 % (0.0-1.0); EOSINOPHILS ABSOLUTE AUTO 0.1 K/mm3 (0.0-0.4); HEMATOCRIT 31.7 % (42.0-52.0); HEMOGLOBIN 10.4 gm/dl (14.0-18.0); IMMATURE GRAN ABSOLUTE AUTO 0.16 K/mm3 (0.00-0.05); IMMATURE GRAN PERCENT AUTO 2.4 % (0.0-0.4); LYMPHOCYTES ABSOLUTE AUTO 0.8 K/mm3 (1.0-4.8); LYMPHOCYTES PERCENT AUTO 11.6 % (24.0-44.0); MEAN CORPUSCULAR HEMOGLOBIN 28.3 pg (28.0-32.0); MEAN CORPUSCULAR HGB CONC 32.8 g/dl (32.0-36.0); MEAN CORPUSCULAR VOLUME 86.4 fl (83.0-99.0); MONOCYTES ABSOLUTE AUTO 0.4 K/mm3 (0.0-0.8); NEUTROPHILS ABSOLUTE AUTO 5.3 K/mm3 (1.8-7.7); NEUTROPHILS PERCENT AUTO 78.9 % (41.0-71.0); PLATELET COUNT,PLT 113 K/mm3 (150-400); RED BLOOD CELL COUNT 3.67 M/mm3 (4.52-5.90); WHITE BLOOD CELL COUNT,WBC 6.72 K/mm3 (3.9-11.3)
[2024-07-07] MEDS ORDERED: Ondansetron 4 MG in Sodium Chloride 0.9% 50 ML IV ONE (20:11)
[2024-07-07] MEDS: Ondansetron 4 MG/2 ML SDV IVPUSH STA (20:15)
[2024-07-07] MEDS: fentaNYL 100 MCG/2 ML SDV IVPUSH ONE (20:17)
[2024-07-07 20:21] LABS: ALBUMIN 3.2 g/dl (3.4-5.0); ANION GAP 12.1 (5-15); BILIRUBIN TOTAL 0.8 mg/dL (0.2-1.0); BUN/CREATININE RATIO 12.3 (14-18); CALCIUM 8.4 mg/dL (8.5-10.1); CREATININE 1.3 mg/dL (0.7-1.3); EST CRCL DRUG DOSING (CG) 43.78 mL/min; MAGNESIUM 1.6 mg/dL (1.8-2.4); POTASSIUM,K 3.1 mEq/L (3.5-5.1); PROTEIN TOTAL,TP 6.4 g/dl (6.4-8.2)
[2024-07-07] MEDS: Morphine 4 MG/ML Syringe IVPUSH ONE (21:14)
[2024-07-07] MEDS: Magnesium Oxide 400 MG Tab PO ONE (21:46)
[2024-07-07] MEDS: Potassium Chloride 20 MEQ Tab.ER PO ONE (21:50)
[2024-07-07] MEDS: Doxycycline Monohydrate 100 MG Cap PO ONE (22:05)
[2024-07-07 22:54] VITALS: BP 143/88; PULSE 94
== END 2024-07-07 22:54 | disposition home or self-care (01) ==
LOC: JD.ED 19:15
DX: J06.9 Acute upper respiratory infection, unspecified (principal); M54.2 Cervicalgia; R51.9 Headache, unspecified; I10 Essential (primary) hypertension; K21.9 Gastro-esophageal reflux disease without esophagitis; E03.9 Hypothyroidism, unspecified; Z90.89 Acquired absence of other organs; Z79.890 Hormone replacement therapy; Z79.899 Other long term (current) drug therapy
CPT/HCPCS: 36415; 70450; 71045; 72125; 80053; 83735; 85025; 87428; 96374; 96375; 99284; A9270; J2270; J2405; J3010

== ENCOUNTER 2024-12-12 09:59 | Inpatient (IN) | payer MEDICARE ==
[2024-12-12] MEDS ORDERED: Sodium Chloride 0.9% 10 ML Syringe FLUSH PRN (11:03)
[2024-12-12 11:50] LABS: HEMATOCRIT 33.9 % (42.0-52.0); HEMOGLOBIN 10.9 gm/dl (14.0-18.0); MEAN CORPUSCULAR HEMOGLOBIN 28.8 pg (28.0-32.0); MEAN CORPUSCULAR HGB CONC 32.2 g/dl (32.0-36.0); MEAN CORPUSCULAR VOLUME 89.4 fl (83.0-99.0); MEAN PLATELET VOLUME 10.6 fl (9.4-12.4); PLATELET COUNT,PLT 108 K/mm3 (150-400); RED BLOOD CELL COUNT 3.79 M/mm3 (4.52-5.90); WHITE BLOOD CELL COUNT,WBC 3.88 K/mm3 (3.9-11.3)
[2024-12-12] MEDS: Sodium Chloride 0.9% 1,000 ML IV ONE (12:03)
[2024-12-12] MEDS: Sodium Chloride 0.9% 10 ML Syringe FLUSH ONE (12:05)
[2024-12-12] MEDS: HYDROmorphone 0.5 MG/0.5 ML Syringe IVPUSH ONE (12:05)
[2024-12-12] MEDS: Ondansetron 4 MG/2 ML SDV IVPUSH ONE (12:06)
[2024-12-12 12:18] LABS: LACTIC ACID 1.4 mmol/L (0.4-2.0)
[2024-12-12 12:23] LABS: INR 1.2; PROTHROMBIN TIME 12.6 SECONDS (9.7-12.0)
[2024-12-12 12:24] LABS: A/G RATIO 1.2 (1-2); ALBUMIN 3.1 g/dl (3.4-5.0); BILIRUBIN TOTAL 1.4 mg/dL (0.2-1.0); C-REACTIVE PROTEIN 8.48 mg/dL (<0.30); CALCIUM 8.5 mg/dL (8.5-10.1); PROTEIN TOTAL,TP 5.8 g/dl (6.4-8.2)
[2024-12-12 12:29] LABS: CREATININE 2.4 mg/dL (0.7-1.3); EST CRCL DRUG DOSING (CG) 24.34 mL/min
[2024-12-12 12:38] LABS: APPEARANCE,URINE TURBID (Clear); BILIRUBIN,URINE 2+ (Negative); COLOR,URINE AMBER (Yellow); GLUCOSE,URINE NEGATIVE (Negative); KETONES,URINE 1+ (Negative); LEUKOCYTE ESTERASE,URINE NEGATIVE (Negative); NITRITE,URINE NEGATIVE (Negative); OCCULT BLOOD,URINE 3+ (Negative); PH,URINE 5.5 (5.0-8.0); PROTEIN,URINE 3+ (Negative); UROBILINOGEN,URINE 0.2 (0.2-1.0)
[2024-12-12 12:52] LABS: RBC,URINE TOO NUMEROUS TO CNT /hpf (0-5)
[2024-12-12 12:53] LABS: BACTERIA,URINE FEW /hpf (FEW); EPITHELIAL CELLS,URINE 0-5 /hpf (0-5); MUCUS,URINE FEW /hpf (FEW); WBC,URINE 0-5 /hpf (0-5)
[2024-12-12 12:55] LABS: YEAST BUDDING,URINE FEW (NOT SEEN)
[2024-12-12 13:33] LABS: BAND PERCENT MAN 1 % (0-10); BASOPHILS PERCENT MAN 0 (0.2-1.2); EOSINOPHILS PERCENT MAN 3 % (0.8-7.0); LYMPHOCYTES % ATYPICAL MANUAL 0 %; LYMPHOCYTES PERCENT MAN 11 % (20-40); MONOCYTES PERCENT MAN 4 % (2-10)
[2024-12-12 13:34] LABS: PLATELET COUNT ESTIMATE DECREASED
[2024-12-12 13:36] LABS: OVALOCYTES 1+ SLIGHT
[2024-12-12] MEDS ORDERED: Sennosides/Docusate Sodium 50-8.6 MG Tab PO PRN (16:47)
[2024-12-12] MEDS ORDERED: Ondansetron 4 MG/2 ML SDV IV PRN (16:47)
[2024-12-12] MEDS ORDERED: Melatonin 3 MG Tab PO PRN (16:47)
[2024-12-12] MEDS: Iopamidol 612 MG/ML 100 ML Bottle IVPUSH ONE (17:00)
[2024-12-12] MEDS: Lactated Ringers 1,000 ML IV SCH (17:17)
[2024-12-12] MEDS ORDERED: Baclofen 10 MG Tab PO PRN (17:33)
[2024-12-12] MEDS: Pantoprazole 40 MG Tab.CR PO SCH (20:29)
[2024-12-12] MEDS: Apixaban 5 MG Tab PO SCH (20:29)
[2024-12-12] MEDS: OLANZapine 5 MG Tab PO SCH (20:30)
[2024-12-12] MEDS: Metoprolol Succinate 50 MG Tab.ER PO SCH (20:30)
[2024-12-12] MEDS ORDERED: Non-Formulary Medication 1 Each (Omeprazole 20 MG Capsule.Dr) PO SCH (21:00)
[2024-12-13 04:36] LABS: BASOPHILS PERCENT AUTO 0.3 % (0.0-1.0); EOSINOPHILS ABSOLUTE AUTO 0.2 K/mm3 (0.0-0.4); EOSINOPHILS PERCENT AUTO 4.2 % (0.0-6.0); HEMATOCRIT 34.6 % (42.0-52.0); IMMATURE GRAN ABSOLUTE AUTO 0.02 K/mm3 (0.00-0.05); IMMATURE GRAN PERCENT AUTO 0.6 % (0.0-0.4); LYMPHOCYTES ABSOLUTE AUTO 0.4 K/mm3 (1.0-4.8); LYMPHOCYTES PERCENT AUTO 10.9 % (24.0-44.0); MEAN CORPUSCULAR HEMOGLOBIN 28.6 pg (28.0-32.0); MEAN CORPUSCULAR HGB CONC 31.8 g/dl (32.0-36.0); MEAN CORPUSCULAR VOLUME 90.1 fl (83.0-99.0); MEAN PLATELET VOLUME 9.8 fl (9.4-12.4); MONOCYTES ABSOLUTE AUTO 0.3 K/mm3 (0.0-0.8); MONOCYTES PERCENT AUTO 8.4 % (0.0-8.0); NEUTROPHILS ABSOLUTE AUTO 2.7 K/mm3 (1.8-7.7); NEUTROPHILS PERCENT AUTO 75.6 % (41.0-71.0); PLATELET COUNT,PLT 91 K/mm3 (150-400); RED BLOOD CELL COUNT 3.84 M/mm3 (4.52-5.90); WHITE BLOOD CELL COUNT,WBC 3.59 K/mm3 (3.9-11.3)
[2024-12-13 05:21] LABS: A/G RATIO 1.1 (1-2); ALBUMIN 2.6 g/dl (3.4-5.0); ANION GAP 12.8 (5-15); BILIRUBIN TOTAL 1.2 mg/dL (0.2-1.0); BUN/CREATININE RATIO 4.6 (14-18); CALCIUM 8.1 mg/dL (8.5-10.1); CREATININE 2.8 mg/dL (0.7-1.3); EST CRCL DRUG DOSING (CG) 19.97 mL/min; MAGNESIUM 1.3 mg/dL (1.8-2.4); PHOSPHORUS 3.4 mg/dL (2.6-4.7); POTASSIUM,K 3.8 mEq/L (3.5-5.1); TSH 1.496 uIU/mL (0.358-3.74)
[2024-12-13 05:31] LABS: SLIDE REVIEW ABNORMAL SMEAR
[2024-12-13] MEDS: Levothyroxine 50 MCG Tab PO SCH (06:30)
[2024-12-13] MEDS: Aspirin 81 MG Tab.EC PO SCH (08:10)
[2024-12-13] MEDS: Ferrous Sulfate 324 MG Tab.EC PO SCH (08:10)
[2024-12-13] MEDS: Donepezil 10 MG Tab PO SCH (08:11)
[2024-12-13] MEDS: Calcium Carbonate/Vitamin D3 600 MG-200 Units Tab PO SCH (08:11)
[2024-12-13] MEDS: Dextrose 5%-0.45% NaCl 1,000 ML IV SCH (11:01)
[2024-12-13] MEDS: Potassium Chloride 20 MEQ Tab.ER PO ONE (11:05)
[2024-12-13] MEDS: Saccharomyces Boulardii (Probiotic) 250 MG Cap PO SCH (12:03)
[2024-12-13] MEDS: Loperamide 2 MG Cap PO ONE (12:03)
[2024-12-13] MEDS: Magnesium Sulf/Wat 4 GM/50 mL 4 GM in Premix Bag 1 BAG IV ONE (12:42)
[2024-12-13] MEDS: Non-Formulary Medication 1 Each (Ibrutinib [Imbruvica] 140 MG Capsule) PO SCH (14:42)
[2024-12-14 05:16] LABS: ANION GAP 10.7 (5-15); BUN/CREATININE RATIO 3.9 (14-18); CREATININE 4.9 mg/dL (0.7-1.3); EST CRCL DRUG DOSING (CG) 11.41 mL/min; MAGNESIUM 2.6 mg/dL (1.8-2.4); POTASSIUM,K 3.7 mEq/L (3.5-5.1)
[2024-12-14] MEDS: Acetaminophen 325 MG Tab PO PRN (09:36)
[2024-12-14] MEDS: Loperamide 2 MG Cap PO PRN (12:37)
[2024-12-14] MEDS: Lactated Ringers 1,000 ML IV SCH (12:40)
[2024-12-15 05:31] LABS: ANION GAP 13.1 (5-15); BUN/CREATININE RATIO 3.3 (14-18); CALCIUM 7.9 mg/dL (8.5-10.1); CREATININE 6.6 mg/dL (0.7-1.3); EST CRCL DRUG DOSING (CG) 8.47 mL/min; POTASSIUM,K 4.1 mEq/L (3.5-5.1)
[2024-12-15] MEDS: LORazepam 2 MG/ML SDV IV PRN (12:27)
[2024-12-15] MEDS: Lactated Ringers 1,000 ML IV SCH (12:27)
[2024-12-15 13:40] VITALS: BP 138/64; PULSE 75
== END 2024-12-15 13:35 | DRG 683 ==
LOC: JD.ED 09:59 → JD.MS 14:27
PROVIDERS: ADMIT Student in an Organized Health Care Education/Training Program; ATTEND Student in an Organized Health Care Education/Training Program
DX: N17.9 Acute kidney failure, unspecified (principal); R53.1 Weakness; I10 Essential (primary) hypertension; C85.93 Non-Hodgkin lymphoma, unspecified, intra-abdominal lymph nodes; C91.10 Chronic lymphocytic leukemia of B-cell type not having achieved remission; J98.11 Atelectasis; J96.11 Chronic respiratory failure with hypoxia; Z79.82 Long term (current) use of aspirin; I47.20 Ventricular tachycardia, unspecified; Z79.899 Other long term (current) drug therapy; K52.1 Toxic gastroenteritis and colitis; Z66 Do not resuscitate; J98.4 Other disorders of lung; E03.9 Hypothyroidism, unspecified; I48.91 Unspecified atrial fibrillation; J84.10 Pulmonary fibrosis, unspecified; I27.20 Pulmonary hypertension, unspecified; K57.30 Diverticulosis of large intestine without perforation or abscess without bleeding; E86.0 Dehydration; I70.1 Atherosclerosis of renal artery; K80.20 Calculus of gallbladder without cholecystitis without obstruction; R13.10 Dysphagia, unspecified; E87.6 Hypokalemia; E83.42 Hypomagnesemia; K21.9 Gastro-esophageal reflux disease without esophagitis; F41.9 Anxiety disorder, unspecified; F32.A Depression, unspecified; M19.90 Unspecified osteoarthritis, unspecified site; Z88.8 Allergy status to other drugs, medicaments and biological substances; Z87.891 Personal history of nicotine dependence; Z98.42 Cataract extraction status, left eye; Z98.41 Cataract extraction status, right eye; Z90.89 Acquired absence of other organs; Z79.890 Hormone replacement therapy; Z79.01 Long term (current) use of anticoagulants; T50.995A Adverse effect of other drugs, medicaments and biological substances, initial encounter; Y92.89 Other specified places as the place of occurrence of the external cause
CPT/HCPCS: 36415; 51798; 70450; 70450-26; 71045; 71045-26; 74176; 74176-26; 76770; 76770-26; 80048; 80053; 81001; 82550; 83605; 83615; 83690; 83735; 84100; 84443; 84484; 85007; 85025; 85027; 85610; 85652; 86140; 87040; 87428-QW; 87493; 93976; 94760; 94761; 96361; 96374; 96375; 99285; 99285-25; A9270-GY; J2060; J2405; J3475; J7030; J7120